=== PATIENT | female | born 1990 | race Caucasian/White ===

== ENCOUNTER → 2022-06-05 | Outpatient (CLI) | payer OTHER, SELFPAY ==
[2022-06-05 12:42] LABS: hCG Titer Quant., Serum 18632 mIU/mL (1-3)
[2022-06-07 15:07] LABS: Dilute Prothrombin Time (dPT) 35.8 sec (0.0-47.6); Dilute Russell Viper Venom 33.1 sec (0.0-47.0); Thrombin Time 15.2 sec (0.0-23.0); dPT Confirm Ratio 0.97 Ratio (0.00-1.34)
[2022-06-08 09:19] LABS: Anti-Cardiolipin Ab, IgG, Qn < 9 GPL U/mL (0-14); Anti-Cardiolipin Ab, IgM, Qn 18 MPL U/mL (0-12)
[2022-06-08 09:20] LABS: Anti-Cardiolipin Ab, IgA, Qn < 9 APL U/mL (0-11); Beta-2-Glycoprotein I IgA <9 (0-25); Beta-2-Glycoprotein I IgG <9 (0-20); Beta-2-Glycoprotein I IgM <9 (0-32); Interpretation Comment: (.); PTT-LA 29.6 sec (0.0-51.9)
[2022-06-09 06:06] LABS: Chlamydia By Nucleic Acid AMP Negative (Negative)
[2022-06-09 18:38] LABS: Gonococcus By Nucleic Acid AMP Negative (Negative)
== END | disposition home or self-care (01) ==
PROVIDERS: Referring Provider Obstetrics & Gynecology; Visit Provider Obstetrics & Gynecology
DX: Z34.90 Encounter for supervision of normal pregnancy, unspecified, unspecified trimester (principal)
CPT/HCPCS: 36415; 84702; 86146; 86147; 87086; 87491; 87591

== ENCOUNTER → 2022-06-07 | Outpatient (CLI) | payer OTHER, SELFPAY ==
[2022-06-07 09:33] LABS: hCG Titer Quant., Serum 15616 mIU/mL (1-3)
== END | disposition home or self-care (01) ==
PROVIDERS: Referring Provider Obstetrics & Gynecology; Visit Provider Obstetrics & Gynecology
DX: O20.0 Threatened abortion (principal); Z3A.00 Weeks of gestation of pregnancy not specified
CPT/HCPCS: 36415; 84702

== ENCOUNTER → 2022-08-23 | Outpatient (CLI) | payer OTHER, SELFPAY ==
[2022-08-25 15:08] LABS: Protein S, Free 110 % (61-136)
[2022-08-25 15:41] LABS: Activated Protein C Resistance 2.9 ratio (2.2-3.5); Anti-Cardiolipin Ab, IgG, Qn < 9 GPL U/mL (0-14); Anti-Cardiolipin Ab, IgM, Qn < 9 MPL U/mL (0-12); Anti-Thrombin 3 AG, Immunol 107 % (72-124); Antithrombin 3 Function 121 % (75-135); Protein C, Functional 109 % (73-180); Protein S, Total 104 % (60-150)
== END | disposition home or self-care (01) ==
PROVIDERS: Referring Provider Obstetrics & Gynecology; Visit Provider Obstetrics & Gynecology
DX: N96 Recurrent pregnancy loss (principal)
CPT/HCPCS: 36415; 85300; 85301; 85303; 85305; 85306; 85307; 86147

== ENCOUNTER → 2024-04-27 | Outpatient (CLI) | payer BC, SELFPAY | END | disposition home or self-care (01) | LOC: LABSPEC 11:58 | PROVIDERS: Referring Provider Nurse Practitioner Women's Health; Visit Provider Nurse Practitioner Women's Health | DX: R30.0 Dysuria (principal) | CPT/HCPCS: 87086 ==

== ENCOUNTER → 2024-05-12 | Outpatient (CLI) | payer BC, SELFPAY ==
[2024-05-12 10:41] LABS: hCG Titer Quant., Serum 3571 mIU/mL (1-3)
[2024-05-15 08:07] LABS: PROGESTERONE 24.2 ng/mL (.)
== END | disposition home or self-care (01) ==
PROVIDERS: Referring Provider Obstetrics & Gynecology; Visit Provider Obstetrics & Gynecology
DX: N96 Recurrent pregnancy loss (principal); N91.2 Amenorrhea, unspecified
CPT/HCPCS: 36415; 84144; 84702

== ENCOUNTER → 2024-05-14 | Outpatient (CLI) | payer BC, SELFPAY ==
[2024-05-14 11:04] LABS: hCG Titer Quant., Serum 6698 mIU/mL (1-3)
== END | disposition home or self-care (01) ==
LOC: LAB 09:54
PROVIDERS: Referring Provider Obstetrics & Gynecology; Visit Provider Obstetrics & Gynecology
DX: Z34.90 Encounter for supervision of normal pregnancy, unspecified, unspecified trimester (principal)
CPT/HCPCS: 36415; 84702

== ENCOUNTER → 2024-05-23 | Outpatient (CLI) | payer BC, SELFPAY ==
--- NOTE | 2024-05-23 09:40 | US_ITS ---
STUDY: FIRST TRIMESTER OBSTETRICAL ULTRASOUND REASON FOR EXAM: Female, 33 years old Hx of recurrent miscarriage LMP: 04/08/2024 TECHNIQUE: Transvaginal TECHNICAL QUALITY: Adequate. PRIOR ULTRASOUND: None. FINDINGS: There is visualization of a single gestational sac in a normal intrauterine position. The mean sac diameter (MSD) measures 2.3 cm, indicating an estimated gestational age (EGA) of 7 weeks, 2 days. The gestational sac shape is within normal limits. There is a visualized yolk sac. The yolk sac measures 0.3 cm. The placenta is non-visualized. There is visualization of a live embryo. The crown-rump length (CRL) measures 0.9 cm, indicating an estimated gestational age (EGA) of 7 weeks, 0 days. There is demonstrated cardiac activity with a heart rate of 123 bpm. The estimated gestation age (EGA) by LMP is 6 weeks, 3 days. The estimated date of delivery (TREVON) by LMP is 01/13/2025. The estimated gestation age (EGA) by US is 7 weeks, 1 days. The estimated date of delivery (TREVON) by US is 01/08/2025. The uterus measures 9.7 x 5.5 x 5.0 cm. There is no demonstrated uterine fibroid. The cervix is closed. The right ovary measures 2.1 x 1.2 x 1.3 cm. There is no right ovarian cyst. There is no visualized right adnexal mass or complex lesion. The left ovary measures 3.6 x 2.8 x 2.6 cm.. There is a solid paraovarian nodule measuring 2 x 2 by 1.6 cm and a likely corpus luteal cyst measuring 2 cm. There is no fluid in the cul de sac. US/Transvaginal w/Preg US IMPRESSION: Single live intrauterine at 7 weeks, 1 day by ultrasound with TREVON of 01/08/2025. Heart rate 123 bpm. No suspicious sonographic findings Electronically Signed: Mulugeta Currie MD at 13:25 EST ,
== END | disposition home or self-care (01) ==
PROVIDERS: Referring Provider Obstetrics & Gynecology; Visit Provider Obstetrics & Gynecology
DX: N96 Recurrent pregnancy loss (principal); N91.2 Amenorrhea, unspecified
CPT/HCPCS: 76817

== ENCOUNTER → 2024-06-10 | Outpatient (CLI) | payer BC, SELFPAY ==
[2024-06-10 12:17] LABS: Absolute Lymphocyte Count 1.89 X10^3/uL (0.83-4.51); Absolute Neutrophil Count 7.1 X10^3/uL (2.0-7.7); Basophil# 0.03 X10^3/uL; Basophil% 0.3 % (0-1); Eosinophil# 0.07 X10^3/uL; Eosinophils% 0.7 % (0-5); Hematocrit 38.8 % (37-47); Hemoglobin 13.2 g/dL (12.0-15.0); Lymphocyte # 1.89 X10^3/ul (0.83-4.51); Lymphocyte % 19.2 % (19-41); Mean Corpuscular Hgb 30.6 pg (27.0-32.0); Monocyte# 0.73 X10^3/uL; Monocyte% 7.4 % (0-10); NRBC Flagged by Analyzer 0 % (0-5); Platelet Count 324 K/mm3 (150-450); RBC Distribution Width CV 12.1 % (11.6-14.6); RBC Distribution Width SD 39.9 fl (35.1-43.9); Red Blood Count 4.31 M/mm3 (4.2-5.4); White Blood Count 9.9 K/mm3 (4.4-11.0)
[2024-06-10 13:57] LABS: HIV - WCH Non-Reactive (Nonreactive); Hepatitis B Surface Antigen Non-Reactive (Nonreactive); Hepatitis C Antibody Non-Reactive (Nonreactive); Rubella IgG Reactive (Nonreactive); Syphilis Antibodies Non-reactive
[2024-06-13 21:07] LABS: Chlamydia By Nucleic Acid AMP Negative (Negative); Gonococcus By Nucleic Acid AMP Negative (Negative)
[2024-06-16 11:08] LABS: HPV APTIMA, High Risk Negative (Negative)
== END | disposition home or self-care (01) ==
LOC: BWCLAB 11:56
PROVIDERS: Referring Provider Advanced Practice Midwife; Visit Provider Advanced Practice Midwife
DX: O09.90 Supervision of high risk pregnancy, unspecified, unspecified trimester (principal); Z3A.00 Weeks of gestation of pregnancy not specified
CPT/HCPCS: 36415; 84443; 85025; 86703; 86762; 86780; 86803; 86850; 86900; 86901; 87086; 87340; 87491; 87591; 87624; 88175; G0145

== ENCOUNTER → 2024-07-07 | Outpatient (CLI) | payer BC, SELFPAY | END | disposition home or self-care (01) | LOC: BWCLAB 08:39 | PROVIDERS: Visit Provider Advanced Practice Midwife | DX: Z34.81 Encounter for supervision of other normal pregnancy, first trimester (principal) | CPT/HCPCS: 36415 ==

== ENCOUNTER → 2024-10-12 | Outpatient (CLI) | payer BC, SELFPAY ==
[2024-10-12 08:24] LABS: Absolute Lymphocyte Count 1.54 X10^3/uL (0.83-4.51); Absolute Neutrophil Count 7.2 X10^3/uL (2.0-7.7); Basophil# 0.03 X10^3/uL; Basophil% 0.3 % (0-1); Eosinophil# 0.07 X10^3/uL; Eosinophils% 0.7 % (0-5); Hematocrit 33.9 % (37-47); Hemoglobin 11.5 g/dL (12.0-15.0); Lymphocyte # 1.54 X10^3/ul (0.83-4.51); Lymphocyte % 16.1 % (19-41); Mean Corp Hgb Conc 33.9 g/dL (32-36); Mean Corpuscular Hgb 32.2 pg (27.0-32.0); Mean Platelet Vol. 9.5 fl (6.2-12.0); Monocyte# 0.54 X10^3/uL; Monocyte% 5.7 % (0-10); NRBC Flagged by Analyzer 0 % (0-5); Neutrophil # 7.16 X10^3/uL (2.7-7.7); Neutrophil % 75.1 % (47-70); Platelet Count 257 K/mm3 (150-450); RBC Distribution Width CV 13.2 % (11.6-14.6); RBC Distribution Width SD 46.3 fl (35.1-43.9); Red Blood Count 3.57 M/mm3 (4.2-5.4); White Blood Count 9.5 K/mm3 (4.4-11.0)
[2024-10-12 09:31] LABS: Glucose Challenge Gest 1H 50g 190 mg/dL (70-140); HIV Nonreactive (Nonreactive); Syphilis Antibodies Nonreactive (Nonreactive)
== END | disposition home or self-care (01) ==
PROVIDERS: Obstetrics & Gynecology; Referring Provider Nurse Practitioner Women's Health; Visit Provider Nurse Practitioner Women's Health
DX: O09.92 Supervision of high risk pregnancy, unspecified, second trimester (principal); Z3A.00 Weeks of gestation of pregnancy not specified
CPT/HCPCS: 36415; 82950; 85025; 86703; 86780

== ENCOUNTER 2024-10-18 10:19 | Outpatient (RCR) | payer BC, SELFPAY | END 2024-11-14 23:59 | LOC: NS 10:19 | PROVIDERS: Referring Provider Nurse Practitioner Women's Health; Visit Provider Nurse Practitioner Women's Health | DX: Z71.3 Dietary counseling and surveillance (principal); O24.419 Gestational diabetes mellitus in pregnancy, unspecified control | CPT/HCPCS: 97802 ==

== ENCOUNTER → 2024-12-15 | Outpatient (CLI) | payer BC, SELFPAY ==
--- NOTE | 2024-12-15 13:21 | US_ITS ---
PROCEDURE: OB LIMITED WITH BIOMETRICS 12/15/2024 REASON FOR EXAM: GDM TECHNIQUE: OB LIMITED WITH BIOMETRICS COMPARISON: None FINDINGS LMP: April 08, 2025 Number: 1 Position: Vertex Placental Position: Anterior and not low-lying Placental Abnormalities: No evidence of previa. DIMENSIONS: Biparietal Diameter: 9 cm: 36 weeks and 2 days: 70 percentile/ Head Circumference: 32 cm: 36 weeks and 1 day: 24 percentile/ Abdominal Circumference: 33.9 cm: 37 weeks and 6 days: 96 percentile/ Femur Length: 6.9 cm: 35 weeks and 2 days: 30 percentile/ ESTIMATED WEIGHT: 3092 g plus/-464 g ESTIMATED WEIGHT PERCENTILE (24+ weeks): 80 ESTIMATED GESTATIONAL AGE: Baseline: 35 weeks and 6 days By Ultrasound: 36 weeks and 1 day ESTIMATED DATE OF DELIVERY: Baseline: January 13, 2025 By Ultrasound: January 11, 2025 BIOPHYSICAL ASSESSMENT: Amniotic Fluid Volume: 4.7 cm Amniotic Fluid Index: 12.9 cm (8-24 cm normal range) Cardiac Motion: 143 beats per minute (average) Trunk and Limb Motion: Present. MATERNAL ANATOMY: Adnexa: Neither maternal ovary is successfully identified. US/OB Limited With Biometrics IMPRESSION: Single live intrauterine gestation with a mean gestational age of 36 weeks and 1 day. Reading Location: [id number]
== END | disposition home or self-care (01) ==
LOC: OPUS 13:19 → US 13:20
PROVIDERS: Referring Provider Advanced Practice Midwife; Visit Provider Advanced Practice Midwife
DX: O24.410 Gestational diabetes mellitus in pregnancy, diet controlled (principal); O09.92 Supervision of high risk pregnancy, unspecified, second trimester; Z3A.00 Weeks of gestation of pregnancy not specified
CPT/HCPCS: 76816

== ENCOUNTER → 2024-12-23 | Outpatient (CLI) | payer BC, SELFPAY | END | disposition home or self-care (01) | LOC: LABSPEC 15:46 | PROVIDERS: Referring Provider Advanced Practice Midwife; Visit Provider Advanced Practice Midwife | DX: O09.93 Supervision of high risk pregnancy, unspecified, third trimester (principal); Z3A.37 37 weeks gestation of pregnancy | CPT/HCPCS: 87081 ==

== ENCOUNTER 2024-12-29 15:05 | Outpatient (CLI) | payer BC, SELFPAY ==
[2024-12-29] VITALS (14 sets, daily range): BP systolic 113–135; BP diastolic 62–74; PULSE 68–88; RESP 16; TEMP 36.8; BMI 25.7
[2024-12-29 16:12] LABS: Hematocrit 34.6 % (37-47); Hemoglobin 12.1 g/dL (12.0-15.0); Mean Corp Hgb Conc 35.0 g/dL (32-36); Mean Corpuscular Volume 93.0 fL (81-99); Mean Platelet Vol. 11.2 fl (6.2-12.0); Platelet Count 233 K/mm3 (150-450); RBC Distribution Width CV 13.1 % (11.6-14.6); RBC Distribution Width SD 44.6 fl (35.1-43.9); Red Blood Count 3.72 M/mm3 (4.2-5.4); White Blood Count 8.9 K/mm3 (4.4-11.0)
[2024-12-29 16:53] LABS: Creatinine, Urine (random) 82.30 mg/dL (28.00-217.00); Protein, Urine (Random) 9.7 mg/dL (0.0-12.0); Protein:Creat Ratio 118 mg/g CRE (0-200)
[2024-12-29 17:06] LABS: Uric Acid 4.5 mg/dL (2.6-6.0)
[2024-12-29 17:13] LABS: AST(SGOT) 30 U/L (<=31); Alanine Aminotransfer ALT/SGPT 15 U/L (<=34); Estimated Creatinine Clearance 99.41 ml/min (50-250)
--- NOTE | 2024-12-29 18:11 | OB.TRI.PN_ITS ---
Progress Notes Date of Service: 12/29/24 Progress Note: Patient presents for triage evaluation secondary to elevated bps FHT: 130 Moderate variability reactive no decelerations category I tracing [place]: no reuglar Contractions Assessment and plan: elevated blood pressures no gestational hypertension 37 weeks, labs WNL repeat bps WNL Reactive NST, reassuring maternal and status patient discharged to home to follow-up as paola. See problem list details for additional plan information. Laboratory Studies: Laboratory Tests 12/29/24 12/29/24 Range/Units 16:15 15:45 WBC 8.9 (4.4-11.0) K/mm3 RBC 3.72 L (4.2-5.4) M/mm3 Hgb 12.1 (12.0-15.0) g/dL Hct 34.6 L (37-47) % MCV 93.0 (81-99) fL MCH 32.5 H (27.0-32.0) pg MCHC 35.0 (32-36) g/dL RDW Std Deviation 44.6 H (35.1-43.9) fl RDW Coeff of Brit 13.1 (11.6-14.6) % Plt Count 233 (150-450) K/mm3 MPV 11.2 (6.2-12.0) fl Creatinine 0.77 (0.70-1.20) mg/dL Estim Creat Clear Calc 99.41 (50-250) ml/min Est GFR (MDRD) Non-Af 106 (>60) Uric Acid 4.5 (2.6-6.0) mg/dL AST 30 (<=31) U/L ALT 15 (<=34) U/L U Random Total Protein 9.7 (0.0-12.0) mg/dL Urine Creatinine 82.30 (28.00-217.00) mg/dL Protein/Creatinin Ratio 118 (0-200) mg/g CRE Charges/Coding Procedures Urinary/Genital [id number]: [id number] non-stress test Interp
== END 2024-12-29 18:00 | disposition home or self-care (01) ==
LOC: LAB 15:07 → WP 15:08
PROVIDERS: Referring Provider Obstetrics & Gynecology; Visit Provider Obstetrics & Gynecology
DX: O99.891 Other specified diseases and conditions complicating pregnancy (principal); R03.0 Elevated blood-pressure reading, without diagnosis of hypertension; Z3A.37 37 weeks gestation of pregnancy
CPT/HCPCS: 36415; 59025; 59050; 82565; 82570; 84156; 84450; 84460; 84550; 85027; 99221; G0378

== ENCOUNTER 2025-01-08 04:14 | Inpatient (IN) | payer BC, SELFPAY ==
[2025-01-08] VITALS (53 sets, daily range): BP systolic 107–143; BP diastolic 55–90; PULSE 74–126; RESP 15–18; TEMP 36.2–37.2; O2SAT 91–100; BMI 25.4
--- OUTSIDE RECORDS SUMMARY | 2025-01-08 03:39 | XMS RPT_ITS | CCD ---
Author Organization [facility] CliniSyfl Care Team Providers Care Sailboat Captain Name Role Phone Saji ESTEVEZ MD, Todd Vásquez Primary Care Provider Dr. Emerald Dunbar Attending Provider [phone] Dr. Todd Romero Primary Care Provider Dr. Todd Romero Referring Provider Dr. Emerald Dunbar Attending Provider [phone] Dr. Todd Romero Primary Care Provider Dr. Todd Romero Referring Provider Saji ESTEVEZ MD, Todd Vásquez Primary Care Provider MISC, PHYSICIAN Attending Unavailable Saji ESTEVEZ MD, Robert Earl Primary Care Provider TRISTIAN FENG Attending Unavailable TODD ROMERO II Primary Care UnavailTODD Weir II Attending UnavailTODD Weir II Primary Care Unavailmarily MATOS PRIMARY MD SEE Primary Care Unavailable AVEL SETHI Attending Unavailable VAIBHAV HALE Referring Unavailable Vaibhav Hale CNM Attending Provider Dr. Emerald Dunbar DO Attending Provider Erinn Porras Attending Provider [phone] Dr. Lindsay Song MD Attending Provider [phone] Erinn Porras Referring Provider [phone] Dr. Todd Romero MD Primary Care Provider [phone] Dr. Todd Romero MD Referring Provider Vaibhav Hale CNM Attending Provider [phone] Dr. Emerald Dunbar DO Attending Provider Vaibhav Hale CNM Referring Provider Julian STONE LAYOUT MARKER-C, Erinn Attending Provider Duncan FRAGOSO, Dr. Montoya Referring Provider Duncan FRAGOSO, Dr. Montoya Other Provider Romero, Todd E Primary Care Unavailable Romero, Todd E Referring Unavailable VandEmerald Haji Attending Unavailabl e Vaibhav Hale Attending Unavailable Romero, Todd E Primary Care Unavailable Vande Velde, Emerald Attending Unavailabl e Romero, Todd E Referring Unavailable Romero, Todd E Primary Care Unavailable Romero, Todd E Referring Unavailable Vande Velde, Emerald Attending Unavailabl e Romero, Todd E Referring Unavailable Romero, Todd E Primary Care Unavailable MarcanthonyLindsay Attending Unavailable Romero, Todd E Primary Care Unavailable Romero, Todd E Referring Unavailable Vaibhav Hale Attending Unavailable Romero, Todd E Primary Care Unavailable Vaibhav Hale Attending Unavailable Romero, Todd E Referring Unavailable Vande Velangélica, Emerald Attending Unavailabl e Julian STONE LAYOUT MARKER, Erinn Attending Unavailable Vaibhav Hale Attending Unavailable Romero, Tdod E Primary Care Unavailable MarcanthonyLindsay Referring Unavailable Marcanthony, Lindsay Attending Unavailable Romero, Todd E Primary Care Unavailable Marcanthony, Lindsay Attending Unavailable Marcanthony, Lindsay Referring Unavailable Romero, Todd E Primary Care Unavailable Marcanthony, Lindsay Attending Unavailable Marcanthony, Lindsay Referring Unavailable Romero, Todd E Primary Care Unavailable Julian STONE LAYOUT MARKER, Erinn Attending Unavailable Williams STONE LAYOUT MARKER, Erinn Referring Unavailable Romero, Todd E Primary Care Unavailable Marcanthony, Lindsay Referring Unavailable Marcanthony, Lindsay Attending Unavailable Romero, Todd E Primary Care Unavailable MarcanthonyLindsay Consulting Unavailable MarcanthonyLindsay Referring Unavailable MarcanthonyLindsay Attending Unavailable Vaibhav Hale Attending Unavailable MarcanthonyLindsay Admitting Unavailable Marcanthony, Lindsay Referring Unavailable Marcanthony, Lindsay Attending Unavailable Romero, Todd E Primary Care Unavailable Vaibhav Hale Referring Unavailable Vaibhav Hale Attending Unavailable Romero, Todd E Primary Care Unavailable Romero, Todd E Primary Care Unavailable Vaibhav Hale Referring Unavailable Vaibhav Hale Attending Unavailable Romero, Todd E Referring Unavailable Romero, Todd E Primary Care Unavailable Marcanthony, Lindsay Attending Unavailable Marcanthony, Lindsay Attending Unavailable Williams STONE LAYOUT MARKER, Erinn Attending Unavailable Romero, Todd E Primary Care Unavailable Romero, Todd E Referring Unavailable Julian STONE LAYOUT MARKER, Erinn Attending Unavailable Vaibhav Hale Attending Unavailable Julian STONE LAYOUT MARKER, Erinn Attending Unavailable Julian STONE LAYOUT MARKER, Erinn Referring Unavailable Vaibhav Hale Referring Unavailable Vaibhav Hale Attending Unavailable Todd Romero Primary Care Unavailable Julian STONE LAYOUT MARKER, Erinn Referring Unavailable Julian STONE LAYOUT MARKER, Erinn Attending Unavailable Todd Romero Primary Care Unavailable Julian STONE LAYOUT MARKER, Erinn Referring Unavailable Julian STONE LAYOUT MARKER, Erinn Attending Unavailable Todd Romero Referring Unavailable Lindsay Song Attending Unavailable Todd Romero Referring Unavailable Todd Romero Primary Care Unavailable Vaibhav Hale Attending Unavailable Medications Current Medications Medication Drug Class(es) Dates Sig (Normalized) Sig (Original) Blood-Glucose Meter misc (12 sources) Start: 10-12-2024 Blood-Glucose Meter misc Active 0 .MEDSUPPLY 1 0 October 12, 2024 12:00am As directed- Test fasting and 2 hours after meals Start: 10-12-2024 Blood-Glucose Meter misc Active 0 .MEDSUPPLY 1 October 12, 2024 12:00am As directed- Test fasting and 2 hours after meals cholecalciferol 0.375 mg/ml oral solution (13 sources) Vitamin D Start: 05-31-2024 take 25 ug by mouth once Cholecalciferol (Vitamin D3) 25 mcg/drop ( 1000 unit/drop) drops Active 25 ug PO ONCE May 31, 2024 1:00am Cod Liver Oil capsule (13 sources) Start: 04-27-2024 Cod Liver Oil capsule Active 1 NMA PO ONCE April 27, 2024 1:00am Multivit 96-Jjgl-Lngxyl 1-Dha (Pnv-Dha) 27 mg iron-1 mg -300 mg capsule (16 sources) Start: 05-23-2022 Multivit 47-Pwxo-Bbmzcg 1-Dha (Pnv-Dha) 27 mg iron-1 mg -300 mg capsule Active NMA PO May 23, 2022 1:00am Start: 05-23-2022 Multivit 47-Ir on-Folate 1-Dha (Pnv-Dha) 27 mg iron-1 mg -300 mg capsule Active CAP PO May 23, 2022 1:00am Start: 05-23-2022 Multivit 47-Ir on-Folate 1-Dha (Pnv-Dha) 27 mg iron-1 mg -300 mg capsule Active CAP PO May 23, 2022 12:00am PNV no.95/ferrous fum/folic ac ( ORAL) (3 sources) Start: 05-23-2022 PNV no.95/ferr ous fum/folic ac ( ORAL) Take by mouth. 05/23/2022 Active Start: 05-23-2022 PNV no.95/ferr ous fum/folic ac ( ORAL) Take by mouth. 0 05/23/2022 Active Comment on above: Take by mouth. thyroid support (13 sources) Start: 04-27-2024 thyroid suppor t Active PO April 27, 2024 1:00am Completed/Discontinued Medications Medication Drug Class(es) Dates Sig (Normalized) Sig (Original) acetaminophen 325 mg / oxyCODONE hydrochloride 5 mg oral tablet (16 sources) Opioid Agonist Start: 06-11-2022 End: 06-14-2022 Oxycodone-Acetamin ophen (Percocet) 5-325 mg tablet Discontinued 1 {tbl} PO Q4H as needed for pain 10 3 0 June 11, 2022 June 13, 2022 1:00am June 14, 2022 1:11am Incomplete Incomplete spontaneous without complication atropine sulfate 0.025 mg / diphenoxylate hydrochloride 2.5 mg oral tablet (11 sources) Anticholinergic, Cholinergic Muscarinic Antagonist, Antidiarrheal Start: 02-21-2021 End: 07-28-2023 take 1 tablet by mouth four times daily as needed diphenoxylate-atro pine (LOMOTIL) 2.5-0.025 mg per tablet Indications: Diarrhea, unspecified type TAKE 1 TABLET BY MOUTH FOUR TIMES DAILY NEEDED 10 tablet 0 03/18/2022 07/28/2023 Discontinued (Course of therapy completed) Comment on above: TAKE 1 TABLET BY RAFAEL TH FOUR TIMES DAILY NEEDED FOR DIARRHEA for up to TEN doses Take 1 tablet by rafael th four times daily as needed for up to 90 days. TAKE 1 TABLET BY RAFAEL TH FOUR TIMES DAILY NEEDED hydrOXYzine hydrochloride 25 mg oral tablet (11 sources) Antihistamine Start: 11-13-2020 End: 07-28-2023 take 0.5 tablet by mouth three times daily as needed for anxiety hydrOXYzine HCl (ATARAX) 25 mg tablet Indications: DARVIN (generalized anxiety disorder) Take 0.5 tablets by mouth three times daily as needed for anxiety (for itching). 10 tablet 0 09/05/2021 07/28/2023 Discontinued (Course of therapy completed) Comment on above: Take 0.5 tablets by mouth three times daily as needed for anxiety (for itching). miSOPROStol 0.2 mg oral tablet (16 sources) Prostaglandin E1 Analog Start: 06-11-2022 End: 06-18-2022 take 1 tablet by mouth once Misoprostol (Cytotec) 200 mcg tablet Discontinued 600 ug PO ONCE 3 0 June 11, 2022 1:00am June 18, 2022 10:37am progesterone 200 mg oral capsule (13 sources) Progesterone Start: 09-11-2022 End: 04-27-2024 Progesterone Micronized (Prometrium) 200 mg capsule Discontinued 200 mg VAGINAL AT BEDTIME 30 4 September 11, 2022 12:00am April 27, 2024 11:27am start taking on day 20 of cycle. stop if menses starts and repeat the next month vitamin e 400 unt/ml oral solution (13 sources) Start: 04-27-2024 End: 05-31-2024 Vitamin E 100 unit/0.25 mL drops Discontinued U PO April 27, 2024 1:00am May 31, 2024 10:43am Problems Active Problems Problem Classification Problem Date Documented Da te Episodic/Chronic Anxiety disorders (20 sources) Generalized anxiety disorder; Translations: [Generalized anxiety disorder] Onset: 12-29-2024 Chronic Comment on above: 5 yr ago, situationa l, hydroxyzine prn then. Stable now Diabetes or abnormal glucose tolerance complicating ; childbirth; or the puerperium (20 sources) Gestational diabetes mellitus; Translations: [Gestational diabetes mellitus in , unspecified control] Onset: 12-29-2024 10-12-2024 Episodic Comment on above: QID testing, nutriti onal referral. Growth US at 36w well controlled, dis cussed reduced testing unless uncontrolled. plan dleiveyr by 40, Growth US at 36w well controlled, dis cussed reduced testing unless uncontrolled. plan dleiveyr by 40, Growth US at 36w-80% Headache; including migraine (13 sources) Migraine; Translations: [Migraine, unspecified, not intractable, without status migrainosus] 12-31-2018 Chronic Other complications of (4 sources) H/O: miscarriage; Translations: [Supervision of with other poor reproductive or obstetric history, unspecified trimester] 05-23-2022 Episodic Other complications of (20 sources) High risk ; Translations: [Supervision of high risk , unspecified, unspecified trimester] 05-23-2022 Episodic Comment on above: PRR, , TREVON , Power PRR, , TREVON , boy (name secret) Power Other complications of (3 sources) Supervision of with other poor reproductive or obstetric history, unspecified trimester; Translations: [Supervision of high-risk with history of ] 06-05-2022 Episodic Other complications of (1 source) Supervision of high risk , unspecified, second trimester; Translations: [Supervision of high risk , unspecified, second trimester] Onset: 12-29-2024 Episodic Other complications of (1 source) Supervision of high risk , unspecified, third trimester; Translations: [Supervision of high risk , unspecified, third trimester] Onset: 12-29-2024 Episodic Other female genital disorders (16 sources) History of abnormal cervical Papanicolaou smear ; Translations: [Personal history of other diseases of the female genital tract] 05-23-2022 Episodic Comment on above: x 1, nl since Other female genital disorders (20 sources) Recurrent loss; Translations: [Recurrent loss without current ] Onset: 12-29-2024 06-18-2022 Episodic Comment on above: nl APL X 3 Other gastrointestinal disorders (1 source) Irritable bowel syndrome with diarrhea; Translations: [Irritable bowel syndrome with diarrhea] Chronic Other gastrointestinal disorders (6 sources) Diarrhea; Translations: [Diarrhea, unspecified] Episodic Other upper respiratory infections (14 sources) Sore throat symptom; Translations: [Acute pharyngitis, unspecified] Onset: 11-23-2018 11-23-2018 Episodic Residual codes; unclassified (16 sources) Past history of procedure; Translations: [Other specified postprocedural states] 05-23-2022 Episodic Comment on above: 2020 Residual codes; unclassified (20 sources) Infertile 04-27-2024 Episodic Residual codes; unclassified (1 source) 37 weeks gestation of ; Translations: [37 weeks gestation of ] Onset: 12-29-2024 Episodic Residual codes; unclassified (1 source) 35 weeks gestation of ; Translations: [35 weeks gestation of ] Onset: 12-15-2024 Episodic Residual codes; unclassified (1 source) 33 weeks gestation of ; Translations: [33 weeks gestation of ] Onset: 12-01-2024 Episodic Residual codes; unclassified (1 source) 31 weeks gestation of ; Translations: [31 weeks gestation of ] Onset: 11-17-2024 Episodic Residual codes; unclassified (1 source) 29 weeks gestation of ; Translations: [29 weeks gestation of ] Onset: 11-03-2024 Episodic Spontaneous (6 sources) with abortive outcome; Translations: [Incomplete spontaneous without complication] 06-11-2022 Episodic Unclassified (1 source) Yearly Exam Onset: 07-28-2023 Past or Other Problems Problem Classification Problem Date Documented Da te Episodic/Chronic Abdominal pain (12 sources) Abdominal pain; Translations: [Unspecified abdominal pain] Onset: 03-18-2018 11-24-2018 Episodic Genitourinary symptoms and ill-defined conditions (1 source) Dysuria; Translations: [Dysuria] Onset: 05-30-2024 Episodic Hemorrhage during ; abruptio placenta; placenta previa (20 sources) Threatened miscarriage; Translations: [Threatened ] Onset: 06-10-2024 10-12-2024 Episodic Comment on above: 3mm subchorionic hem atoma seen reviewed bleeding precautions recommend visits q 2-3 weeks through 14 weeks Other complications of (4 sources) Supervision of high risk , unspecified, unspecified trimester; Translations: [Supervision of unspecified high-risk ] Onset: 06-27-2024 06-05-2022 Episodic Other and delivery including normal (20 sources) ; Translations: [Encounter for supervision of normal , unspecified, unspecified trimester] Onset: 06-10-2024 05-23-2022 Episodic Comment on above: NIPT low risk, gende r male NIPT low risk, gende r male. nl anatomy GBS neg, NIPT low ri sk, gender male. 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 Is patient in pain?: No Allergies No Known Allergies Allergy (Verified 01/03/25 11:42) Medications ???Medication ???Instructions ???Recorded ???Confirmed ???Type multivitamin no.47-iron fum 27 cap PO 05/23/22 01/03/25 History mg-folate no.1 1 mg-dha 300 mg capsule (PNV-DHA) cod liver oil 1 cap PO ONCE 04/27/24 01/03/25 Hi story thyroid support PO 04/27/24 01/03/25 History cholecalciferol (vitamin D3) 25 25 mcg PO ONCE 05/31/24 01/03/25 H istory mcg/drop (1,000 unit/drop) oral drops blood sugar diagnostic (Blood #120 ea 10/12/24 01/03/25 Rx Glucose Test strips) blood-glucose meter #1 ea 10/12/24 01/03/25 Rx lancets #200 ea 10/12/24 01/03/25 Rx Last Menstrual Period: 04/08/24 Zika: Zika virus screening: Negative : No PFSH PFSH Medical History Hx of abnormal cervical Pap smear Surgical History Spearfish teeth extracted History of colposcopy Family History Grandmother Colon cancer, Onset Age: 92 Paternal Mother Myocardial infarction, Onset Age: 64 2022 Grandfather Myocardial infarction Maternal Social History adopted: No household members: spouse housing: house current occupational status: employed current occupation: [employer]- [employer] current occupational exposures/hazards: No pets and animals: No history of recent travel: No ([place], [place]) sexually active: Yes Smoking Status: Never smoker alcohol intake: former details: occasionally prior to substance use type: does not use well-balanced diet: daily or most days caffeine: No eating out: 1-3 times/week during the past year weight has: remained stable what type of physical activity do you participate in: walking and weight training frequency: 3-4 times per week duration: 30-45 minutes/day michael/gnosticism: Sabianist seatbelt use: always do you feel safe at home: Yes 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 Date Name GA/Weeks Outcome Route Bth Weight Gen Labor Lgth Anesthesia Del Locatn Provider FOB 02/26/21 miscarriage 5 1/2 weeks 07/06/21 miscarriage 8 1/2 weeks 06/05/22 miscarriage 9wks HPI 39wk ob Details: NORA CAMERON is a 34 year old who presents for routine OB visit. OB Visit TREVON Calculator Estimated Delivery Date Method Current WG Current Estimate 01/13/25 LMP (Certain) 38w 4d Other Estimates 01/10/25 Ultrasound #1 39w 0d Expected Delivery Route/Plan Labor Preferences- CB/BF classes: encouraged labor support person: Power labor intervention preferences: prefers pain management options preferred: limited but epidural if requested, okay with touch, guided breathing, tub, hydrotherapy cut cord/dad catch: yes : yes PP control planned: discussed discussed possible routes of delivery and associated risks: [] special requests: [] Specific Issue/Plans Covid status: [] Flu vaccine: [] Tdap vaccine: Rhogam: na LARC form signed: yes Problem list reviewed and updated with the most current plan of care details and appropriate orders placed. Relevant counseling for the gestational age provided. Continue routine care and follow up unless otherwise noted in visit notes/problem list details Initial Weight: 124 lb Date -???-???-???-???-???-???- ???-???-???-???-???-???- EGA Weight BP Urine Prot -???-???-???-???-???-???- ???-???-???-???-???-???- Glucose FHR FuHt Pres Dilation -???-???-???-???-???-???- ???-???-???-???-???-???- Effaced St Visit Note 06/10/24 -???-???-???-???-???-???- ???-???-???-???-???-???- 9w 0d 124 lb 4 oz (+4 oz) 122/80 -???-???-???-???-???-???- ???-???-???-???-???-???- 182 -???-???-???-???-???-???- ???-???-???-???-???-???- KW- CRL cons with dates. declines NIPT KW- C (more content not included)... Normal [facility] AST(SGOT)on 12-29-2024 AST [Catalytic activity/Vol] 30 U/L Normal <=31 [facility] Comment on above: Result Comment: Hemo lysis present, Results??could be affected. ?? Performed By: #### L 501.4405, L501.1105, L100.0500, L501.0900, L501.1400, L501.4100 ####[facility] [address] [place], [address] Alanine Aminotransferas (SGP T)on 12-29-2024 ALT [Catalytic activity/Vol] 15 U/L Normal <=34 [facility] Comment on above: Performed By: #### L 501.4405, L501.1105, L100.0500, L501.0900, L501.1400, L501.4100 ####[facility] [address] [place], [address] CBC-Complete Blood Cnt No Di ffon 12-29-2024 Erythrocyte distribution width (RBC) [Ratio] 13.1 % Normal 11.6-14.6 [facility] Comment on above: Performed By: #### L 501.4405, L501.1105, L100.0500, L501.0900, L501.1400, L501.4100 #### [facility] [address] [place], [address] Hematocrit (Bld) [Volume fraction] 34.6 % Low 37-47 [facility] Comment on above: Performed By: #### L 501.4405, L501.1105, L100.0500, L501.0900, L501.1400, L501.4100 #### [facility] [address] [place], [address] Hemoglobin (Bld) [Mass/Vol] 12.1 g/dL Normal 12.0-15.0 [facility] Comment on above: Performed By: #### L 501.4405, L501.1105, L100.0500, L501.0900, L501.1400, L501.4100 #### [facility] [address] [place], [address] MCH (RBC) [Entitic mass] 32.5 pg High 27.0-32.0 [facility] Comment on above: Performed By: #### L 501.4405, L501.1105, L100.0500, L501.0900, L501.1400, L501.4100 #### [facility] [address] [place], [address] MCHC (RBC) [Mass/Vol] 35.0 g/dL Normal 32-36 [facility] Comment on above: Performed By: #### L 501.4405, L501.1105, L100.0500, L501.0900, L501.1400, L501.4100 #### [facility] [address] [place], [address] MCV (RBC) [Entitic vol] 93.0 fL Normal 81-99 [facility] Comment on above: Performed By: #### L 501.4405, L501.1105, L100.0500, L501.0900, L501.1400, L501.4100 #### [facility] [address] [place], [address] Platelet mean volume (Bld) [Entitic vol] 11.2 fL Normal 6.2-12.0 [facility] Comment on above: Performed By: #### L 501.4405, L501.1105, L100.0500, L501.0900, L501.1400, L501.4100 #### [facility] [address] [place], [address] Platelets (Bld) [#/Vol] 233 10*3/uL Normal 150-450 [facility] Comment on above: Performed By: #### L 501.4405, L501.1105, L100.0500, L501.0900, L501.1400, L501.4100 #### [facility] [address] [place], [address] RBC (Bld) [#/Vol] 3.72 10*6/uL Low 4.2-5.4 [facility] Comment on above: Performed By: #### L 501.4405, L501.1105, L100.0500, L501.0900, L501.1400, L501.4100 #### [facility] [address] [place], [address] RDW SD 44.6 fl High 35.1-43.9 [facility] Comment on above: Performed By: #### L 501.4405, L501.1105, L100.0500, L501.0900, L501.1400, L501.4100 #### [facility] [address] [place], [address] WBC (Bld) [#/Vol] 8.9 10*3/uL Normal 4.4-11.0 [facility] Comment on above: Performed By: #### L 501.4405, L501.1105, L100.0500, L501.0900, L501.1400, L501.4100 #### [facility] [address] [facility] [place], [address] Erythrocyte distribution wid th ratioOrdered By: Lindsay Song on 12-29-2024 Erythrocyte distribution width (RBC) [Ratio] 13.1 % 11.6-14.6 [facility] Erythrocyte distribution wid th standard deviationOrdered By: Lindsay Song on 12-29-2024 Erythrocyte distribution width (RBC) [Ratio] 44.6 fl High 35.1-43.9 [facility] Glomerular filtration rate ( GFR) estimation/1.73 sq m using serum, plasma, or whole bOrdered By: Lindsay Song on 12-29-2024 GFR/1.73 sq M.predicted among non-blacks MDRD (S/P/Bld) [Vol rate/Area] 106 mL/min/{1.73_m2} >60 [facility] Comment on above: mL/min/1.73m2 CKD-EP I Creatinine Equation (2020) Hematocrit Auto (Bld) [Volum e fraction]Ordered By: Lindsay Song on 12-29-2024 Hematocrit (Bld) [Volume fraction] 34.6 % Low 37-47 [facility] Hemoglobin measurementOrdere d By: Lindsay Song on 12-29-2024 Hemoglobin (Bld) [Mass/Vol] 12.1 g/dL 12.0-15.0 [facility] - Chemistry and C hemistry - challengeOrdered By: Lindsay Song on 12-29-2024 AST [Catalytic activity/Vol] 30 U/L <32 [facility] Comment on above: Hemolysis present, R esults could be affected. Glucose Ql (U) Negative [facility] - UrinalysisOrder ed By: Lindsay Song on 12-29-2024 Protein Ql (U) Negative [facility] MCV (mean corpuscular volume ) determinationOrdered By: Lindsay Song on 12-29-2024 MCV (RBC) [Entitic vol] 93.0 fL 81-99 [facility] Mean corpuscular hemoglobin (MCH) determinationOrdered By: Lindsay Song on 12-29-2024 MCH (RBC) [Entitic mass] 32.5 pg High 27.0-32.0 [facility] Mean corpuscular hemoglobin concentration (MCHC) determinationOrdered By: Lindsay Song on 12-29-2024 MCHC (RBC) [Mass/Vol] 35.0 g/dL 32-36 [facility] Mean platelet volume determi nationOrdered By: Lindsay Song on 12-29-2024 Platelet mean volume (Bld) [Entitic vol] 11.2 fL 6.2-12.0 [facility] OB Triage Progress Noteon OB Triage Progress Note [facility] Medical Records Department [address] [place] [address] OB Triage Progress Note 12/29/24 1811 MR#: [id number] Acct: [id number] Name: NORA CAMERON Rep #: [id number] : 1990 34 From: Lindsay Song MD PCP: Dr. Todd Romero MD Status:REG CLI Y DOS: Location: [place] [address] Progress Notes Date of Service: 12/29/24 Progress Note: Patient presents for triage evaluation secondary to elevated bps FHT: 130 Moderate variability reactive no decelerations category I tracing [place]: no reuglar Contractions Assessment and plan: elevated blood pressures no gestational hypertension 37 weeks, labs WNL repeat bps WNL Reactive NST, reassuring maternal and status patient discharged to home to follow-up as scheudled. See problem list details for additional plan information. Laboratory Studies: Laboratory Tests 12/29/24 12/29/24 Range/Units 16:15 15:45 WBC 8.9 (4.4-11.0) K/mm3 RBC 3.72 L (4.2-5.4) M/mm3 Hgb 12.1 (12.0-15.0) g/dL Hct 34.6 L (37-47) % MCV 93.0 (81-99) fL MCH 32.5 H (27.0-32.0) pg MCHC 35.0 (32-36) g/dL RDW Std Deviation 44.6 H (35.1-43.9) fl RDW Coeff of Brit 13.1 (11.6-14.6) % Plt Count 233 (150-450) K/mm3 MPV 11.2 (6.2-12.0) fl Creatinine 0.77 (0.70-1.20) mg/dL Estim Creat Clear Calc 99.41 (50-250) ml/min Est GFR (MDRD) Non-Af 106 (>60) Uric Acid 4.5 (2.6-6.0) mg/dL AST 30 (<=31) U/L ALT 15 (<=34) U/L U Random Total Protein 9.7 (0.0-12.0) mg/dL Urine Creatinine 82.30 (28.00-217.00) mg/dL Protein/Creatinin Ratio 118 (0-200) mg/g CRE Charges/Coding Procedures Urinary/Genital 52xxx-59xxx: 91028-72 non-stress test Interp 12/29/24 1811 Date Lindsay Song MD Cosigner Signature (if applicable): Date CC: Dr. Todd Romero MD; Dr. Lindsay Song MD Signed Normal [facility] Spray Drier Operator Helper Office Visit Reporton 12-29-2024 Spray Drier Operator Helper Office Visit Report [facility]'s [address], [address] [place] [address] OFFICE VISIT Date of Service: 12/29/24 MR#: [id number] Acct: [id number] Name: NORA CAMERON Rep #: [id number] : 1990 Provider: Dr. Lindsay bui MD Age/Sex: 34/F Location: [facility] [place] Status: Signed Intake Vital Signs 11/17/24 11:38 12/23/24 14:06 12/29/24 14:03 12/29/24 14:07 Height 5 ft 3 in 5 ft 3 in 5 ft 3 in 5 ft 3 in Weight: 151 lb 2 oz BMI 26.7 BP 143/80 H Intake Visit Reasons: 38wk 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 Is patient in pain?: No Allergies No Known Allergies Allergy (Verified 12/29/24 14:02) Medications ???Medication ???Instructions ???Recorded ???Confirmed ???Type multivitamin no.47-iron fum 27 cap PO 05/23/22 12/29/24 History mg-folate no.1 1 mg-dha 300 mg capsule (PNV-DHA) cod liver oil 1 cap PO ONCE 04/27/24 12/29/24 Hi story thyroid support PO 04/27/24 12/29/24 History cholecalciferol (vitamin D3) 25 25 mcg PO ONCE 05/31/24 12/29/24 H istory mcg/drop (1,000 unit/drop) oral drops blood sugar diagnostic (Blood #120 10/12/24 12/29/24 Rx Glucose Test strips) blood-glucose meter #1 10/12/24 12/29/24 Rx lancets #200 10/12/24 12/29/24 Rx Last Menstrual Period: 04/08/24 Zika: Zika virus screening: Negative : No PFSH PFSH Medical History Hx of abnormal cervical Pap smear Surgical History Spearfish teeth extracted History of colposcopy Family History Grandmother Colon cancer, Onset Age: 92 Paternal Mother Myocardial infarction, Onset Age: 64 2022 Grandfather Myocardial infarction Maternal Social History adopted: No household members: spouse housing: house current occupational status: employed 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 current occupational exposures/hazards: No pets and animals: No history of recent travel: No ([place], [place]) sexually active: Yes Smoking Status: Never smoker alcohol intake: former details: occasionally prior to substance use type: does not use well-balanced diet: daily or most days caffeine: No eating out: 1-3 times/week during the past year weight has: remained stable what type of physical activity do you participate in: walking and weight training frequency: 3-4 times per week duration: 30-45 minutes/day michael/gnosticism: Sabianist seatbelt use: always do you feel safe at home: Yes 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 Date Name GA/Weeks Outcome Route Bth Weight Gen Labor Lgth Anesthesia Del Locatn Provider FOB 02/26/21 miscarriage 5 1/2 weeks 07/06/21 miscarriage 8 1/2 weeks 06/05/22 miscarriage 9wks HPI 38wk ob Details: NORA CAMERON is a 34 year old who presents for routine OB visit. OB Visit TREVON Calculator Estimated Delivery Date Method Current WG Current Estimate 01/13/25 LMP (Certain) 37w 6d Other Estimates 01/10/25 Ultrasound #1 38w 2d Expected Delivery Route/Plan Labor Preferences- CB/BF classes: encouraged labor support person: Power labor intervention preferences: prefers pain management options preferred: limited but epidural if requested, okay with touch, guided breathing, tub, hydrotherapy cut cord/dad catch: yes : yes PP control planned: discussed discussed possible routes of delivery and associated risks: [] special requests: [] Specific Issue/Plans Covid status: [] Flu vaccine: [] Tdap vaccine: Rhogam: na LARC form signed: yes Problem list reviewed and updated with the most current plan of care details and appropriate orders placed. Relevant counseling for the gestational age provided. Continue routine care and follow up unless otherwise noted in visit notes/problem list details Initial Weight: 124 lb Date -???-???-???-???-???-???- ???-???-???-???-???-???- EGA Weight BP Urine Prot -???-???-???-???-???-???- ???-???-???-???-???-???- Glucose FHR FuHt Pres Dilation -???-???-???-???-???-???- ???-???-???-???-???-???- Effaced St Visit Note 06/10/24 -???-???-???-???-???-???- ???-???-???-???-???-???- 9w 0d 124 lb 4 oz (+4 oz) 122/80 -???-???-???-???-???-???- ???-???-???-???-???-???- 182 -???-???-???-???-???-???- ???-???-???-???-???-???- KW- CRL cons with dates. decl (more content not included)... Normal [facility] Platelet countOrdered By: Charisse Song on 12-29-2024 Platelets (Bld) [#/Vol] 233 10*3/uL 150-450 [facility] Protein+Creatinine Ratio,Uri neon 12-29-2024 PROT:CRE RATIO 118 mg/g CRE Normal 0-200 [facility] Comment on above: Performed By: #### L 501.4405, L501.1105, L100.0500, L501.0900, L501.1400, L501.4100 #### [facility] [address] [place], [address] Protein (U) [Mass/Vol] 9.7 mg/dL Normal 0.0-12.0 [facility] Comment on above: Performed By: #### L 501.4405, L501.1105, L100.0500, L501.0900, L501.1400, L501.4100 #### [facility] [address] [place], [address] UR CREAT 82.30 mg/dL Normal 28.00-217.00 [facility] Comment on above: Performed By: #### L 501.4405, L501.1105, L100.0500, L501.0900, L501.1400, L501.4100 #### [facility] [address] [place], [address] RBC Auto (Bld) [#/Vol]Ordere d By: Lindsay Song on 12-29-2024 RBC (Bld) [#/Vol] 3.72 10*6/uL Low 4.2-5.4 [facility] Random urine creatinine alanis urement (mass/volume)Ordered By: Lindsay Song on 12-29-2024 Creatinine Unsp time (U) [Mass/Vol] 82.30 mg/dL 28.00-217.00 [facility] Serum Creatinine AND GFRon 0 12-29-2024 Creatinine [Mass/Vol] 0.77 mg/dL Normal 0.70-1.20 [facility] Comment on above: Performed By: #### L 501.4405, L501.1105, L100.0500, L501.0900, L501.1400, L501.4100 #### [facility] [address] [place], [address] ECRCL 99.41 ml/min Normal 50-250 [facility] Comment on above: Performed By: #### L 501.4405, L501.1105, L100.0500, L501.0900, L501.1400, L501.4100 #### [facility] [address] [place], [place], [id number] GFR/1.73 sq M.predicted among non-blacks MDRD (S/P/Bld) [Vol rate/Area] 106 mL/min/{1.73_m2} Normal >60 [facility] Comment on above: Result Comment: mL/m in/1.73m2 CKD-EPI Creatinine Equation (2020) Performed By: #### L 501.4405, L501.1105, L100.0500, L501.0900, L501.1400, L501.4100 #### [facility] [address] [place], [place], [id number] Serum creatinine measurement (mass/volume)Ordered By: Lindsay Song on 12-29-2024 Creatinine [Mass/Vol] 0.77 mg/dL 0.70-1.20 [facility] Serum or plasma alanine humphrey otransferase (ALT) measurementOrdered By: Lindsay oSng on 12-29-2024 ALT [Catalytic activity/Vol] 15 U/L <35 [facility] Serum or plasma uric acid me asurement (mass/volume)Ordered By: Lindsay Song on 12-29-2024 Urate [Mass/Vol] 4.5 mg/dL 2.6-6.0 [facility] Comment on above: The drugs N-Acetylcy steine and Metamizole may falsely depress this assay. Uric Acidon 12-29-2024 URIC 4.5 mg/dL Normal 2.6-6.0 [facility] Comment on above: Result Comment: The drugs N-Acetylcysteine and Metamizole may falsely depress this assay. Performed By: #### L 501.4405, L501.1105, L100.0500, L501.0900, L501.1400, L501.4100 #### [facility] [address] [place], [place], [id number] Urine protein measurement (m ass/volume)Ordered By: Lindsay Song on 12-29-2024 Protein (U) [Mass/Vol] 9.7 mg/dL 0.0-12.0 [facility] Urine protein/creatinine mas s ratioOrdered By: Lindsay Song on 12-29-2024 Protein/Creatinine (U) [Mass ratio] 118 mg/g CRE 0-200 [facility] White blood cell (WBC) count Ordered By: Lindsay Song on 12-29-2024 WBC (Bld) [#/Vol] 8.9 10*3/uL 4.4-11.0 [facility] Rule out Beta Strep (Grp. B) on 12-25-2024 DALILA Group B Beta Streptococcus is not isolated. Normal [facility] Comment on above: Performed By: #### M 100.3400 #### [facility] [address] [place], [place], [id number] Laboratory - Chemistry and C hemistry - challengeOrdered By: Vaibhav Hale on 12-23-2024 Glucose Ql (U) Negative [facility] Laboratory - UrinalysisOrder ed By: Vaibhav Hale on 12-23-2024 Protein Ql (U) Negative [facility] Spray Drier Operator Helper Office Visit Reporton 12-23-2024 Spray Drier Operator Helper Office Visit Report [address], [address] [place] [id number] OFFICE VISIT Date of Service: 12/23/24 MR#: [id number] Acct: [id number] Name: NORA CAMERON Rep #: [id number] : 1990 Provider: ANGELA Dawkins ams Age/Sex: 34/F Location: [facility] [place] Status: Signed Intake Vital Signs 11/17/24 11:38 12/15/24 15:37 12/23/24 14:06 Height 5 ft 3 in 5 ft 3 in 5 ft 3 in Weight: 149 lb 6 oz 150 lb 5 oz BMI 26.4 26.6 BP 126/71 H 135/74 H Intake Visit Reasons: 37wk ob Chief Complaint: 37wk 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 Is patient in pain?: No Allergies No Known Allergies Allergy (Verified 12/23/24 14:04) Medications ???Medication ???Instructions ???Recorded ???Confirmed ???Type multivitamin no.47-iron fum 27 cap PO 05/23/22 12/23/24 History mg-folate no.1 1 mg-dha 300 mg capsule (PNV-DHA) cod liver oil 1 cap PO ONCE 04/27/24 12/23/24 Hi story thyroid support PO 04/27/24 12/23/24 History cholecalciferol (vitamin D3) 25 25 mcg PO ONCE 05/31/24 12/23/24 H istory mcg/drop (1,000 unit/drop) oral drops blood sugar diagnostic (Blood #120 ea 10/12/24 12/23/24 Rx Glucose Test strips) blood-glucose meter #1 ea 10/12/24 12/23/24 Rx lancets #200 ea 10/12/24 12/23/24 Rx Last Menstrual Period: 04/08/24 : No PFSH PFSH Medical History Hx of abnormal cervical Pap smear Surgical History Spearfish teeth extracted History of colposcopy Family History Grandmother Colon cancer, Onset Age: 92 Paternal Mother Myocardial infarction, Onset Age: 64 2023 Grandfather Myocardial infarction Maternal Social History adopted: No household members: spouse housing: house current occupational status: employed current occupation: [employer]- [employer] current occupational exposures/hazards: No pets and animals: No history of recent travel: No ([place], [place]) sexually active: Yes Smoking Status: Never smoker alcohol intake: former details: occasionally prior to substance use type: does not use well-balanced diet: daily or most days caffeine: No eating out: 1-3 times/week during the past year weight has: remained stable what type of physical activity do you participate in: walking and weight training frequency: 3-4 times per week duration: 30-45 minutes/day michael/gnosticism: Sabianist seatbelt use: always do you feel safe at home: Yes 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 Date Name GA/Weeks Outcome Route Bth Weight Gen Labor Lgth Anesthesia Del Locatn Provider FOB 02/26/21 miscarriage 5 1/2 weeks 07/06/21 miscarriage 8 1/2 weeks 06/05/22 miscarriage 9wks HPI 37wk ob Details: NORA CAMERON is a 34 year old who presents for routine OB visit. OB Visit TREVON Calculator Estimated Delivery Date Method Current WG Current Estimate 01/13/25 LMP (Certain) 37w 0d Other Estimates 01/10/25 Ultrasound #1 37w 3d Expected Delivery Route/Plan Labor Preferences- CB/BF classes: encouraged labor support person: Power labor intervention preferences: prefers pain management options preferred: limited but epidural if requested, okay with touch, guided breathing, tub, hydrotherapy cut cord/dad catch: yes : yes PP control planned: discussed discussed possible routes of delivery and associated risks: [] special requests: [] Specific Issue/Plans Covid status: [] Flu vaccine: [] Tdap vaccine: Rhogam: na LARC form signed: yes Problem list reviewed and updated with the most current plan of care details and appropriate orders placed. Relevant counseling for the gestational age provided. Continue routine care and follow up unless otherwise noted in visit notes/problem list details Initial Weight: 124 lb Date -???-???-???-???-???-???- ???-???-???-???-???-???- EGA Weight BP Urine Prot -???-???-???-???-???-???- ???-???-???-???-???-???- Glucose FHR FuHt Pres Dilation -???-???-???-???-???-???- ???-???-???-???-???-???- Effaced St Visit Note 06/10/24 -???-???-???-???-???-???- ???-???-???-???-???-???- 9w 0d 124 lb 4 oz (+4 oz) 122/80 -???-???-???-???-???-???- ???-???-???-???-???-???- 182 -???-???-???-???-???-???- ???-???-???-???-???-???- KW- CRL cons with dates. declines NIPT KW- CRL cons with ceci (more content not included)... Normal [facility] Screening beta-hemolytic Str eptococcus cultureOrdered By: Vaibhav Hale on 12-23-2024 Beta-hemolytic Streptococcus culture Group B Beta Streptococcus is not isolated. [facility] Laboratory - Chemistry and C hemistry - challengeOrdered By: Lindsay Song on 12-15-2024 Glucose Ql (U) Negative [facility] Laboratory - UrinalysisOrder ed By: Lindsay Song on 12-15-2024 Protein Ql (U) Negative [facility] OB Limited With Biometricson 12-15-2024 OB Limited With Biometrics [facility] Imaging Services [address] [place], [place] [id number] OB Limited With Biometrics MR#: [id number] Acct: [id number] Name: NORA CAMERON Rep #: [id number] : 1990 F 34 From: Devante buenrostro MD PCP: Dr. Todd Romero MD Status: REG CLI Study: OB Limited With Biometrics Date of Exam: 12/15 Exam# [id number] Ordering Dr: Vaibhav Hale CNM PROCEDURE: OB LIMITED WITH BIOMETRICS 12/15/2024 REASON FOR EXAM: GDM TECHNIQUE: OB LIMITED WITH BIOMETRICS COMPARISON: None FINDINGS LMP: April 08, 2025 Number: 1 Position: Vertex Placental Position: Anterior and not low-lying Placental Abnormalities: No evidence of previa. DIMENSIONS: Biparietal Diameter: 9 cm: 36 weeks and 2 days: 70 percentile/ Head Circumference: 32 cm: 36 weeks and 1 day: 24 percentile/ Abdominal Circumference: 33.9 cm: 37 weeks and 6 days: 96 percentile/ Femur Length: 6.9 cm: 35 weeks and 2 days: 30 percentile/ ESTIMATED WEIGHT: 3092 g plus/-464 g ESTIMATED WEIGHT PERCENTILE (24+ weeks): 80 ESTIMATED GESTATIONAL AGE: Baseline: 35 weeks and 6 days By Ultrasound: 36 weeks and 1 day ESTIMATED DATE OF DELIVERY: Baseline: January 13, 2025 By Ultrasound: January 11, 2025 BIOPHYSICAL ASSESSMENT: Amniotic Fluid Volume: 4.7 cm Amniotic Fluid Index: 12.9 cm (8-24 cm normal range) Cardiac Motion: 143 beats per minute (average) Trunk and Limb Motion: Present. MATERNAL ANATOMY: Adnexa: Neither maternal ovary is successfully identified. US/OB Limited With Biometrics IMPRESSION: Single live intrauterine gestation with a mean gestational age of 36 weeks and 1 day. Reading Location: [id number] CC: ANGELA Hale; Dr. Todd Romero MD Machine Feeder: Signed Normal [facility] Spray Drier Operator Helper Office Visit Reporton 12-15-2024 Spray Drier Operator Helper Office Visit Report [facility]'s [address], [address] [place] [address] OFFICE VISIT Date of Service: 12/15/24 MR#: [id number] Acct: [id number] Name: NORA CAMERON Rep #: [id number] : 1990 Provider: Dr. Lindsay bui MD Age/Sex: 34/F Location: [facility] [place] Status: Signed Intake Vital Signs 11/03/24 11:04 12/01/24 14:33 12/15/24 15:37 Height 5 ft 3 in 5 ft 3 in 5 ft 3 in Weight: 146 lb 4 oz 149 lb 6 oz BMI 25.9 26.4 BP 113/74 126/71 H Intake Visit Reasons: 36 wk 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 Is patient in pain?: No Allergies No Known Allergies Allergy (Verified 12/15/24 15:41) Medications ???Medication ???Instructions ???Recorded ???Confirmed ???Type multivitamin no.47-iron fum 27 cap PO 05/23/22 12/15/24 History mg-folate no.1 1 mg-dha 300 mg capsule (PNV-DHA) cod liver oil 1 cap PO ONCE 04/27/24 12/15/24 Hi story thyroid support PO 04/27/24 12/15/24 History cholecalciferol (vitamin D3) 25 25 mcg PO ONCE 05/31/24 12/15/24 H istory mcg/drop (1,000 unit/drop) oral drops blood sugar diagnostic (Blood #120 10/12/24 12/15/24 Rx Glucose Test strips) blood-glucose meter #1 10/12/24 12/15/24 Rx lancets #200 10/12/24 12/15/24 Rx Last Menstrual Period: 04/08/24 Zika: Zika virus screening: Negative : No PFSH PFSH Medical History Hx of abnormal cervical Pap smear Surgical History Spearfish teeth extracted History of colposcopy Family History Grandmother Colon cancer, Onset Age: 92 Paternal Mother Myocardial infarction, Onset Age: 64 2022 Grandfather Myocardial infarction Maternal Social History adopted: No household members: spouse housing: house current occupational status: employed current occupation: [employer] current occupational exposures/hazards: No pets and animals: No history of recent travel: No ([place], [place]) sexually active: Yes Smoking Status: Never smoker alcohol intake: former details: occasionally prior to substance use type: does not use well-balanced diet: daily or most days caffeine: No eating out: 1-3 times/week during the past year weight has: remained stable what type of physical activity do you participate in: walking and weight training frequency: 3-4 times per week duration: 30-45 minutes/day michael/gnosticism: Sabianist seatbelt use: always do you feel safe at home: Yes 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 Date Name GA/Weeks Outcome Route Bth Weight Infant Gen Labor Lgth Anesthesia Del Locatn Provider FOB 02/26/21 miscarriage 5 1/2 weeks 07/06/21 miscarriage 8 1/2 weeks 06/05/22 miscarriage 9wks HPI 36 wk ob Details: NORA CAMERON is a 34 year old who presents for routine OB visit. OB Visit TREVON Calculator Estimated Delivery Date Method Current WG Current Estimate 01/13/25 LMP (Certain) 35w 6d Other Estimates 01/10/25 Ultrasound #1 36w 2d Expected Delivery Route/Plan Labor Preferences- CB/BF classes: encouraged labor support person: Power labor intervention preferences: prefers pain management options preferred: limited but epidural if requested, okay with touch, guided breathing, tub, hydrotherapy cut cord/dad catch: yes : yes PP control planned: discussed discussed possible routes of delivery and associated risks: [] special requests: [] Specific Issue/Plans Covid status: [] Flu vaccine: [] Tdap vaccine: Rhogam: na LARC form signed: yes Problem list reviewed and updated with the most current plan of care details and appropriate orders placed. Relevant counseling for the gestational age provided. Continue routine care and follow up unless otherwise noted in visit notes/problem list details Initial Weight: 124 lb Date -???-???-???-???-???-???- ???-???-???-???-???-???- EGA Weight BP Urine Prot -???-???-???-???-???-???- ???-???-???-???-???-???- Glucose FHR FuHt Pres Dilation -???-???-???-???-???-???- ???-???-???-???-???-???- Effaced St Visit Note 06/10/24 -???-???-???-???-???-???- ???-???-???-???-???-???- 9w 0d 124 lb 4 oz (+4 oz) 122/80 -???-???-???-???-???-???- ???-???-???-???-???-???- 182 -???-???-???-???-???-???- ???-???-???-???-???-???- KW- CRL cons with dates. ibarra (more content not included)... Normal [facility] Laboratory - Chemistry and C hemistry - challengeOrdered By: Emerald Dodd on 12-01-2024 Glucose Ql (U) Negative [facility] Laboratory - UrinalysisOrder ed By: Emerald Dodd on 12-01-2024 Protein Ql (U) Negative [facility] Spray Drier Operator Helper Office Visit Reporton 12-01-2024 Spray Drier Operator Helper Office Visit Report [facility] [address], [address] [place] [address] OFFICE VISIT Date of Service: 12/01/24 MR#: [id number] Acct: [id number] Name: NORA CAMERON Rep #: [id number] : 1990 Provider: Dr. Emerald Couch DO Age/Sex: 34/F Location: [facility] [place] Status: Signed Intake Vital Signs 11/03/24 11:04 11/17/24 11:38 12/01/24 14:33 Height 5 ft 3 in 5 ft 3 in 5 ft 3 in Weight: 146 lb 4 oz BMI 25.9 BP 113/74 Intake Visit Reasons: 34 wk ob Chief Complaint: 34wk 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 Is patient in pain?: No Allergies No Known Allergies Allergy (Verified 12/01/24 14:34) Medications ???Medication ???Instructions ???Recorded ???Confirmed ???Type multivitamin no.47-iron fum 27 cap PO 05/23/22 12/01/24 History mg-folate no.1 1 mg-dha 300 mg capsule (PNV-DHA) cod liver oil 1 cap PO ONCE 04/27/24 12/01/24 Hi story thyroid support PO 04/27/24 12/01/24 History cholecalciferol (vitamin D3) 25 25 mcg PO ONCE 05/31/24 12/01/24 H istory mcg/drop (1,000 unit/drop) oral drops blood sugar diagnostic (Blood #120 ea 10/12/24 12/01/24 Rx Glucose Test strips) blood-glucose meter #1 ea 10/12/24 12/01/24 Rx lancets #200 10/12/24 12/01/24 Rx Last Menstrual Period: 04/08/24 : No PFSH PFSH Medical History Hx of abnormal cervical Pap smear Surgical History Spearfish teeth extracted History of colposcopy Family History Grandmother Colon cancer, Onset Age: 92 Paternal Mother Myocardial infarction, Onset Age: 64 2023 Grandfather Myocardial infarction Maternal Social History adopted: No household members: spouse housing: house current occupational status: employed current occupation: [employer] current occupational exposures/hazards: No pets and animals: No history of recent travel: No ([place], [place]) sexually active: Yes Smoking Status: Never smoker alcohol intake: former details: occasionally prior to substance use type: does not use well-balanced diet: daily or most days caffeine: No eating out: 1-3 times/week during the past year weight has: remained stable what type of physical activity do you participate in: walking and weight training frequency: 3-4 times per week duration: 30-45 minutes/day michael/gnosticism: Sabianist seatbelt use: always do you feel safe at home: Yes 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 Date Name GA/Weeks Outcome Route Bth Weight Gen Labor Lgth Anesthesia Del Locatn Provider FOB 02/26/21 miscarriage 5 1/2 weeks 07/06/21 miscarriage 8 1/2 weeks 06/05/22 miscarriage 9wks HPI 34 wk ob Details: NORA CAMERON is a 34 year old who presents for routine OB visit. OB Visit TREVON Calculator Estimated Delivery Date Method Current WG Current Estimate 01/13/25 LMP (Certain) 33w 6d Other Estimates 01/10/25 Ultrasound #1 34w 2d Expected Delivery Route/Plan Labor Preferences- CB/BF classes: encouraged labor support person: Power labor intervention preferences: [] pain management options preferred: limited but epidural if requested cut cord/dad catch: yes : yes PP control planned: discussed discussed possible routes of delivery and associated risks: [] special requests: [] Specific Issue/Plans Covid status: [] Flu vaccine: [] Tdap vaccine: Rhogam: na LARC form signed: yes Problem list reviewed and updated with the most current plan of care details and appropriate orders placed. Relevant counseling for the gestational age provided. Continue routine care and follow up unless otherwise noted in visit notes/problem list details Initial Weight: 124 lb Date -???-???-???-???-???-???- ???-???-???-???-???-???- EGA Weight BP Urine Prot -???-???-???-???-???-???- ???-???-???-???-???-???- Glucose FHR FuHt Pres Dilation -???-???-???-???-???-???- ???-???-???-???-???-???- Effaced St Visit Note 06/10/24 -???-???-???-???-???-???- ???-???-???-???-???-???- 9w 0d 124 lb 4 oz (+4 oz) 122/80 -???-???-???-???-???-???- ???-???-???-???-???-???- 182 -???-???-???-???-???-???- ???-???-???-???-???-???- KW- CRL cons with dates. declines NIPT KW- CRL cons with dates. declines NIPT. would like some appts in [facility]. doing well today (more content not included)... Normal [facility] - Chemistry and C hemistry - challengeOrdered By: Vaibhav Hale on 11-17-2024 Glucose Ql (U) Negative [facility] - UrinalysisOrder ed By: Vaibhav Hale on 11-17-2024 Protein Ql (U) Negative [facility] Spray Drier Operator Helper Office Visit Reporton 11-17-2024 Spray Drier Operator Helper Office Visit Report [facility]'s [address], [address] [place] [address] OFFICE VISIT Date of Service: 11/17/24 MR#: [id number] Acct: [id number] Name: NORA CAMERON Rep #: [id number] : 1990 Provider: ANGELA Dawkins ams Age/Sex: 34/F Location: [facility] [place] Status: Signed Intake Vital Signs 08/22/24 08:29 11/03/24 11:04 11/17/24 11:36 11/17/24 11:38 Height 5 ft 3 in 5 ft 3 in 5 ft 3 in 5 ft 3 in Weight: 142 lb 6 oz BMI 25.2 BP 112/74 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 Is patient in pain?: No Allergies No Known Allergies Allergy (Verified 11/17/24 11:36) Medications ???Medication ???Instructions ???Recorded ???Confirmed ???Type multivitamin no.47-iron fum 27 cap PO 05/23/22 11/17/24 History mg-folate no.1 1 mg-dha 300 mg capsule (PNV-DHA) cod liver oil 1 cap PO ONCE 04/27/24 11/17/24 Hi story thyroid support PO 04/27/24 11/17/24 History cholecalciferol (vitamin D3) 25 25 mcg PO ONCE 05/31/24 11/17/24 H istory mcg/drop (1,000 unit/drop) oral drops blood sugar diagnostic (Blood #120 ea 10/12/24 11/17/24 Rx Glucose Test strips) blood-glucose meter #1 10/12/24 11/17/24 Rx lancets #200 10/12/24 11/17/24 Rx Last Menstrual Period: 04/08/24 Zika: Zika virus screening: Negative : No PFSH PFSH Medical History Hx of abnormal cervical Pap smear Surgical History Spearfish teeth extracted History of colposcopy Family History Grandmother Colon cancer, Onset Age: 92 Paternal Mother Myocardial infarction, Onset Age: 64 2022 Grandfather Myocardial infarction Maternal Social History adopted: No household members: spouse housing: house current occupational status: employed current occupation: [employer] current occupational exposures/hazards: No pets and animals: No history of recent travel: No ([place], [place]) sexually active: Yes Smoking Status: Never smoker alcohol intake: former details: occasionally prior to substance use type: does not use well-balanced diet: daily or most days caffeine: No eating out: 1-3 times/week during the past year weight has: remained stable what type of physical activity do you participate in: walking and weight training frequency: 3-4 times per week duration: 30-45 minutes/day michael/gnosticism: Sabianist seatbelt use: always do you feel safe at home: Yes 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 Date Name GA/Weeks Outcome Route Bth Weight Infant Gen Labor Lgth Anesthesia Del Locatn Provider FOB 02/26/21 miscarriage 5 1/2 weeks 07/06/21 miscarriage 8 1/2 weeks 06/05/22 miscarriage 9wks HPI 32wk ob Details: NORA CAMERON is a 34 year old who presents for routine OB visit. OB Visit TREVON Calculator Estimated Delivery Date Method Current WG Current Estimate 01/13/25 LMP (Certain) 31w 6d Other Estimates 01/10/25 Ultrasound #1 32w 2d Expected Delivery Route/Plan Labor Preferences- CB/BF classes: encouraged labor support person: Power labor intervention preferences: [] pain management options preferred: limited but epidural if requested cut cord/dad catch: yes : yes PP control planned: discussed discussed possible routes of delivery and associated risks: [] special requests: [] Specific Issue/Plans Covid status: [] Flu vaccine: [] Tdap vaccine: Rhogam: na LARC form signed: yes Problem list reviewed and updated with the most current plan of care details and appropriate orders placed. Relevant counseling for the gestational age provided. Continue routine care and follow up unless otherwise noted in visit notes/problem list details Initial Weight: 124 lb Date -???-???-???-???-???-???- ???-???-???-???-???-???- EGA Weight BP Urine Prot -???-???-???-???-???-???- ???-???-???-???-???-???- Glucose FHR FuHt Pres Dilation -???-???-???-???-???-???- ???-???-???-???-???-???- Effaced St Visit Note 06/10/24 -???-???-???-???-???-???- ???-???-???-???-???-???- 9w 0d 124 lb 4 oz (+4 oz) 122/80 -???-???-???-???-???-???- ???-???-???-???-???-???- 182 -???-???-???-???-???-???- ???-???-???-???-???-???- KW- CRL cons with dates. declines NIPT KW- CRL cons with dates. declines NIPT. would like some (more content not included)... Normal [facility] - Chemistry and C hemistry - challengeOrdered By: Emerald Dodd on 11-03-2024 Glucose Ql (U) Negative [facility] - UrinalysisOrder ed By: Emerald Dodd on 11-03-2024 Protein Ql (U) Negative [facility] Spray Drier Operator Helper Office Visit Reporton 11-03-2024 Spray Drier Operator Helper Office Visit Report [facility] [address], [address] [place] [address] OFFICE VISIT Date of Service: 11/03/24 MR#: [id number] Acct: [id number] Name: NORA CAMERON Rep #: [id number] : 1990 Provider: ANGELA Dawkins ams Age/Sex: 34/F Location: [facility] [place] Status: Signed Intake Vital Signs 08/22/24 08:29 10/18/24 11:09 11/03/24 11:04 11/03/24 11:04 Height 5 ft 3 in 5 ft 3 in 5 ft 3 in 5 ft 3 in Weight: 141 lb 6 oz BMI 25.0 BP 111/70 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 Is patient in pain?: No Allergies No Known Allergies Allergy (Verified 11/03/24 11:03) Medications ???Medication ???Instructions ???Recorded ???Confirmed ???Type multivitamin no.47-iron fum 27 cap PO 05/23/22 11/03/24 History mg-folate no.1 1 mg-dha 300 mg capsule (PNV-DHA) cod liver oil 1 cap PO ONCE 04/27/24 11/03/24 Hi story thyroid support PO 04/27/24 11/03/24 History cholecalciferol (vitamin D3) 25 25 mcg PO ONCE 05/31/24 11/03/24 H istory mcg/drop (1,000 unit/drop) oral drops blood sugar diagnostic (Blood #120 10/12/24 11/03/24 Rx Glucose Test strips) blood-glucose meter #1 10/12/24 11/03/24 Rx lancets #200 10/12/24 11/03/24 Rx Last Menstrual Period: 04/08/24 Zika: Zika virus screening: Negative : No PFSH PFSH Medical History Hx of abnormal cervical Pap smear Surgical History Spearfish teeth extracted History of colposcopy Family History Grandmother Colon cancer, Onset Age: 92 Paternal Mother Myocardial infarction, Onset Age: 64 2022 Grandfather Myocardial infarction Maternal Social History adopted: No household members: spouse housing: house current occupational status: employed current occupation: [employer] current occupational exposures/hazards: No pets and animals: No history of recent travel: No ([place], [place]) sexually active: Yes Smoking Status: Never smoker alcohol intake: former details: occasionally prior to substance use type: does not use well-balanced diet: daily or most days caffeine: No eating out: 1-3 times/week during the past year weight has: remained stable what type of physical activity do you participate in: walking and weight training frequency: 3-4 times per week duration: 30-45 minutes/day michael/gnosticism: Sabianist seatbelt use: always do you feel safe at home: Yes 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 Date Name GA/Weeks Outcome Route Bth Weight Infant Gen Labor Lgth Anesthesia Del Locatn Provider FOB 02/26/21 miscarriage 5 1/2 weeks 07/06/21 miscarriage 8 1/2 weeks 06/05/22 miscarriage 9wks HPI 30wk ob Details: NORA CAMERON is a 34 year old who presents for routine OB visit. OB Visit TREVON Calculator Estimated Delivery Date Method Current WG Current Estimate 01/13/25 LMP (Certain) 29w 6d Other Estimates 01/10/25 Ultrasound #1 30w 2d Expected Delivery Route/Plan Labor Preferences- CB/BF classes: encouraged labor support person: Power labor intervention preferences: [] pain management options preferred: limited but epidural if requested cut cord/dad catch: yes : yes PP control planned: discussed discussed possible routes of delivery and associated risks: [] special requests: [] Specific Issue/Plans Covid status: [] Flu vaccine: [] Tdap vaccine: Rhogam: na LARC form signed: yes Problem list reviewed and updated with the most current plan of care details and appropriate orders placed. Relevant counseling for the gestational age provided. Continue routine care and follow up unless otherwise noted in visit notes/problem list details Initial Weight: 124 lb Date -???-???-???-???-???-???- ???-???-???-???-???-???- EGA Weight BP Urine Prot -???-???-???-???-???-???- ???-???-???-???-???-???- Glucose FHR FuHt Pres Dilation -???-???-???-???-???-???- ???-???-???-???-???-???- Effaced St Visit Note 06/10/24 -???-???-???-???-???-???- ???-???-???-???-???-???- 9w 0d 124 lb 4 oz (+4 oz) 122/80 -???-???-???-???-???-???- ???-???-???-???-???-???- 182 -???-???-???-???-???-???- ???-???-???-???-???-???- KW- CRL cons with dates. declines NIPT KW- CRL cons with dates. declines NIPT. would like some (more content not included)... Normal [facility] Absolute lymphocyte countOrd ered By: Lindsay Greenealyssa on 10-12-2024 Lymphocytes Auto (Unsp spec) [#/Vol] 1.54 10*3/uL 0.83-4.51 [facility] Absolute neutrophil countOrd ered By: Lindsay Greenealyssa on 10-12-2024 Neutrophils (Bld) [#/Vol] 7.2 10*3/uL 2.0-7.7 [facility] Automated lymphocyte count a s percentage of total leukocytesOrdered By: Lindsay Greenealyssa on 10-12-2024 Lymphocytes/100 WBC Auto (Unsp spec) 16.1 % Low 19-41 [facility] Basophil percentageOrdered B y: Lindsay Greenealyssa on 10-12-2024 Basophils/100 WBC (Bld) 0.3 % 0-1 [facility] CBC W/Diff, Automatedon 09-16 Absolute Lymph 1.54 X10 3/uL Normal 0.83-4.51 [facility] Comment on above: Performed By: #### M 100.3400 #### [facility] [address] [place], [address] Absolute Neut 7.2 X10 3/uL Normal 2.0-7.7 [facility] Comment on above: Performed By: #### M 100.3400 #### [facility] [address] [place], [address] Basophils/100 WBC (Bld) 0.3 % Normal 0-1 [facility] Comment on above: Performed By: #### M 100.3400 #### [facility] [address] [place], [address] Eosinophils/100 WBC (Bld) 0.7 % Normal 0-5 [facility] Comment on above: Performed By: #### M 100.3400 #### [facility] [address] [place], [address] Erythrocyte distribution width (RBC) [Ratio] 13.2 % Normal 11.6-14.6 [facility] Comment on above: Performed By: #### M 100.3400 #### [facility] [address] [place], [address] Hematocrit (Bld) [Volume fraction] 33.9 % Low 37-47 [facility] Comment on above: Performed By: #### M 100.3400 #### [facility] [address] [place], [address] Hemoglobin (Bld) [Mass/Vol] 11.5 g/dL Low 12.0-15.0 [facility] Comment on above: Performed By: #### M 100.3400 #### [facility] [address] [place], [address] IG% 2.100 High 0.0-0.9 [facility] Comment on above: Result Comment: IG% - Immature Granulocytes (promyelocytes, myelocytes and metamyelocytes) > 1% indicates that a LEFT SHIFT is Present. Performed By: #### M 100.3400 #### [facility] [address] [place], [address] Lymphocytes/100 WBC (Bld) 16.1 % Low 19-41 [facility] Comment on above: Performed By: #### M 100.3400 #### [facility] [address] [place], [address] MCH (RBC) [Entitic mass] 32.2 pg High 27.0-32.0 [facility] Comment on above: Performed By: #### M 100.3400 #### [facility] [address] [place], [address] MCHC (RBC) [Mass/Vol] 33.9 g/dL Normal 32-36 [facility] Comment on above: Performed By: #### M 100.3400 #### [facility] [address] [place], [address] MCV (RBC) [Entitic vol] 95.0 fL Normal 81-99 [facility] Comment on above: Performed By: #### M 100.3400 #### [facility] [address] [place], [address] Monocytes/100 WBC (Bld) 5.7 % Normal 0-10 [facility] Comment on above: Performed By: #### M 100.3400 #### [facility] [address] [place], [address] Neutrophils/100 WBC (Bld) 75.1 % High 47-70 [facility] Comment on above: Performed By: #### M 100.3400 #### [facility] [address] [place], [address] Nucleated RBC (Bld) [#/Vol] 0 10*3/uL Normal 0-5 [facility] Comment on above: Performed By: #### M 100.3400 #### [facility] [address] [place], [address] Platelet mean volume (Bld) [Entitic vol] 9.5 fL Normal 6.2-12.0 [facility] Comment on above: Performed By: #### M 100.3400 #### [facility] [address] [place], [address] Platelets (Bld) [#/Vol] 257 10*3/uL Normal 150-450 [facility] Comment on above: Performed By: #### M 100.3400 #### [facility] [address] [place], [address] RBC (Bld) [#/Vol] 3.57 10*6/uL Low 4.2-5.4 [facility] Comment on above: Performed By: #### M 100.3400 #### [facility] [address] [place], [address] RDW SD 46.3 fl High 35.1-43.9 [facility] Comment on above: Performed By: #### M 100.3400 #### [facility] [address] [place], [address] WBC (Bld) [#/Vol] 9.5 10*3/uL Normal 4.4-11.0 [facility] Comment on above: Performed By: #### M 100.3400 #### [facility] [address] [place], [address] Eosinophil percentageOrdered By: Lindsay Song on 10-12-2024 Eosinophils/100 WBC (Bld) 0.7 % 0-5 [facility] Erythrocyte distribution wid th ratioOrdered By: Lindsay Song on 10-12-2024 Erythrocyte distribution width (RBC) [Ratio] 13.2 % 11.6-14.6 [facility] Erythrocyte distribution wid th standard deviationOrdered By: Lindsay Song on 10-12-2024 Erythrocyte distribution width (RBC) [Ratio] 46.3 fl High 35.1-43.9 [facility] Glucose Challenge Gest 1H 50 cosme 10-12-2024 GLU GEST 50g 1H 190 mg/dL High 70-140 [facility] Comment on above: Performed By: #### M 100.3400 #### [facility] [address] [place], [address] Glucose measurement at 2 lian rs post-dose gestational glucose tolerance testOrdered By: Lindsay Song on 10-12-2024 Glucose [Mass/Vol] 190 mg/dL High 70-140 [facility] HIVon 10-12-2024 HIV Non-Reactive Normal Nonreactive [facility] Comment on above: Result Comment: Non- Reactive Reactive Repeatedly reactive samples must be confirmed according to CDC recommended confirmatory algorithms. The subresults for either HIVAG or AHIV can be used as an aid in the selection of the confirmation algorithm for reactive samples. Send out specimens with Reactive results to [facility] for confirmation. Order the HIV antibody detection and differentiation: lc#[id number] Performed By: #### M 100.3400 #### [facility] [address] [place], [address] Hematocrit Auto (Bld) [Volum e fraction]Ordered By: Lindsay Song on 10-12-2024 Hematocrit (Bld) [Volume fraction] 33.9 % Low 37-47 [facility] Hemoglobin measurementOrdere d By: Lindsay Song on 10-12-2024 Hemoglobin (Bld) [Mass/Vol] 11.5 g/dL Low 12.0-15.0 [facility] Immature granulocytes/100 WB C Auto (Bld)Ordered By: Lindsay Song on 10-12-2024 Immature granulocytes/100 WBC (Bld) 2.100 % High 0.0-0.9 [facility] Comment on above: IG% - Immature Granu locytes (promyelocytes, myelocytes and metamyelocytes) > 1% indicates that a LEFT SHIFT is Present. Laboratory - Chemistry and C hemistry - challengeOrdered By: Erinn Jordan on 10-12-2024 Glucose Ql (U) Negative [facility] - UrinalysisOrder ed By: Erinn Jordan on 10-12-2024 Protein Ql (U) Negative [facility] MCV (mean corpuscular volume ) determinationOrdered By: Lindsay Song on 10-12-2024 MCV (RBC) [Entitic vol] 95.0 fL 81-99 [facility] Mean corpuscular hemoglobin (MCH) determinationOrdered By: Lindsay Song on 10-12-2024 MCH (RBC) [Entitic mass] 32.2 pg High 27.0-32.0 [facility] Mean corpuscular hemoglobin concentration (MCHC) determinationOrdered By: Lindsay Song on 10-12-2024 MCHC (RBC) [Mass/Vol] 33.9 g/dL 32-36 [facility] Mean platelet volume determi nationOrdered By: Lindsay Song on 10-12-2024 Platelet mean volume (Bld) [Entitic vol] 9.5 fL 6.2-12.0 [facility] Monocyte percentageOrdered B y: Lindsay Song on 10-12-2024 Monocytes/100 WBC (Bld) 5.7 % 0-10 [facility] Neutrophil percentageOrdered By: Lindsay Song on 10-12-2024 Neutrophils/100 WBC (Bld) 75.1 % High 47-70 [facility] No Panel InformationOrdered By: Lindsay Song on 10-12-2024 HIV (1&2) Antibody Non-Reactive Nonreactive [facility] Comment on above: Non-ReactiveReactive Repeatedly reactive samples must be confirmed according to CDC recommended confirmatory algorithms. The subresults for either HIVAG or AHIV can be used as an aid in the selection of the confirmation algorithm for reactive samples.Send out specimens with Reactive results to [facility] for confirmation.Order the HIV antibody detection and differentiation: lc#[id number] Nucleated red blood cell per centageOrdered By: Lindsay Song on 10-12-2024 Nucleated RBC/100 WBC (Bld) [Ratio] 0 % 0-5 [facility] Spray Drier Operator Helper Office Visit Reporton 10-12-2024 Spray Drier Operator Helper Office Visit Report [facility] [place] [address] OFFICE VISIT Date of Service: 10/12/24 MR#: [id number] Acct: [id number] Name: NORA CAMERON Rep #: [id number] : 1990 Provider: MILTON babcock Age/Sex: 34/F Location: [facility] [place] Status: Signed Intake Vital Signs 08/22/24 08:29 09/16/24 14:59 10/12/24 10:16 Height 5 ft 3 in 5 ft 3 in 5 ft 3 in Weight: 139 lb 8 oz BMI 24.7 BP 112/68 Intake Visit Reasons: 27wk ob/glucose Chief Complaint: 27 Week OB/Glucose 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 Is patient in pain?: No Allergies No Known Allergies Allergy (Verified 10/12/24 10:17) Medications ???Medication ???Instructions ???Recorded ???Confirmed ???Type multivitamin no.47-iron fum 27 cap PO 05/23/22 10/12/24 History mg-folate no.1 1 mg-dha 300 mg capsule (PNV-DHA) cod liver oil 1 cap PO ONCE 04/27/24 10/12/24 Hi story thyroid support PO 04/27/24 10/12/24 History cholecalciferol (vitamin D3) 25 25 mcg PO ONCE 05/31/24 10/12/24 H istory mcg/drop (1,000 unit/drop) oral drops blood sugar diagnostic (Blood #120 ea 10/12/24 Rx Glucose Test strips) blood-glucose meter #1 ea 10/12/24 Rx lancets #200 ea 10/12/24 Rx Last Menstrual Period: 04/08/24 Zika: Zika virus screening: Negative : Yes PFSH PFSH Medical History Hx of abnormal cervical Pap smear Surgical History Spearfish teeth extracted History of colposcopy Family History Grandmother Colon cancer, Onset Age: 92 Paternal Mother Myocardial infarction, Onset Age: 64 2022 Grandfather Myocardial infarction Maternal Social History adopted: No household members: spouse housing: house current occupational status: employed current occupation: [employer] current occupational exposures/hazards: No pets and animals: No history of recent travel: No ([place], [place]) sexually active: Yes Smoking Status: Never smoker alcohol intake: former details: occasionally prior to substance use type: does not use well-balanced diet: daily or most days caffeine: No eating out: 1-3 times/week during the past year weight has: remained stable what type of physical activity do you participate in: walking and weight training frequency: 3-4 times per week duration: 30-45 minutes/day michael/gnosticism: Sabianist seatbelt use: always do you feel safe at home: Yes 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 Date Name GA/Weeks Outcome Route Bth Weight Gen Labor Lgth Anesthesia Del Locatn Provider FOB 02/26/21 miscarriage 5 1/2 weeks 07/06/21 miscarriage 8 1/2 weeks 06/05/22 miscarriage 9wks HPI 27wk ob/glucose Details: NORA CAMERON is a 34 year old who presents for routine OB visit. OB Visit TREVON Calculator Estimated Delivery Date Method Current WG Current Estimate 01/13/25 LMP (Certain) 26w 5d Other Estimates 01/10/25 Ultrasound #1 27w 1d Expected Delivery Route/Plan Labor Preferences- CB/BF classes: encouraged labor support person: Power labor intervention preferences: [] pain management options preferred: limited but epidural if requested cut cord/dad catch: yes : yes PP control planned: discussed discussed possible routes of delivery and associated risks: [] special requests: [] Specific Issue/Plans Covid status: [] Flu vaccine: [] Tdap vaccine: Rhogam: na LARC form signed: yes Problem list reviewed and updated with the most current plan of care details and appropriate orders placed. Relevant counseling for the gestational age provided. Continue routine care and follow up unless otherwise noted in visit notes/problem list details Initial Weight: 124 lb Date -???-???-???-???-???-???- ???-???-???-???-???-???- EGA Weight BP Urine Prot -???-???-???-???-???-???- ???-???-???-???-???-???- Glucose FHR FuHt Pres Dilation -???-???-???-???-???-???- ???-???-???-???-???-???- Effaced St Visit Note 06/10/24 -???-???-???-???-???-???- ???-???-???-???-???-???- 9w 0d 124 lb 4 oz (+4 oz) 122/80 -???-???-???-???-???-???- ???-???-???-???-???-???- 182 -???-???-???-???-???-???- ???-???-???-???-???-???- KW- CRL cons with dates. declines NIPT KW- CRL cons with dates. declines NIPT. would lik (more content not included)... Normal [facility] Platelet countOrdered By: Charisse Song on 10-12-2024 Platelets (Bld) [#/Vol] 257 10*3/uL 150-450 [facility] RBC Auto (Bld) [#/Vol]Ordere d By: Lindsay Song on 10-12-2024 RBC (Bld) [#/Vol] 3.57 10*6/uL Low 4.2-5.4 [facility] Syphilis Antibodieson 2024 Syphilis Abs Non-Reactive Normal Nonreactive [facility] Comment on above: Performed By: #### M 100.3400 #### [facility] [address] [place], [address] White blood cell (WBC) count Ordered By: Lindsay Song on 10-12-2024 WBC (Bld) [#/Vol] 9.5 10*3/uL 4.4-11.0 [facility] - Chemistry and C hemistry - challengeOrdered By: Lindsay Song on 09-16-2024 Glucose Ql (U) Negative [facility] - UrinalysisOrder ed By: Lindsay Song on 09-16-2024 Protein Ql (U) Negative [facility] Spray Drier Operator Helper Office Visit Reporton 09-16-2024 Spray Drier Operator Helper Office Visit Report [facility]'s [address], [address] [place] [address] OFFICE VISIT Date of Service: 09/16/24 MR#: [id number] Acct: [id number] Name: NORA CAMERON Rep #: [id number] : 1990 Provider: Dr. Lindsay bui MD Age/Sex: 34/F Location: [facility] [place] Status: Signed Intake Vital Signs 07/07/24 08:48 08/22/24 08:29 09/16/24 14:53 09/16/24 14:59 Height 5 ft 3 in 5 ft 3 in 5 ft 3 in 5 ft 3 in Weight: 134 lb BMI 23.7 BP 108/71 Intake Visit Reasons: 23wk 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 Is patient in pain?: No Allergies No Known Allergies Allergy (Verified 09/16/24 14:54) Medications ???Medication ???Instructions ???Recorded ???Confirmed ???Type multivitamin no.47-iron fum 27 cap PO 05/23/22 09/16/24 History mg-folate no.1 1 mg-dha 300 mg capsule (PNV-DHA) cod liver oil 1 cap PO ONCE 04/27/24 09/16/24 Hi story thyroid support PO 04/27/24 09/16/24 History cholecalciferol (vitamin D3) 25 25 mcg PO ONCE 05/31/24 09/16/24 H istory mcg/drop (1,000 unit/drop) oral drops Last Menstrual Period: 04/08/24 Zika: Zika virus screening: Negative : No PFSH PFSH Medical History Hx of abnormal cervical Pap smear Surgical History Spearfish teeth extracted History of colposcopy Family History Grandmother Colon cancer, Onset Age: 92 Paternal Mother Myocardial infarction, Onset Age: 64 2022 Grandfather Myocardial infarction Maternal Social History adopted: No household members: spouse housing: house current occupational status: employed current occupation: [employer]- [employer] current occupational exposures/hazards: No pets and animals: No history of recent travel: No ([place], [place]) sexually active: Yes Smoking Status: Never smoker alcohol intake: former details: occasionally prior to substance use type: does not use well-balanced diet: daily or most days caffeine: No eating out: 1-3 times/week during the past year weight has: remained stable what type of physical activity do you participate in: walking and weight training frequency: 3-4 times per week duration: 30-45 minutes/day michael/gnosticism: Sabianist seatbelt use: always do you feel safe at home: Yes 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 Date Name GA/Weeks Outcome Route Bth Weight Infant Gen Labor Lgth Anesthesia Del Locatn Provider FOB 02/26/21 miscarriage 5 1/2 weeks 07/06/21 miscarriage 8 1/2 weeks 06/05/22 miscarriage 9wks HPI 23wk ob Details: NORA CAMERON is a 34 year old who presents for routine OB visit. OB Visit TREVON Calculator Estimated Delivery Date Method Current WG Current Estimate 01/13/25 LMP (Certain) 23w 0d Other Estimates 01/10/25 Ultrasound #1 23w 3d Expected Delivery Route/Plan Labor Preferences- CB/BF classes: [] labor support person: [] labor intervention preferences: [] pain management options preferred: [] cut cord/dad catch: [] : [] PP control planned: [] discussed possible routes of delivery and associated risks: [] special requests: [] Specific Issue/Plans Covid status: [] Flu vaccine: [] Tdap vaccine: [] Rhogam: na LARC form signed: [] Problem list reviewed and updated with the most current plan of care details and appropriate orders placed. Relevant counseling for the gestational age provided. Continue routine care and follow up unless otherwise noted in visit notes/problem list details Initial Weight: 124 lb Date -???-???-???-???-???-???- ???-???-???-???-???-???- EGA Weight BP Urine Prot -???-???-???-???-???-???- ???-???-???-???-???-???- Glucose FHR FuHt Pres Dilation -???-???-???-???-???-???- ???-???-???-???-???-???- Effaced St Visit Note 06/10/24 -???-???-???-???-???-???- ???-???-???-???-???-???- 9w 0d 124 lb 4 oz (+4 oz) 122/80 -???-???-???-???-???-???- ???-???-???-???-???-???- 182 -???-???-???-???-???-???- ???-???-???-???-???-???- KW- CRL cons with dates. declines NIPT KW- CRL cons with dates. declines NIPT. would like some appts in [facility]. doing well today 07/07/24 -???-???-???-???-???-???- ???-???-???-???-???-???- 12w 6d 124 lb 6 oz (+6 oz) 112/78 Negative -???-???-???-???-???-???- ???-???-???-???-???-???- Negative 160 -???-???-???-???- (more content not included)... Normal [facility] - Chemistry and C hemistry - challengeOrdered By: Erinn Jordan on 08-22-2024 Glucose Ql (U) Negative [facility] - UrinalysisOrder ed By: Erinn Jordan on 08-22-2024 Protein Ql (U) Negative [facility] Spray Drier Operator Helper Office Visit Reporton 08-22-2024 Spray Drier Operator Helper Office Visit Report [facility]'s [address], [address] [place] [address] OFFICE VISIT Date of Service: 08/22/24 MR#: [id number] Acct: [id number] Name: NORA CAMERON Rep #: [id number] : 1990 Provider: MILTON babcock Age/Sex: 34/F Location: [facility] [place] Status: Signed Intake Vital Signs 07/07/24 08:48 07/28/24 16:02 08/22/24 08:29 Height 5 ft 3 in 5 ft 3 in 5 ft 3 in Weight: 129 lb 6 oz BMI 22.8 BP 100/64 Intake Visit Reasons: 20WK OB Chief Complaint: 20 Week OB 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 Is patient in pain?: No Allergies No Known Allergies Allergy (Verified 08/22/24 08:29) Medications ???Medication ???Instructions ???Recorded ???Confirmed ???Type multivitamin no.47-iron fum 27 cap PO 05/23/22 08/22/24 History mg-folate no.1 1 mg-dha 300 mg capsule (PNV-DHA) cod liver oil 1 cap PO ONCE 04/27/24 08/22/24 Hi story thyroid support PO 04/27/24 08/22/24 History cholecalciferol (vitamin D3) 25 25 mcg PO ONCE 05/31/24 08/22/24 H istory mcg/drop (1,000 unit/drop) oral drops Last Menstrual Period: 04/08/24 Zika: Zika virus screening: Negative : No PFSH PFSH Medical History Hx of abnormal cervical Pap smear Surgical History Spearfish teeth extracted History of colposcopy Family History Grandmother Colon cancer, Onset Age: 92 Paternal Mother Myocardial infarction, Onset Age: 64 2022 Grandfather Myocardial infarction Maternal Social History adopted: No household members: spouse housing: house current occupational status: employed 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 current occupational exposures/hazards: No pets and animals: No history of recent travel: No ([place], [place]) sexually active: Yes Smoking Status: Never smoker alcohol intake: former details: occasionally prior to substance use type: does not use well-balanced diet: daily or most days caffeine: No eating out: 1-3 times/week during the past year weight has: remained stable what type of physical activity do you participate in: walking and weight training frequency: 3-4 times per week duration: 30-45 minutes/day michael/gnosticism: Sabianist seatbelt use: always do you feel safe at home: Yes 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 Date Name GA/Weeks Outcome Route Bth Weight Infant Gen Labor Lgth Anesthesia Del Locatn Provider FOB 02/26/21 miscarriage 5 1/2 weeks 07/06/21 miscarriage 8 1/2 weeks 06/05/22 miscarriage 9wks HPI 20WK OB Details: NORA CAMERON is a 34 year old who presents for routine OB visit. OB Visit TREVON Calculator Estimated Delivery Date Method Current WG Current Estimate 08/29/25 LMP (Certain) 19w 3d Other Estimates 01/10/25 Ultrasound #1 19w 6d Expected Delivery Route/Plan Labor Preferences- CB/BF classes: [] labor support person: [] labor intervention preferences: [] pain management options preferred: [] cut cord/dad catch: [] : [] PP control planned: [] discussed possible routes of delivery and associated risks: [] special requests: [] Specific Issue/Plans Covid status: [] Flu vaccine: [] Tdap vaccine: [] Rhogam: na LARC form signed: [] Problem list reviewed and updated with the most current plan of care details and appropriate orders placed. Relevant counseling for the gestational age provided. Continue routine care and follow up unless otherwise noted in visit notes/problem list details Initial Weight: 124 lb Date -???-???-???-???-???-???- ???-???-???-???-???-???- EGA Weight BP Urine Prot -???-???-???-???-???-???- ???-???-???-???-???-???- Glucose FHR FuHt Pres Dilation -???-???-???-???-???-???- ???-???-???-???-???-???- Effaced St Visit Note 06/10/24 -???-???-???-???-???-???- ???-???-???-???-???-???- 9w 0d 124 lb 4 oz (+4 oz) 122/80 -???-???-???-???-???-???- ???-???-???-???-???-???- 182 -???-???-???-???-???-???- ???-???-???-???-???-???- KW- CRL cons with dates. declines NIPT KW- CRL cons with dates. declines NIPT. would like some appts in [place] [facility]. doing well today 07/07/24 -???-???-???-???-???-???- ???-???-???-???-???-???- 12w 6d 124 lb 6 oz (+6 oz) 112/78 Negative -???-???-???-???-???-???- ???-???-???-???-???-???- Negative 160 -??? (more content not included)... Normal [facility] - Chemistry and C hemistry - challengeOrdered By: Emerald Dodd on 07-28-2024 Glucose Ql (U) Negative [facility] - UrinalysisOrder ed By: Emerald Dodd on 07-28-2024 Protein Ql (U) Negative [facility] Spray Drier Operator Helper Office Visit Reporton 07-28-2024 Spray Drier Operator Helper Office Visit Report [facility]'s [address], [address] [place] [address] OFFICE VISIT Date of Service: 07/28/24 MR#: [id number] Acct: [id number] Name: NORA CAMERON Rep #: [id number] : 1990 Provider: Dr. Emerald Couch, Age/Sex: 34/F Location: [facility] [place] Status: Signed Intake Vital Signs 07/07/24 07:43 07/07/24 08:48 07/28/24 16:01 07/28/24 16:02 Height 5 ft 3 in 5 ft 3 in 5 ft 3 in 5 ft 3 in Weight: 126 lb BMI 22.3 BP 122/73 H Intake Visit Reasons: 16 wk 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 Is patient in pain?: No Allergies No Known Allergies Allergy (Verified 07/28/24 16:01) Medications ???Medication ???Instructions ???Recorded ???Confirmed ???Type multivitamin no.47-iron fum 27 cap PO 05/23/22 07/28/24 History mg-folate no.1 1 mg-dha 300 mg capsule (PNV-DHA) cod liver oil 1 cap PO ONCE 04/27/24 07/28/24 Hi story thyroid support PO 04/27/24 07/28/24 History cholecalciferol (vitamin D3) 25 25 mcg PO ONCE 05/31/24 07/28/24 H istory mcg/drop (1,000 unit/drop) oral drops Last Menstrual Period: 04/08/24 Zika: Zika virus screening: Negative : No PFSH PFSH Medical History Hx of abnormal cervical Pap smear Surgical History Spearfish teeth extracted History of colposcopy Family History Grandmother Colon cancer, Onset Age: 92 Paternal Mother Myocardial infarction, Onset Age: 64 2022 Grandfather Myocardial infarction Maternal Social History adopted: No household members: spouse housing: house current occupational status: employed current occupation: [employer]- [employer] current occupational exposures/hazards: No pets and animals: No history of recent travel: No ([place], [place]) sexually active: Yes Smoking Status: Never smoker alcohol intake: former details: occasionally prior to substance use type: does not use well-balanced diet: daily or most days caffeine: No eating out: 1-3 times/week during the past year weight has: remained stable what type of physical activity do you participate in: walking and weight training frequency: 3-4 times per week duration: 30-45 minutes/day michael/gnosticism: Sabianist seatbelt use: always do you feel safe at home: Yes 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 Date Name GA/Weeks Outcome Route Bth Weight Infant Gen Labor Lgth Anesthesia Del Locatn Provider FOB 02/26/21 miscarriage 5 1/2 weeks 07/06/21 miscarriage 8 1/2 weeks 06/05/22 miscarriage 9wks HPI 16 wk ob Details: NORA CAMERON is a 34 year old who presents for routine OB visit. OB Visit TREVON Calculator Estimated Delivery Date Method Current WG Current Estimate 01/13/25 LMP (Certain) 15w 6d Other Estimates 01/10/25 Ultrasound #1 16w 2d Expected Delivery Route/Plan Labor Preferences- CB/BF classes: [] labor support person: [] labor intervention preferences: [] pain management options preferred: [] cut cord/dad catch: [] : [] PP control planned: [] discussed possible routes of delivery and associated risks: [] special requests: [] Specific Issue/Plans Covid status: [] Flu vaccine: [] Tdap vaccine: [] Rhogam: [] LARC form signed: [] Problem list reviewed and updated with the most current plan of care details and appropriate orders placed. Relevant counseling for the gestational age provided. Continue routine care and follow up unless otherwise noted in visit notes/problem list details Initial Weight: 124 lb Date -???-???-???-???-???-???- ???-???-???-???-???-???- EGA Weight BP Urine Prot -???-???-???-???-???-???- ???-???-???-???-???-???- Glucose FHR FuHt Pres Dilation -???-???-???-???-???-???- ???-???-???-???-???-???- Effaced St Visit Note 06/10/24 -???-???-???-???-???-???- ???-???-???-???-???-???- 9w 0d 124 lb 4 oz (+4 oz) 122/80 -???-???-???-???-???-???- ???-???-???-???-???-???- 182 -???-???-???-???-???-???- ???-???-???-???-???-???- KW- CRL cons with dates. declines NIPT KW- CRL cons with dates. declines NIPT. would like some appts in [facility]. doing well today 07/07/24 -???-???-???-???-???-???- ???-???-???-???-???-???- 12w 6d 124 lb 6 oz (+6 oz) 112/78 Negative -???-???-???-???-???-???- ???-???-???-???-???-???- Negative 160 -?? (more content not included)... Normal [facility] - Chemistry and C hemistry - challengeOrdered By: Vaibhav Hale on 07-07-2024 Glucose Ql (U) Negative [facility] - UrinalysisOrder ed By: Vaibhav Hale on 07-07-2024 Protein Ql (U) Negative [facility] NATERAon 07-07-2024 NATURA SEE SCANNED REPORT Normal [facility] Comment on above: Performed By: #### L 900.0098 ####[facility] [id number] [place], [place], [address] Spray Drier Operator Helper Office Visit Reporton 07-07-2024 Spray Drier Operator Helper Office Visit Report [facility]'s [address], [address] [place] [address] OFFICE VISIT Date of Service: 07/07/24 MR#: [id number] Acct: [id number] Name: NORA CAMERON Rep #: [id number] : 1990 Provider: ANGELA Dawkins ams Age/Sex: 33/F Location: [facility] [place] Status: Signed Intake Vital Signs 05/27/24 13:52 07/07/24 07:43 Height 5 ft 3 in 5 ft 3 in Weight: 126 lb 124 lb 6 oz BMI 22.3 22.0 BP 126/80 H 112/78 Intake Visit Reasons: 13 wk ob Chief Complaint: 13wk OB Is patient in pain?: No Allergies No Known Allergies Allergy (Verified 07/07/24 07:44) Medications ???Medication ???Instructions ???Recorded ???Confirmed ???Type multivitamin no.47-iron fum 27 cap PO 05/23/22 07/07/24 History mg-folate no.1 1 mg-dha 300 mg capsule (PNV-DHA) cod liver oil 1 cap PO ONCE 04/27/24 07/07/24 Hi story thyroid support PO 04/27/24 07/07/24 History cholecalciferol (vitamin D3) 25 25 mcg PO ONCE 05/31/24 07/07/24 H istory mcg/drop (1,000 unit/drop) oral drops Last Menstrual Period: 04/08/24 PFSH PFSH Medical History Hx of abnormal cervical Pap smear Surgical History Spearfish teeth extracted History of colposcopy Family History Grandmother Colon cancer, Onset Age: 92 Paternal Mother Myocardial infarction, Onset Age: 64 2023 Grandfather Myocardial infarction Maternal Social History adopted: No household members: spouse housing: house service: No current occupational status: employed current occupation: [employer]- [employer] current occupational exposures/hazards: No pets and animals: No history of recent travel: No ([place], [place]) sexually active: Yes Smoking Status: Never smoker alcohol intake: former details: occasionally prior to substance use type: does not use well-balanced diet: daily or most days caffeine: No eating out: 1-3 times/week during the past year weight has: remained stable what type of physical activity do you participate in: walking and weight training frequency: 3-4 times per week duration: 30-45 minutes/day michael/gnosticism: Sabianist seatbelt use: always do you feel safe at home: Yes 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 Date Name GA/Weeks Outcome Route Bth Weight Gen Labor Lgth Anesthesia Del Locatn Provider FOB 02/26/21 miscarriage 5 1/2 weeks 07/06/21 miscarriage 8 1/2 weeks 06/05/22 miscarriage 9wks HPI 13 wk ob Details: NORA CAMERON is a 33 year old who presents for routine OB visit. OB Visit TREVON Calculator Estimated Delivery Date Method Current WG Current Estimate 01/13/25 LMP (Certain) 12w 6d Other Estimates 01/10/25 Ultrasound #1 13w 2d Expected Delivery Route/Plan Labor Preferences- CB/BF classes: [] labor support person: [] labor intervention preferences: [] pain management options preferred: [] cut cord/dad catch: [] : [] PP control planned: [] discussed possible routes of delivery and associated risks: [] special requests: [] Specific Issue/Plans Covid status: [] Flu vaccine: [] Tdap vaccine: [] Rhogam: [] LARC form signed: [] Problem list reviewed and updated with the most current plan of care details and appropriate orders placed. Relevant counseling for the gestational age provided. Continue routine care and follow up unless otherwise noted in visit notes/problem list details Initial Weight: 124 lb Date -???-???-???-???-???-???- ???-???-???-???-???-???- EGA Weight BP Urine Prot -???-???-???-???-???-???- ???-???-???-???-???-???- Glucose FHR FuHt Pres Dilation -???-???-???-???-???-???- ???-???-???-???-???-???- Effaced St Visit Note 06/10/24 -???-???-???-???-???-???- ???-???-???-???-???-???- 9w 0d 124 lb 4 oz (+4 oz) 122/80 -???-???-???-???-???-???- ???-???-???-???-???-???- 182 -???-???-???-???-???-???- ???-???-???-???-???-???- KW- CRL cons with dates. declines NIPT KW- CRL cons with dates. declines NIPT. would like some appts in [facility]. doing well today 07/07/24 -???-???-???-???-???-???- ???-???-???-???-???-???- 12w 6d 124 lb 6 oz (+6 oz) 112/78 Negative -???-???-???-???-???-???- ???-???-???-???-???-???- Negative 160 -???-???-???-???-???-???- ???-???-???-???-???-???- KW- no vb/cr (more content not included)... Normal [facility] PAP IG HPV APTIMA 16/18,45on 06-16-2024 ADEQ Comment Normal . [facility] Comment on above: Order Comment: Speci men Comment: [id number] Specimen Comment: No. of containers..01 ThinPrep Vial Result Comment: Sati sfactory for evaluation. No endocervical component is identified. Performed By: #### L 7400.0280, L7000.1800, M100.2200 #### [facility] [address] [place], [address] COMM . Normal . [facility] Comment on above: Order Comment: Speci men Comment: [id number] Specimen Comment: No. of containers..01 ThinPrep Vial Performed By: #### L 7400.0280, L7000.1800, M100.2200 #### [facility] [address] [place], [address] COMMENT Comment Normal . [facility] Comment on above: Order Comment: Speci men Comment: [id number] Specimen Comment: No. of containers..01 ThinPrep Vial Result Comment: This liquid based ThinPrep(R) pap test was screened with the use of an image guided system. Performed By: #### L 7400.0280, L7000.1800, M100.2200 #### [facility] [address] [place], [address] DIAG Comment Normal . [facility] Comment on above: Order Comment: Speci men Comment: [id number] Specimen Comment: No. of containers..01 ThinPrep Vial Result Comment: NEGA TIVE FOR INTRAEPITHELIAL LESION OR MALIGNANCY. Performed By: #### L 7400.0280, L7000.1800, M100.2200 #### [facility] [address] [place], [address] HPV APTIMA, HR Negative Normal Negative [facility] Comment on above: Order Comment: Speci men Comment: [id number] Specimen Comment: No. of containers..01 ThinPrep Vial Result Comment: This nucleic acid amplification test detects fourteen high- risk HPV types (16,18,31,33,35,39,45,51,52,56,58,59,66,68) without differentiation. Performed By: #### L 7400.0280, L7000.1800, M100.2200 #### [facility] [address] [place], [address] HPV Felicita Rfx Comment Normal . [facility] Comment on above: Order Comment: Speci men Comment: [id number] Specimen Comment: No. of containers..01 ThinPrep Vial Result Comment: Violetat rubén not met, HPV Genotype not performed. Performed at: - [facility] [id number] Horse Racing Manager: Maki Cespedes MD, Phone: [phone] Performed at: = - [facility] [address] [id number] Horse Racing Manager: Maki Cespedes MD, Phone: [phone] Performed By: #### L 7400.0280, L7000.1800, M100.2200 #### [facility] [address] [place], [place], [id number] PAPSMR Comment Normal . [facility] Comment on above: Order Comment: Speci men Comment: [id number] Specimen Comment: No. of containers..01 ThinPrep Vial Result Comment: The Pap smear is a screening test designed to aid in the detection of premalignant and malignant conditions of the uterine cervix. It is not a diagnostic procedure and should not be used as the sole means of detecting cervical cancer. Both false-positive and false-negative reports do occur. Performed By: #### L 7400.0280, L7000.1800, M100.2200 #### [facility] [address] [place], [place], [id number] PERFORM Comment Normal . [facility] Comment on above: Order Comment: Speci men Comment: [id number] Specimen Comment: No. of containers..01 ThinPrep Vial Result Comment: Zee Estrada, Bench Precision Assembler (ASCP) Performed By: #### L 7400.0280, L7000.1800, M100.2200 #### [facility] [address] [place], [place], [id number] Chlamydia/GC JESÚS aptimaon CHLAMY,NUC ACID Negative Normal Negative [facility] Comment on above: Performed By: #### L 7400.0280, L7000.1800, M100.2200 #### [facility] [address] [place], [address] GC BY NUC ACID Negative Normal Negative [facility] Comment on above: Result Comment: Perf ormed at: =G - [facility] [address] [id number] Horse Racing Manager: Maki Cespedes MD, Phone: [phone] Performed By: #### L 7400.0280, L7000.1800, M100.2200 #### [facility] [address] [place], [address] Urine Cultureon 06-11-2024 URC Culture exhibits no growth. Normal [facility] Comment on above: Performed By: #### L 7400.0280, L7000.1800, M100.2200 #### [facility] [address] [place], [address] CBC W/Diff, Automatedon 05-19 Absolute Lymph 1.89 X10 3/uL Normal 0.83-4.51 [facility] Comment on above: Performed By: #### L 3890.6100, L509.4005, L501.9520, L100.0100, L509.8000, L3890.6005, L3890.6300, BTS ####[facility] [address] [place], [address] Absolute Neut 7.1 X10 3/uL Normal 2.0-7.7 [facility] Comment on above: Performed By: #### L 3890.6100, L509.4005, L501.9520, L100.0100, L509.8000, L3890.6005, L3890.6300, BTS ####[facility] [address] [place], [address] Basophils/100 WBC (Bld) 0.3 % Normal 0-1 [facility] Comment on above: Performed By: #### L 3890.6100, L509.4005, L501.9520, L100.0100, L509.8000, L3890.6005, L3890.6300, BTS ####[facility] [address] [place], [address] Eosinophils/100 WBC (Bld) 0.7 % Normal 0-5 [facility] Comment on above: Performed By: #### L 3890.6100, L509.4005, L501.9520, L100.0100, L509.8000, L3890.6005, L3890.6300, BTS ####[facility] [address] [place], [address] Erythrocyte distribution width (RBC) [Ratio] 12.1 % Normal 11.6-14.6 [facility] Comment on above: Performed By: #### L 3890.6100, L509.4005, L501.9520, L100.0100, L509.8000, L3890.6005, L3890.6300, BTS ####[facility] [address] [place], [address] Hematocrit (Bld) [Volume fraction] 38.8 % Normal 37-47 [facility] Comment on above: Performed By: #### L 3890.6100, L509.4005, L501.9520, L100.0100, L509.8000, L3890.6005, L3890.6300, BTS ####[facility] [address] [place], [address] Hemoglobin (Bld) [Mass/Vol] 13.2 g/dL Normal 12.0-15.0 [facility] Comment on above: Performed By: #### L 3890.6100, L509.4005, L501.9520, L100.0100, L509.8000, L3890.6005, L3890.6300, BTS ####[facility] [address] [place], [address] IG% 0.400 Normal 0.0-0.9 [facility] Comment on above: Result Comment: IG% - Immature Granulocytes (promyelocytes, myelocytes and metamyelocytes) > 1% indicates that a LEFT SHIFT is Present. Performed By: #### L 3890.6100, L509.4005, L501.9520, L100.0100, L509.8000, L3890.6005, L3890.6300, BTS ####[facility] [address] [place], [address] Lymphocytes/100 WBC (Bld) 19.2 % Normal 19-41 [facility] Comment on above: Performed By: #### L 3890.6100, L509.4005, L501.9520, L100.0100, L509.8000, L3890.6005, L3890.6300, BTS ####[facility] [address] [place], [address] MCH (RBC) [Entitic mass] 30.6 pg Normal 27.0-32.0 [facility] Comment on above: Performed By: #### L 3890.6100, L509.4005, L501.9520, L100.0100, L509.8000, L3890.6005, L3890.6300, BTS ####[facility] [address] [place], [address] MCHC (RBC) [Mass/Vol] 34.0 g/dL Normal 32-36 [facility] Comment on above: Performed By: #### L 3890.6100, L509.4005, L501.9520, L100.0100, L509.8000, L3890.6005, L3890.6300, BTS ####[facility] [address] [place], [address] MCV (RBC) [Entitic vol] 90.0 fL Normal 81-99 [facility] Comment on above: Performed By: #### L 3890.6100, L509.4005, L501.9520, L100.0100, L509.8000, L3890.6005, L3890.6300, BTS ####[facility] [address] [place], [address] Monocytes/100 WBC (Bld) 7.4 % Normal 0-10 [facility] Comment on above: Performed By: #### L 3890.6100, L509.4005, L501.9520, L100.0100, L509.8000, L3890.6005, L3890.6300, BTS ####[facility] [address] [place], [address] Neutrophils/100 WBC (Bld) 72.0 % High 47-70 [facility] Comment on above: Performed By: #### L 3890.6100, L509.4005, L501.9520, L100.0100, L509.8000, L3890.6005, L3890.6300, BTS ####[facility] [address] [place], [address] Nucleated RBC (Bld) [#/Vol] 0 10*3/uL Normal 0-5 [facility] Comment on above: Performed By: #### L 3890.6100, L509.4005, L501.9520, L100.0100, L509.8000, L3890.6005, L3890.6300, BTS ####[facility] [address] [place], [address] Platelet mean volume (Bld) [Entitic vol] 10.0 fL Normal 6.2-12.0 [facility] Comment on above: Performed By: #### L 3890.6100, L509.4005, L501.9520, L100.0100, L509.8000, L3890.6005, L3890.6300, BTS ####[facility] [address] [place], [address] Platelets (Bld) [#/Vol] 324 10*3/uL Normal 150-450 [facility] Comment on above: Performed By: #### L 3890.6100, L509.4005, L501.9520, L100.0100, L509.8000, L3890.6005, L3890.6300, BTS ####[facility] [address] [place], [address] RBC (Bld) [#/Vol] 4.31 10*6/uL Normal 4.2-5.4 [facility] Comment on above: Performed By: #### L 3890.6100, L509.4005, L501.9520, L100.0100, L509.8000, L3890.6005, L3890.6300, BTS ####[facility] [address] [place], [address] RDW SD 39.9 fl Normal 35.1-43.9 [facility] Comment on above: Performed By: #### L 3890.6100, L509.4005, L501.9520, L100.0100, L509.8000, L3890.6005, L3890.6300, BTS ####[facility] [address] [place], [address] WBC (Bld) [#/Vol] 9.9 10*3/uL Normal 4.4-11.0 [facility] Comment on above: Performed By: #### L 3890.6100, L509.4005, L501.9520, L100.0100, L509.8000, L3890.6005, L3890.6300, BTS ####[facility] [address] [facility], [address] HIV - WCHon 06-10-2024 HIV Non-Reactive Normal Nonreactive [facility] Comment on above: Order Comment: Reaso n for Exam: Performed By: #### L 3890.6100, L509.4005, L501.9520, L100.0100, L509.8000, L3890.6005, L3890.6300, BTS ####[facility] [address] [facility], [address] Hepatitis B Surface Antigeno n 06-10-2024 HEP B Surf Ag Non-Reactive Normal Nonreactive [facility] Comment on above: Order Comment: Reaso n for Exam: Performed By: #### L 3890.6100, L509.4005, L501.9520, L100.0100, L509.8000, L3890.6005, L3890.6300, BTS ####[facility] [address] [facility] [place], [place], [address] Hepatitis C Antibodyon 06-10 Hepatitis C AB Non-Reactive Normal Nonreactive [facility] Comment on above: Order Comment: Reaso n for Exam: Result Comment: Non Reactive: < 0.8 Equivocal: >/= 0.8 to < 1.0 Reactive: >/= 1.0 The CDC requires that a reactive/equivocal HCV antibody result be sent out for confirmation. HCV Quant by PCR testing. Performed By: #### M 100.3400 #### [facility] [address] [place], [address] L509.8000on 06-10-2024 Syphilis Abs Non-Reactive Normal [facility] Comment on above: Order Comment: Reaso n for Exam: Performed By: #### L 3890.6100, L509.4005, L501.9520, L100.0100, L509.8000, L3890.6005, L3890.6300, BTS ####[facility] [address] [place], [address] Spray Drier Operator Helper Office Visit Reporton 06-10-2024 Spray Drier Operator Helper Office Visit Report [facility]'s [address], [address] [place] [address] OFFICE VISIT Date of Service: 06/10/24 MR#: [id number] Acct: [id number] Name: NORA CAMERON Rep #: [id number] : 1990 Provider: ANGELA Dawkins ams Age/Sex: 33/F Location: [facility] [place] Status: Signed Intake Vital Signs 04/27/24 10:29 05/27/24 13:52 06/10/24 11:15 06/10/24 11:19 Height 5 ft 3 in 5 ft 3 in 5 ft 3 in Weight: 124 lb 4 oz BMI 22.0 BP 122/80 H Intake Visit Reasons: NOB, LMP 04/08, TREVON 01/13/25 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 Is patient in pain?: No Allergies No Known Allergies Allergy (Verified 06/10/24 11:14) Medications ???Medication ???Instructions ???Recorded ???Confirmed ???Type multivitamin no.47-iron fum 27 cap PO 05/23/22 05/31/24 History mg-folate no.1 1 mg-dha 300 mg capsule (PNV-DHA) cod liver oil 1 cap PO ONCE 04/27/24 05/31/24 History thyroid support PO 04/27/24 05/31/24 History cholecalciferol (vitamin D3) 25 25 mcg PO ONCE 05/31/24 05/31/24 History mcg/drop (1,000 unit/drop) oral drops Last Menstrual Period: 04/08/24 : Yes Have you fallen in the past year?: No PFSH PFSH Medical History Hx of abnormal cervical Pap smear Surgical History [place] teeth extracted History of colposcopy Family History Grandmother Colon cancer, Onset Age: 92 Paternal Mother Myocardial infarction, Onset Age: 64 3 Grandfather Myocardial infarction Maternal Social History adopted: No household members: spouse housing: house current occupational status: employed current occupation: [employer] current occupational exposures/hazards: No pets and animals: No history of recent travel: No ([place], [place]) sexually active: Yes Smoking Status: Never smoker alcohol intake: former details: occasionally prior to substance use type: does not use well-balanced diet: daily or most days caffeine: No eating out: 1-3 times/week during the past year weight has: remained stable what type of physical activity do you participate in: walking and weight training frequency: 3-4 times per week duration: 30-45 minutes/day michael/gnosticism: Sabianist seatbelt use: always do you feel safe at home: Yes 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 Date Name GA/Weeks Outcome Route Bth Weight Infant Gen Labor Lgth Anesthesia Del Locatn Provider FOB 02/26/21 miscarriage 5 1/2 weeks 07/06/21 miscarriage 8 1/2 weeks 06/05/22 miscarriage 9wks HPI NOB, LMP 04/08, TREVON 01/13/25 Details: NORA CAMERON is a 33 year old who presents for New OB visit. OB Visit TREVON Calculator Estimated Delivery Date Method Current WG Current Estimate 01/13/25 LMP (Certain) 9w 0d Other Estimates 01/10/25 Ultrasound #1 9w 3d Comments: HIV: Urine Culture: Sequential Screen: NIPT Screen: Estimated Due Date: 01/13/25 Expected Delivery Route/Plan Labor Preferences- CB/BF classes: [] labor support person: [] labor intervention preferences: [] pain management options preferred: [] cut cord/dad catch: [] : [] PP control planned: [] discussed possible routes of delivery and associated risks: [] special requests: [] Specific Issue/Plans Covid status: [] Flu vaccine: [] Tdap vaccine: [] Rhogam: [] LARC form signed: [] Problem list reviewed and updated with the most current plan of care details and appropriate orders placed. Relevant counseling for the gestational age provided. Continue routine care and follow up unless otherwise noted in visit notes/problem list details Initial Weight: 124 lb Date -???-???-???-???-???-???- ???-???-???-???-???-???- EGA Weight BP Urine Prot -???-???-???-???-???-???- ???-???-???-???-???-???- Glucose FHR FuHt Pres Dilation -???-???-???-???-???-???- ???-???-???-???-???-???- Effaced St Visit Note 06/10/24 -???-???-???-???-???-???- ???-???-???-???-???-???- 9w 0d 124 lb 4 oz (+4 oz) 122/80 -???-???-???-???-???-???- ???-???-???-???-???-???- 182 -???-???-???-???-???-???- ???-???-???-???-???-???- KW- CRL cons with dates. declines NIPT KW- CRL cons with dates. declines NIPT. would like some appts in [facility]. doing well today Menstrual History Last Menstrual Period: (more content not included)... Normal [facility] Rubella IgGon 06-10-2024 Rubella IgG Reactive Normal Nonreactive [facility] Comment on above: Order Comment: Reaso n for Exam: Result Comment: Anti body Results Interpretation of Immune Status Non Reactive Presumed Non-Immune Equivocal Equivocal Reactive Presumed Immune Performed By: #### L 3890.6100, L509.4005, L501.9520, L100.0100, L509.8000, L3890.6005, L3890.6300, BTS ####[facility] [address] [place], [address] Thyroid Stim Hormone (TSH)on 06-10-2024 TSH 1.240 uIU/mL Normal 0.358-3.740 [facility] Comment on above: Performed By: #### L 3890.6100, L509.4005, L501.9520, L100.0100, L509.8000, L3890.6005, L3890.6300, BTS ####[facility] [address] [facility], [address] Type AND Screenon 06-10-2024 ABO and Rh group Nom (Bld) Blood group AB Rh(D) positive Normal [facility] Comment on above: Order Comment: PN Performed By: #### L 3890.6100, L509.4005, L501.9520, L100.0100, L509.8000, L3890.6005, L3890.6300, BTS ####[facility] [address] [facility], [address] Spray Drier Operator Helper Office Visit Reporton 05-27-2024 Spray Drier Operator Helper Office Visit Report [facility]'s [address], [address] [place] [address] OFFICE VISIT Date of Service: 05/27/24 MR#: [id number] Acct: [id number] Name: NORA CAMERON Rep #: [id number] : 1990 Provider: Dr. Lindsay bui MD Age/Sex: 33/F Location: [facility] [place] Status: Signed Intake Vital Signs 04/27/24 10:29 05/27/24 09:58 05/27/24 13:52 Height 5 ft 3 in 5 ft 3 in 5 ft 3 in Weight: 126 lb BMI 22.3 BP 126/80 H Intake Visit Reasons: 7w5d, brown spotting 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 Is patient in pain?: No Allergies No Known Allergies Allergy (Verified 05/27/24 13:59) Medications ???Medication ???Instructions ???Recorded ???Confirmed ???Type multivitamin no.47-iron fum 27 cap PO 05/23/22 05/27/24 History mg-folate no.1 1 mg-dha 300 mg capsule (PNV-DHA) cod liver oil 1 cap PO ONCE 04/27/24 05/27/24 History thyroid support PO 04/27/24 05/27/24 History vitamin E 100 unit/0.25 mL oral unit PO 04/27/24 05/27/24 History drops Is last menstrual period known: Yes Last Menstrual Period: 04/08/24 Post menopausal: No Patient : Yes : No [facility] Medical History Hx of abnormal cervical Pap smear Surgical History History of colposcopy Family History Grandmother Colon cancer, Onset Age: 92 Paternal Social History adopted: No household members: spouse housing: house current occupational status: employed 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[employer] current occupational exposures/hazards: No pets and animals: No history of recent travel: Yes ([place], [place]) out of state: Yes out of country: No sexually active: Yes Smoking Status: Never smoker alcohol intake: former details: occasionally prior to substance use type: does not use well-balanced diet: daily or most days caffeine: Yes Type: carbonated beverages Number of servings: 1 eating out: 1-3 times/week during the past year weight has: remained stable what type of physical activity do you participate in: weight training frequency: 3-4 times per week duration: 30-45 minutes/day michael/gnosticism: Sabianist seatbelt use: always do you feel safe at home: Yes 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 3 mm subchorionic hematoma seen. Female Reproductive History Last Menstrual Period: 04/08/24 History 4 Elective abortions Hx Para 0 Spontaneous abortions 3 Hx # Term Pregnancies Ectopic pregnancies Hx # Pregnancies Multiple births # of living children 0 Past Pregnancies Del. Date Name GA/Weeks Outcome Route Bth Weight [facility] 02/26/21 miscarriage 5 1/2 weeks 07/06/21 miscarriage 8 1/2 weeks ROS Const Constitutional: Reports as per HPI; Denies fever(s) ENT ENT: Reports system reviewed and no additional complaints, except as documented Cardio Card: Reports system reviewed and no additional complaints, except as documented Resp Resp: Reports system reviewed and no additional complaints, except as documented GI GI: Reports as per HPI : Reports as per HPI Musc Musc: Reports system reviewed and no additional complaints, except as documented Skin Skin/Breast: Reports system reviewed and no additional complaints, except as documented Neuro Neuro: Reports system reviewed and no additional complaints, except as documented Endo Endo: Reports system reviewed and no additional complaints, except as documented Exam Const General: healthy appearing, comfortable and no acute distress HENMT Head: normal to inspection and normocephalic Neck Neck: no lymphadenopathy noted Thyroid: thyroid normal Chest Chest palpation inspection: normal inspection of the chest Resp Effort Inspection: normal respiratory effort Cardio Rate: regular rate Rhythm: regular rhythm GI Inspection: normal to inspection Palpation: soft and nontender External Female Exam: normal external appearance Speculum Exam - Vagina: normal appearance of the vagina and vaginal bleeding Bimanual Exam- Vagina Uterus: uterine shape normal and non-tender OB/External Speculum: vaginal bleeding Speculum Exam: vaginal bleeding Skin General: no rashes or lesions noted Neuro General: no focal motor deficits Extrem General: normal to inspection and no pedal edema Psych Appearance: grossly normal (more content not included)... Normal [facility] Transvaginal w/Preg USon Transvaginal w/Preg [facility] [place] [id number] Transvaginal w/Preg MR#: [id number] Acct: [id number] Name: NORA CAMERON Rep #: [id number] : 1990 F 33 From: Len Currie MD PCP: Dr. Todd Romero MD Status: REG CLI Study: Transvaginal w/Preg US Date of Exam: 05/23/24 Exam# [id number] Ordering Dr: Lindsay Song [id number] STUDY: FIRST TRIMESTER OBSTETRICAL ULTRASOUND REASON FOR EXAM: Female, 33 years old Hx of recurrent miscarriage LMP: 04/08/2024 TECHNIQUE: Transvaginal TECHNICAL QUALITY: Adequate. PRIOR ULTRASOUND: None. FINDINGS: There is visualization of a single gestational sac in a normal intrauterine position. The mean sac diameter (MSD) measures 2.3 cm, indicating an estimated gestational age (EGA) of 7 weeks, 2 days. The gestational sac shape is within normal limits. There is a visualized yolk sac. The yolk sac measures 0.3 cm. The placenta is non-visualized. There is visualization of a live embryo. The crown-rump length (CRL) measures 0.9 cm, indicating an estimated gestational age (EGA) of 7 weeks, 0 days. There is demonstrated cardiac activity with a heart rate of 123 bpm. The estimated gestation age (EGA) by LMP is 6 weeks, 3 days. The estimated date of delivery (TREVON) by LMP is 01/13/2025. The estimated gestation age (EGA) by US is 7 weeks, 1 days. The estimated date of delivery (TREVON) by US is 01/08/2025. The uterus measures 9.7 x 5.5 x 5.0 cm. There is no demonstrated uterine fibroid. The cervix is closed. The right ovary measures 2.1 x 1.2 x 1.3 cm. There is no right ovarian cyst. There is no visualized right adnexal mass or complex lesion. The left ovary measures 3.6 x 2.8 x 2.6 cm.. There is a solid paraovarian nodule measuring 2 x 2 by 1.6 cm and a likely corpus luteal cyst measuring 2 cm. There is no fluid in the cul de sac. US/Transvaginal w/Preg US IMPRESSION: Single live intrauterine at 7 weeks, 1 day by ultrasound with TREVON of 01/08/2025. Heart rate 123 bpm. No suspicious sonographic findings Electronically Signed: Mulugeta Currie MD at 13:25 EST , CC: Dr. Todd Romero MD; Dr. Lindsay Song MD Machine Feeder: Signed Normal [facility] PROGESTERONE 4317on 05-15-20 24 PROGESTERONE 24.2 ng/mL Normal . [facility] Comment on above: Order Comment: N Result Comment: Foll icular phase 0.1 - 0.9 Luteal phase 1.8 - 23.9 Ovulation phase 0.1 - 12.0 First trimester 11.0 - 44.3 Second trimester 25.4 - 83.3 Third trimester 58.7 - 214.0 Postmenopausal 0.0 - 0.1 Performed at: [facility] [address] [id number] Horse Racing Manager: Jose Recinos PhD, Phone: [phone] Performed By: #### M 688.1918 #### [facility] [address] [place] [address], [address] hCG Titer Quant., Serumon HCG QUANT. 6698 mIU/mL High 1-3 [facility] Comment on above: Result Comment: hCG levels with Gestational Age Gestational Age hCG mIU/mL (IU/L) 0.2 - 1 week 5 - 50 1-2 weeks 50 - 500 2-3 weeks 100 - 5000 3-4 weeks 500 - 82378 4-5 weeks 1000 - 88465 5-6 weeks 55900 - 100,000 6-8 weeks 27143 - 200,000 2-3 months 03592 - 100,000 Performed By: #### L 7400.0280, L7000.1800, M100.2200 #### [facility] [address] [place], [place], [address] hCG Titer Quant., Serumon HCG QUANT. 3571 mIU/mL High 1-3 [facility] Comment on above: Result Comment: hCG levels with Gestational Age Gestational Age hCG mIU/mL (IU/L) 0.2 - 1 week 5 - 50 1-2 weeks 50 - 500 2-3 weeks 100 - 5000 3-4 weeks 500 - 86427 4-5 weeks 1000 - 97168 5-6 weeks 12749 - 100,000 6-8 weeks 55914 - 200,000 2-3 months 39683 - 100,000 Performed By: #### M 100.3400 #### [facility] [address] [place], [place], [address] Urine Cultureon 04-28-2024 URC Culture exhibits no growth. Normal [facility] Comment on above: Performed By: #### M 100.3400 #### [facility] [address] [place], [place], [address] Spray Drier Operator Helper Office Visit Reporton 04-27-2024 Spray Drier Operator Helper Office Visit Report [facility] [address], [address] [place] [address] OFFICE VISIT Date of Service: 04/27/24 MR#: [id number] Acct: [id number] Name: NORA CAMERON Rep #: [id number] : 1990 Provider: MILTON babcock Age/Sex: 33/F Location: [facility] [place] Status: Signed Intake Vital Signs 09/11/22 09:37 04/27/24 10:27 04/27/24 10:29 Height 5 ft 3 in 5 ft 3 in 5 ft 3 in Weight: 126 lb BMI 22.3 BP 112/72 Intake Visit Reasons: FERTILITY CONSULT Chief Complaint: Fertility consult 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 Is patient in pain?: No Allergies No Known Allergies Allergy (Verified 04/27/24 10:20) Medications ???Medication ???Instructions ???Recorded ???Confirmed ???Type multivitamin no.47-iron fum 27 cap PO 05/23/22 04/27/24 History mg-folate no.1 1 mg-dha 300 mg capsule (PNV-DHA) cod liver oil 1 cap PO ONCE 04/27/24 04/27/24 History thyroid support PO 04/27/24 History vitamin E 100 unit/0.25 mL oral unit PO 04/27/24 04/27/24 History drops Is last menstrual period known: Yes Last Menstrual Period: 04/08/24 Post menopausal: No Patient : No : No PFSH Medical History Hx of abnormal cervical Pap smear Surgical History History of colposcopy Family History Grandmother Colon cancer, Onset Age: 92 Paternal Social History adopted: No household members: spouse housing: house current occupational status: employed 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[employer] current occupational exposures/hazards: No pets and animals: No history of recent travel: Yes ([place], [place]) out of state: Yes out of country: No sexually active: Yes Smoking Status: Never smoker alcohol intake: former details: occasionally prior to substance use type: does not use well-balanced diet: daily or most days caffeine: Yes Type: carbonated beverages Number of servings: 1 eating out: 1-3 times/week during the past year weight has: remained stable what type of physical activity do you participate in: weight training frequency: 3-4 times per week duration: 30-45 minutes/day michael/gnosticism: Sabianist seatbelt use: always do you feel safe at home: Yes 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 She has been evaluated by OBGYN in [place], saw a chiropractor in [place] and most recently saw Dr Dunbar in August 2022. She had had 2 miscarriages just prior to visit with Dr Vande Velde. She has had normal saline ultrasound, normal 28 day cycles. Positive ovulation testing, normal labs for APL, thyroid. She did have urea bacterium in urine at chiropractor and wants retested. She has not had HSG since she has had 2 confirmed early losts. Her has had normal semen analysis. She wants to consider silent endometriosis and wanted to defer letrozole or clomid until she had a reason for her infertility. She and spouse have had negative karotyping. She states my and I are healthy, eat right, exercise and have had normal testing for everything. I just want answers for infertility. Female Reproductive History Last Menstrual Period: 04/08/24 History 3 Elective abortions Hx Para 0 Spontaneous abortions 3 Hx # Term Pregnancies Ectopic pregnancies Hx # Pregnancies Multiple births # of living children 0 Past Pregnancies Del. Date Name GA/Weeks Outcome Route Bth Weight [facility] 02/26/21 miscarriage 5 1/2 weeks 07/06/21 miscarriage 8 1/2 weeks ROS Const Constitutional: Reports system reviewed and no additional complaints, except as documented Eyes Eyes: Reports system reviewed and no additional complaints, except as documented GI GI: Denies abdominal pain or change in bowel habits : Reports as per HPI Exam Const General: cooperative and no acute distress Orientation: oriented x3 HENMT Head: normal to inspection and normocephalic Eyes General: appearance normal, both eyes and all related structures Neck Neck: normal visual inspection Resp Effort Inspection: normal respiratory effort Neuro Cognition: normal cognition Speech: speech normal Psych Appearance: grossly normal Mood: congruent mood Affect: normal affect Speech and Movement: speech and movement normal Attitude: cooperative Judgment: judgment good Coding Level of Care Code Off vis,est,level 3 Diagnose (more content not included)... Normal [facility] CNOVon 04-11-2024 CNOV Office Visit (FMUPCN ) ----- NORA CAMERON ([id number]) 1990 F Date Time Provider Department 04/11/24 12:00 PM TRISTIAN FENG UPCN During your visit today, we recorded the following information about you: Temperature Pulse Respiration Blood pressure 98.3 degrees 88/minute 16/minute 118/75 Weight Height 57.4 kg 1.6 m Tristian Feng, SATELLITE TECHNICIAN.[facility] 04/11/2024 12:31 PM Signed Nora Cameron is a 33 year old female here today acutely because of having: Ear Pain and Fatigue Patient has symptoms of ear pain and fatigue. Symptoms on going for 5 days. Patient has tried OTC ear drops. Exposed to anyone with similar illness, no. Patient is not a smoker. Denies fever, SOB, chest pain, dizziness, nausea, vomiting, diarrhea. Ear Pain Associated symptoms include fatigue. Pertinent negatives include no abdominal pain, chest pain, chills, congestion, coughing, fever, headaches, nausea, rash, sore throat or vomiting. Fatigue Associated symptoms include fatigue. Pertinent negatives include no abdominal pain, chest pain, chills, congestion, coughing, fever, headaches, nausea, rash, sore throat or vomiting. Review of Systems Constitutional: Positive for fatigue and malaise/fatigue. Negative for chills and fever. HENT: Positive for ear pain. Negative for congestion, postnasal drip, rhinorrhea, sinus pain and sore throat. Respiratory: Negative for cough, chest tightness, shortness of breath and wheezing. Cardiovascular: Negative for chest pain, palpitations and leg swelling. Gastrointestinal: Negative for abdominal pain, diarrhea, nausea and vomiting. Skin: Negative for color change and rash. Neurological: Negative for dizziness and headaches. BP 118/75 (BP Site: Right Arm, BP Position: Sitting, BP Cuff Size: Regular Adult) Pulse 88 Temp 36.8 ?C (98.3 ?F) (Oral) Resp 16 Ht 160 cm (5' 2.99) Wt 57.4 kg (126 lb 9.6 oz) LMP 02/23/2020 SpO2 97% BMI 22.43 kg/m? BMI 22.43 kg/(m2) ALLERGIES No Known Allergies Physical Exam Vitals reviewed. Constitutional: Appearance: Normal appearance. HENT: Right Ear: Ear canal and external ear normal. Tympanic membrane is bulging. Left Ear: Ear canal and external ear normal. Tympanic membrane is bulging. Nose: Congestion and rhinorrhea present. Right Sinus: No maxillary sinus tenderness or frontal sinus tenderness. Left Sinus: No maxillary sinus tenderness or frontal sinus tenderness. Mouth/Throat: Mouth: Mucous membranes are moist. Pharynx: Oropharynx is clear. No posterior oropharyngeal erythema. Cardiovascular: Rate and Rhythm: Normal rate and regular rhythm. Heart sounds: Normal heart sounds. No murmur heard. Pulmonary: Effort: Pulmonary effort is normal. No respiratory distress. Breath sounds: Normal breath sounds. No wheezing. Musculoskeletal: Cervical back: No tenderness. Lymphadenopathy: Cervical: No cervical adenopathy. Skin: General: Skin is warm and dry. Neurological: Mental Status: She is alert and oriented to person, place, and time. ASSESSMENT/PLAN: 1. Viral URI - ICD9: 465.9, ICD10: J06.9 - Discussed viral etiology and rationale for treatment. - Symptomatic treatment with prn analgesia - Supportive care with fluids and rest - Start using Sudafed for ear congestion Tristian Feng CNP Follow Up: Return if symptoms worsen or fail to improve. Prescription instructions reviewed with patient as applicable. Patient advised if symptoms do not improve or if symptoms worsen sooner, to contact their primary care physician. Potential red flag symptoms discussed with the patient. Reviewed appropriate action plan to take if red flag symptoms occur. Patient agreeable to treatment plan. Voice recognition software utilized. Minor grammatical and/or spelling errors may exist. Portions of this note have been entered by ancillary staff. I have reviewed and when necessary edited, so that they are an adequate record of my encounter with this patient. Tristian Feng, RICK.BRIANNA 04/11/2024 12:31 PM Signed - Start using Sudafed for ear congestion Allergies As of Date: 04/11/2024 (No Known Allergies) Date Reviewed: 04/11/2024 Reviewed by: Nora Conrad - Fully Assessed Reason for Visit: Ear Pain [817] Cmt: Left ear pain on and off. Has been using OTC drops. Symptoms started around 5 days ago. Fatigue [46] Primary Visit Diagnosis:Viral URI [J06.9] Prescriptions as of 04/11/2024 - PNV no.95/ferrous fum/folic ac ( ORAL) Take by mouth. Problem List As Of Date 04/11/2024 Noted Resolved Sore throat [J02.9] 11/23/2018 Abdominal pain [R10.9] 03/18/2018 Migraine [G43.909] Other instructions from your clinician: - Start using Sudafed for ear congestion Disposition: Return if symptoms worsen or fail to improve. Follow-up and Disposition History for Encounter Date Provider Department Center (more content not included)... [facility] CNPNon 04-11-2024 CNPN Telephone (FPUPDV) ----- NORA CAMERON ([id number]) 1990 F Date Time Provider Department 04/11/24 TODD ROMERO II During your visit today, we recorded the following information about you: Anabelle Grey 04/11/2024 11:36 AM Signed Patient calls today. Reason for Call: patient having ear pain and will go to walk in clinic to be evaluated today [phone] (home) [phone] (cell) Patient last appointment: Visit date not found Anabelle Grey Allergies As of Date: 04/11/2024 (No Known Allergies) Date Reviewed: 07/28/2023 Reviewed by: Todd Romero II, MD - Fully Assessed Reason for Visit: walk in clinic [Other] Prescriptions as of 04/11/2024 - PNV no.95/ferrous fum/folic ac ( ORAL) Take by mouth. Problem List As Of Date 04/11/2024 Noted Resolved Sore throat [J02.9] 11/23/2018 Abdominal pain [R10.9] 03/18/2018 Migraine [G43.909] Encounter Status:Closed by ANABELLE GREY on 04/11/24 [facility] CNOVon 07-28-2023 CNOV Office Visit (FPUPDV ) ----- NORA CAMERON ([id number]) 1990 F Date Time Provider Department 07/28/23 2:00 PM TODD ROMERO II FPUPDV During your visit today, we recorded the following information about you: Temperature Pulse Respiration Blood pressure 97.7 degrees 88/minute 12/minute 90/60 Weight Height 58.5 kg 1.6 m Todd Romero II, MD 07/28/2023 9:34 PM Signed Todd Romero II, MD [address], [place] [address] SUBJECTIVE Nora Cameron is a 33 year old female who presents with Yearly Exam. HPI Patient is in today for routine physical. She states she is doing well and she is not taking any medication now but she is taking several herbal supplements to help her with conceiving. She has had laboratory workup done several times in the last year and things according to the patient were within acceptable ranges. Review of Systems Constitutional: Negative for activity change, appetite change, chills, diaphoresis, fatigue, fever and unexpected weight change. HENT: Negative for congestion, dental problem, ear pain, hearing loss, nosebleeds, postnasal drip, rhinorrhea, sinus pressure, sinus pain, sore throat, trouble swallowing and voice change. Eyes: Negative for discharge, redness and visual disturbance. Respiratory: Negative for apnea, cough, choking, chest tightness, shortness of breath, wheezing and stridor. Cardiovascular: Negative for chest pain, palpitations and leg swelling. Gastrointestinal: Negative for abdominal distention, abdominal pain, blood in stool, constipation, diarrhea, nausea and vomiting. Endocrine: Negative for cold intolerance, heat intolerance, polydipsia, polyphagia and polyuria. Genitourinary: Negative for decreased urine volume, difficulty urinating, dysuria, enuresis, frequency, hematuria and urgency. Musculoskeletal: Negative for arthralgias, gait problem and myalgias. Skin: Negative for color change, pallor, rash and wound. Allergic/Immunologic: Negative for environmental allergies. Neurological: Negative for dizziness, tremors, syncope, facial asymmetry, speech difficulty, weakness, light-headedness, numbness and headaches. Hematological: Negative for adenopathy. Does not bruise/bleed easily. Psychiatric/Behavioral: Negative for agitation, behavioral problems, confusion, decreased concentration, dysphoric mood, hallucinations, self-injury, sleep disturbance and suicidal ideas. The patient is not nervous/anxious and is not hyperactive. PAST MEDICAL HISTORY Diagnosis Date Abdominal pain Abnormal Pap smear of cervix 09/2017 Epigastric pain IBS (irritable bowel syndrome) Migraine Strep pharyngitis PAST SURGICAL HISTORY Procedure Laterality Date EXTRACTION ERUPTED TOOTH/EXR Social History Tobacco Use Smoking status: Never Smokeless tobacco: Never Vaping Use Vaping Use: Never used Substance Use Topics Alcohol use: Never FAMILY HISTORY Problem Relation Age of Onset Heart disease Mother Hypertension Mother Diabetes Mother other (lymphoma) Mother Hypertension Maternal Grandmother Diabetes Maternal Grandmother other (lymphoma) Maternal Grandmother The ROS, medical, surgical, family, and social history were reviewed by Todd Romero II, MD ALLERGIES No Known Allergies Current Outpatient Medications Medication Sig PNV no.95/ferrous fum/folic ac ( ORAL) Take by mouth. No current facility-administered medications for this visit. OBJECTIVE BP 90/60 (BP Site: Left Arm, BP Position: Sitting) Pulse 88 Temp 36.5 ?C (97.7 ?F) Resp 12 Ht 160 cm (5' 3) Wt 58.5 kg (129 lb) LMP 02/23/2020 SpO2 98% BMI 22.85 kg/m? BMI 22.85 kg/(m2) Physical Exam Vitals and nursing note reviewed. Constitutional: General: She is not in acute distress. Appearance: Normal appearance. She is not ill-appearing, toxic-appearing or diaphoretic. HENT: Head: Normocephalic and atraumatic. Right Ear: Tympanic membrane, ear canal and external ear normal. There is no impacted cerumen. Left Ear: Tympanic membrane, ear canal and external ear normal. There is no impacted cerumen. Nose: Nose normal. No congestion or rhinorrhea. Mouth/Throat: Mouth: Mucous membranes are moist. Pharynx: Oropharynx is clear. No oropharyngeal exudate or posterior oropharyngeal erythema. Eyes: General: No scleral icterus. Right eye: No discharge. Left eye: No discharge. Extraocular Movements: Extraocular movements intact. Conjunctiva/sclera: Conjunctivae normal. Pupils: Pupils are equal, round, and reactive to light. Neck: Vascular: No carotid bruit. Cardiovascular: Rate and Rhythm: Normal rate and regular rhythm. Pulses: Normal pulses. Heart sounds: Normal heart sounds. No murmur heard. No friction rub. No gallop. Pulmonary: Effort: Pulmonary effort is normal. No (more content not included)... Normal [facility] PROGESTon 09-17-2022 PROGEST 19.45 ng/mL Normal [facility] Comment on above: Result Comment: Non- Female Ref Ranges Follicular Phase: 0.06-0.893 ng/mL Ovulation Phase: 0.12-12.0 ng/mL Luteal Phase : 1.8-23.9 ng/mL Post-Menopausal : <0.05-0.13 ng/mL Female Ref Ranges 1st Trimester: 11.0-44.3 ng/mL 2nd Trimester: 25.4-83.3 ng/mL 3rd Trimester: 58.7-214 ng/mL Performed By: #### L 304.0195, L304.0140 #### [facility] [address] [place] [id number] Progesterone [Mass/Vol]on Progesterone 19.45 ng/mL [facility] TSHon 09-17-2022 TSH 1.74 uIU/mL Normal 0.270-4.200 [facility] Comment on above: Performed By: #### L 304.0195, L304.0140 #### [facility] [address] [place] [address] TSH BLDon 09-17-2022 TSH Qn 1.74 uIU/mL 0.270 - 4.200 uIU/mL [facility] Functional protein C measure mentOrdered By: Dr. Dodd on 08-23-2022 Protein C actual/normal Chromogenic method (PPP) [Rel catalytic activity/Vol] 109 % 73-180 [facility] Comment on above: Performed at: - Edd[facility] [address] [id number] Director: Gualberto Mata MD, Phone: [phone] at: [facility] [id number] Director: Jose Recinos PhD, Phone: [phone] No Panel InformationOrdered By: Dr. Dodd on 08-23-2022 Activated Protein C Resistance 2.9 ratio 2.2-3.5 [facility] Comment on above: The APCR result may be falsely increased (masking anabnormal, low APCR result) in patients on direct Xainhibitor (e.g., rivaroxaban, apixaban, edoxaban) or adirect thrombin inhibitor (e.g., dabigatran) anticoagulanttherapy due to assay interference by these drugs. Anti-Cardiolipin IgM Antibody < 9 MPL U/mL 0-12 [facility] Comment on above: Negative: <13 Indete rminate: 13 - 20 Low-Med Positive: >20 - 80 High Positive: >80 Platelet poor plasma antithr ombin actual/normal ratio by chromogenic method (relativeOrdered By: Dr. Dodd on 08-23-2022 Antithrombin actual/normal Chromogenic method (PPP) [Rel catalytic activity/Vol] 121 % 75-135 [facility] Comment on above: Direct Xa inhibitor anticoagulants such as rivaroxaban,apixaban and edoxaban will lead to spuriously elevatedantithrombin activity levels possibly masking a deficiency. Platelet poor plasma antithr ombin antigen detection by immunoassayOrdered By: Dr. Dodd on 08-23-2022 Antithrombin Ag IA Ql (PPP) 107 % 72-124 [facility] Comment on above: This test was develo ped and its performance characteristicsdetermined by [employer]. It has not been cleared orapproved by the Food and Drug Administration. Protein S measurement in casa telet poor plasma by coagulation assay (units/volume)Ordered By: Dr. Dodd on 08-23-2022 Protein S Coag Qn (PPP) 104 % 60-150 [facility] Comment on above: This test was develo ped and its performance characteristicsdetermined by [employer]. It has not been cleared orapproved by the Food and Drug Administration. Protein S, freeOrdered By: Angeles Dodd on 08-23-2022 Protein S Free Ag IA Qn (PPP) 110 % 61-136 [facility] Serum cardiolipin IgG antibo dy assay by immunoassay (units/volume)Ordered By: Dr. Dodd on 08-23-2022 Cardiolipin IgG IA Qn (S) < 9 GPL U/mL 0-14 [facility] Comment on above: Negative: <15 Indete rminate: 15 - 20 Low-Med Positive: >20 - 80 High Positive: >80 Culture, urineOrdered By: Dr Derrick Dodd on 06-07-2022 Bacteria identified Cx Nom (U) Culture exhibits no growth. [facility] Serum or plasma choriogonado tropin detectionOrdered By: Dr. Dodd on 06-07-2022 HCG ( test) [place]l [address] mIU/mL <4 [facility] Comment on above: hCG levels with Gest ational AgeGestational Age hCG mIU/mL (IU/L)0.2 - 1 week 5 - 501-2 weeks 50 - 5002-3 weeks 100 - 96624-3 weeks 500 - 365838-0 weeks 1000 - 980568-3 weeks 53036 - 100,0006-8 weeks 13565 - 200,0002-3 months 09499 - 100,000 Chlamydia trachomatis rRNA d etection by probe and target amplification methodOrdered By: Dr. Dodd on 06-05-2022 C. trachomatis rRNA JESÚS+probe Ql (Unsp spec) Negative Negative [facility] Dilute Tc's viper venom timeOrdered By: Dr. Dodd on 06-05-2022 dRVVT Coag (PPP) [Time] 33.1 s 0.0-47.0 [facility] Laboratory - Microbiology an d Antimicrobial susceptibilityOrdered By: Dr. Dodd on 06-05-2022 N. gonorrhoeae DNA JESÚS+probe Ql (Unsp spec) Negative Negative [facility] Comment on above: Performed at: =[address] [id number] Director: Maki Cespedes MD, Phone: [phone] No Panel InformationOrdered By: Dr. Dodd on 06-05-2022 Anti-Cardiolipin IgM Antibody 18 MPL U/mL 0-12 [facility] Comment on above: Negative: <13 Indete rminate: 13 - 20 Low-Med Positive: >20 - 80 High Positive: >80 Serum beta 2 glycoprotein 1 IgA antibody detectionOrdered By: Dr. Dodd on 06-05-2022 Beta 2 glycoprotein 1 IgA Ql (S) <9 0-25 [facility] Comment on above: Result Units: GPI Ig A unitsThe reference interval reflects a 3SD or 99th percentileinterval, which is thought to represent a potentiallyclinically significant result in accordance with theInternational Consensus Statement on the classificationcriteria for definitive antiphospholipid syndrome (APS). JThromb Haem 2006;4:295-306. Serum beta 2 glycoprotein 1 IgG antibody detectionOrdered By: Dr. Dodd on 06-05-2022 Beta 2 glycoprotein 1 IgG Ql (S) <9 0-20 [facility] Comment on above: Result Units: GPI Ig G unitsThe reference interval reflects a 3SD or 99th percentileinterval, which is thought to represent a potentiallyclinically significant result in accordance with theInternational Consensus Statement on the classificationcriteria for definitive antiphospholipid syndrome (APS). JThromb Haem 2006;4:295-306. Serum beta 2 glycoprotein 1 IgM antibody detectionOrdered By: Dr. Dodd on 06-05-2022 Beta 2 glycoprotein 1 IgM Ql (S) <9 0-32 [facility] Comment on above: Result Units: GPI Ig M unitsThe reference interval reflects a 3SD or 99th percentileinterval, which is thought to represent a potentiallyclinically significant result in accordance with theInternational Consensus Statement on the classificationcriteria for definitive antiphospholipid syndrome (APS). JThromb Haem 2006;4:295-306.Performed at: [facility] [id number] Director: Gualberto Mata MD, Phone: [phone] at: [facility] [employer] [id number] Director: Jose Recinos PhD, Phone: [phone] Serum cardiolipin IgG antibo dy assay by immunoassay (units/volume)Ordered By: Dr. Dodd on 06-05-2022 Cardiolipin IgG IA Qn (S) < 9 GPL U/mL 0-14 [facility] Comment on above: Negative: <15 Indete rminate: 15 - 20 Low-Med Positive: >20 - 80 High Positive: >80 Serum or plasma cardiolipin IgA antibody assay (units/volume)Ordered By: Dr. Dodd on 06-05-2022 Cardiolipin IgA Qn < 9 APL U/mL 0-11 [facility] Comment on above: Negative: <12 Indete rminate: 12 - 20 Low-Med Positive: >20 - 80 High Positive: >80 Serum or plasma choriogonado tropin detectionOrdered By: Dr. Dodd on 06-05-2022 HCG ( test) Ql [address]882 mIU/mL <4 [facility] Comment on above: hCG levels with Gest ational AgeGestational Age hCG mIU/mL (IU/L)0.2 - 1 week 5 - 501-2 weeks 50 - 5002-3 weeks 100 - 77571-7 weeks 500 - 907720-0 weeks 1000 - 519942-9 weeks 05645 - 100,0006-8 weeks 24594 - 200,0002-3 months 21586 - 100,000 Thin prep Papanicolaou smear with manual screeningOrdered By: Dr. Dodd on 06-05-2022 Thin prep Papanicolaou smear with manual screening 35.8 sec 0.0-47.6 [facility] Thin prep Papanicolaou smear with manual screening 0.97 Ratio 0.00-1.34 [facility] Thin prep Papanicolaou smear with manual screening 29.6 sec 0.0-51.9 [facility] Comment on above: Effective June 23, 2022 PTT-LA reference interval will be changing to: 0.0 - 43.5 sec Thin prep Papanicolaou smear with manual screening Comment: . [facility] Comment on above: No lupus anticoagula nt was detected. Thrombin time in platelet po or plasmaOrdered By: Dr. Dodd on 06-05-2022 Thrombin time Coag (PPP) [Time] 15.2 sec 0.0-23.0 [facility] HPV,CtNg Age Gdon 12-02-2021 . . [facility] Comment on above: Order Comment: Speci men Comment: [id number] Specimen Comment: No. of containers..01 ThinPrep Vial Performed By: #### L 801.8800 #### [place] [address] . [facility] Comment on above: Order Comment: Speci men Comment: [id number] Specimen Comment: No. of containers..01 ThinPrep Vial Result Comment: The HPV DNA reflex criteria were not met with this specimen result therefore, no HPV testing was performed. Performed at: = - [facility] [id number] Horse Racing Manager: Maki Cespedes MD, Phone: [phone] Performed at: - [facility] [id number] Horse Racing Manager: Maki Cespedes MD, Phone: [phone] Performed By: #### L 801.8800 #### [place] [address] Age Gdln ACOG 25-29 Normal . [facility] Comment on above: Order Comment: Speci men Comment: [id number] Specimen Comment: No. of containers..01 ThinPrep Vial Performed By: #### L 801.8800 #### [place] [address] Diagnosis: [facility] Comment on above: Order Comment: Speci men Comment: [id number] Specimen Comment: No. of containers..01 ThinPrep Vial Result Comment: NEGA TIVE FOR INTRAEPITHELIAL LESION OR MALIGNANCY. Performed By: #### L 801.8800 #### [place] [address] Note: [facility] Comment on above: Order Comment: Speci men Comment: [id number] Specimen Comment: No. of containers..01 ThinPrep Vial Result Comment: The Pap smear is a screening test designed to aid in the detection of premalignant and malignant conditions of the uterine cervix. It is not a diagnostic procedure and should not be used as the sole means of detecting cervical cancer. Both false-positive and false-negative reports do occur. Performed By: #### L 801.8800 #### [place] [address] Performed by: [facility] Comment on above: Order Comment: Speci men Comment: [id number] Specimen Comment: No. of containers..01 ThinPrep Vial Result Comment: Lei Bojorquez, Bench Precision Assembler (ASCP) Performed By: #### L 801.8800 #### [place] [address] Spec adequacy: [facility] Comment on above: Order Comment: Speci men Comment: [id number] Specimen Comment: No. of containers..01 ThinPrep Vial Result Comment: Sati sfactory for evaluation. No endocervical component is identified. Performed By: #### L 801.8800 #### [place] [address] Test Methodlogy [facility] Comment on above: Order Comment: Speci men Comment: [id number] Specimen Comment: No. of containers..01 ThinPrep Vial Result Comment: This liquid based ThinPrep(R) pap test was screened with the use of an image guided system. Performed By: #### L 801.8800 #### [place] [address] CNOVon 09-05-2021 CNOV Office Visit (MACKENZIE R) ----- NORA CAMERON ([id number]) 1990 F Date Time Provider Department 09/05/21 10:40 AM TODD ROMERO II During your visit today, we recorded the following information about you: Temperature Pulse Respiration Blood pressure 99.3 degrees 80/minute 16/minute 98/64 Weight Height 53.5 kg 1.6 m Todd Romero II, MD 09/05/2021 10:49 AM Signed Please consider having the following Health Maintenance testing completed: DTAP,TDAP,TD(4 - Tdap) If your testing is not done at a [facility] please provide this office with the results of your testing. Todd Romero II, MD 09/15/2021 8:23 PM Signed Todd Romero II, MD [address], [place] [address] SUBJECTIVE Nora Cameron is a 31 year old female who presents with Rx Refills. HPI Patient is in today to follow-up migraine headache and gastrointestinal issues. She states she is actually feeling fairly well and she feels a lot of the issues she had before was stress related. She would like to have as needed medications to use if symptoms occur intermittently but she does not feel like she needs to take anything every day Review of Systems Constitutional: Negative for activity change, appetite change, chills, diaphoresis, fatigue, fever and unexpected weight change. HENT: Negative for congestion, dental problem, ear pain, hearing loss, nosebleeds, postnasal drip, rhinorrhea, sinus pressure, sinus pain, sore throat, trouble swallowing and voice change. Eyes: Negative for discharge, redness and visual disturbance. Respiratory: Negative for apnea, cough, choking, chest tightness, shortness of breath, wheezing and stridor. Cardiovascular: Negative for chest pain, palpitations and leg swelling. Gastrointestinal: Negative for abdominal distention, abdominal pain, blood in stool, constipation, diarrhea, nausea and vomiting. Endocrine: Negative for cold intolerance, heat intolerance, polydipsia, polyphagia and polyuria. Genitourinary: Negative for decreased urine volume, difficulty urinating, dysuria, enuresis, frequency, hematuria and urgency. Musculoskeletal: Negative for arthralgias, gait problem and myalgias. Skin: Negative for color change, pallor, rash and wound. Allergic/Immunologic: Negative for environmental allergies. Neurological: Negative for dizziness, tremors, syncope, facial asymmetry, speech difficulty, weakness, light-headedness, numbness and headaches. Hematological: Negative for adenopathy. Does not bruise/bleed easily. Psychiatric/Behavioral: Negative for agitation, behavioral problems, confusion, decreased concentration, dysphoric mood, hallucinations, self-injury, sleep disturbance and suicidal ideas. The patient is not nervous/anxious and is not hyperactive. PAST MEDICAL HISTORY Diagnosis Date - Abdominal pain - Abnormal Pap smear of cervix 09/2017 - Epigastric pain - IBS (irritable bowel syndrome) - Migraine - Strep pharyngitis PAST SURGICAL HISTORY Procedure Laterality Date - EXTRACTION ERUPTED TOOTH/EXR Social History Tobacco Use - Smoking status: Never Smoker - Smokeless tobacco: Never Used Vaping Use - Vaping Use: Never used Substance Use Topics - Alcohol use: Never - Drug use: Not on file FAMILY HISTORY Problem Relation Age of Onset - Hypertension Mother - Diabetes Mother - other (lymphoma) Mother - Hypertension Maternal Grandmother - Diabetes Maternal Grandmother - other (lymphoma) Maternal Grandmother The ROS, medical, surgical, family, and social history were reviewed by Todd Romero II, MD ALLERGIES No Known Allergies Current Outpatient Medications Medication Sig - diphenoxylate-atropine (LOMOTIL) 2.5-0.025 mg per tablet Take 1 tablet by mouth four times daily as needed for up to 90 days. - hydrOXYzine HCl (ATARAX) 25 mg tablet Take 0.5 tablets by mouth three times daily as needed for anxiety (for itching). No current facility-administered medications for this visit. OBJECTIVE BP 98/64 (BP Site: Left Arm, BP Position: Sitting) Pulse 80 Temp 37.4 ?C (99.3 ?F) Resp 16 Ht 5' 3 (1.6 m) Wt 118 lb (53.5 kg) LMP 02/23/2020 SpO2 99% BMI 20.90 kg/m? BMI 20.90 kg/(m2) Physical Exam Vitals and nursing note reviewed. Constitutional: General: She is not in acute distress. Appearance: Normal appearance. She is not ill-appearing, toxic-appearing or diaphoretic. HENT: Head: Normocephalic and atraumatic. Right Ear: Tympanic membrane, ear canal and external ear normal. There is no impacted cerumen. Left Ear: Tympanic membrane, ear canal and external ear normal. There is no impacted cerumen. Nose: Nose normal. No congestion or rhinorrhea. Mouth/Throat: Mouth: Mucous membranes are moist. Pharynx: Oropharynx is clear. No oropharyngeal exudate or posterio (more content not included)... Normal [facility] US HYSTEROSONOGRAMon 022 US HYSTEROSONOGRAM ORIGINAL EXAMINATION: PROC HYSTEROSALPINGOGRAPH TECHNIQUE: Ultrasound-guided hysterosonogram was performed by the physician's materials assistant, Jacqueline Drake. COMPARISON: None similar. HISTORY: ORDERING SYSTEM PROVIDED HISTORY: Reason for Exam: LOWER UTERINE LESION, RECURRENT LOSS FINDINGS: The uterus measures 6.7 x 2.6 x 4.2 cm. The uterine myometrial echotexture appears unremarkable. The endometrium has a normal trilaminar echotexture and appears 5 mm in thickness. The right ovary measures 2.3 x 1.6 x 1.6 cm. The left ovary measures 3.6 x 2.4 x 2.8 cm. There is normal arterial and venous Doppler flow and waveforms to both ovaries. Normal follicular changes are noted. Following the injection of saline there is adequate distension of the cavity. There is demonstration of a 3 x 2 x 3 mm hyperechoic polyp seen of the endometrium of the posterior body of the uterus. This polyp does not demonstrate increased vascularity. A small amount of fluid is seen within the cul-de-sac. IMPRESSION: Small 3 mm polyp seen of the endometrium without increased vascularity. Consider direct visualization given reported history. Small amount of fluid within the cul-de-sac likely physiologic in nature with no other abnormalities identified. Interpreted by: Deepak Pelayo MD Preliminary Report By: Deepak Pealyo MD Electronically signed By Deepak Pelayo MD Dictated Date: 08/19/2021 9:41:27 AM Prelim Date: 08/19/2021 10:08:08 AM Sign Date: 08/19/2021 10:08:08 AM Ordering Provider: CESAR [facility] ([place]) ED PROV NOTEon 07-01-2021 ED PROV NOTE HNO ID: [id number] Author: Benita Childs APRN.SHROUDMAN Service: ? Author Type: Nurse Practitioner Type: ED Provider Notes Filed: 07/17/2021 2:42 PM Note Text: [place] [address] HEALTH INFORMATION MANAGEMENT EMERGENCY DEPARTMENT REPORT Patient: NORA CAMERON BENITA CHILDS as dictated by MILTON SIMPSON [id number] [age] F Status: [facility] ER ED Date of Service: 07/01/21 CHIEF COMPLAINT: 8 weeks 4 days with a brown vaginal discharge. HISTORY OF PRESENT ILLNESS: The patient is accompanied by her . She states that she is here due to having some brown to pinkish discharge and that she is 8 weeks 4 days . She has had a miscarriage 4 months ago[address] She sees Dr. Botello for her obstetrics. She states 2 days ago, she started with a light brown discharge when she would go to the bathroom. Denies any abdominal pain. She states that she felt like her stomach was a little achy in general, but that was it. Then last night she went to the bathroom and she noticed that the discharge was a little pink and this morning, it was slightly red. She said that it is not a lot of vaginal bleeding, but there is just a little bit whenever she wipes and then on her alton-pad , sometimes it will be a little brown, sometimes it will be pinkish red. She denies any fever, injury. No urinary symptoms of urgency, frequency, dysuria. The patient states that she did have an ultrasound last month and it did show that she had a lower uterine lesion and states she is not sure if that is why this is happening. REVIEW OF SYSTEMS: Completed and negative other than as stated in the HPI. SOCIAL HISTORY: She is . Denies alcohol or tobacco. Last menstrual period was April 26. ALLERGIES: She has no known drug allergies. PAST SURGICAL HISTORY: None. PAST MEDICAL HISTORY: None. PHYSICAL EXAMINATION: VITAL SIGNS: Blood pressure is 123/70, temperature 97.7, pulse 83, respirations 18, oxygen saturations 99, pain 0/10. GENERAL: The patient is alert and oriented. She is in no distress, nontoxic, non ill- appearing. HEENT: Head is atraumatic, normocephalic. Sclerae are white. Trachea midline. No rhinorrhea. SKIN: Warm. Supple. Normal color for ethnicity. No rashes, lesions. LUNGS: Respirations are even and nonlabored. No dyspnea or cough. HEART: Regular rate. ABDOMEN: Soft, nontender, nondistended. MUSCULOSKELETAL: She has good overall strength that is symmetrical. She ambulates with a steady gait. NEUROLOGICAL: No focal deficits. PSYCHIATRIC: She is calm and cooperative. EMERGENCY DEPARTMENT COURSE: As the patient is here for her concern of her , ultrasound and CBC and quantitative lab work was ordered by Dr. Pastor as the patient was seen in triage as there were no available beds when the patient did sign in. After discussion with the patient, she is aware that these results are pending, we will go ahead and see if we can get the patient to a room in the ER and she states that she is fine if she has to wait in the lobby. An addendum to follow for test results. Report#: Dict ID [id number] / Int ID [id number] 07/17/21 1437 BENITA CHILDS STONE LAYOUT MARKER-C cc: BENITA CHILDSC; CESAR BOTELLO M.D. << Signature on File>> Reported By: BENITA CHILDS Signed By: BENITA CHILDS Tests performed at: [address] [address] [facility] ED PROV NOTE HNO ID: [id number] Author: Eric Pastor Service: ? Author Type: Physician Type: ED Provider Notes Filed: 07/01/2021 1:12 PM Note Text: [place] [address] HEALTH INFORMATION MANAGEMENT EMERGENCY DEPARTMENT REPORT Patient: NORA CAMERON ERIC PASTOR M.D. [id number] [age] F Status: [facility] ER ED Date of Service: 07/01/21 PHYSICIAN: Cesar Botello MD. HISTORY OF PRESENT ILLNESS: A 30-year-old female, 2, para 0, AB1, last menstrual period 04/26/2021. She presents stating that she has had a little bit of a brownish discharge for a couple days and today it was pink and then a little bit red. She has very minimal cramping. She did have a miscarriage in February 2021 at approximately 5 weeks. She states that bleeding was heavier and she had cramping, which she is not having now. She had an ultrasound done 2 weeks ago. Blood type is AB-positive. The patient has had no fever, chills, urinary symptoms, or abdominal trauma. PAST MEDICAL HISTORY: Normal. SOCIAL HISTORY: . No alcohol or tobacco use. PHYSICAL EXAMINATION: GENERAL: Finds a 30-year-old female who has had normal vital signs here. HEENT: Mucous membranes are moist. Good skin turgor. LUNGS: David are clear. CARDIAC: Sounds are regular. ABDOMEN: Soft. Very, very minimal low abdominal pain to palpation. No guarding or peritoneal irritation findings. No rebound. EMERGENCY DEPARTMENT COURSE: The patient had a quantitative HCG which was good at 8410. Urinalysis normal. Hemoglobin normal. Unfortunately, her ultrasound shows no cardiac activity consistent with intrauterine demise. She was 8 weeks 4 days based on ultrasound measurements. Dr. Botello is made aware of this. She would like to see the patient in the office this week. The patient is made aware of this as well. IMPRESSION: Inevitable . Report#: Dict ID [id number] / Int ID [id number] cc: Cesar Botello MD 07/01/21 1310 ERIC PASTOR M.D. cc: ERIC PASTOR M.D.; CESAR BOTELLO M.D. << Signature on File>> Reported By: ERIC PASTOR M.D. Signed By: ERIC PASTOR M.D. Tests performed at: [address] [address] [facility] ED PROV NOTEon 02-28-2021 ED PROV NOTE HNO ID: [id number] Author: Gonzalo Gupta Service: ? Author Type: Physician Type: ED Provider Notes Filed: 03/13/2021 4:44 PM Note Text: [place] [address] HEALTH INFORMATION MANAGEMENT EMERGENCY DEPARTMENT REPORT Patient: NORA CAMERON GONZALO GUPTA M.D. [id number] [age] F Status: DEP ER ED Date of Service: 02/27/21 This is an addendum to a note by Gayle Ace. HISTORY OF PRESENT ILLNESS: The patient is a 30-year-old female whom I saw with Gayle Ace today. She is approximately five weeks by ultrasound done today. 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 She thought she was more like six weeks long. In any case, she had some bleeding here for the last day or so. Bleeding has slowed down. She has had a little bit of cramping. No other complaints right now. PHYSICAL EXAMINATION: GENERAL: A well-nourished, well-developed female, who is awake, alert, currently not in acute distress. VITAL SIGNS: As charted. HEENT: Atraumatic and normocephalic. Oropharynx is moist. NECK: Supple. LUNGS: Clear. ABDOMEN: Soft and nontender. Exam is otherwise unremarkable. EMERGENCY DEPARTMENT COURSE: We got some labs on her. She has a positive Rh. She had an ultrasound done that shows a five week IUP, no cardiac activity at this point, but it is early on. No other evidence of bleeding. DISPOSITION AND PLAN: She is going to be discharged home with reassurance. She is to contact Dr. Botello as needed. She has not yet seen her and can return here if worse or problems of any kind CLINICAL DIAGNOSIS: First trimester bleeding. Report#: Dict ID [id number] / Int ID [id number] 03/13/21 1637 GONZALO GUPTA M.D. cc: TODD ROMERO JR, M.D.; GONZALO GUPTA M.D. << Signature on File>> Reported By: GONZALO GUPTA M.D. Signed By: OGNZALO GUPTA M.D. Tests performed at: [address] [address] [facility] ED PROV NOTEon 02-27-2021 ED PROV NOTE HNO ID: [id number] Author: Provider [facility] Service: ? Author Type: Physician Type: ED Provider Notes Filed: 03/06/2021 10:29 AM Note Text: [place] [address] HEALTH INFORMATION MANAGEMENT EMERGENCY DEPARTMENT REPORT Patient: RAKESHNORA GAYLE DOTSON as dictated by MILTON PERRY [id number] [age] F Status: DEP ER ED Date of Service: 02/27/21 CHIEF COMPLAINT: , cramping. HISTORY OF PRESENT ILLNESS: The patient states she is about 6-1/2 weeks by her last menstrual period. Said she has not seen Dr. Botello yet. She is scheduled on Thursday, started with cramping yesterday, and then had some bleeding this morning. Said that she did have blood in the toilet when she went to the bathroom. She really has not had much bleeding since then, maybe a little bit spotting. She had some spotting initially when she found out she was , but said that now she is having the cramping with it. She denies any urinary symptoms. Denies any back pain. No fever, chills, nausea, or vomiting. Unsure of her blood type. REVIEW OF SYSTEMS: A 10-point review of systems is negative except for listed in HPI. PAST MEDICAL HISTORY: None. SURGICAL HISTORY: None. SOCIAL HISTORY: . Denies drug, alcohol, or tobacco use. ALLERGIES: No known drug allergies. MEDICATIONS: Daily medicines reviewed and on the patient's record. PHYSICAL EXAMINATION: VITAL SIGNS: The patient's blood pressure 116/76, temperature 98.2, pulse 78, respirations 20, SpO2 is 100% on room air. GENERAL: She is a well-nourished, well-hydrated, well-developed 30-year-old female, in no acute distress, nontoxic appearing. HEENT: Head is atraumatic, normocephalic. Mucous membranes are moist. Sclerae are normal. NECK: Supple. Nontender. SKIN: Color is pink. She is warm and dry. Cap refill less than 2 seconds. NEUROLOGIC: She is alert and oriented x3. LUNGS: Breath sounds are clear. Respirations easy. CARDIAC: Regular rate and rhythm. Good warmth and perfusion to her extremities. ABDOMEN: Soft, positive bowel sounds, nontender. EMERGENCY DEPARTMENT COURSE: We did do a CBC which is unremarkable. Her urinalysis is negative. Her chemistry is unremarkable. Her type and Rh which we did not have one on file for her was AB+. Her beta quant is 1560. She did have an ultrasound which did show an intrauterine , measuring 5 weeks and 2 days. No identified yolk sac or pole. Findings could reflect early intrauterine gestation, but correlate with serial beta HCG and a repeat ultrasound in 1 to 2 weeks. She is going to give Dr. Botello's office a call, let them know that she did come over, and have an ultrasound and some lab work which is what they instructed her to do. See if they want to see her sooner than her appointment which is scheduled less than a week away. During her emergency department stay, she really did not have any bleeding, so I did defer the pelvic exam. She is not having any other symptoms. The patient will follow up with Dr. Botello and will return here for any worsening condition and follow pelvic rest instructions. Report#: Dict ID [id number] / Int ID [id number] 03/06/21 1026 GAYLE ACE cc: GAYLE ACE; TODD ROMERO JR, M.D. << Signature on File>> Reported By: GAYLE ACE Signed By: GAYLE ACE Tests performed at: [place] [address] [facility] OBSOLETEon 02-21-2021 OBSOLETE Refill ([place]) ----- NORA CAMERON ([id number]) 1990 F Date Time Provider Department 02/21/21 TODD ROMERO II During your visit today, we recorded the following information about you: Karey Atkins MA 02/21/2021 11:18 AM Signed Pharmacy faxed requesting the following refill Refill(s) Requested: Pending Prescriptions Disp Refills DIPHENOXYLATE-ATROPINE 2.5 MG-0.025 MG TABLET 10 tablet 0 Sig: TAKE 1 TABLET BY MOUTH FOUR TIMES DAILY NEEDED FOR DIARRHEA for up to TEN doses CHARIS Class: C-V ARPIT: Yes ALLERGIES No Known Allergies (home) [phone] (cell) Last Office Visit Date: 11/13/2020 Last [facility] Health Visit: Visit date not found Future Appointment: Visit date not found The patients preferred pharmacy has been captured for this encounter? yes Request is for script(s) to be escript to pharmacy. Karey Atkins ABDIEL Allergies As of Date: 02/21/2021 (No Known Allergies) Date Reviewed: 11/13/2020 Reviewed by: Todd Romero II, MD - Fully Assessed Reason for Visit: Refill Request [94] Visit Diagnosis:Diarrhea, unspecified type [R19.7] Order(s):diphenoxylate-at ropine (LOMOTIL) 2.5-0.025 mg per tabletTAKE 1 TABLET BY MOUTH FOUR TIMES DAILY NEEDED FOR DIARRHEA for up to TEN dosesDisp: 10 tabletRfl: 0 Prescriptions as of 02/21/2021 - diphenoxylate-atropine (LOMOTIL) 2.5-0.025 mg per tablet TAKE 1 TABLET BY MOUTH FOUR TIMES DAILY NEEDED FOR DIARRHEA for up to TEN doses - hydrOXYzine HCl (ATARAX) 25 mg tablet Take 0.5 tablets by mouth three times daily as needed for anxiety (for itching). Problem List As Of Date 02/21/2021 Noted Resolved Sore throat [J02.9] 11/23/2018 Abdominal pain [R10.9] 03/18/2018 Migraine [G43.909] Prescriptions ordered this encounter Disp Refills Start End DIPHENOXYLATE-ATROPINE 2.5 MG-0.025 * 10 t* 0 02/21/2021 03/03/2021 Sig: TAKE 1 TABLET BY MOUTH FOUR TIMES DAILY NEEDED FOR DIARRHEA for up to TEN doses Medications Discontinued During This Encounter Prescriptions - diphenoxylate-atropine (LOMOTIL) 2.5-0.025 mg per tablet (Discontinued) Take 1 tablet by mouth four times daily as needed for diarrhea for up to 10 doses. Encounter Status:Closed by TODD ROMERO II on 02/21/21 [facility] CNOVon 11-13-2020 CNOV Office Visit (MACKENZIE R) ----- NORA CAMERON ([id number]) 1990 F Date Time Provider Department 11/13/20 9:40 AM TODD ROMERO II During your visit today, we recorded the following information about you: Pulse Respiration Blood pressure Weight 90/minute 16/minute 100/62 50.8 kg Height 1.6 m Todd Romero II, MD 11/19/2020 8:14 PM Signed Todd Romero II, MD [address], [place] [address] SUBJECTIVE Nora Cameron is a 30 year old female who presents with [facility] Care. HPI Patient is in today to get reestablished and to discuss anxiety. 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 She states that occasionally she has episodes where she will have anxiety, nausea and diarrhea. She states it is not all the time and is usually not more than a couple of times a week. She would like to try something as needed however to prevent her from having to miss out of work. Review of Systems Constitutional: Negative for chills, diaphoresis, fever, malaise/fatigue and weight loss. HENT: Negative for congestion, ear discharge, ear pain, nosebleeds, sinus pain and sore throat. Eyes: Negative for blurred vision. Respiratory: Negative for cough, hemoptysis, sputum production, shortness of breath, wheezing and stridor. Cardiovascular: Negative for chest pain, palpitations, orthopnea, claudication, leg swelling and PND. Gastrointestinal: Positive for diarrhea and nausea. Negative for abdominal pain, blood in stool, constipation, heartburn, melena and vomiting. Genitourinary: Negative for dysuria, flank pain, frequency, hematuria and urgency. Musculoskeletal: Negative for falls, joint pain and myalgias. Skin: Negative for itching and rash. Neurological: Negative for dizziness and headaches. Endo/Heme/Allergies: Negative for polydipsia. Does not bruise/bleed easily. Psychiatric/Behavioral: Negative for depression, hallucinations, memory loss, substance abuse and suicidal ideas. The patient is nervous/anxious. The patient does not have insomnia. PAST MEDICAL HISTORY Diagnosis Date - Abdominal pain - Abnormal Pap smear of cervix 09/2017 - Epigastric pain - IBS (irritable bowel syndrome) - Migraine - Strep pharyngitis PAST SURGICAL HISTORY Procedure Laterality Date - EXTRACTION ERUPTED TOOTH/EXR Social History Tobacco Use - Smoking status: Never Smoker - Smokeless tobacco: Never Used Vaping Use - Vaping Use: Never used Substance Use Topics - Alcohol use: Never - Drug use: Not on file FAMILY HISTORY Problem Relation Age of Onset - Hypertension Mother - Diabetes Mother - other (lymphoma) Mother - Hypertension Maternal Grandmother - Diabetes Maternal Grandmother - other (lymphoma) Maternal Grandmother The ROS, medical, surgical, family, and social history were reviewed by Todd Romero II, MD ALLERGIES No Known Allergies Current Outpatient Medications Medication Sig - hydrOXYzine HCl (ATARAX) 25 mg tablet Take 0.5 tablets by mouth three times daily as needed for anxiety (for itching). - diphenoxylate-atropine (LOMOTIL) 2.5-0.025 mg per tablet Take 1 tablet by mouth four times daily as needed for diarrhea for up to 10 doses. No current facility-administered medications for this visit. OBJECTIVE BP 100/62 (BP Site: Left Arm, BP Position: Sitting) Pulse 90 Resp 16 Ht 5' 3 (1.6 m) Wt 112 lb (50.8 kg) LMP 02/23/2020 SpO2 98% BMI 19.84 kg/m? BMI 19.84 kg/(m2) Physical Exam Vitals and nursing note reviewed. Constitutional: General: She is not in acute distress. Appearance: Normal appearance. She is normal weight. She is not ill-appearing, toxic-appearing or diaphoretic. HENT: Head: Normocephalic and atraumatic. Right Ear: Tympanic membrane, ear canal and external ear normal. Left Ear: Tympanic membrane, ear canal and external ear normal. Nose: Nose normal. Mouth/Throat: Mouth: Mucous membranes are moist. Pharynx: Oropharynx is clear. No oropharyngeal exudate or posterior oropharyngeal erythema. Eyes: General: Lids are normal. Vision grossly intact. No scleral icterus. Right eye: No discharge. Left eye: No discharge. Conjunctiva/sclera: Conjunctivae normal. Pupils: Pupils are equal, round, and reactive to light. Neck: Thyroid: No thyroid mass, thyromegaly or thyroid tenderness. Vascular: No carotid bruit or JVD. Trachea: No tracheal deviation. Cardiovascular: Rate and Rhythm: Normal rate and regular rhythm. Pulses: Normal pulses. Heart sounds: Normal heart sounds. No murmur heard. No friction rub. No gallop. Pulmonary: Effort: Pulmonary effort is normal. No tachypnea, accessory muscle usage, respiratory distress or retractions. Breath sounds: Eli (more content not included)... Normal [facility] Vital Signs Date Time Vital Sign Value Performing Clinician Facility 01-03-2025 11:39-0400 Body height 162.56 cm Erinn Smiths [employer] LAYOUT MARKER-C Work Phone: [facility] 01-03-2025 11:39-0400 Body mass index (BMI) [Ratio] 25.8 kg/m2 Erinn Smiths [employer] LAYOUT MARKER-C Work Phone: [facility] 01-03-2025 11:39-0400 Body weight 68.26 kg Erinn Smiths [employer]ONE LAYOUT MARKER-C Work Phone: [facility] 01-03-2025 11:39-0400 Diastolic blood pressure 86 mm[Hg] Erinn Gilberttings [employer]ONE LAYOUT MARKER-C Work Phone: [facility] 01-03-2025 11:39-0400 Systolic blood pressure 129 mm[Hg] Erinn Smiths [employer]ONE LAYOUT MARKER-C Work Phone: [facility] 12-29-2024 17:38-0400 Diastolic blood pressure 65 mm[Hg] Erinn Williams [employer] LAYOUT MARKER-C Work Phone: [facility] 12-29-2024 17:38-0400 Heart rate 75 /min Erinn Smiths [employer]ONE LAYOUT MARKER-C Work Phone: [facility] 12-29-2024 17:38-0400 Systolic blood pressure 124 mm[Hg] Erinn Smiths [employer]ONE LAYOUT MARKER-C Work Phone: [facility] 12-29-2024 15:45-0400 Body height 162.56 cm Erinn Williams [employer]ONE LAYOUT MARKER-C Work Phone: [facility] 12-29-2024 15:45-0400 Body mass index (BMI) [Ratio] 25.7 kg/m2 Erinn Williams [employer] LAYOUT MARKER-C Work Phone: [facility] 12-29-2024 15:45-0400 Body weight 68.03 kg Erinn Julian [employer]ONE LAYOUT MARKER-C Work Phone: [facility] 12-29-2024 15:25-0400 Body temperature 98.3 [degF] Erinn Julian [employer] LAYOUT MARKER-C Work Phone: [facility] 12-29-2024 15:25-0400 Respiratory rate 16 /min Erinn Williams [employer]ONE LAYOUT MARKER-C Work Phone: [facility] 12-29-2024 14:07-0400 Body height 160.02 cm Erinn Julian [employer]ONE LAYOUT MARKER-C Work Phone: [facility] 12-29-2024 14:03-0400 Body mass index (BMI) [Ratio] 26.7 kg/m2 Erinn Julian [employer]ONE LAYOUT MARKER-C Work Phone: [facility] 12-29-2024 14:03-0400 Body weight 68.54 kg Erinn Julian [employer]ONE LAYOUT MARKER-C Work Phone: [facility] 12-29-2024 14:03-0400 Diastolic blood pressure 80 mm[Hg] Erinn Julian [employer] LAYOUT MARKER-C Work Phone: [facility] 12-29-2024 14:03-0400 Systolic blood pressure 143 mm[Hg] Erinn Julian [employer]ONE LAYOUT MARKER-C Work Phone: [facility] 12-23-2024 14:06-0400 Body height 160.02 cm Erinn Williams [employer]ONE LAYOUT MARKER-C Work Phone: [facility] 12-23-2024 14:06-0400 Body mass index (BMI) [Ratio] 26.6 kg/m2 Erinn Williams [employer] LAYOUT MARKER-C Work Phone: [facility] 12-23-2024 14:06-0400 Body weight 68.18 kg Erinn Williams [employer]ONE LAYOUT MARKER-C Work Phone: [facility] 12-23-2024 14:06-0400 Diastolic blood pressure 74 mm[Hg] Erinn Williams [employer] LAYOUT MARKER-C Work Phone: [facility] 12-23-2024 14:06-0400 Systolic blood pressure 135 mm[Hg] Erinn Williams [employer]ONE LAYOUT MARKER-C Work Phone: [facility] 12-15-2024 15:37-0400 Body height 160.02 cm Erinn Julian [employer]ONE LAYOUT MARKER-C Work Phone: [facility] 12-15-2024 15:37-0400 Body mass index (BMI) [Ratio] 26.4 kg/m2 Erinn Williams [employer]ONE LAYOUT MARKER-C Work Phone: [facility] 12-15-2024 15:37-0400 Body weight 67.75 kg Erinn Julian [employer]ONE LAYOUT MARKER-C Work Phone: [facility] 12-15-2024 15:37-0400 Diastolic blood pressure 71 mm[Hg] Erinn Julian [employer]ONE LAYOUT MARKER-C Work Phone: [facility] 12-15-2024 15:37-0400 Systolic blood pressure 126 mm[Hg] Erinn Julian [employer]ONE LAYOUT MARKER-C Work Phone: [facility] 12-01-2024 14:33-0400 Body height 160.02 cm Erinn Julian [employer]ONE LAYOUT MARKER-C Work Phone: [facility] 12-01-2024 14:33-0400 Body mass index (BMI) [Ratio] 25.9 kg/m2 Erinn Williams [employer] LAYOUT MARKER-C Work Phone: [facility] 12-01-2024 14:33-0400 Body weight 66.33 kg Erinn Williams [employer]ONE LAYOUT MARKER-C Work Phone: [facility] 12-01-2024 14:33-0400 Diastolic blood pressure 74 mm[Hg] Erinn Williams [employer]ONE LAYOUT MARKER-C Work Phone: [facility] 12-01-2024 14:33-0400 Systolic blood pressure 113 mm[Hg] Erinn Williams [employer]ONE LAYOUT MARKER-C Work Phone: [facility] 11-17-2024 11:38-0400 Body height 160.02 cm Erinn Williams [employer]ONE LAYOUT MARKER-C Work Phone: [facility] 11-17-2024 11:36-0400 Body mass index (BMI) [Ratio] 25.2 kg/m2 Erinn Williams [employer]ONE LAYOUT MARKER-C Work Phone: [facility] 11-17-2024 11:36-0400 Body weight 64.58 kg Erinn Williams [employer]ONE LAYOUT MARKER-C Work Phone: [facility] 11-17-2024 11:36-0400 Diastolic blood pressure 74 mm[Hg] Erinn Julian [employer]ONE LAYOUT MARKER-C Work Phone: [facility] 11-17-2024 11:36-0400 Systolic blood pressure 112 mm[Hg] Erinn Julian [employer]ONE LAYOUT MARKER-C Work Phone: [facility] 11-03-2024 11:04-0400 Body height 160.02 cm Erinn Julian [employer]ONE LAYOUT MARKER-C Work Phone: [facility] 11-03-2024 11:04-0400 Body mass index (BMI) [Ratio] 25 kg/m2 Erinn Williams [employer]ONE LAYOUT MARKER-C Work Phone: [facility] 11-03-2024 11:04-0400 Body weight 64.12 kg Erinn Williams [employer]ONE LAYOUT MARKER-C Work Phone: [facility] 11-03-2024 11:04-0400 Diastolic blood pressure 70 mm[Hg] Erinn Julian [employer] LAYOUT MARKER-C Work Phone: [facility] 11-03-2024 11:04-0400 Systolic blood pressure 111 mm[Hg] Erinn Julian [employer]ONE LAYOUT MARKER-C Work Phone: [facility] 10-18-2024 11:09-0400 Body weight 63.32 kg Erinn Williams [employer]ONE LAYOUT MARKER-C Work Phone: [facility] 10-12-2024 10:16-0400 Body height 160.02 cm Erinn Julian [employer]ONE LAYOUT MARKER-C Work Phone: [facility] 10-12-2024 10:16-0400 Body mass index (BMI) [Ratio] 24.7 kg/m2 Erinn Julian [employer] LAYOUT MARKER-C Work Phone: [facility] 10-12-2024 10:16-0400 Body weight 63.27 kg Erinn Williams [employer]ONE LAYOUT MARKER-C Work Phone: [facility] 10-12-2024 10:16-0400 Diastolic blood pressure 68 mm[Hg] Erinn Julian [employer]ONE LAYOUT MARKER-C Work Phone: [facility] 10-12-2024 10:16-0400 Systolic blood pressure 112 mm[Hg] Erinn Williams [employer]ONE LAYOUT MARKER-C Work Phone: [facility] 09-16-2024 14:53-0400 Body mass index (BMI) [Ratio] 23.7 kg/m2 Erinn Julian [employer]ONE LAYOUT MARKER-C Work Phone: [facility] 09-16-2024 14:53-0400 Body weight 60.78 kg Erinn Williams [employer]ONE LAYOUT MARKER-C Work Phone: [facility] 09-16-2024 14:53-0400 Diastolic blood pressure 71 mm[Hg] Erinn Williams [employer]ONE LAYOUT MARKER-C Work Phone: [facility] 09-16-2024 14:53-0400 Systolic blood pressure 108 mm[Hg] Erinn Williams [employer]ONE LAYOUT MARKER-C Work Phone: [facility] 08-22-2024 08:29-0400 Body mass index (BMI) [Ratio] 22.8 kg/m2 Erinn Julian [employer]ONE LAYOUT MARKER-C Work Phone: [facility] 08-22-2024 08:29-0400 Body weight 58.68 kg Erinn Williams [employer]ONE LAYOUT MARKER-C Work Phone: [facility] 08-22-2024 08:29-0400 Diastolic blood pressure 64 mm[Hg] Erinn Williams [employer]ONE LAYOUT MARKER-C Work Phone: [facility] 08-22-2024 08:29-0400 Systolic blood pressure 100 mm[Hg] Erinn Julian STONE LAYOUT MARKER-C Work Phone: [facility] 07-28-2024 16:01-0400 Body mass index (BMI) [Ratio] 22.3 kg/m2 Erinn Julian [employer]ONE LAYOUT MARKER-C Work Phone: [facility] 07-28-2024 16:01-0400 Body weight 57.15 kg Erinn Williams [employer]ONE LAYOUT MARKER-C Work Phone: [facility] 07-28-2024 16:01-0400 Diastolic blood pressure 73 mm[Hg] Erinn Julian [employer]ONE LAYOUT MARKER-C Work Phone: [facility] 07-28-2024 16:01-0400 Systolic blood pressure 122 mm[Hg] Erinn Julian [employer]ONE LAYOUT MARKER-C Work Phone: [facility] 07-07-2024 07:43-0500 Body mass index (BMI) [Ratio] 22 kg/m2 Erinn Williams [employer]ONE LAYOUT MARKER-C Work Phone: [facility] 07-07-2024 07:43-0500 Body weight 56.41 kg Erinn Julian [employer]ONE LAYOUT MARKER-C Work Phone: [facility] 07-07-2024 07:43-0500 Diastolic blood pressure 78 mm[Hg] Erinn Williams [employer]ONE LAYOUT MARKER-C Work Phone: [facility] 07-07-2024 07:43-0500 Systolic blood pressure 112 mm[Hg] Erinn Julian [employer]ONE LAYOUT MARKER-C Work Phone: [facility] 04-11-2024 12:12-0500 Body height 160 cm Tristian Feng APRN.CNP Work Phone: [facility] 04-11-2024 12:12-0500 Body mass index (BMI) [Ratio] 22.43 kg/m2 Tristian Feng APRN.SHROUDMAN Work Phone: [facility] 04-11-2024 12:12-0500 Body temperature 98.29 [degF] Tristian Feng APRN.SHROUDMAN Work Phone: [facility] 04-11-2024 12:12-0500 Body weight 57.42 kg Tristian Feng APRN.SHROUDMAN Work Phone: [facility] 04-11-2024 12:12-0500 Diastolic blood pressure 75 mm[Hg] Tristian Feng APRN.SHROUDMAN Work Phone: [facility] 04-11-2024 12:12-0500 Heart rate 88 /min Tristian Feng APRN.SHROUDMAN Work Phone: [facility] 04-11-2024 12:12-0500 Respiratory rate 16 /min Tristian Feng APRN.SHROUDMAN Work Phone: [facility] 04-11-2024 12:12-0500 SaO2% (BldA) [Mass fraction] 97 % Tristian Feng APRN.SHROUDMAN Work Phone: [facility] 04-11-2024 12:12-0500 Systolic blood pressure 118 mm[Hg] Tristian Feng APRN.SHROUDMAN Work Phone: [facility] 07-28-2023 14:08-0400 Body height 160 cm Todd Romero II, MD Work Phone: [facility] 07-28-2023 14:08-0400 Body temperature 97.7 [degF] Todd Romero II, MD Work Phone: [facility] 07-28-2023 14:08-0400 Body weight 58.51 kg Todd Romero II, MD Work Phone: [facility] 07-28-2023 14:08-0400 Diastolic blood pressure 60 mm[Hg] Todd Romero II, MD Work Phone: [facility] 07-28-2023 14:08-0400 Heart rate 88 /min Todd Romero II, MD Work Phone: [facility] 07-28-2023 14:08-0400 Respiratory rate 12 /min oTdd Romero II, MD Work Phone: [facility] 07-28-2023 14:08-0400 SaO2% (BldA) [Mass fraction] 98 % Todd Romero II, MD Work Phone: [facility] 07-28-2023 14:08-0400 Systolic blood pressure 90 mm[Hg] Todd Romero II, MD Work Phone: [facility] 06-18-2022 09:38-0500 Body height 160.[address] Todd Romero Work Phone: [facility] 06-18-2022 09:38-0500 Body mass index (BMI) [Ratio] 20.9 kg/m2 Dr. Todd Romero Work Phone: [facility] 06-18-2022 09:38-0500 Body weight 53.[address] Todd Romero Work Phone: [facility] 06-18-2022 09:38-0500 Diastolic blood pressure 69 mm[Hg] Dr. Todd Romero Work Phone: [facility] 06-18-2022 09:38-0500 Systolic blood pressure 108 mm[Hg] Dr. Todd Romero Work Phone: [facility] 06-11-2022 10:59-0500 Body height 160.[address] Todd Romero Work Phone: [facility] 06-11-2022 10:58-0500 Body mass index (BMI) [Ratio] 20.9 kg/m2 Dr. Todd Romero Work Phone: [facility] 06-11-2022 10:58-0500 Body weight 53.[address] Todd Romero Work Phone: [facility] 06-11-2022 10:58-0500 Diastolic blood pressure 79 mm[Hg] Dr. Todd Romero Work Phone: [facility] 06-11-2022 10:58-0500 Systolic blood pressure 138 mm[Hg] Dr. Todd Romero Work Phone: [facility] 06-05-2022 10:22-0500 Body mass index (BMI) [Ratio] 21.2 kg/m2 Dr. Todd Romero Work Phone: [facility] 06-05-2022 10:22-0500 Body weight 54.[address] Todd Romero Work Phone: [facility] 06-05-2022 10:22-0500 Diastolic blood pressure 62 mm[Hg] Dr. Todd Romero Work Phone: [facility] 06-05-2022 10:22-0500 Systolic blood pressure 114 mm[Hg] Dr. Todd Romero Work Phone: [facility] 09-05-2021 10:42-0400 Body height 160 cm Todd Romero II, MD Work Phone: [facility] 09-05-2021 10:42-0400 Body temperature 99.3 [degF] Todd Romero II, MD Work Phone: [facility] 09-05-2021 10:42-0400 Body weight 53.52 kg Todd Romero II, MD Work Phone: [facility] 09-05-2021 10:42-0400 Diastolic blood pressure 64 mm[Hg] Todd Romero II, MD Work Phone: [facility] 09-05-2021 10:42-0400 Heart rate 80 /min Todd Romero II, MD Work Phone: [facility] 09-05-2021 10:42-0400 Respiratory rate 16 /min Todd Romero II, MD Work Phone: [facility] 09-05-2021 10:42-0400 SaO2% (BldA) [Mass fraction] 99 % Todd Romero II, MD Work Phone: [facility] 09-05-2021 10:42-0400 Systolic blood pressure 98 mm[Hg] Todd Romero II, MD Work Phone: [facility] Encounters Encounter Date Encounter Type Care Provider Facility Start: 01-13-2025 ambulatory Todd Romero Facility :[facility] Start: 01-10-2025 [facility] Start: 01-03-2025 End: 01-03-[address] Emerald Dunbar DO -[facility] Work Phone: Start: 01-03-2025 End: 01-03-2025 ambulatory Erinn Julian [employer] LAYOUT MARKER-C Work Phone: -[facility] Start: 12-29-2024 ambulatory Todd Romero Facility :[facility] Start: 12-29-2024 Non-patient / Non-visit Dr. Charisse Song MD -[facility] Start: 12-29-2024 End: 12-29-2024 ambulatory Erinn Williams [employer] LAYOUT MARKER-C Work Phone: -Laboratory Start: 12-29-2024 End: 12-29-[address] Lindsay Song MD -Laboratory Work Phone: Start: 12-29-2024 End: 12-29-[address] Lindsay Song MD -[facility] Work Phone: Start: 12-29-2024 End: 12-29-2024 ambulatory Erinn Williams [employer] LAYOUT MARKER-C Work Phone: -[facility] Start: 12-23-2024 End: 12-23-2024 ambulatory Erinn Julian [employer] LAYOUT MARKER-C Work Phone: -Laboratory Specimen Start: 12-23-2024 End: 12-23-2024 Patient encounter procedure Vaibhav Hale CNM -Laboratory Specimen Work Phone: Start: 12-23-2024 End: 12-23-2024 Patient encounter procedure Vaibhav Hale CNM -[facility] Work Phone: Start: 12-23-2024 End: 12-23-2024 ambulatory Erinn Williams [employer] LAYOUT MARKER-C Work Phone: -[facility] Start: 12-23-2024 End: 12-23-2024 ambulatory Vaibhav Hale Facility:[facility] Start: 12-15-2024 End: 12-15-[address] Lindsay Song MD -[facility] Work Phone: Start: 12-15-2024 End: 12-15-2024 ambulatory Erinn Williams [employer] LAYOUT MARKER-C Work Phone: -[facility] Start: 12-15-2024 End: 12-15-2024 ambulatory Erinn Williams [employer] LAYOUT MARKER-C Work Phone: -[facility]trasound [facility] Start: 12-15-2024 End: 12-15-2024 Patient encounter procedure Vaibhav Hale CN -Ultrasound [facility] Work Phone: Start: 12-15-2024 End: 12-15-2024 ambulatory Todd Romero Facility:[facility] Start: 12-01-2024 End: 12-01-[address] Emerald Dunbar DO -[facility] Work Phone: Start: 12-01-2024 End: 12-01-2024 ambulatory Erinn Williams [employer] LAYOUT MARKER-C Work Phone: [facility] Start: 11-25-2024 ambulatory Todd Romero Facility :[facility] Start: 11-17-2024 End: 11-17-2024 Patient encounter procedure Vaibhav Hale CNM -[facility] Work Phone: Start: 11-17-2024 End: 11-17-2024 ambulatory Erinn Williams [employer] LAYOUT MARKER-C Work Phone: -[facility] Start: 11-03-2024 End: 11-03-2024 Patient encounter procedure Vaibhav Hale CNM -[facility] Work Phone: Start: 11-03-2024 End: 11-03-2024 ambulatory Erinn Julian [employer] LAYOUT MARKER-C Work Phone: [facility] Work Phone: Start: 10-18-2024 End: 11-14-2024 Discharged Recurring Erinn Jordan [employer] LAYOUT MARKER-C -Nutritional Servic es Work Phone: Start: 10-18-2024 Registered Recurring Erinn Jordan [employer] LAYOUT MARKER-C -Nutritional Services Work Phone: Start: 10-18-2024 End: 11-14-2024 ambulatory Erinn Jordan [employer] LAYOUT MARKER-C Work Phone: -Nutritional Services Start: 10-12-2024 End: 10-12-2024 Patient encounter procedure Erinn Jordan [employer]ONE LAYOUT MARKER-C -[facility] Work Phone: Start: 10-12-2024 End: 10-12-2024 ambulatory Erinn Jordan [employer]ONE LAYOUT MARKER-C Work Phone: [facility] Work Phone: Start: 10-12-2024 End: 10-12-2024 ambulatory Erinn Jordan [employer] LAYOUT MARKER-C Work Phone: [facility] Work Phone: Start: 10-12-2024 End: 10-12-2024 Patient encounter procedure Erinn Jordan [employer]ONE LAYOUT MARKER-C -Lab [facility] Start: 10-12-2024 End: 10-12-2024 ambulatory Erinn Jordan STONE LAYOUT MARKER Facility:[facility] Start: 09-16-2024 End: 09-16-[address] Lindsay Song MD -[facility] Work Phone: Start: 09-16-2024 End: 09-16-2024 ambulatory Lindsay Song Facility:[facility] Start: 08-22-2024 End: 08-22-2024 Patient encounter procedure Erinn Jordan [employer] LAYOUT MARKER-C -[facility] Work Phone: Start: 08-22-2024 End: 08-22-2024 ambulatory [facility] Start: 07-28-2024 End: 07-28-[address] Emerald Dunbar DO -[facility] Work Phone: Start: 07-28-2024 End: 07-28-2024 ambulatory Emerald Dunbar Facility:[facility] Start: 07-07-2024 End: 07-07-2024 Patient encounter procedure Vaibhav Hale CNM -Lab [facility] Start: 07-07-2024 End: 07-07-2024 Patient encounter procedure Vaibhav Paul CN -[facility] Start: 07-07-2024 End: 07-07-2024 ambulatory Vaibhav Hale Facility:[facility] Start: 07-07-2024 End: 07-07-2024 ambulatory Vaibhav Hale Facility:[facility] Start: 06-24-2024 ambulatory Vaibhav Hale Facility :[facility] Start: 06-10-2024 End: 06-10-2024 ambulatory Vaibhav Paul Facility:[facility] Start: 06-10-2024 End: 06-10-2024 ambulatory Vaibhav Hale Facility:[facility] Start: 05-27-2024 End: 05-27-2024 ambulatory Todd Romero Facility:[facility] Start: 05-23-2024 End: 05-23-2024 ambulatory Todd Romero Facility:[facility] Start: 05-14-2024 End: 05-14-2024 ambulatory Todd Romero Facility:[facility] Start: 05-12-2024 End: 05-12-2024 ambulatory Todd Romero Facility:[facility] Start: 04-27-2024 End: 04-27-2024 ambulatory Todd Romero Facility:[facility] Start: 04-27-2024 End: 04-27-2024 ambulatory Todd Romero Facility:[facility] Start: 04-11-2024 End: 04-11-2024 Telephone encounter Todd Romero MD Work Phone: [facility] Comment on above: walk in clinic Start: 04-11-2024 End: 04-11-2024 ambulatory TRISTIAN FENG Facility:[id number] Start: 04-11-2024 End: 04-11-2024 Patient encounter procedure Tristian Feng SATELLITE TECHNICIAN.SHROUDMAN Work Phone: [facility] Comment on above: Viral URI (Primary D x) Start: 07-28-2023 End: 07-28-2023 Patient encounter procedure Todd Romero MD Work Phone: [facility] Comment on above: Routine physical exa mination (Primary Dx) Start: 07-28-2023 End: 07-28-2023 Physical examination Todd Romero MD Work Phone: [facility] Work Phone: Start: 07-28-2023 End: 07-28-2023 ambulatory TODD ROMERO II Facility:[id number] Start: 03-20-2023 End: 03-20-2023 Subsequent hospital visit by physician Xr [address] Comment on above: Cervicalgia [M54.2] Start: 09-17-2022 ambulatory PHYSICIAN MISC Facility :[facility] Start: 09-17-2022 End: 09-17-2022 Subsequent hospital visit by physician Provider [facility] [place] Comment on above: N96 Start: 08-28-2022 Refill Todd hayes MD Work Phone: [facility] Comment on above: Refill Request Start: 08-23-2022 End: 08-23-[address] Todd Romero Work Phone: [facility] Work Phone: Start: 08-23-2022 End: 08-23-[address] Todd Romero Work Phone: [facility] Start: 06-18-2022 End: 06-18-[address] Todd Romero Work Phone: [facility] Start: 06-11-2022 End: 06-11-[address] Todd Romero Work Phone: [facility] Start: 06-07-2022 End: 06-07-[address] Todd Romero Work Phone: [facility] Work Phone: Start: 06-07-2022 End: 06-07-[address] Todd Romero Work Phone: [facility] Start: 06-05-2022 End: 06-05-[address] Todd Romero Work Phone: [facility] Work Phone: Start: 06-05-2022 End: 06-05-[address] Todd Romero Work Phone: [facility] Start: 03-17-2022 Refill Todd hayes MD Work Phone: [facility] Comment on above: Refill Request Start: 11-29-2021 Refill Todd hayes MD Work Phone: [facility] Comment on above: Refill Request Start: 11-26-2021 End: 11-26-2021 Subsequent hospital visit by physician Provider [facility] Start: 09-05-2021 End: 09-05-2021 Patient encounter procedure [facility] Romero MD Work [facility]: [facility] [facility] Comment on above: Migraine without aur a and without status migrainosus, not intractable (Primary Dx); DARVIN (generalized anxiety disorder); Irritable bowel syndrome with diarrhea; Diarrhea, unspecified type Start: 08-29-2021 Refill Todd hayes MD Work Phone: [facility] Comment on above: Refill Request Start: 08-28-2021 Refill Todd hayes MD Work Phone: [facility] Comment on above: Refill Request Start: 08-16-2021 End: 08-16-2021 Patient encounter procedure CESAR BOTELLO MD [facility] Procedures Date Procedure Procedure Detail Performing Clinician Start: 12-29-2024 Estimated creatinine clearance Erinn ROSE Work Phone: Start: 12-23-2024 Beta-hemolytic Streptococcus culture Erinn Jordan [employer] Work Phone: Start: 12-15-2024 Ultrasound scan for growth Erinn Jordan [employer] Work Phone: Start: 10-12-2024 Serologic test for syphilis Erinn Jordan [employer] Work Phone: Start: 07-07-2024 Procedure Erinn Tan ingzachary [employer] Work Phone: Start: 09-17-2022 PROGESTERONE BLD Provid er Cchs Start: 09-17-2022 TSH BLD Provider C [facility] Start: 11-13-2020 Adult depression scr eening assessment Todd Romero II, MD Work Phone: Urine culture Dr. Todd pardo Work Phone: Plan of Treatment Date Care Activity Detail Author Start: 11-26-2026 PAP TESTING PAP TESTING [facility] Start: 11-26-2026 Screening for malign ant neoplasm of cervix [facility] Start: 12-29-2024 Nonstress test [facility] Start: 12-29-2024 Obstetric monitoring [facility] Start: 12-29-2024 Vital signs measurements [facility] Start: 12-29-2024 [facility] Start: 12-29-2024 [facility] Start: 11-26-2024 PAP TESTING PAP TESTING [facility] Start: 10-18-2024 HPV TESTING HPV TESTING [facility] Start: 10-18-2024 Screening for malign ant neoplasm of cervix HPV Testing [facility] Start: 01-17-2024 Covid-19 Vaccine () Covid-19 Vaccine () [facility] Start: 01-17-2024 Influenza vaccination Influenza Vacc ine (#1) [facility] Start: 12-04-2023 PAP TESTING PAP TESTING [facility] Start: 05-18-2023 Depression Assessment Depression Ass essment [facility] Start: 01-16-2023 Covid-19 Vaccine () Covid-19 Vaccine () [facility] Start: 01-16-2023 Influenza vaccination [facility] Start: 05-18-2022 DEPRESSION ASSESSMENT [facility] Start: 01-16-2022 Influenza vaccination [facility] Start: 11-13-2021 Adult depression screening assessment DEPRESSION SCREENING [facility] Start: 05-18-2021 DEPRESSION ASSESSMENT DEPRESSION ASS [facility] Start: 2011 Urine microalbumin profile [facility] Start: 2010 Anxiety Screening Anxiety Screening [facility] Start: 2010 Depression Screening Depression Scre ening [facility] Start: 2010 HEPATITIS C SCREENING HEPATITIS C [facility] Start: 2010 Hepatitis C screening Hepatitis C [facility] Start: 2010 HIV SCREENING HIV SCREENING [facility] Start: 2010 HIV screening HIV Screening [facility] Start: 1997 COVID-19 VACCINE (1) COVID-19 VACCIN E (1) [facility] Start: 01-10-1993 COVID-19 VACCINE (#1) COVID-19 VACCI NE (#1) [facility] Patient Education Kick Counts ED False Labor OB Triage: Return to Hospital or Notify Physician if you Experience: [facility] Work Phone: Streptococcus agalac tiae [Presence] in Unspecified specimen by Organism specific culture [facility] Ultrasound scan for growth [facility] Immunizations Immunization Date Immunization Notes Care Provider Fa [facility] 03-11-1993 hepatitis B vaccine, pediatric or pediatric/adolescent dosage Todd Romero II, MD Work Phone: [facility] 02-13-1993 diphtheria, tetanus toxoids and acellular pertussis vaccine Todd Romero II, MD Work Phone: [facility] 02-13-1993 haemophilus influenz ae type b vaccine, HbOC conjugate Todd Romero II, MD Work Phone: [facility] 1992 diphtheria, tetanus toxoids and acellular pertussis vaccine Todd Romero II, MD Work Phone: [facility] 1992 haemophilus influenz ae type b vaccine, HbOC conjugate Todd Romero II, MD Work Phone: [facility] 1992 trivalent poliovirus vaccine, live, oral Todd Romero II, MD Work Phone: [facility] 1992 hepatitis B vaccine, pediatric or pediatric/adolescent dosage Todd Romero II, MD Work Phone: [facility] 1992 diphtheria, tetanus toxoids and acellular pertussis vaccine Todd Romero II, MD Work Phone: [facility] 1992 haemophilus influenz ae type b vaccine, HbOC conjugate Todd Romero II, MD Work Phone: [facility] 1992 trivalent poliovirus vaccine, live, oral Todd Romero II, MD Work Phone: [facility] 1992 hepatitis B vaccine, pediatric or pediatric/adolescent dosage Todd Romero II, MD Work Phone: [facility] Payers Date Payer Category Payer Self-pay 2022 Unknown [id number] 2022 Unknown [id number] 2017 Unknown [employer] PPO [id number] 2017-Present [phone] [address] [place] [address] PPO [id number] 2017 Unknown [id number]. 1.13.159.2.7.3. [id number] 1992 Unknown [id number] 2.16.840.1.859657.3.579.2.479 Unknown [id number] 2..840.1.467252.3.579.2.283 Unknown [id number] 2.16.840.1.708778.3.579.2.462 Unknown [id number] 2.16.840.1.058101.3.579.2.462 Unknown [id number] 2.840.1.923203.3.579.2.462 Unknown [id number] 2.840.1.742968.3.579.2.462 Unknown [id number] 2.840.1.827879.3.579.2.462 Unknown [id number] 2.840.1.405608.3.579.2.462 Unknown [id number] 2.840.1.675392.3.579.2.462 Unknown [id number] 2.840.1.437546.3.579.2.462 Unknown [id number] 2.840.1.694144.3.579.2.462 Unknown [id number] 2.840.1.889813.3.579.2.462 Unknown [id number] 2.840.1.991537.3.579.2.462 Unknown [id number] 2.840.1.026793.3.579.2.462 Unknown [id number] 2.840.1.147651.3.579.2.462 Unknown [id number] 2.840.1.826418.3.579.2.462 Unknown [id number] 2.840.1.044163.3.579.2.462 Unknown [id number] 2.840.1.942752.3.579.2.462 Unknown [id number] 2.840.1.440150.3.579.2.462 Unknown [id number] 2.840.1.653013.3.579.2.462 Unknown [id number] 2.840.1.993769.3.579.2.462 Unknown [id number] 2.840.1.951912.3.579.2.462 Unknown [id number] 2.16.840.1.457310.3.579.2.462 Unknown [id number] 2.16.840.1.375332.3.579.2.462 Unknown [id number] 2.16.840.1.570174.3.579.2.462 Unknown [id number] 2.16.840.1.492824.3.579.2.462 Unknown [id number] 2.16.840.1.807765.3.579.2.462 Unknown [id number] 2.16.840.1.600230.3.579.2.462 Unknown [id number] 2.16.840.1.433966.3.579.2.462 Unknown [id number] 2.16.840.1.936583.3.579.2.462 Unknown [id number] 2.16.840.1.300227.3.579.2.462 Unknown [id number] 2.16.840.1.855320.3.579.2.462 Unknown [id number] 2.16.840.1.396596.3.579.2.462 Social History Date Type Detail Facility Start: 11-24-2018 End: 07-07-2024 Tobacco smoking status NHIS Never smoked tobacco [facility] Start: 11-24-2018 Tobacco use and exposure Smoke less tobacco non-user [facility] Start: 11-13-2020 End: 07-28-2023 Alcohol intake Lifetime non-drinker (finding) [facility] Start: 03-26-2020 History SDOH Alcohol Frequency [address] [facility] Start: 1990 Sex Assigned At Not on file [facility] Start: 08-26-2021 End: 09-05-2021 Exposure to SARS-CoV-2 (event) Not sure [facility] Start: 06-11-2022 End: 06-18-2022 Tobacco smoking status AKIS Unknown if ever smoked [facility] Start: 1990 Sex Assigned At Female W [facility] Start: 03-26-2020 End: 06-04-2023 History of Social function [facility] hilary Start: 03-26-2020 End: 06-04-2023 Alcohol Use Disorder Identification Test - Consumption [AUDIT-C] [facility] How often to you hav e a drink containing alcohol? Never [facility] Average Number of Drinks Not on file [facility] Medical Equipment Procedure Code Equipment Code Equipment Origin al Text Equipment Identifier Dates Blood Sugar Diagnostic (Blood Glucose Test) strip Start: 10-12-2024 Lancets misc Start: 10-12-2024 Blood Sugar Diagnostic (Blood Glucose Test) strip Start: 10-12-2024 Lancets misc Start: 10-12-2024 Blood Sugar Diagnostic (Blood Glucose Test) strip Start: 10-12-2024 Lancets misc Start: 10-12-2024 Blood Sugar Diagnostic (Blood Glucose Test) strip Start: 10-12-2024 Lancets misc Start: 10-12-2024 Blood Sugar Diagnostic (Blood Glucose Test) strip Start: 10-12-2024 Lancets misc Start: 10-12-2024 Blood Sugar Diagnostic (Blood Glucose Test) strip Start: 10-12-2024 Lancets misc Start: 10-12-2024 Blood Sugar Diagnostic (Blood Glucose Test) strip Start: 10-12-2024 Lancets misc Start: 10-12-2024 Blood Sugar Diagnostic (Blood Glucose Test) strip Start: 10-12-2024 Lancets misc Start: 10-12-2024 Blood Sugar Diagnostic (Blood Glucose Test) strip Start: 10-12-2024 Lancets misc Start: 10-12-2024 Blood Sugar Diagnostic (Blood Glucose Test) strip Start: 10-12-2024 Lancets misc Start: 10-12-2024 Blood Sugar Diagnostic (Blood Glucose Test) strip Start: 10-12-2024 Lancets misc Start: 10-12-2024 Blood Sugar Diagnostic (Blood Glucose Test) strip Start: 10-12-2024 Lancets misc Start: 10-12-2024 Clinical Notes 11-19-2020 to 12-29-2024 Note Date & Type Note Facility 12-29-2024 Progress note [facility] 12-29-2024 Progress note [facility] 12-29-2024 Progress note Note Date/Time December 29, 2024 2:56pm [facility] [address] [place] [address], [address] [place] [address] OFFICE VISIT Date of Service: 12/29/24 MR#: [id number] Acct: [id number] Name: NORA CAMERON Rep #: [id number] : 1990 Provider: Dr. 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 Is patient in pain?: No Allergies No Known Allergies Allergy (Verified 12/29/24 14:02) Medications ?Medication ?Instructions ?Recorded ?Confirmed ?Type multivitamin no.47-iron fum 27 cap PO 05/23/22 5 History mg-folate no.1 1 mg-dha 300 mg capsule (PNV-DHA) cod liver oil 1 cap PO ONCE 04/27/2412/29 History thyroid support PO 04/27/24 12/29/24 History cholecalciferol (vitamin D3) 25 25 mcg PO ONCE 5 12/29/24 History mcg/drop (1,000 unit/drop) oral drops blood sugar diagnostic (Blood #120 10/12/24 5 Rx Glucose Test strips) blood-glucose meter #1 10/12/24 12/29/24 Rx lancets #200 10/12/24 12/29/24 Rx Last Menstrual Period: 04/08/24 Zika: Zika virus screening: Negative : No PFSH PFSH Medical History Hx of abnormal cervical Pap smear Surgical History Spearfish teeth extracted History of colposcopy Family History Grandmother Colon cancer, Onset Age: 92 Paternal Mother Myocardial infarction, Onset Age: 64 2022 Grandfather Myocardial infarction Maternal Social History adopted: No household members: spouse housing: house current occupational status: employed current occupation: [employer] current occupational exposures/hazards: No pets and animals: No history of recent travel: No ([place], [place]) sexually active: Yes Smoking Status: Never smoker alcohol intake: former details: occasionally prior to substance use type: does not use well-balanced diet: daily or most days caffeine: No eating out: 1-3 times/week during the past year weight has: remained stable what type of physical activity do you participate in: walking and weight training frequency: 3-4 times per week duration: 30-45 minutes/day michael/gnosticism: Sabianist seatbelt use: always do you feel safe at home: Yes additional social history: -[employer]- Vice [employer] History 4 Elective abortions Hx Para 0 Spontaneous abortions 3 Hx # Term Pregnancies Ectopic pregnancies Hx # Pregnancies Multiple births # of living children 0 Past Pregnancies Del. Date Name GA/Weeks Outcome Route Bth Weight Gen Labor Lgth Anesthesia Del Locatn Provider FOB 02/26/21 miscarriage 5 1/2 weeks 07/06/21 miscarriage 8 1/2 weeks 06/05/22 miscarriage 9wks HPI 38wk ob Details: NORA CAMERON is a 34 year old who presents for routine OB visit. OB Visit TREVON Calculator Estimated Delivery Date Method Current WG Current Estimate 01/13/25 LMP (Certain) 37w 6d Other Estimates 01/10/25 Ultrasound #1 38w 2d Expected Delivery Route/Plan Labor Preferences- CB/BF classes: encouraged labor support person: Power labor intervention preferences: prefers pain management options preferred: limited but epidural if requested, okay with touch, guided breathing, tub, hydrotherapy cut cord/dad catch: yes : yes PP control planned: discussed discussed possible routes of delivery and associated risks: [] special requests: [] Specific Issue/Plans Covid status: [] Flu vaccine: [] Tdap vaccine: Rhogam: na LARC form signed: yes Problem list reviewed and updated with the most current plan of care details and appropriate orders placed. Relevant counseling for the gestational age provided. Continue routine care and follow up unless otherwise noted in visit notes/problem list details Initial Weight: 124 lb Date -?-?-?-?-?-?-?-?-?-?-?-?- EGA Weight BP Urine Prot -?-?-?-?-?-?-?-?-?-?-?-?- Glucose FHR FuHt Pres Dilation -?-?-?-?-?-?-?-?-?-?-?-?- Effaced St Visit Note 06/10/24 -?-?-?-?-?-?-?-?-?-?-?-?- 9w 0d 124 lb 4 oz (+4 oz) 122/80 -?-?-?-?-?-?-?-?-?-?-?-?- 182 -?-?-?-?-?-?-?-?-?-?-?-?- KW- CRL cons wit h dates. declines NIPT KW- CRL cons with dates. dec lines NIPT. would like some appts in [facility]. doing well today 07/07/24 -?-?-?-?-?-?-?-?-?-?-?-?- 12w 6d 124 lb 6 oz (+6 oz) 112/78 Negative -?-?-?-?-?-?-?-?-?-?-?-?- Negative 160 -?-?-?-?-?-?-?-?-?-?-?-?- KW- no vb/crampi ng. anatomy US ordered. NIPT requested. FHT and movement noted on handheld US 07/28/24 -?-?-?-?-?-?-?-?-?-?-?-?- 15w 6d 126 lb (+2 lb) 122/73 Negative -?-?-?-?-?-?-?-?-?-?-?-?- Negative 146 -?-?-?-?-?-?-?-?-?-?-?-?- JV- lots of ques tions answered today. no complaints. NIPT reviewed. low risk boy 08/22/24 -?-?-?-?-?-?-?-?-?-?-?-?- 19w 3d 129 lb 6 oz (+5 lb 6 oz) 100/64 Negative -?-?-?-?-?-?-?-?-?-?-?-?- Negative 156 -?-?-?-?-?-?-?-?-?-?-?-?- MH-No VB, LOF. G ood Fm. MFM US today 09/16/24 -?-?-?-?-?-?-?-?-?-?-?-?- 23w 0d 134 lb (+10 lb) 108/71 Negative -?-?-?-?-?-?-?-?-?-?-?-?- Negative 150 -?-?-?-?-?-?-?-?-?-?-?-?- SM- no vb lof go od fm no regular ctx 10/12/24 -?-?-?-?-?-?-?-?-?--?-?-?- 26w 5d 139 lb 8 oz (+15 lb 8 oz) 112/68 Negative -?-?-?-?-?-?-?-?-?-?-?-?- Negative 145 -?-?-?-?-?-?-?-?-?-?-?-?- -No Vb, LOF. G ood FM. 1 hr GCT today and is 190: GDM. Reviewed QID testing, supplies ordered, dietitian referral. Keep diet and glucose journal and bring each visit. 11/03/24 -?-?-?-?-?-?-?-?-?-?-?-?- 29w 6d 141 lb 6 oz (+17 lb 6 oz) 111/70 Negative -?-?-?-?-?-?-?-?-?-?-?-?- Negative 145 30 -?-?-?-?-?-?-?-?-?-?-?-?- KW- work in for JV. blood sugars reviewed and normal. will start doing fasting and one PP daily. class next weekend. 11/17/24 -?-?-?-?-?-?-?-?-?-?-?-?- 31w 6d 142 lb 6 oz (+18 lb 6 oz) 112/74 Negative -?-?-?-?-?-?-?-?-?-?-?-?- Negative 135 32 -?-?-?-?-?-?-?-?-?-?-?-?- KW- no vb/lof/ct x. good fm. fasting numbers well limits. growth US ordered. 12/01/24 -?-?-?-?-?-?-?-?-?-?-?-?- 33w 6d 146 lb 4 oz (+22 lb 4 oz) 113/74 Negative -?-?-?-?-?-?-?-?-?-?-?-?- Negative 143 33 -?-?-?-?-?-?-?-?-?-?-?-?- JV- fasting leve ls 80's, 2 hr pp are also normal. 12/15/24 -?-?-?-?-?-?-?-?-?-?-?-?- 35w 6d 149 lb 6 oz (+25 lb 6 oz) 126/71 Negative -?-?-?-?-?-?-?-?-?-?-?-?- Negative 140 35 -?-?-?-?-?-?-?-?-?-?-?-?- SM- BS controlle d discussed reduced testing schedule unless becomes abnormal no vb lof good fm no regular ctx 12/23/24 -?-?-?-?-?-?-?-?-?-?-?-?- 37w 0d 150 lb 5 oz (+26 lb 5 oz) 135/74 Negative -?-?-?-?-?-?-?-?-?-?-?-?- Negative 140 37 -?-?-?-?-?-?-?-?-?-?-?-?- KW- no vb/lof/ r eg ctx. good fm. GBS today and declines SVE 12/29/24 -?-?-?-?-?-?-?-?-?-?-?-?- 37w 6d 151 lb 2 oz (+27 lb 2 oz) 143/80 Negative -?-?-?-?-?-?-?-?-?-?-?-?- Negative 140 38 Cephalic 1 -?-?-?-?-?-?-?-?-?-?-?-?- SM- n ovb lof go od fm well controlled diabetes discussed IOL by due date or a little after ACOG First Trimester First Trimester: Discussed Second Trimester Second Trimester: Signs and Symptoms of Labor, Selecting a care provider, Reproductive Life Planning & Contreception, Care Planning and Depression/Anxiety; Discussed Tobacco Cessation and Discussed Intimate Partner Violence Third Trimester Third Trimester: Pain Management Plans, Labor support person(s), Immediate Larc, Circumcision preference, Signs and Symptoms of Preeclampsia, Feeding No , [place] Education and Family Medical Leave or Disability Forms Results POC Urinalysis 2 Dip (Clinic) Office Urine Glucose Negative Last Edit by Erinn Gonzalez on 12/29/24 14:08 Office Urine Protein Negative Last Edit by Erinn Gonzalez on 12/29/24 14:08 Coding Level of Care Code OB Routine Diagnoses Diet controlled gestational diabetes mellitus (GDM) in second trimester O24.410 Gestational diabetes mellitus control: diet-controlled Trimester: second trimester Anxiety F41.9 Supervision of high risk in second trimester O09. Trimester: second trimester 37 weeks gestation of Z3A.37 Weeks of gestation: 37 weeks History of recurrent miscarriages N96 Assessment and Plan Assessment and Plan (1) Gestational diabetes mellitus (GDM): Status: Acute Qualifiers: Gestational diabetes mellitus control: diet-controlled Trimester: second trimester Qualified Code(s): O24.410 - Gestational diabetes mellitus in , diet controlled Comment: well controlled, discussed reduced testing unless uncontrolled. plan dleiveyr by 40, Growth US at 36w-80% (2) Anxiety: Status: Acute Comment: 5 yr ago, situational, hydroxyzine prn then. Stable now (3) Supervision of high-risk : Status: Acute Qualifiers: Trimester: second trimester Qualified Code(s): O09.92 - Supervision of high risk , unspecified, second trimester Comment: PRR, , TREVON 01/13/25, boy (name secret) Power (4) : Status: Acute Qualifiers: Weeks of gestation: 37 weeks Qualified Code(s): Z3A.37 - 37 weeks gestation of Comment: GBS neg, NIPT low risk, gender male. nl anatomy (5) History of recurrent miscarriages: Status: Acute Comment: nl APL X 3 Orders: Orders POC Urinalysis 2 Dip (Clinic) Today 12/29/24 1456 <Electronically signed by Lindsay gill MD> Date _ [facility] Signature: Date (if applicable) CC: ~ [employer] Work Phone: [phone]) [phone] [facility] [address] [place] [address], [address] [place] [address] OFFICE VISIT Date of Service: 12/15/24 MR#: [id number] Acct: [id number] Name: NORA CAMERON Rep #: [id number] : 1990 Provider: Dr. 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 Is patient in pain?: No Allergies No Known Allergies Allergy (Verified 12/15/24 15:41) Medications ?Medication ?Instructions ?Recorded ?Confirmed ?Type multivitamin no.47-iron fum 27 cap PO 05/23/22 5 History mg-folate no.1 1 mg-dha 300 mg capsule (PNV-DHA) cod liver oil 1 cap PO ONCE 04/27/2412/15 History thyroid support PO 04/27/24 12/15/24 History cholecalciferol (vitamin D3) 25 25 mcg PO ONCE 5 12/15/24 History mcg/drop (1,000 unit/drop) oral drops blood sugar diagnostic (Blood #120 ea 10/12/24 5 Rx Glucose Test strips) blood-glucose meter #1 ea 10/12/24 12/15/24 Rx lancets #200 ea 10/12/24 12/15/24 Rx Last Menstrual Period: 04/08/24 Zika: Zika virus screening: Negative : No PFSH PFSH Medical History Hx of abnormal cervical Pap smear Surgical History Spearfish teeth extracted History of colposcopy Family History Grandmother Colon cancer, Onset Age: 92 Paternal Mother Myocardial infarction, Onset Age: 64 2022 Grandfather Myocardial infarction Maternal Social History adopted: No household members: spouse housing: house current occupational status: employed current occupation: [employer]- [employer] current occupational exposures/hazards: No pets and animals: No history of recent travel: No ([place], [place]) sexually active: Yes Smoking Status: Never smoker alcohol intake: former details: occasionally prior to substance use type: does not use well-balanced diet: daily or most days caffeine: No eating out: 1-3 times/week during the past year weight has: remained stable what type of physical activity do you participate in: walking and weight training frequency: 3-4 times per week duration: 30-45 minutes/day michael/gnosticism: Sabianist seatbelt use: always do you feel safe at home: Yes 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 Date Name GA/Weeks Outcome Route Bth Weight Gen Labor Lgth Anesthesia Del Locatn Provider FOB 02/26/21 miscarriage 5 1/2 weeks 07/06/21 miscarriage 8 1/2 weeks 06/05/22 miscarriage 9wks HPI 36 wk ob Details: NORA CAMERON is a 34 year old who presents for routine OB visit. OB Visit TREVON Calculator Estimated Delivery Date Method Current WG Current Estimate 01/13/25 LMP (Certain) 35w 6d Other Estimates 01/10/25 Ultrasound #1 36w 2d Expected Delivery Route/Plan Labor Preferences- CB/BF classes: encouraged labor support person: Power labor intervention preferences: prefers pain management options preferred: limited but epidural if requested, okay with touch, guided breathing, tub, hydrotherapy cut cord/dad catch: yes : yes PP control planned: discussed discussed possible routes of delivery and associated risks: [] special requests: [] Specific Issue/Plans Covid status: [] Flu vaccine: [] Tdap vaccine: Rhogam: na LARC form signed: yes Problem list reviewed and updated with the most current plan of care details and appropriate ordersplaced. Relevant counseling for the gestational age provided. Continue routine care and follow up unless otherwise noted in visit notes/problem list details Initial Weight: 124 lb Date -?-?-?-?-?-?-?-?-?-?-?-?- EGA Weight BP Urine Prot -?-?-?-?-?-?-?-?-?-?-?-?- Glucose FHR FuHt Pres Dilation -?-?-?-?-?-?-?-?-?-?-?-?- Effaced St Visit Note 06/10/24 -?-?-?-?-?-?-?-?-?-?-?-?- 9w 0d 124 lb 4 oz (+4 oz) 122/80 -?-?-?-?-?-?-?-?-?-?-?-?- 182 -?-?-?-?-?-?-?-?-?-?-?-?- KW- CRL cons wit h dates. declines NIPT KW- CRL cons with dates. dec lines NIPT. would like some appts in [facility]. doing well today 07/07/24 -?-?-?-?-?-?-?-?-?-?-?-?- 12w 6d 124 lb 6 oz (+6 oz) 112/78 Negative -?-?-?-?-?-?-?-?-?-?-?-?- Negative 160 -?-?-?-?-?-?-?-?-?-?-?-?- KW- no vb/crampi ng. anatomy US ordered. NIPT requested. FHT and movement noted on handheld US 07/28/24 -?-?-?-?-?-?-?-?-?-?-?-?- 15w 6d 126 lb (+2 lb) 122/73 Negative -?-?-?-?-?-?-?-?-?-?-?-?- Negative 146 -?-?-?-?-?-?-?-?-?-?-?-?- JV- lots of ques tions answered today. no complaints. NIPT reviewed. low risk boy 08/22/24 -?-?-?-?-?-?-?-?-?-?-?-?- 19w 3d 129 lb 6 oz (+5 lb 6 oz) 100/64 Negative -?-?-?-?-?-?-?-?-?-?-?-?- Negative 156 -?--?-?-?-?-?-?-?-?-?-?-?- MH-No VB, LOF. G ood Fm. MFM US today 09/16/24 -?-?-?-?-?-?-?-?-?-?-?-?- 23w 0d 134 lb (+10 lb) 108/71 Negative -?-?-?-?-?-?-?-?-?-?-?-?- Negative 150 -?-?-?-?-?-?-?-?-?-?-?-?- SM- no vb lof go od fm no regular ctx 10/12/24 -?-?-?-?-?-?-?-?-?-?-?-?- 26w 5d 139 lb 8 oz (+15 lb 8 oz) 112/68 Negative -?-?-?-?-?-?-?-?-?-?-?-?- Negative 145 -?-?-?-?-?-?-?-?-?-?-?-?- MH-No Vb, LOF. G ood FM. 1 hr GCT today and is 190: GDM. Reviewed QID testing, supplies ordered, dietitian referral. Keep diet and glucose journal and bring each visit. 11/03/24 -?-?-?-?-?-?-?-?-?--?-?-?- 29w 6d 141 lb 6 oz (+17 lb 6 oz) 111/70 Negative -?-?-?-?-?-?-?-?-?-?-?-?- Negative 145 30 -?-?-?-?-?-?-?-?-?-?-?-?- KW- work in for JV. blood sugars reviewed and normal. will start doing fasting and one PP daily. class next weekend. 11/17/24 -?-?-?-?-?-?-?-?-?-?-?-?- 31w 6d 142 lb 6 oz (+18 lb 6 oz) 112/74 Negative -?-?-?-?-?-?-?-?-?-?-?-?- Negative 135 32 -?-?-?-?-?-?-?-?-?-?-?-?- KW- no vb/lof/ct x. good fm. fasting numbers well limits. growth US ordered. 12/01/24 -?-?-?-?-?-?-?-?-?-?-?-?- 33w 6d 146 lb 4 oz (+22 lb 4 oz) 113/74 Negative -?-?-?-?-?-?-?-?-?-?-?-?- Negative 143 33 -?-?-?-?-?-?-?-?-?-?-?-?- JV- fasting leve ls 80's, 2 hr pp are also normal. 12/15/24 -?--?-?-?-?-?-?-?-?-?-?-?- 35w 6d 149 lb 6 oz (+25 lb 6 oz) 126/71 Negative -?-?-?-?-?-?-?-?-?-?-?-?- Negative 140 35 -?-?-?-?-?-?-?-?-?-?--?-?- SM- BS controlle d discussed reduced testing schedule unless becomes abnormal no vb lof good fm no regular ctx ACOG First Trimester First Trimester: Discussed Second Trimester Second Trimester: Signs and Symptoms of Labor, Selecting a care provider, Reproductive Life Planning & Contreception, Care Planning and Depression/Anxiety; Discussed Tobacco Cessation and Discussed Intimate Partner Violence Third Trimester Third Trimester: Pain Management Plans, Labor support person(s), Immediate Larc, Circumcision preference, Signs and Symptoms of Preeclampsia, Feeding No , Education and Family Medical Leave or Disability Forms Results POC Urinalysis 2 Dip (Clinic) Office Urine Glucose Negative Last Edit by Erinn Gonzalez on 12/15/24 15:45 Office Urine Protein Negative Last Edit by Erinn Gonzalez on 12/15/24 15:45 Coding Level of Care Code OB Routine Diagnoses Diet controlled gestational diabetes mellitus (GDM) in second trimester O24.410 Gestational diabetes mellitus control: diet-controlled Trimester: second trimester Anxiety F41.9 Supervision of high risk in second trimester O Trimester: second trimester 35 weeks gestation of Z3A.35 Weeks of gestation: 35 weeks History of recurrent miscarriages N96 Assessment and Plan Assessment and Plan (1) Gestational diabetes mellitus (GDM): Status: Acute Qualifiers: Gestational diabetes mellitus control: diet-controlled Trimester: second trimester Qualified Code(s): O24.410 - Gestational diabetes mellitus in , diet controlled Comment: well controlled, discussed reduced testing unless uncontrolled. plan dleiveyr by 40, Growth US at 36w (2) Anxiety: Status: Acute Comment: 5 yr ago, situational, hydroxyzine prn then. Stable now (3) Supervision of high-risk : Status: Acute Qualifiers: Trimester: second trimester Qualified Code(s): O09.92 - Supervision of high risk , unspecified, second trimester Comment: PRR, , TREVON 01/13/25, boy (name secret) Power (4) : Status: Acute Qualifiers: Weeks of gestation: 35 weeks Qualified Code(s): Z3A.35 - 35 weeks gestation of Comment: NIPT low risk, gender male. nl anatomy (5) History of recurrent miscarriages: Status: Acute Comment: nl APL X 3 Orders: Orders POC Urinalysis 2 Dip (Clinic) Today 12/15/24 1610 jairo FRAGOSO> Date _ Lindsay Song MD Cosigner Signature: Date (if applicable) CC: ~ [facility]07-31-2025 Progress note Author Lindsay Song [facility] Note Date/Time December 15, 2024 4:10 pm [facility] [address], [address] [place] [address] OFFICE VISIT Date of Service: 12/15/24 MR#: [id number] Acct: [id number] Name: NORA CAMERON Rep #: [id number] : 1990 Provider: Dr. 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 Is patient in pain?: No Allergies No Known Allergies Allergy (Verified 12/15/24 15:41) Medications ?Medication ?Instructions ?Recorded ?Confirmed ?Type multivitamin no.47-iron fum 27 cap PO 05/23/22 5 History mg-folate no.1 1 mg-dha 300 mg capsule (PNV-DHA) cod liver oil 1 cap PO ONCE 04/27/2412/15 History thyroid support PO 04/27/24 12/15/24 History cholecalciferol (vitamin D3) 25 25 mcg PO ONCE 5 12/15/24 History mcg/drop (1,000 unit/drop) oral drops blood sugar diagnostic (Blood #120 ea 10/12/24 5 Rx Glucose Test strips) blood-glucose meter #1 ea 10/12/24 12/15/24 Rx lancets #200 ea 10/12/24 12/15/24 Rx Last Menstrual Period: 04/08/24 Zika: Zika virus screening: Negative : No PFSH PFSH Medical History Hx of abnormal cervical Pap smear Surgical History Spearfish teeth extracted History of colposcopy Family History Grandmother Colon cancer, Onset Age: 92 Paternal Mother Myocardial infarction, Onset Age: 64 2022 Grandfather Myocardial infarction Maternal Social History adopted: No household members: spouse housing: house current occupational status: employed current occupation: [employer]- [employer] current occupational exposures/hazards: No pets and animals: No history of recent travel: No ([place], [place]) sexually active: Yes Smoking Status: Never smoker alcohol intake: former details: occasionally prior to substance use type: does not use well-balanced diet: daily or most days caffeine: No eating out: 1-3 times/week during the past year weight has: remained stable what type of physical activity do you participate in: walking and weight training frequency: 3-4 times per week duration: 30-45 minutes/day michael/gnosticism: Sabianist seatbelt use: always do you feel safe at home: Yes 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 Date Name GA/Weeks Outcome Route Bth Weight Gen Labor Lgth Anesthesia Del Locatn Provider FOB 02/26/21 miscarriage 5 1/2 weeks 07/06/21 miscarriage 8 1/2 weeks 06/05/22 miscarriage 9wks HPI 36 wk ob Details: NORA CAMERON is a 34 year old who presents for routine OB visit. OB Visit TREVON Calculator Estimated Delivery Date Method Current WG Current Estimate 01/13/25 LMP (Certain) 35w 6d Other Estimates 01/10/25 Ultrasound #1 36w 2d Expected Delivery Route/Plan Labor Preferences- CB/BF classes: encouraged labor support person: Power labor intervention preferences: prefers pain management options preferred: limited but epidural if requested, okay with touch, guided breathing, tub, hydrotherapy cut cord/dad catch: yes : yes PP control planned: discussed discussed possible routes of delivery and associated risks: [] special requests: [] Specific Issue/Plans Covid status: [] Flu vaccine: [] Tdap vaccine: Rhogam: na LARC form signed: yes Problem list reviewed and updated with the most current plan of care details and appropriate orders placed. Relevant counseling for the gestational age provided. Continue routine care and follow up unless otherwise noted in visit notes/problem list details Initial Weight: 124 lb Date -?-?-?-?-?-?-?-?-?-?-?-?- EGA Weight BP Urine Prot -?-?-?-?-?-?-?-?-?-?-?-?- Glucose FHR FuHt Pres Dilation -?-?-?-?-?-?-?-?-?-?-?-?- Effaced St Visit Note 06/10/24 -?-?-?-?-?-?-?-?-?-?-?-?- 9w 0d 124 lb 4 oz (+4 oz) 122/80 -?-?-?-?-?-?-?-?-?-?-?-?- 182 -?-?-?-?-?-?-?-?-?-?-?-?- KW- CRL cons wit h dates. declines NIPT KW- CRL cons with dates. dec lines NIPT. would like some appts in [facility]. doing well today 07/07/24 -?-?-?-?-?-?-?-?-?-?-?-?- 12w 6d 124 lb 6 oz (+6 oz) 112/78 Negative -?-?-?-?-?-?-?-?-?-?-?-?- Negative 160 -?-?-?-?-?-?-?-?-?-?-?-?- KW- no vb/crampi ng. anatomy US ordered. NIPT requested. FHT and movement noted on handheld US 07/28/24 -?-?-?-?-?-?-?-?-?-?-?-?- 15w 6d 126 lb (+2 lb) 122/73 Negative -?-?-?-?-?-?-?-?-?-?-?-?- Negative 146 -?-?-?-?-?-?-?-?-?-?-?-?- JV- lots of ques tions answered today. no complaints. NIPT reviewed. low risk boy 08/22/24 -?-?-?-?-?-?-?-?-?-?-?-?- 19w 3d 129 lb 6 oz (+5 lb 6 oz) 100/64 Negative -?-?-?-?-?-?-?-?-?-?-?-?- Negative 156 -?--?-?-?-?-?-?-?-?-?-?-?- MH-No VB, LOF. G ood Fm. MFM US today 09/16/24 -?-?-?-?-?-?-?-?-?-?-?-?- 23w 0d 134 lb (+10 lb) 108/71 Negative -?-?-?-?-?-?-?-?-?-?-?-?- Negative 150 -?-?-?-?-?-?-?-?-?-?-?-?- SM- no vb lof go od fm no regular ctx 10/12/24 -?-?-?-?-?-?-?-?-?-?-?-?- 26w 5d 139 lb 8 oz (+15 lb 8 oz) 112/68 Negative -?-?-?-?-?-?-?-?-?-?-?-?- Negative 145 -?-?-?-?-?-?-?-?-?-?-?-?- MH-No Vb, LOF. G ood FM. 1 hr GCT today and is 190: GDM. Reviewed QID testing, supplies ordered, dietitian referral. Keep diet and glucose journal and bring each visit. 11/03/24 -?-?-?-?-?-?-?-?-?--?-?-?- 29w 6d 141 lb 6 oz (+17 lb 6 oz) 111/70 Negative -?-?-?-?-?-?-?-?-?-?-?-?- Negative 145 30 -?-?-?-?-?-?-?-?-?-?-?-?- KW- work in for JV. blood sugars reviewed and normal. will start doing fasting and one PP daily. class next weekend. 11/17/24 -?-?-?-?-?-?-?-?-?-?-?-?- 31w 6d 142 lb 6 oz (+18 lb 6 oz) 112/74 Negative -?-?-?-?-?-?-?-?-?-?-?-?- Negative 135 32 -?-?-?-?-?-?-?-?-?-?-?-?- KW- no vb/lof/ct x. good fm. fasting numbers well limits. growth US ordered. 12/01/24 -?-?-?-?-?-?-?-?-?-?-?-?- 33w 6d 146 lb 4 oz (+22 lb 4 oz) 113/74 Negative -?-?-?-?-?-?-?-?-?-?-?-?- Negative 143 33 -?-?-?-?-?-?-?-?-?-?-?-?- JV- fasting leve ls 80's, 2 hr pp are also normal. 12/15/24 -?--?-?-?-?-?-?-?-?-?-?-?- 35w 6d 149 lb 6 oz (+25 lb 6 oz) 126/71 Negative -?-?-?-?-?-?-?-?-?-?-?-?- Negative 140 35 -?-?-?-?-?-?-?-?-?-?--?-?- SM- BS controlle d discussed reduced testing schedule unless becomes abnormal no vb lof good fm no regular ctx ACOG First Trimester First Trimester: Discussed Second Trimester Second Trimester: Signs and Symptoms of Labor, Selecting a care provider, Reproductive Life Planning & Contreception, Care Planning and Depression/Anxiety; Discussed Tobacco Cessation and Discussed Intimate Partner Violence Third Trimester Third Trimester: Pain Management Plans, Labor support person(s), Immediate Larc, Circumcision preference, Signs and Symptoms of Preeclampsia, Feeding No , Education and Family Medical Leave or Disability Forms Results POC Urinalysis 2 Dip (Clinic) Office Urine Glucose Negative Last Edit by Erinn Gonzalez on 12/15/24 15:45 Office Urine Protein Negative Last Edit by Erinn Gonzalez on 12/15/24 15:45 Coding Level of Care Code OB Routine Diagnoses Diet controlled gestational diabetes mellitus (GDM) in second trimester O24.410 Gestational diabetes mellitus control: diet-controlled Trimester: second trimester Anxiety F41.9 Supervision of high risk in second trimester O09.92 Trimester: second trimester 35 weeks gestation of Z3A.35 Weeks of gestation: 35 weeks History of recurrent miscarriages N96 Assessment and Plan Assessment and Plan (1) Gestational diabetes mellitus (GDM): Status: Acute Qualifiers: Gestational diabetes mellitus control: diet-controlled Trimester: second trimester Qualified Code(s): O24.410 - Gestational diabetes mellitus in , diet controlled Comment: well controlled, discussed reduced testing unless uncontrolled. plan dleiveyr by 40, Growth US at 36w (2) Anxiety: Status: Acute Comment: 5 yr ago, situational, hydroxyzine prn then. Stable now (3) Supervision of high-risk : Status: Acute Qualifiers: Trimester: second trimester Qualified Code(s): O09.92 - Supervision of high risk , unspecified, second trimester Comment: PRR, , TREVON 01/13/25, boy (name secret) Power (4) : Status: Acute Qualifiers: Weeks of gestation: 35 weeks Qualified Code(s): Z3A.35 - 35 weeks gestation of Comment: NIPT low risk, gender male. nl anatomy (5) History of recurrent miscarriages: Status: Acute Comment: nl APL X 3 Orders: Orders POC Urinalysis 2 Dip (Clinic) Today 12/15/24 1610 <Electronically signed by Lindsay gill MD> Date _ Lindsay Song MD Cosigner Signature: Date (if applicable) CC: ~ [facility] Work Phone: [phone] Radiology Diagnostic study note [facility] Imaging Services [address] [place] [address] [id number] OB Limited With Biometrics MR#: [id number] Acct: [id number] Name: NORA CAMERON Rep #: [id number] : 1990 F 34 From: Osmel Fulton MD PCP: Dr. Todd Romero MD Status: REG CLI Study:OB Limited With Biometrics Date of Exam : 12/15/24 Exam# [id number] Ordering Dr: Vaibhav Hale CNM PROCEDURE: OB LIMITED WITH BIOMETRICS 12/15/2024 REASON FOR EXAM: GDM TECHNIQUE: OB LIMITED WITH BIOMETRICS COMPARISON: None FINDINGS LMP: April 08, 2025 Number: 1 Position: Vertex Placental Position: Anterior and not low-lying Placental Abnormalities: No evidence of previa. DIMENSIONS: Biparietal Diameter: 9 cm: 36 weeks and 2 days: 70 percentile/ Head Circumference: 32 cm: 36 weeks and 1 day: 24 percentile/ Abdominal Circumference: 33.9 cm: 37 weeks and 6 days: 96 percentile/ Femur Length: 6.9 cm: 35 weeks and 2 days: 30 percentile/ ESTIMATED WEIGHT: 3092 g plus/-464 g ESTIMATED WEIGHT PERCENTILE (24+ weeks): 80 ESTIMATED GESTATIONAL AGE: Baseline: 35 weeks and 6 days By Ultrasound: 36 weeks and 1 day ESTIMATED DATE OF DELIVERY: Baseline: January 13, 2025 By Ultrasound: January 11, 2025 BIOPHYSICAL ASSESSMENT: Amniotic Fluid Volume: 4.7 cm Amniotic Fluid Index: 12.9 cm (8-24 cm normal range) Cardiac Motion: 143 beats per minute (average) Trunk and Limb Motion: Present. MATERNAL ANATOMY: Adnexa: Neither maternal ovary is successfully identified. US/OB Limited With Biometrics IMPRESSION: Single live intrauterine gestation with a mean gestational age of 36 weeks and 1day. Reading Location: [id number] CC: ANGELA Hale; Dr. Todd Romero MD ~ Machine Feeder: Signed [facility]07-17-2025 Progress [facility] [address] [place] [address], [address] [place] [address] OFFICE VISIT Date of Service: 12/01/24 MR#: [id number] Acct: [id number] Name: NORA CAMERON Rep #: [id number] : 1990 Provider: Dr. 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 Is patient in pain?: No Allergies No Known Allergies Allergy (Verified 12/01/24 14:34) Medications ?Medication ?Instructions ?Recorded ?Confirmed ?Type multivitamin no.47-iron fum 27 cap PO 05/23/22 5 History mg-folate no.1 1 mg-dha 300 mg capsule (PNV-DHA) cod liver oil 1 cap PO ONCE 04/27/2412/01 History thyroid support PO 04/27/24 12/01/24 History cholecalciferol (vitamin D3) 25 25 mcg PO ONCE 5 12/01/24 History mcg/drop (1,000 unit/drop) oral drops blood sugar diagnostic (Blood #120 ea 10/12/24 5 Rx Glucose Test strips) blood-glucose meter #1 ea 10/12/24 12/01/24 Rx lancets #200 ea 10/12/24 12/01/24 Rx Last Menstrual Period: 04/08/24 : No PFSH PFSH Medical History Hx of abnormal cervical Pap smear Surgical History Spearfish teeth extracted History of colposcopy Family History Grandmother Colon cancer, Onset Age: 92 Paternal Mother Myocardial infarction, Onset Age: 64 2022 Grandfather Myocardial infarction Maternal Social History adopted: No household members: spouse housing: house current occupational status: employed current occupation: [employer]- [employer] current occupational exposures/hazards: No pets and animals: No history of recent travel: No ([place], [place]) sexually active: Yes Smoking Status: Never smoker alcohol intake: former details: occasionally prior to substance use type: does not use well-balanced diet: daily or most days caffeine: No eating out: 1-3 times/week during the past year weight has: remained stable what type of physical activity do you participate in: walking and weight training frequency: 3-4 times per week duration: 30-45 minutes/day michael/gnosticism: Sabianist seatbelt use: always do you feel safe at home: Yes 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 Date Name GA/Weeks Outcome Route Bth Weight Infant Gen Labor Lgth Anesthesia Del Locatn Provider FOB 02/26/21 miscarriage 5 1/2 weeks 07/06/21 miscarriage 8 1/2 weeks 06/05/22 miscarriage 9wks HPI 34 wk ob Details: NORA CAMERON is a 34 year old who presents for routine OB visit. OB Visit TREVON Calculator Estimated Delivery Date Method Current WG Current Estimate 01/13/25 LMP (Certain) 33w 6d Other Estimates 01/10/25 Ultrasound #1 34w 2d Expected Delivery Route/Plan Labor Preferences- CB/BF classes: encouraged labor support person: Power labor intervention preferences: [] pain management options preferred: limited but epidural if requested cut cord/dad catch: yes : yes PP control planned: discussed discussed possible routes of delivery and associated risks: [] special requests: [] Specific Issue/Plans Covid status: [] Flu vaccine: [] Tdap vaccine: Rhogam: na LARC form signed: yes Problem list reviewed and updated with the most current plan of care details and appropriate ordersplaced. Relevant counseling for the gestational age provided. Continue routine care and follow up unless otherwise noted in visit notes/problem list details Initial Weight: 124 lb Date -?-?-?-?-?-?-?-?-?-?-?-?- EGA Weight BP Urine Prot -?-?-?-?-?-?-?-?-?-?-?-?- Glucose FHR FuHt Pres Dilation -?-?-?-?-?-?-?-?-?-?-?-?- Effaced St Visit Note 06/10/24 -?-?-?-?-?-?-?-?-?-?-?-?- 9w 0d 124 lb 4 oz (+4 oz) 122/80 -?-?-?-?-?-?-?--?-?-?-?-?- 182 -?-?-?-?-?-?-?-?-?-?-?-?- KW- CRL cons wit h dates. declines NIPT KW- CRL cons with dates. dec lines NIPT. would like some appts in [facility]. doing well today 07/07/24 -?-?-?-?-?-?-?-?-?-?-?-?- 12w 6d 124 lb 6 oz (+6 oz) 112/78 Negative -?-?-?-?-?-?-?-?-?-?-?-?- Negative 160 -?-?-?-?-?-?-?-?-?-?-?-?- KW- no vb/crampi ng. anatomy US ordered. NIPT requested. FHT and movement noted on handheld US 07/28/24 -?-?-?-?-?-?-?-?-?-?-?-?- 15w 6d 126 lb (+2 lb) 122/73 Negative -?-?-?-?-?-?-?-?-?-?-?-?- Negative 146 -?-?-?-?-?-?-?-?-?-?-?-?- JV- lots of ques tions answered today. no complaints. NIPT reviewed. low risk boy 08/22/24 -?-?-?-?-?-?-?-?-?-?-?-?- 19w 3d 129 lb 6 oz (+5 lb 6 oz) 100/64 Negative -?-?-?-?-?-?-?-?-?-?-?-?- Negative 156 -?-?-?-?-?-?-?-?-?-?-?-?- -No VB, LOF. G ood Fm. MFM US today 09/16/24 -?-?-?-?-?-?-?-?-?-?-?-?- 23w 0d 134 lb (+10 lb) 108/71 Negative -?-?-?-?-?-?-?-?-?-?-?-?- Negative 150 -?-?-?-?-?-?-?-?-?-?-?-?- SM- no vb lof go od fm no regular ctx 10/12/24 -?-?-?-?-?-?-?-?-?-?-?-?- 26w 5d 139 lb 8 oz (+15 lb 8 oz) 112/68 Negative -?-?-?-?-?-?-?-?-?-?-?-?- Negative 145 -?-?-?-?-?-?-?-?-?-?-?-?- MH-No Vb, LOF. G ood FM. 1 hr GCT today and is 190: GDM. Reviewed QID testing, supplies ordered, dietitian referral. Keep diet and glucose journal and bring each visit. 11/03/24 -?-?-?-?-?-?-?-?-?-?-?-?- 29w 6d 141 lb 6 oz (+17 lb 6 oz) 111/70 Negative -?-?-?-?-?-?-?-?-?-?-?-?- Negative 145 30 -?-?-?-?-?-?-?-?-?-?-?-?- KW- work in for JV. blood sugars reviewed and normal. will start doing fasting and one PP daily. class next weekend. 11/17/24 -?-?-?-?-?-?-?-?-?-?-?-?- 31w 6d 142 lb 6 oz (+18 lb 6 oz) 112/74 Negative -?-?-?-?-?-?-?-?-?-?-?-?- Negative 135 32 -?-?-?-?-?-?-?-?-?-?-?-?- KW- no vb/lof/ct x. good fm. fasting numbers well limits. growth US ordered. 12/01/24 -?-?-?-?-?-?-?-?-?-?-?-?- 33w 6d 146 lb 4 oz (+22 lb 4 oz) 113/74 Negative -?-?-?-?-?-?-?-?-?-?-?-?- Negative 143 33 -?-?-?-?-?-?-?-?-?-?-?-?- JV- fasting leve ls 80's, 2 hr pp are also normal. ACOG First Trimester First Trimester: Discussed Second Trimester Second Trimester: Signs and Symptoms of Labor, Selecting a care provider, Reproductive Life Planning & Contreception, Care Planning and Depression/Anxiety; Discussed Tobacco Cessation and Discussed Intimate Partner Violence Third Trimester Third Trimester: Pain Management Plans, Labor support person(s), Immediate Larc, Circumcision preference, Signs and Symptoms of Preeclampsia, Infant Feeding No , [place] Education and Family Medical Leave or Disability Forms Results POC Urinalysis 2 Dip (Clinic) Office Urine Glucose Negative Last Edit by Nini Rahman on 12/01/24 14:40 Office Urine Protein Negative Last Edit by Nini Rahman on 12/01/24 14:40 Coding Level of Care Code OB Routine Diagnoses Diet controlled gestational diabetes mellitus (GDM) in second trimester O24.410 Gestational diabetes mellitus control: diet-controlled Trimester: second trimester Anxiety F41.9 Supervision of high risk in second trimester O09.92 Trimester: second trimester 33 weeks gestation of Z3A.33 Weeks of gestation: 33 weeks Infertility History of recurrent miscarriages N96 Assessment and Plan Assessment and Plan (1) Gestational diabetes mellitus (GDM): Status: Acute Qualifiers: Gestational diabetes mellitus control: diet-controlled Trimester: second trimester Qualified Code(s): O24.410 - Gestational diabetes mellitus in , diet controlled Comment: QID testing, nutritional referral. Growth US at 36w (2) Anxiety: Status: Acute Comment: 5 yr ago, situational, hydroxyzine prn then. Stable now (3) Supervision of high-risk : Status: Acute Qualifiers: Trimester: second trimester Qualified Code(s): O09.92 - Supervision of high risk , unspecified, second trimester Comment: PRR, , TREVON 01/13/25, Power (4) : Status: Acute Qualifiers: Weeks of gestation: 33 weeks Qualified Code(s): Z3A.33 - 33 weeks gestation of Comment: NIPT low risk, gender male (5) Infertility: Status: Acute (6) History of recurrent miscarriages: Status: Acute Comment: nl APL X 3 12/01/24 1444 e Ju DO> Date _ Emerald Tucker Signature: Date (if applicable) CC: ~ [facility]07-17-2025 Progress note Author Emerald Dodd [facility] Note Date/Time December 01, 2024 2:44 pm [facility] [address] [place] [address], [address] [place] [address] OFFICE VISIT Date of Service: 12/01/24 MR#: [id number] Acct: [id number] Name: NORA CAMERON Rep #: [id number] : 1990 Provider: Dr. 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 Is patient in pain?: No Allergies No Known Allergies Allergy (Verified 12/01/24 14:34) Medications ?Medication ?Instructions ?Recorded ?Confirmed ?Type multivitamin no.47-iron fum 27 cap PO 05/23/22 5 History mg-folate no.1 1 mg-dha 300 mg capsule (PNV-DHA) cod liver oil 1 cap PO ONCE 04/27/2412/01 History thyroid support PO 04/27/24 12/01/24 History cholecalciferol (vitamin D3) 25 25 mcg PO ONCE 5 12/01/24 History mcg/drop (1,000 unit/drop) oral drops blood sugar diagnostic (Blood #120 ea 10/12/24 5 Rx Glucose Test strips) blood-glucose meter #1 ea 10/12/24 12/01/24 Rx lancets #200 10/12/24 12/01/24 Rx Last Menstrual Period: 04/08/24 : No PFSH PFSH Medical History Hx of abnormal cervical Pap smear Surgical History Spearfish teeth extracted History of colposcopy Family History Grandmother Colon cancer, Onset Age: 92 Paternal Mother Myocardial infarction, Onset Age: 64 3 Grandfather Myocardial infarction Maternal Social History adopted: No household members: spouse housing: house current occupational status: employed current occupation: [employer]- [employer] current occupational exposures/hazards: No pets and animals: No history of recent travel: No ([place], [place]) sexually active: Yes Smoking Status: Never smoker alcohol intake: former details: occasionally prior to substance use type: does not use well-balanced diet: daily or most days caffeine: No eating out: 1-3 times/week during the past year weight has: remained stable what type of physical activity do you participate in: walking and weight training frequency: 3-4 times per week duration: 30-45 minutes/day michael/gnosticism: Sabianist seatbelt use: always do you feel safe at home: Yes 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 Date Name GA/Weeks Outcome Route Bth Weight Infant Gen Labor Lgth Anesthesia Del Locatn Provider FOB 02/26/21 miscarriage 5 1/2 weeks 07/06/21 miscarriage 8 1/2 weeks 06/05/22 miscarriage 9wks HPI 34 wk ob Details: NORA CAMERON is a 34 year old who presents for routine OB visit. OB Visit TREVON Calculator Estimated Delivery Date Method Current Current Estimate 01/13/25 LMP (Certain) 33w 6d Other Estimates 01/10/25 Ultrasound #1 34w 2d Expected Delivery Route/Plan Labor Preferences- CB/BF classes: encouraged labor support person: Power labor intervention preferences: [] pain management options preferred: limited but epidural if requested cut cord/dad catch: yes : yes PP control planned: discussed discussed possible routes of delivery and associated risks: [] special requests: [] Specific Issue/Plans Covid status: [] Flu vaccine: [] Tdap vaccine: Rhogam: na LARC form signed: yes Problem list reviewed and updated with the most current plan of care details and appropriate orders placed. Relevant counseling for the gestational age provided. Continue routine care and follow up unless otherwise noted in visit notes/problem list details Initial Weight: 124 lb Date -?-?-?-?-?-?-?-?-?-?-?-?- EGA Weight BP Urine Prot -?-?-?-?-?-?-?-?-?-?-?-?- Glucose FHR FuHt Pres Dilation -?-?-?-?-?-?-?-?-?-?-?-?- Effaced St Visit Note 06/10/24 -?-?-?-?-?-?-?-?-?-?-?-?- 9w 0d 124 lb 4 oz (+4 oz) 122/80 -?-?-?-?-?-?-?--?-?-?-?-?- 182 -?-?-?-?-?-?-?-?-?-?-?-?- KW- CRL cons wit h dates. declines NIPT KW- CRL cons with dates. dec lines NIPT. would like some appts in [facility]. doing well today 07/07/24 -?-?-?-?-?-?-?-?-?-?-?-?- 12w 6d 124 lb 6 oz (+6 oz) 112/78 Negative -?-?-?-?-?-?-?-?-?-?-?-?- Negative 160 -?-?-?-?-?-?-?-?-?-?-?-?- KW- no vb/crampi ng. anatomy US ordered. NIPT requested. FHT and movement noted on handheld US 07/28/24 -?-?-?-?-?-?-?-?-?-?-?-?- 15w 6d 126 lb (+2 lb) 122/73 Negative -?-?-?-?-?-?-?-?-?-?-?-?- Negative 146 -?-?-?-?-?-?-?-?-?-?-?-?- JV- lots of ques tions answered today. no complaints. NIPT reviewed. low risk boy 08/22/24 -?-?-?-?-?-?-?-?-?-?-?-?- 19w 3d 129 lb 6 oz (+5 lb 6 oz) 100/64 Negative -?-?-?-?-?-?-?-?-?-?-?-?- Negative 156 -?-?-?-?-?-?-?-?-?-?-?-?- MH-No VB, LOF. G ood Fm. MFM US today 09/16/24 -?-?-?-?-?-?-?-?-?-?-?-?- 23w 0d 134 lb (+10 lb) 108/71 Negative -?-?-?-?-?-?-?-?-?-?-?-?- Negative 150 -?-?-?-?-?-?-?-?-?-?-?-?- SM- no vb lof go od fm no regular ctx 10/12/24 -?-?-?-?-?-?-?-?-?-?-?-?- 26w 5d 139 lb 8 oz (+15 lb 8 oz) 112/68 Negative -?-?-?-?-?-?-?-?-?-?-?-?- Negative 145 -?-?-?-?-?-?-?-?-?-?-?-?- MH-No Vb, LOF. G ood FM. 1 hr GCT today and is 190: GDM. Reviewed QID testing, supplies ordered, dietitian referral. Keep diet and glucose journal and bring each visit. 11/03/24 -?-?-?-?-?-?-?-?-?-?-?-?- 29w 6d 141 lb 6 oz (+17 lb 6 oz) 111/70 Negative -?-?-?-?-?-?-?-?-?-?-?-?- Negative 145 30 -?-?-?-?-?-?-?-?-?-?-?-?- KW- work in for JV. blood sugars reviewed and normal. will start doing fasting and one PP daily. class next weekend. 11/17/24 -?-?-?-?-?-?-?-?-?-?-?-?- 31w 6d 142 lb 6 oz (+18 lb 6 oz) 112/74 Negative -?-?-?-?-?-?-?-?-?-?-?-?- Negative 135 32 -?-?-?-?-?-?-?-?-?-?-?-?- KW- no vb/lof/ct x. good fm. fasting numbers well limits. growth US ordered. 12/01/24 -?-?-?-?-?-?-?-?-?-?-?-?- 33w 6d 146 lb 4 oz (+22 lb 4 oz) 113/74 Negative -?-?-?-?-?-?-?-?-?-?-?-?- Negative 143 33 -?-?-?-?-?-?-?-?-?-?-?-?- JV- fasting leve ls 80's, 2 hr pp are also normal. ACOG First Trimester First Trimester: Discussed Second Trimester Second Trimester: Signs and Symptoms of Labor, Selecting a care provider, Reproductive Life Planning & Contreception, Care Planning and Depression/Anxiety; Discussed Tobacco Cessation and Discussed Intimate Partner Violence Third Trimester Third Trimester: Pain Management Plans, Labor support person(s), Immediate Larc, Circumcision preference, Signs and Symptoms of Preeclampsia, Infant Feeding No , [place] Education and Family Medical Leave or Disability Forms Results POC Urinalysis 2 Dip (Clinic) Office Urine Glucose Negative Last Edit by Nini Rahman on 12/01/24 14:40 Office Urine Protein Negative Last Edit by Nini Rahman on 12/01/24 14:40 Coding Level of Care Code OB Routine Diagnoses Diet controlled gestational diabetes mellitus (GDM) in second trimester O24.410 Gestational diabetes mellitus control: diet-controlled Trimester: second trimester Anxiety F41.9 Supervision of high risk in second trimester O09.92 Trimester: second trimester 33 weeks gestation of Z3A.33 Weeks of gestation: 33 weeks Infertility History of recurrent miscarriages N96 Assessment and Plan Assessment and Plan (1) Gestational diabetes mellitus (GDM): Status: Acute Qualifiers: Gestational diabetes mellitus control: diet-controlled Trimester: second trimester Qualified Code(s): O24.410 - Gestational diabetes mellitus in , diet controlled Comment: QID testing, nutritional referral. Growth US at 36w (2) Anxiety: Status: Acute Comment: 5 yr ago, situational, hydroxyzine prn then. Stable now (3) Supervision of high-risk : Status: Acute Qualifiers: Trimester: second trimester Qualified Code(s): O09.92 - Supervision of high risk , unspecified, second trimester Comment: PRR, , TREVON 01/13/25, Power (4) : Status: Acute Qualifiers: Weeks of gestation: 33 weeks Qualified Code(s): Z3A.33 - 33 weeks gestation of Comment: NIPT low risk, gender male (5) Infertility: Status: Acute (6) History of recurrent miscarriages: Status: Acute Comment: nl APL X 3 12/01/24 1444 <Electronically signed by Emerald Juárez DO> Date _ [facility]bar [facility] Signature: Date (if applicable) CC: ~ [facility] Work Phone: [phone] [facility] [address], [address] [place] [id number] OFFICE VISIT Date of Service: 11/17/24 MR#: [id number] Acct: [id number] Name: NORA CAMERON Rep #: [id number] : 1990 Provider: ANGELA Hale Age/Sex: 34/F Location: [facility] [place] Status: Signed Intake Vital Signs 08/22/24 08:29 11/03/24 11:04 11/17/24 11:36 11/17/24 11:38 Height 5 ft 3 in 5 ft 3 in 5 ft 3 in 5 ft 3 in Weight: 142 lb 6 oz BMI 25.2 BP 112/74 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 Is patient in pain?: No Allergies No Known Allergies Allergy (Verified 11/17/24 11:36) Medications ?Medication ?Instructions ?Recorded ?Confirmed ?Type multivitamin no.47-iron fum 27 cap PO 05/23/22 5 History mg-folate no.1 1 mg-dha 300 mg capsule (PNV-DHA) cod liver oil 1 cap PO ONCE 04/27/2411/17 History thyroid support PO 04/27/24 11/17/24 History cholecalciferol (vitamin D3) 25 25 mcg PO ONCE 5 11/17/24 History mcg/drop (1,000 unit/drop) oral drops blood sugar diagnostic (Blood #120 ea 10/12/24 5 Rx Glucose Test strips) blood-glucose meter #1 ea 10/12/24 11/17/24 Rx lancets #200 ea 10/12/24 11/17/24 Rx Last Menstrual Period: 04/08/24 Zika: Zika virus screening: Negative : No PFSH PFSH Medical History Hx of abnormal cervical Pap smear Surgical History Spearfish teeth extracted History of colposcopy Family History Grandmother Colon cancer, Onset Age: 92 Paternal Mother Myocardial infarction, Onset Age: 64 3 Grandfather Myocardial infarction Maternal Social History adopted: No household members: spouse housing: house current occupational status: employed 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 current occupational exposures/hazards: No pets and animals: No history of recent travel: No ([place], [place]) sexually active: Yes Smoking Status: Never smoker alcohol intake: former details: occasionally prior to substance use type: does not use well-balanced diet: daily or most days caffeine: No eating out: 1-3 times/week during the past year weight has: remained stable what type of physical activity do you participate in: walking and weight training frequency: 3-4 times per week duration: 30-45 minutes/day michael/gnosticism: Sabianist seatbelt use: always do you feel safe at home: Yes 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 Date Name GA/Weeks Outcome Route Bth Weight Infant Gen Labor Lgth Anesthesia Del Locatn Provider FOB 02/26/21 miscarriage 5 1/2 weeks 07/06/21 miscarriage 8 1/2 weeks 06/05/22 miscarriage 9wks HPI 32wk ob Details: NROA CAMERON is a 34 year old who presents for routine OB visit. OB Visit TREVON Calculator Estimated Delivery Date Method Current WG Current Estimate 01/13/25 LMP (Certain) 31w 6d Other Estimates 01/10/25 Ultrasound #1 32w 2d Expected Delivery Route/Plan Labor Preferences- CB/BF classes: encouraged labor support person: Power labor intervention preferences: [] pain management options preferred: limited but epidural if requested cut cord/dad catch: yes : yes PP control planned: discussed discussed possible routes of delivery and associated risks: [] special requests: [] Specific Issue/Plans Covid status: [] Flu vaccine: [] Tdap vaccine: Rhogam: na LARC form signed: yes Problem list reviewed and updated with the most current plan of care details and appropriate ordersplaced. Relevant counseling for the gestational age provided. Continue routine care and follow up unless otherwise noted in visit notes/problem list details Initial Weight: 124 lb Date -?-?-?-?-?-?-?-?-?-?-?-?- EGA Weight BP Urine Prot -?-?-?-?-?-?-?-?-?-?-?-?- Glucose FHR FuHt Pres Dilation -?-?--?-?-?-?-?-?-?-?-?-?- Effaced St Visit Note 06/10/24 -?-?-?-?-?-?-?-?-?-?-?-?- 9w 0d 124 lb 4 oz (+4 oz) 122/80 -?-?-?-?-?-?-?-?-?-?-?-?- 182 -?-?-?-?-?-?-?-?-?-?-?-?- KW- CRL cons wit h dates. declines NIPT KW- CRL cons with dates. dec lines NIPT. would like some appts in [facility]. doing well today 07/07/24 -?-?-?-?-?-?-?-?-?-?-?-?- 12w 6d 124 lb 6 oz (+6 oz) 112/78 Negative -?-?-?-?-?-?-?-?-?-?-?-?- Negative 160 -?-?-?-?-?-?-?-?-?-?-?-?- KW- no vb/crampi ng. anatomy US ordered. NIPT requested. FHT and movement noted on handheld US 07/28/24 -?-?-?-?-?-?-?-?-?-?-?-?- 15w 6d 126 lb (+2 lb) 122/73 Negative -?-?-?-?-?-?-?-?-?-?-?-?- Negative 146 -?-?-?-?-?-?-?-?-?-?-?-?- JV- lots of ques tions answered today. no complaints. NIPT reviewed. low risk boy 08/22/24 -?-?-?-?-?-?-?-?-?-?-?-?- 19w 3d 129 lb 6 oz (+5 lb 6 oz) 100/64 Negative -?-?-?-?-?-?-?-?-?-?-?-?- Negative 156 -?-?-?-?-?-?-?-?-?-?-?-?- -No VB, LOF. G ood Fm. MFM US today 09/16/24 -?-?-?-?-?-?-?-?-?-?-?-?- 23w 0d 134 lb (+10 lb) 108/71 Negative -?-?-?-?-?-?-?-?-?-?-?-?- Negative 150 -?-?-?-?-?-?-?-?-?-?-?-?- SM- no vb lof go od fm no regular ctx 10/12/24 -?-?-?-?-?-?-?-?-?-?-?-?- 26w 5d 139 lb 8 oz (+15 lb 8 oz) 112/68 Negative -?-?-?-?-?-?-?-?-?-?-?-?- Negative 145 -?-?-?-?-?-?-?-?-?-?-?-?- MH-No Vb, LOF. G ood FM. 1 hr GCT today and is 190: GDM. Reviewed QID testing, supplies ordered, dietitian referral. Keep diet and glucose journal and bring each visit. 11/03/24 -?-?-?-?-?-?-?-?-?-?-?-?- 29w 6d 141 lb 6 oz (+17 lb 6 oz) 111/70 Negative -?-?-?-?-?-?-?-?-?-?-?-?- Negative 145 30 -?-?-?-?-?-?-?-?-?-?-?-?- KW- work in for JV. blood sugars reviewed and normal. will start doing fasting and one PP daily. class next weekend. 11/17/24 -?-?-?-?-?-?-?-?-?-?-?-?- 31w 6d 142 lb 6 oz (+18 lb 6 oz) 112/74 Negative -?-?-?-?-?-?-?-?-?-?-?-?- Negative 135 32 -?-?-?-?-?-?-?-?-?-?-?-?- KW- no vb/lof/ct x. good fm. fasting numbers well limits. growth US ordered. ACOG First Trimester First Trimester: Discussed Second Trimester Second Trimester: Signs and Symptoms of Labor, Selecting a care provider, Reproductive Life Planning & Contreception, Care Planning and Depression/Anxiety; Discussed Tobacco Cessation and Discussed Intimate Partner Violence Third Trimester Third Trimester: Pain Management Plans, Labor support person(s), Immediate Larc, Circumcision preference, Signs and Symptoms of Preeclampsia, Infant Feeding No , [place] Education and Family Medical Leave or Disability Forms ROS Const Reports system reviewed and no additional complaints, except as documented Eyes Reports system reviewed and no additional complaints, except as documented ENT Reports system reviewed and no additional complaints, except as documented Card Reports system reviewed and no additional complaints, except as documented Resp Reports system reviewed and no additional complaints, except as documented GI Reports system reviewed and no additional complaints, except as documented, Denies nausea and Denies vomiting Reports system reviewed and no additional complaints, except as documented Musc Reports system reviewed and no additional complaints, except as documented Skin/Breast Reports system reviewed and no additional complaints, except as documented Neuro Yes system reviewed and no additional complaints, except as documented Psych Reports system reviewed and no additional complaints, except as documented Endo Reports system reviewed and no additional complaints, except as documented Waqas/Lymph Reports system reviewed and no additional complaints, except as documented Aller/Immun Reports system reviewed and no additional complaints, except as documented Exam Const General: cooperative, healthy appearing and no acute distress Orientation: alert, awake and oriented x3 Neck Neck: normal visual inspection and full ROM Resp Effort & Inspection: normal respiratory effort, able to speak in complete sentences and symmetric chest movement GI Inspection: normal to inspection Palpation: soft and other Other: gravid Skin General: no rashes or lesions noted Neuro General: patient alert, patient awake and patient oriented x3 Cognition: normal cognition Speech: speech normal Gait: normal gait Motor: muscle tone normal throughout Extrem General: normal to inspection and full ROM Psych Appearance: grossly normal Mental Status: mental status grossly normal Mood: congruent mood Affect: normal affect Speech and Movement: speech and movement normal Attitude: cooperative Thought Process: normal Thought Content: normal Judgment: judgment good Results POC Urinalysis 2 Dip (Clinic) Office Urine Glucose Negative Last Edit by Francia Wang on 11/17/24 11: 43 Office Urine Protein Negative Last Edit by Francia Wang on 11/17/24 11: 43 Coding Level of Care Code OB Routine Diagnoses Diet controlled gestational diabetes mellitus (GDM) in second trimester O24.410 Gestational diabetes mellitus control: diet-controlled Trimester: second trimester Anxiety F41.9 Supervision of high risk in second trimester O09.92 Trimester: second trimester 31 weeks gestation of Z3A.31 Weeks of gestation: 31 weeks Infertility History of recurrent miscarriages N96 Assessment and Plan Assessment and Plan (1) Gestational diabetes mellitus (GDM): Status: Acute Qualifiers: Gestational diabetes mellitus control: diet-controlled Trimester: second trimester Qualified Code(s): O24.410 - Gestational diabetes mellitus in , diet controlled Comment: QID testing, nutritional referral. Growth US at 36w (2) Anxiety: Status: Acute Comment: 5 yr ago, situational, hydroxyzine prn then. Stable now (3) Supervision of high-risk : Status: Acute Qualifiers: Trimester: second trimester Qualified Code(s): O09.92 - Supervision of high risk , unspecified, second trimester Comment: PRR, , TREVON 01/13/25, Power (4) : Status: Acute Qualifiers: Weeks of gestation: 31 weeks Qualified Code(s): Z3A.31 - 31 weeks gestation of Comment: NIPT low risk, gender male (5) Infertility: Status: Acute (6) History of recurrent miscarriages: Status: Acute Comment: nl APL X 3 Orders: Orders POC Urinalysis 2 Dip (Clinic) Today OB Limited With Biometrics 4 Weeks O09.92 - Supervision of high risk , unspecified, secondtrimester, O24.410 - Gestational diabetes mellitus in , diet controlled Plan Details Additional Comments: ACOG trimester education reviewed and updated. see problem list details for updated plan management information and see below for orders placed atthis visit. GA appropriate handout given. 11/17/24 1200 s ODETTE Date _ Vaibhav Noriega Signature: Date (if applicable) CC: ~ [facility]06-19-2025 [facility] [address] [place] [address], [address] [place] [address] OFFICE VISIT Date of Service: 11/03/24 MR#: [id number] Acct: [id number] Name: NORA CAMERON Rep #: [id number] : 1990 Provider: ANGELA Hale Age/Sex: 34/F Location: [facility] [place] Status: Signed Intake Vital Signs 08/22/24 08:29 10/18/24 11:09 11/03/24 11:04 11/03/24 11:04 Height 5 ft 3 in 5 ft 3 in 5 ft 3 in 5 ft 3 in Weight: 141 lb 6 oz BMI 25.0 BP 111/70 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 Is patient in pain?: No Allergies No Known Allergies Allergy (Verified 11/03/24 11:03) Medications ?Medication ?Instructions ?Recorded ?Confirmed ?Type multivitamin no.47-iron fum 27 cap PO 05/23/22 5 History mg-folate no.1 1 mg-dha 300 mg capsule (PNV-DHA) cod liver oil 1 cap PO ONCE 04/27/2411/03 History thyroid support PO 04/27/24 11/03/24 History cholecalciferol (vitamin D3) 25 25 mcg PO ONCE 5 11/03/24 History mcg/drop (1,000 unit/drop) oral drops blood sugar diagnostic (Blood #120 10/12/24 5 Rx Glucose Test strips) blood-glucose meter #1 ea 10/12/24 11/03/24 Rx lancets #200 10/12/24 11/03/24 Rx Last Menstrual Period: 04/08/24 Zika: Zika virus screening: Negative : No PFSH PFSH Medical History Hx of abnormal cervical Pap smear Surgical History Spearfish teeth extracted History of colposcopy Family History Grandmother Colon cancer, Onset Age: 92 Paternal Mother Myocardial infarction, Onset Age: 64 3 Grandfather Myocardial infarction Maternal Social History adopted: No household members: spouse housing: house current occupational status: employed current occupation: [employer]- [employer] current occupational exposures/hazards: No pets and animals: No history of recent travel: No ([place], [place]) sexually active: Yes Smoking Status: Never smoker alcohol intake: former details: occasionally prior to substance use type: does not use well-balanced diet: daily or most days caffeine: No eating out: 1-3 times/week during the past year weight has: remained stable what type of physical activity do you participate in: walking and weight training frequency: 3-4 times per week duration: 30-45 minutes/day michael/gnosticism: Sabianist seatbelt use: always do you feel safe at home: Yes 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 Date Name GA/Weeks Outcome Route Bth Weight Gen Labor Lgth Anesthesia Del Locatn Provider FOB 02/26/21 miscarriage 5 1/2 weeks 07/06/21 miscarriage 8 1/2 weeks 06/05/22 miscarriage 9wks HPI 30wk ob Details: NORA CAMERON is a 34 year old who presents for routine OB visit. OB Visit TREVON Calculator Estimated Delivery Date Method Current WG Current Estimate 01/13/25 LMP (Certain) 29w 6d Other Estimates 01/10/25 Ultrasound #1 30w 2d Expected Delivery Route/Plan Labor Preferences- CB/BF classes: encouraged labor support person: Power labor intervention preferences: [] pain management options preferred: limited but epidural if requested cut cord/dad catch: yes : yes PP control planned: discussed discussed possible routes of delivery and associated risks: [] special requests: [] Specific Issue/Plans Covid status: [] Flu vaccine: [] Tdap vaccine: Rhogam: na LARC form signed: yes Problem list reviewed and updated with the most current plan of care details and appropriate ordersplaced. Relevant counseling for the gestational age provided. Continue routine care and follow up unless otherwise noted in visit notes/problem list details Initial Weight: 124 lb Date -?-?-?-?-?-?-?-?-?-?-?-?- EGA Weight BP Urine Prot -?-?-?-?-?-?-?-?-?-?-?-?- Glucose FHR FuHt Pres Dilation -?-?--?-?-?-?-?-?-?-?-?-?- Effaced St Visit Note 06/10/24 -?-?-?-?-?-?-?-?-?-?-?-?- 9w 0d 124 lb 4 oz (+4 oz) 122/80 -?-?-?-?-?-?-?-?-?-?-?-?- 182 -?-?-?-?-?-?-?-?-?-?-?-?- KW- CRL cons wit h dates. declines NIPT KW- CRL cons with dates. dec lines NIPT. would like some appts in [facility]. doing well today 07/07/24 -?-?-?-?-?-?-?-?-?-?-?-?- 12w 6d 124 lb 6 oz (+6 oz) 112/78 Negative -?-?-?-?-?-?-?-?-?-?-?-?- Negative 160 -?-?-?-?-?-?-?-?-?-?-?-?- KW- no vb/nilson hannah. anatomy US ordered. NIPT requested. FHT and movement noted on handheld US 07/28/24 -?-?-?-?-?-?-?-?-?-?-?-?- 15w 6d 126 lb (+2 lb) 122/73 Negative -?-?-?-?-?-?-?-?-?-?-?-?- Negative 146 -?-?-?-?-?-?-?-?-?-?-?-?- JV- lots of ques tions answered today. no complaints. NIPT reviewed. low risk boy 08/22/24 -?-?-?-?-?-?-?-?-?-?-?-?- 19w 3d 129 lb 6 oz (+5 lb 6 oz) 100/64 Negative -?-?-?-?-?-?-?-?-?-?-?-?- Negative 156 -?-?-?-?-?-?-?-?-?-?-?-?- MH-No VB, LOF. G ood Fm. MFM US today 09/16/24 -?-?-?-?-?-?-?-?-?-?-?-?- 23w 0d 134 lb (+10 lb) 108/71 Negative -?-?-?-?-?-?-?-?-?-?-?-?- Negative 150 -?-?-?-?-?-?-?-?-?-?-?-?- SM- no vb lof go od fm no regular ctx 10/12/24 -?-?-?-?-?-?-?-?-?-?-?-?- 26w 5d 139 lb 8 oz (+15 lb 8 oz) 112/68 Negative -?-?-?-?-?-?-?-?-?-?-?-?- Negative 145 -?-?-?-?-?-?-?-?-?-?-?-?- MH-No Vb, LOF. G ood FM. 1 hr GCT today and is 190: GDM. Reviewed QID testing, supplies ordered, dietitian referral. Keep diet and glucose journal and bring each visit. 11/03/24 -?-?-?-?-?-?-?-?-?-?-?-?- 29w 6d 141 lb 6 oz (+17 lb 6 oz) 111/70 Negative -?-?-?-?-?-?-?-?-?-?-?-?- Negative 145 30 -?-?-?-?-?-?-?-?-?-?-?-?- KW- work in for [employer] blood sugars reviewed and normal. will start doing fasting and one PP daily. class next weekend. ACOG First Trimester First Trimester: Discussed Second Trimester Second Trimester: Signs and Symptoms of Labor, Selecting a care provider, Reproductive Life Planning & Contreception, Care Planning and Depression/Anxiety; Discussed Tobacco Cessation and Discussed Intimate Partner Violence Third Trimester Third Trimester: Pain Management Plans, Labor support person(s), Immediate Larc, Circumcision preference, Signs and Symptoms of Preeclampsia, Feeding No , Education and Family Medical Leave or Disability Forms ROS Const Reports system reviewed and no additional complaints, except as documented Eyes Reports system reviewed and no additional complaints, except as documented ENT Reports system reviewed and no additional complaints, except as documented Card Reports system reviewed and no additional complaints, except as documented Resp Reports system reviewed and no additional complaints, except as documented GI Reports system reviewed and no additional complaints, except as documented, Denies nausea and Denies vomiting Reports system reviewed and no additional complaints, except as documented Musc Reports system reviewed and no additional complaints, except as documented Skin/Breast Reports system reviewed and no additional complaints, except as documented Neuro Yes system reviewed and no additional complaints, except as documented Psych Reports system reviewed and no additional complaints, except as documented Endo Reports system reviewed and no additional complaints, except as documented Waqas/Lymph Reports system reviewed and no additional complaints, except as documented Aller/Immun Reports system reviewed and no additional complaints, except as documented Exam Const General: cooperative, healthy appearing and no acute distress Orientation: alert, awake and oriented x3 Neck Neck: normal visual inspection and full ROM Resp Effort & Inspection: normal respiratory effort, able to speak in complete sentences and symmetric chest movement GI Inspection: normal to inspection Palpation: soft and other Other: gravid Skin General: no rashes or lesions noted Neuro General: patient alert, patient awake and patient oriented x3 Cognition: normal cognition Speech: speech normal Gait: normal gait Motor: muscle tone normal throughout Extrem General: normal to inspection and full ROM Psych Appearance: grossly normal Mental Status: mental status grossly normal Mood: congruent mood Affect: normal affect Speech and Movement: speech and movement normal Attitude: cooperative Thought Process: normal Thought Content: normal Judgment: judgment good Results POC Urinalysis 2 Dip (Clinic) Office Urine Glucose Negative Last Edit by Francia Wang on 11/03/24 11: 20 Office Urine Protein Negative Last Edit by Francia Wang on 11/03/24 11: 20 Coding Level of Care Code OB Routine Diagnoses Diet controlled gestational diabetes mellitus (GDM) in second trimester O24.410 Gestational diabetes mellitus control: diet-controlled Trimester: second trimester Anxiety F41.9 Supervision of high risk in second trimester O09.92 Trimester: second trimester 29 weeks gestation of Z3A.29 Weeks of gestation: 29 weeks Infertility History of recurrent miscarriages N96 Assessment and Plan Assessment and Plan (1) Gestational diabetes mellitus (GDM): Status: Acute Qualifiers: Gestational diabetes mellitus control: diet-controlled Trimester: second trimester Qualified Code(s): O24.410 - Gestational diabetes mellitus in , diet controlled Comment: QID testing, nutritional referral. Growth US at 36w (2) Anxiety: Status: Acute Comment: 5 yr ago, situational, hydroxyzine prn then. Stable now (3) Supervision of high-risk : Status: Acute Qualifiers: Trimester: second trimester Qualified Code(s): O09.92 - Supervision of high risk , unspecified, second trimester Comment: PRR, , TREVON 01/13/25, Power (4) : Status: Acute Qualifiers: Weeks of gestation: 29 weeks Qualified Code(s): Z3A.29 - 29 weeks gestation of Comment: NIPT low risk, gender male (5) Infertility: Status: Acute (6) History of recurrent miscarriages: Status: Acute Comment: nl APL X 3 Orders: Orders POC Urinalysis 2 Dip (Clinic) Today Plan Details Additional Comments: ACOG trimester education reviewed and updated. see problem list details for updated plan management information and see below for orders placed atthis visit. GA appropriate handout given. 11/03/24 1145 s JESUSM> Date _ Vaibhav Noriega Signature: Date (if applicable) CC: ~ [facility]05-02-2025 Evaluation note* Diagnosis Onset Date Resolution Status Admit Date History of recurrent miscarriages acute September 16, 2024 2: 49pm acute September 16, 2024 2:49pm Supervision of high-risk acute September 16, 2024 2: 49pm Infertility resolved September 16, 2024 2:49pm Threatened resolved September 162024 2:49pm Anxiety acute October 12, 2024 10:13am Gestational diabetes mellitu s (GDM) acute October 12, 2024 1 0:13am History of recurrent miscarriages acute October 12, 2024 1 0:13am acute October 12, 2024 10:13am Supervision of high-risk acute October 12, 2024 1 0:13am Infertility resolved October 12 10:13am Anxiety acute November 03 11:19am Gestational diabetes mellitu s (GDM) acute November 03, 2024 11:19am History of recurrent miscarriages acute November 03, 2024 11:19am acute November 03 11:19am Supervision of high-risk acute November 03, 2024 11:19am Infertility resolved November 03 11:19am Anxiety acute November 17, 2024 11:30am Gestational diabetes mellitu s (GDM) acute November 17, 2024 1 1:30am History of recurrent miscarriages acute November 17, 2024 1 1:30am acute November 17, 2024 11:30am Supervision of high-risk acute November 17, 2024 1 1:30am Infertility resolved November 17 11:30am Anxiety acute December 01 2:27pm Gestational diabetes mellitu s (GDM) acute December 01, 2024 2:27pm History of recurrent miscarriages acute December 01, 2024 2:27pm acute December 01 2:27pm Supervision of high-risk acute December 01, 2024 2:27pm Infertility resolved December 01 2:27pm Anxiety acute December 15 3:34pm Gestational diabetes mellitu s (GDM) acute December 15, 2024 3:34pm History of recurrent miscarriages acute December 15, 2024 3:34pm acute December 15 3:34pm Supervision of high-risk acute December 15, 2024 3:34pm [facility] Work Phone: 1(985) 877-718105-02-2025 Evaluation note* Diagnosis Onset Date Resolution Status Admit Date History of recurrent miscarriages acute September 16, 2024 2: 49pm acute September 16, 2024 2:49pm Supervision of high-risk acute September 16, 2024 2: 49pm Infertility resolved September 16, 2024 2:49pm Threatened resolved September 162024 2:49pm Anxiety acute October 12, 2024 10:13am Gestational diabetes mellitu s (GDM) acute October 12, 2024 1 0:13am History of recurrent miscarriages acute October 12, 2024 1 0:13am acute October 12, 2024 10:13am Supervision of high-risk acute October 12, 2024 1 0:13am Infertility resolved October 12 10:13am Anxiety acute November 03 11:19am Gestational diabetes mellitu s (GDM) acute November 03, 2024 11:19am History of recurrent miscarriages acute November 03, 2024 11:19am acute November 03 11:19am Supervision of high-risk acute November 03, 2024 11:19am Infertility resolved November 03 11:19am Anxiety acute November 17, 2024 11:30am Gestational diabetes mellitu s (GDM) acute November 17, 2024 1 1:30am History of recurrent miscarriages acute November 17, 2024 1 1:30am acute November 17, 2024 11:30am Supervision of high-risk acute November 17, 2024 1 1:30am Infertility resolved November 17 11:30am Anxiety acute December 01 2:27pm Gestational diabetes mellitu s (GDM) acute December 01, 2024 2:27pm History of recurrent miscarriages acute December 01, 2024 2:27pm acute December 01 2:27pm Supervision of high-risk acute December 01, 2024 2:27pm Infertility resolved December 01 2:27pm Anxiety acute December 15 3:34pm Gestational diabetes mellitu s (GDM) acute December 15, 2024 3:34pm History of recurrent miscarriages acute December 15, 2024 3:34pm acute December 15 3:34pm Supervision of high-risk acute December 15, 2024 3:34pm Anxiety acute December 23 2:03pm Gestational diabetes mellitu s (GDM) acute December 23, 2024 2:03pm History of recurrent miscarriages acute December 23, 2024 2:03pm acute December 23 2:03pm Supervision of high-risk acute December 23, 2024 2:03pm [facility] Work Phone: 1([phone]) 940-524505-02-2025 Evaluation note* Diagnosis Onset Date Resolution Status Admit Date History of recurrent miscarriages acute September 16, 2024 2: 49pm acute September 16, 2024 2:49pm Supervision of high-risk acute September 16, 2024 2: 49pm Infertility resolved September 16, 2024 2:49pm Threatened resolved September 162024 2:49pm Anxiety acute October 12, 2024 10:13am Gestational diabetes mellitu s (GDM) acute October 12, 2024 1 0:13am History of recurrent miscarriages acute October 12, 2024 1 0:13am acute October 12, 2024 10:13am Supervision of high-risk acute October 12, 2024 1 0:13am Infertility resolved October 12 10:13am Anxiety acute November 03 11:19am Gestational diabetes mellitu s (GDM) acute November 03, 2024 11:19am History of recurrent miscarriages acute November 03, 2024 11:19am acute November 03 11:19am Supervision of high-risk acute November 03, 2024 11:19am Infertility resolved November 03 11:19am Anxiety acute November 17, 2024 11:30am Gestational diabetes mellitu s (GDM) acute November 17, 2024 1 1:30am History of recurrent miscarriages acute November 17, 2024 1 1:30am acute November 17, 2024 11:30am Supervision of high-risk acute November 17, 2024 1 1:30am Infertility resolved November 17 11:30am Anxiety acute December 01 2:27pm Gestational diabetes mellitu s (GDM) acute December 01, 2024 2:27pm History of recurrent miscarriages acute December 01, 2024 2:27pm acute December 01 2:27pm Supervision of high-risk acute December 01, 2024 2:27pm Infertility resolved December 01 2:27pm Anxiety acute December 15 3:34pm Gestational diabetes mellitu s (GDM) acute December 15, 2024 3:34pm History of recurrent miscarriages acute December 15, 2024 3:34pm acute December 15 3:34pm Supervision of high-risk acute December 15, 2024 3:34pm Anxiety acute December 23 2:03pm Gestational diabetes mellitu s (GDM) acute December 23, 2024 2:03pm History of recurrent miscarriages acute December 23, 2024 2:03pm acute December 23 2:03pm Supervision of high-risk acute December 23, 2024 2:03pm Anxiety acute December 29, 2 025 1:50pm Gestational diabetes mellitu s (GDM) acute December 29 1:50pm History of recurrent miscarriages acute December 29 1:50pm acute December 29, 2 025 1:50pm Supervision of high-risk acute December 29 1:50pm [facility] Work Phone: 1([phone]) 131-897205-02-2025 Evaluation note* Diagnosis Onset Date Resolution Status Admit Date History of recurrent miscarriages acute September 16, 2024 2: 49pm acute September 16, 2024 2:49pm Supervision of high-risk acute September 16, 2024 2: 49pm Infertility resolved September 16, 2024 2:49pm Threatened resolved September 162024 2:49pm Anxiety acute October 12, 2024 10:13am Gestational diabetes mellitu s (GDM) acute October 12, 2024 1 0:13am History of recurrent miscarriages acute October 12, 2024 1 0:13am acute October 12, 2024 10:13am Supervision of high-risk acute October 12, 2024 1 0:13am Infertility resolved October 12 10:13am Anxiety acute November 03 11:19am Gestational diabetes mellitu s (GDM) acute November 03, 2024 11:19am History of recurrent miscarriages acute November 03, 2024 11:19am acute November 03 11:19am Supervision of high-risk acute November 03, 2024 11:19am Infertility resolved November 03 11:19am Anxiety acute November 17, 2024 11:30am Gestational diabetes mellitu s (GDM) acute November 17, 2024 1 1:30am History of recurrent miscarriages acute November 17, 2024 1 1:30am acute November 17, 2024 11:30am Supervision of high-risk acute November 17, 2024 1 1:30am Infertility resolved November 17 11:30am Anxiety acute December 01 2:27pm Gestational diabetes mellitu s (GDM) acute December 01, 2024 2:27pm History of recurrent miscarriages acute December 01, 2024 2:27pm acute December 01 2:27pm Supervision of high-risk acute December 01, 2024 2:27pm Infertility resolved December 01 2:27pm Anxiety acute December 15 3:34pm Gestational diabetes mellitu s (GDM) acute December 15, 2024 3:34pm History of recurrent miscarriages acute December 15, 2024 3:34pm acute December 15 3:34pm Supervision of high-risk acute December 15, 2024 3:34pm Anxiety acute December 23 2:03pm Gestational diabetes mellitu s (GDM) acute December 23, 2024 2:03pm History of recurrent miscarriages acute December 23, 2024 2:03pm acute December 23 2:03pm Supervision of high-risk acute December 23, 2024 2:03pm Anxiety acute December 29, 2 025 1:50pm Gestational diabetes mellitu s (GDM) acute December 29 1:50pm History of recurrent miscarriages acute December 29 1:50pm acute December 29, 2 025 1:50pm Supervision of high-risk acute December 29 1:50pm Anxiety acute January 03, 2 025 11:31am Gestational diabetes mellitu s (GDM) acute January 03 11:31am History of recurrent miscarriages acute January 03 11:31am acute January 03, 2 025 11:31am Supervision of high-risk acute January 03 11:31am [facility] Work Phone: 1([phone]) 102-541904-07-2025 Evaluation note* Diagnosis Onset Date Resolution Status Admit Date History of recurrent miscarriages acute August 22, 2024 8:27am Infertility acute August 22 8:27am acute August 22 8:27am Supervision of high-risk acute August 22, 2024 8:27am Threatened resolved August 22, 2024 8:27am History of recurrent miscarriages acute September 16, 2024 2: 49pm Infertility acute September 16, 2024 2:49pm acute September 16, 2024 2:49pm Supervision of high-risk acute September 16, 2024 2: 49pm Threatened resolved September 162024 2:49pm Anxiety acute October 12, 2024 10:13am Gestational diabetes mellitu s (GDM) acute October 12, 2024 1 0:13am History of recurrent miscarriages acute October 12, 2024 1 0:13am Infertility acute October 12 10:13am acute October 12, 2024 10:13am Supervision of high-risk acute October 12, 2024 1 0:13am Anxiety acute November 03 11:19am Gestational diabetes mellitu s (GDM) acute November 03, 2024 11:19am History of recurrent miscarriages acute November 03, 2024 11:19am Infertility acute November 03 11:19am acute November 03 11:19am Supervision of high-risk acute November 03, 2024 11:19am Anxiety acute November 17, 2024 11:30am Gestational diabetes mellitu s (GDM) acute November 17, 2024 1 1:30am History of recurrent miscarriages acute November 17, 2024 1 1:30am Infertility acute November 17 11:30am acute November 17, 2024 11:30am Supervision of high-risk acute November 17, 2024 1 1:30am Anxiety acute December 01 2:27pm Gestational diabetes mellitu s (GDM) acute December 01, 2024 2:27pm History of recurrent miscarriages acute December 01, 2024 2:27pm Infertility acute December 01 2:27pm acute December 01 2:27pm Supervision of high-risk acute December 01, 2024 2:27pm [facility] Work Phone: 1([phone]) 385-171704-07-2025 Evaluation note* Diagnosis Onset Date Resolution Status Admit Date History of recurrent miscarriages acute August 22, 2024 8:27am acute August 22 8:27am Supervision of high-risk acute August 22, 2024 8:27am Infertility resolved August 22 8:27am Threatened resolved August 22, 2024 8:27am History of recurrent miscarriages acute September 16, 2024 2: 49pm acute September 16, 2024 2:49pm Supervision of high-risk acute September 16, 2024 2: 49pm Infertility resolved September 16, 2024 2:49pm Threatened resolved September 162024 2:49pm Anxiety acute October 12, 2024 10:13am Gestational diabetes mellitu s (GDM) acute October 12, 2024 1 0:13am History of recurrent miscarriages acute October 12, 2024 1 0:13am acute October 12, 2024 10:13am Supervision of high-risk acute October 12, 2024 1 0:13am Infertility resolved October 12 10:13am Anxiety acute November 03 11:19am Gestational diabetes mellitu s (GDM) acute November 03, 2024 11:19am History of recurrent miscarriages acute November 03, 2024 11:19am acute November 03 11:19am Supervision of high-risk acute November 03, 2024 11:19am Infertility resolved November 03 11:19am Anxiety acute November 17, 2024 11:30am Gestational diabetes mellitu s (GDM) acute November 17, 2024 1 1:30am History of recurrent miscarriages acute November 17, 2024 1 1:30am acute November 17, 2024 11:30am Supervision of high-risk acute November 17, 2024 1 1:30am Infertility resolved November 17 11:30am Anxiety acute December 01 2:27pm Gestational diabetes mellitu s (GDM) acute December 01, 2024 2:27pm History of recurrent miscarriages acute December 01, 2024 2:27pm acute December 01 2:27pm Supervision of high-risk acute December 01, 2024 2:27pm Infertility resolved December 01 2:27pm Anxiety acute December 15 3:34pm Gestational diabetes mellitu s (GDM) acute December 15, 2024 3:34pm History of recurrent miscarriages acute December 15, 2024 3:34pm acute December 15 3:34pm Supervision of high-risk acute December 15, 2024 3:34pm [facility] Work Phone: [phone]) 322-304203-13-2025 Evaluation note* Diagnosis Onset Date Resolution Status Admit Date History of recurrent miscarriages acute July 28, 2024 3:46pm Infertility acute July 28, 2 025 3:46pm acute July 28 3:46pm Supervision of high-risk acute July 28, 2024 3:46pm Threatened resolved July 28, 2024 3:46pm Early stage of deleted July 28, 2024 3:46pm History of recurrent miscarriages acute August 22, 2024 8:27am Infertility acute August 22 8:27am acute August 22 8:27am Supervision of high-risk acute August 22, 2024 8:27am Threatened resolved August 22, 2024 8:27am History of recurrent miscarriages acute September 16, 2024 2: 49pm Infertility acute September 16, 2024 2:49pm acute September 16, 2024 2:49pm Supervision of high-risk acute September 16, 2024 2: 49pm Threatened resolved September 162024 2:49pm Anxiety acute October 12, 2024 10:13am Gestational diabetes mellitu s (GDM) acute October 12, 2024 1 0:13am History of recurrent miscarriages acute October 12, 2024 1 0:13am Infertility acute October 12 10:13am acute October 12, 2024 10:13am Supervision of high-risk acute October 12, 2024 1 0:13am Anxiety acute November 03 11:19am Gestational diabetes mellitu s (GDM) acute November 03, 2024 11:19am History of recurrent miscarriages acute November 03, 2024 11:19am Infertility acute November 03 11:19am acute November 03 11:19am Supervision of high-risk acute November 03, 2024 11:19am [facility] Work Phone: [phone] 183-450203-13-2025 Evaluation note* Diagnosis Onset Date Resolution Status Admit Date History of recurrent miscarriages acute July 28, 2024 3:46pm Infertility acute July 28, 2 025 3:46pm acute July 28 3:46pm Supervision of high-risk acute July 28, 2024 3:46pm Threatened resolved July 28, 2024 3:46pm Early stage of deleted July 28, 2024 3:46pm History of recurrent miscarriages acute August 22, 2024 8:27am Infertility acute August 22 8:27am acute August 22 8:27am Supervision of high-risk acute August 22, 2024 8:27am Threatened resolved August 22, 2024 8:27am History of recurrent miscarriages acute September 16, 2024 2: 49pm Infertility acute September 16, 2024 2:49pm acute September 16, 2024 2:49pm Supervision of high-risk acute September 16, 2024 2: 49pm Threatened resolved September 162024 2:49pm Anxiety acute October 12, 2024 10:13am Gestational diabetes mellitu s (GDM) acute October 12, 2024 1 0:13am History of recurrent miscarriages acute October 12, 2024 1 0:13am Infertility acute October 12 10:13am acute October 12, 2024 10:13am Supervision of high-risk acute October 12, 2024 1 0:13am Anxiety acute November 03 11:19am Gestational diabetes mellitu s (GDM) acute November 03, 2024 11:19am History of recurrent miscarriages acute November 03, 2024 11:19am Infertility acute November 03 11:19am acute November 03 11:19am Supervision of high-risk acute November 03, 2024 11:19am Anxiety acute November 17, 2024 11:30am Gestational diabetes mellitu s (GDM) acute November 17, 2024 1 1:30am History of recurrent miscarriages acute November 17, 2024 1 1:30am Infertility acute November 17 11:30am acute November 17, 2024 11:30am Supervision of high-risk acute November 17, 2024 1 1:30am [facility] Work Phone: [phone]) 286-477802-20-2025 Evaluation note* Diagnosis Onset Date Resolution Status Admit Date History of recurrent miscarriages acute July 07, 2 025 7:27am Infertility acute June 7:27am acute July 07, 2024 7:27am Supervision of high-risk acute February 20th, 2 025 7:27am Threatened resolved 2024 7:27am Early stage of deleted July 07, 2024 7:27am Screening for thyroid disorder deleted July 07 025 7:27am History of recurrent miscarriages acute July 28, 2024 3:46pm Infertility acute July 28, 2 025 3:46pm acute July 28 3:46pm Supervision of high-risk acute July 28, 2024 3:46pm Threatened resolved July 28, 2024 3:46pm Early stage of deleted July 28, 2024 3:46pm History of recurrent miscarriages acute August 22, 2024 8:27am Infertility acute August 22 8:27am acute August 22 8:27am Supervision of high-risk acute August 22, 2024 8:27am Threatened resolved August 22, 2024 8:27am History of recurrent miscarriages acute September 16, 2024 2: 49pm Infertility acute September 16, 2024 2:49pm acute September 16, 2024 2:49pm Supervision of high-risk acute September 16, 2024 2: 49pm Threatened resolved September 162024 2:49pm History of recurrent miscarriages acute October 12, 2024 1 0:13am Infertility acute October 12 10:13am acute October 12, 2024 10:13am Supervision of high-risk acute October 12, 2024 1 0:13am [facility] Work Phone: [phone] 678-746202-20-2025 Evaluation note* Diagnosis Onset Date Resolution Status Admit Date History of recurrent miscarriages acute July 07, 2 025 7:27am Infertility acute June 7:27am acute July 07, 2024 7:27am Supervision of high-risk acute July 07 025 7:27am Threatened resolved 2024 7:27am Early stage of deleted July 07, 2024 7:27am Screening for thyroid disorder deleted July 07, 025 7:27am History of recurrent miscarriages acute July 28, 2024 3:46pm Infertility acute July 28, 2 025 3:46pm acute July 28 3:46pm Supervision of high-risk acute July 28, 2024 3:46pm Threatened resolved July 28, 2024 3:46pm Early stage of deleted July 28, 2024 3:46pm History of recurrent miscarriages acute August 22, 2024 8:27am Infertility acute August 22 8:27am acute August 22 8:27am Supervision of high-risk acute August 22, 2024 8:27am Threatened resolved August 22, 2024 8:27am History of recurrent miscarriages acute September 16, 2024 2: 49pm Infertility acute September 16, 2024 2:49pm acute September 16, 2024 2:49pm Supervision of high-risk acute September 16, 2024 2: 49pm Threatened resolved September 162024 2:49pm Anxiety acute October 12, 2024 10:13am Gestational diabetes mellitu s (GDM) acute October 12, 2024 1 0:13am History of recurrent miscarriages acute October 12, 2024 1 0:13am Infertility acute October 12 10:13am acute October 12, 2024 10:13am Supervision of high-risk acute October 12, 2024 1 0:13am [facility] Work Phone: [phone] Evaluation note* Diagnosis Onset Date Resolution Status Admit Date History of recurrent miscarriages acute July 07, 2 025 7:27am Infertility acute June 7:27am acute July 07, 2024 7:27am Supervision of high-risk acute July 07, 025 7:27am Threatened resolved Febru 2024 7:27am Early stage of deleted July 07, 2024 7:27am Screening for thyroid disorder deleted July 07, 2 025 7:27am History of recurrent miscarriages acute July 28, 2024 3:46pm Infertility acute July 28, 025 3:46pm acute July 28 3:46pm Supervision of high-risk acute July 28, 2024 3:46pm Threatened resolved July 28, 2024 3:46pm Early stage of deleted July 28, 2024 3:46pm History of recurrent miscarriages acute August 22, 2024 8:27am Infertility acute August 22 8:27am acute August 22 8:27am Supervision of high-risk acute August 22, 2024 8:27am Threatened resolved August 22, 2024 8:27am History of recurrent miscarriages acute September 16, 2024 2: 49pm Infertility acute September 16, 2024 2:49pm acute September 16, 2024 2:49pm Supervision of high-risk acute September 16, 2024 2: 49pm Threatened resolved September 162024 2:49pm Anxiety acute October 12, 2024 10:13am Gestational diabetes mellitu s (GDM) acute October 12, 2024 1 0:13am History of recurrent miscarriages acute October 12, 2024 1 0:13am Infertility acute October 12 10:13am acute October 12, 2024 10:13am Supervision of high-risk acute October 12, 2024 1 0:13am Anxiety acute November 03 11:19am Gestational diabetes mellitu s (GDM) acute November 03, 2024 11:19am History of recurrent miscarriages acute November 03, 2024 11:19am Infertility acute November 03 11:19am acute November 03 11:19am Supervision of high-risk acute November 03, 2024 11:19am [facility] Work Phone: [phone] Instructions* Patient Instructions* Tristian Feng APRN.CNP - 04/11/2024 12:31 PM EST - Start using Sudafed for ear congestion documented in this [facility]24 NoteHNO ID: [id number] Author: TRISTIAN FENG APRN.CNP Service: ? Author Type: Nurse Practitioner Type: Progress Notes Filed: 04/11/2024 12:31 Note Text: Nora Cameron is a 33 year old female here today acutely because of having: Ear Pain and Fatigue Patient has symptoms of ear pain and fatigue. Symptoms on going for 5 days. Patient has tried OTC ear drops. Exposed to anyone with similar illness, no. Patient is not a smoker. Denies fever, SOB, chest pain, dizziness, nausea, vomiting, diarrhea. Ear Pain Associated symptoms include fatigue. Pertinent negatives include no abdominal pain, chest pain, chills, congestion, coughing, fever, headaches, nausea, rash, sore throat or vomiting. Fatigue Associated symptoms include fatigue. Pertinent negatives include no abdominal pain, chest pain, chills, congestion, coughing, fever, headaches, nausea, rash, sore throat or vomiting. Review of Systems Constitutional: Positive for fatigue and malaise/fatigue. Negative for chills and fever. HENT: Positive for ear pain. Negative for congestion, postnasal drip, rhinorrhea, sinus pain and sore throat. Respiratory: Negative for cough, chest tightness, shortness of breath and wheezing. Cardiovascular: Negative for chest pain, palpitations and leg swelling. Gastrointestinal: Negative for abdominal pain, diarrhea, nausea and vomiting. Skin: Negative for color change and rash. Neurological: Negative for dizziness and headaches. BP 118/75 (BP Site: Right Arm, BP Position: Sitting, BP Cuff Size: Regular Adult) Pulse 88 Temp 36.8 ?C (98.3 ?F) (Oral) Resp 16 Ht 160 cm (5' 2.99) Wt 57.4 kg (126 lb 9.6 oz) LMP 02/23/2020 SpO2 97% BMI 22.43 kg/m? BMI 22.43 kg/(m2) ALLERGIES No Known Allergies Physical Exam Vitals reviewed. Constitutional: Appearance: Normal appearance. HENT: Right Ear: Ear canal and external ear normal. Tympanic membrane is bulging. Left Ear: Ear canal and external ear normal. Tympanic membrane is bulging. Nose: Congestion and rhinorrhea present. Right Sinus: No maxillary sinus tenderness or frontal sinus tenderness. Left Sinus: No maxillary sinus tenderness or frontal sinus tenderness. Mouth/Throat: Mouth: Mucous membranes are moist. Pharynx: Oropharynx is clear. No posterior oropharyngeal erythema. Cardiovascular: Rate and Rhythm: Normal rate and regular rhythm. Heart sounds: Normal heart sounds. No murmur heard. Pulmonary: Effort: Pulmonary effort is normal. No respiratory distress. Breath sounds: Normal breath sounds. No wheezing. Musculoskeletal: Cervical back: No tenderness. Lymphadenopathy: Cervical: No cervical adenopathy. Skin: General: Skin is warm and dry. Neurological: Mental Status: She is alert and oriented to person, place, and time. ASSESSMENT/PLAN: 1. Viral URI - ICD9: 465.9, ICD10: J06.9 - Discussed viral etiology and rationale for treatment. - Symptomatic treatment with prn analgesia - Supportive care with fluids and rest - Start using Sudafed for ear congestion Tristian Feng CNP Follow Up: Return if symptoms worsen or fail to improve. Prescription instructions reviewed with patient as applicable. Patient advised if symptoms do not improve or if symptoms worsen sooner, to contact their primary care physician. Potential red flag symptoms discussed with the patient. Reviewed appropriate action plan to take if red flag symptoms occur. Patient agreeable to treatment plan. Voice recognition software utilized. Minor grammatical and/or spelling errors may exist. Portions of this note have been entered by ancillary staff. I have reviewed and when necessary edited, so that they are an adequate record of my encounter with this patient.[facility] [id number] History of Present illness Narrative* Tristian Feng APRN.BRIANNA - 04/11/2024 12:22 PM EST Nora Cameron is a 33 year old female here today acutely because of having: Ear Pain and Fatigue Patient has symptoms of ear pain and fatigue. Symptoms on going for 5 days. Patient has tried OTC ear drops. Exposed to anyone with similar illness, no. Patient is not a smoker. Denies fever, SOB, chest pain, dizziness, nausea, vomiting, diarrhea. Ear Pain Associated symptoms include fatigue. Pertinent negatives include no abdominal pain, chest pain, chills, congestion, coughing, fever, headaches, nausea, rash, sore throat or vomiting. Fatigue Associated symptoms include fatigue. Pertinent negatives include no abdominal pain, chest pain, chills, congestion, coughing, fever, headaches, nausea, rash, sore throat or vomiting. Review of Systems Constitutional: Positive for fatigue and malaise/fatigue. Negative for chills and fever. HENT: Positive for ear pain. Negative for congestion, postnasal drip, rhinorrhea, sinus pain and sore throat. Respiratory: Negative for cough, chest tightness, shortness of breath and wheezing. Cardiovascular: Negative for chest pain, palpitations and leg swelling. Gastrointestinal: Negative for abdominal pain, diarrhea, nausea and vomiting. Skin: Negative for color change and rash. Neurological: Negative for dizziness and headaches. BP 118/75 (BP Site: Right Arm, BP Position: Sitting, BP Cuff Size: Regular Adult) Pulse 88 Temp36.8 C (98.3 F) (Oral) Resp 16 Ht 160 cm (5' 2.99) Wt 57.4 kg (126 lb 9.6 oz) LMP 02/23/2020 SpO2 97% BMI 22.43 kg/m BMI 22.43 kg/(m^2) ALLERGIES No Known Allergies Physical Exam Vitals reviewed. Constitutional: Appearance: Normal appearance. HENT: Right Ear: Ear canal and external ear normal. Tympanic membrane is bulging. Left Ear: Ear canal and external ear normal. Tympanic membrane is bulging. Nose: Congestion and rhinorrhea present. Right Sinus: No maxillary sinus tenderness or frontal sinus tenderness. Left Sinus: No maxillary sinus tenderness or frontal sinus tenderness. Mouth/Throat: Mouth: Mucous membranes are moist. Pharynx: Oropharynx is clear. No posterior oropharyngeal erythema. Cardiovascular: Rate and Rhythm: Normal rate and regular rhythm. Heart sounds: Normal heart sounds. No murmur heard. Pulmonary: Effort: Pulmonary effort is normal. No respiratory distress. Breath sounds: Normal breath sounds. No wheezing. Musculoskeletal: Cervical back: No tenderness. Lymphadenopathy: Cervical: No cervical adenopathy. Skin: General: Skin is warm and dry. Neurological: Mental Status: She is alert and oriented to person, place, and time. ASSESSMENT/PLAN: 1. Viral URI - ICD9: 465.9, ICD10: J06.9 - Discussed viral etiology and rationale for treatment. - Symptomatic treatment with prn analgesia - Supportive care with fluids and rest - Start using Sudafed for ear congestion Tristian Feng CNP Follow Up: Return if symptoms worsen or fail to improve. Prescription instructions reviewed with patient as applicable. Patient advised if symptoms do not improve or if symptoms worsen sooner, to contact their primary care physician. Potential red flag symptoms discussed with the patient. Reviewed appropriate action plan to take if red flag symptoms occur. Patient agreeable to treatment plan. Voice recognition software utilized. Minor grammatical and/or spelling errors may exist. Portions of this note have been entered by ancillary staff. I have reviewed and when necessary edited, so that they are an adequate record of my encounter with this patient. documented in this encounterMer[facility]11-25-[facility]24 Telephone encounter Note * Telephone Encounter - Anabelle Grey - 04/11/2024 11:35 AM EST Patient calls today. Reason for Call: patient having ear pain and will go to walk in clinic to be evaluated today [phone] (home) [phone] (cell) Patient last appointment: Visit date not found Anabelle Grey [facility]11-25-2024 Miscellaneous Notes* Telephone Encounter - Anabelle Grey - 04/11/2024 11:35 AM EST Patient calls today. Reason for Call: patient having ear pain and will go to walk in clinic to be evaluated today [phone] (home) [phone] (cell) Patient last appointment: Visit date not found Anabelle Grey documented in this encounterMer[facility]03-12-2024 NoteHNO ID: [id number] Author: TODD ROMERO II, MD Service: ? Author Type: Physician Type: Progress Notes Filed: 07/28/2023 21:34 Note Text: Todd Romero II, MD [address], [place] [address] SUBJECTIVE Nora Cameron is a 33 year old female who presents with Yearly Exam. HPI Patient is in today for routine physical. She states she is doing well and she is not taking any medication now but she is taking several herbal supplements to help her with conceiving. She has had laboratory workup done several times in the last year and things according to the patient were within acceptable ranges. Review of Systems Constitutional: Negative for activity change, appetite change, chills, diaphoresis, fatigue, fever and unexpected weight change. HENT: Negative for congestion, dental problem, ear pain, hearing loss, nosebleeds, postnasal drip, rhinorrhea, sinus pressure, sinus pain, sore throat, trouble swallowing and voice change. Eyes: Negative for discharge, redness and visual disturbance. Respiratory: Negative for apnea, cough, choking, chest tightness, shortness of breath, wheezing and stridor. Cardiovascular: Negative for chest pain, palpitations and leg swelling. Gastrointestinal: Negative for abdominal distention, abdominal pain, blood in stool, constipation, diarrhea, nausea and vomiting. Endocrine: Negative for cold intolerance, heat intolerance, polydipsia, polyphagia and polyuria. Genitourinary: Negative for decreased urine volume, difficulty urinating, dysuria, enuresis, frequency, hematuria and urgency. Musculoskeletal: Negative for arthralgias, gait problem and myalgias. Skin: Negative for color change, pallor, rash and wound. Allergic/Immunologic: Negative for environmental allergies. Neurological: Negative for dizziness, tremors, syncope, facial asymmetry, speech difficulty, weakness, light-headedness, numbness and headaches. Hematological: Negative for adenopathy. Does not bruise/bleed easily. Psychiatric/Behavioral: Negative for agitation, behavioral problems, confusion, decreased concentration, dysphoric mood, hallucinations, self-injury, sleep disturbance and suicidal ideas. The patient is not nervous/anxious and is not hyperactive. PAST MEDICAL HISTORY Diagnosis Date Abdominal pain Abnormal Pap smear of cervix 09/2017 Epigastric pain IBS (irritable bowel syndrome) Migraine Strep pharyngitis PAST SURGICAL HISTORY Procedure Laterality Date EXTRACTION ERUPTED TOOTH/EXR Social History Tobacco Use Smoking status: Never Smokeless tobacco: Never Vaping Use Vaping Use: Never used Substance Use Topics Alcohol use: Never FAMILY HISTORY Problem Relation Age of Onset Heart disease Mother Hypertension Mother Diabetes Mother other (lymphoma) Mother Hypertension Maternal Grandmother Diabetes Maternal Grandmother other (lymphoma) Maternal Grandmother The ROS, medical, surgical, family, and social history were reviewed by Todd Romero II, MD ALLERGIES No Known Allergies Current Outpatient Medications Medication Sig PNV no.95/ferrous fum/folic ac ( ORAL) Take by mouth. No current facility-administered medications for this visit. OBJECTIVE BP 90/60 (BP Site: Left Arm, BP Position: Sitting) Pulse 88 Temp 36.5 ?C (97.7 ?F) Resp 12 Ht 160 cm (5' 3) Wt 58.5 kg (129 lb) LMP 02/23/2020 SpO2 98% BMI 22.85 kg/m? BMI 22.85 kg/(m2) Physical Exam Vitals and nursing note reviewed. Constitutional: General: She is not in acute distress. Appearance: Normal appearance. She is not ill-appearing, toxic-appearing or diaphoretic. HENT: Head: Normocephalic and atraumatic. Right Ear: Tympanic membrane, ear canal and external ear normal. There is no impacted cerumen. Left Ear: Tympanic membrane, ear canal and external ear normal. There is no impacted cerumen. Nose: Nose normal. No congestion or rhinorrhea. Mouth/Throat: Mouth: Mucous membranes are moist. Pharynx: Oropharynx is clear. No oropharyngeal exudate or posterior oropharyngeal erythema. Eyes: General: No scleral icterus. Right eye: No discharge. Left eye: No discharge. Extraocular Movements: Extraocular movements intact. Conjunctiva/sclera: Conjunctivae normal. Pupils: Pupils are equal, round, and reactive to light. Neck: Vascular: No carotid bruit. Cardiovascular: Rate and Rhythm: Normal rate and regular rhythm. Pulses: Normal pulses. Heart sounds: Normal heart sounds. No murmur heard. No friction rub. No gallop. Pulmonary: Effort: Pulmonary effort is normal. No respiratory distress. Breath sounds: Normal breath sounds. No stridor. No wheezing, rhonchi or rales. Chest: Chest wall: No tenderness. Abdominal: General: Abdomen is flat. Bowel sounds are normal. There is no distension. Palpations: Abdomen is soft. There is no mass. Tenderness: There is no abdominal ten (more content not included)...[facility] [id number] History of Present illness Narrative* Todd Romero II, MD - 07/28/2023 2:19 PM EDT Images from the original note were not included. Todd Romero II, MD [address], [place] [address] SUBJECTIVE Nora Cameron is a 33 year old female who presents with Yearly Exam. HPI Patient is in today for routine physical. She states she is doing well and she is not taking any medication now but she is taking several herbal supplements to help her with conceiving. She has had laboratory workup done several times in the last year and things according to the patient were withinacceptable ranges. Review of Systems Constitutional: Negative for activity change, appetite change, chills, diaphoresis, fatigue, fever and unexpected weight change. HENT: Negative for congestion, dental problem, ear pain, hearing loss, nosebleeds, postnasal drip, rhinorrhea, sinus pressure, sinus pain, sore throat, trouble swallowing and voice change. Eyes: Negative for discharge, redness and visual disturbance. Respiratory: Negative for apnea, cough, choking, chest tightness, shortness of breath, wheezing andstridor. Cardiovascular: Negative for chest pain, palpitations and leg swelling. Gastrointestinal: Negative for abdominal distention, abdominal pain, blood in stool, constipation, diarrhea, nausea and vomiting. Endocrine: Negative for cold intolerance, heat intolerance, polydipsia, polyphagia and polyuria. Genitourinary: Negative for decreased urine volume, difficulty urinating, dysuria, enuresis, frequency, hematuria and urgency. Musculoskeletal: Negative for arthralgias, gait problem and myalgias. Skin: Negative for color change, pallor, rash and wound. Allergic/Immunologic: Negative for environmental allergies. Neurological: Negative for dizziness, tremors, syncope, facial asymmetry, speech difficulty, weakness, light-headedness, numbness and headaches. Hematological: Negative for adenopathy. Does not bruise/bleed easily. Psychiatric/Behavioral: Negative for agitation, behavioral problems, confusion, decreased concentration, dysphoric mood, hallucinations, self-injury, sleep disturbance and suicidal ideas. The patientis not nervous/anxious and is not hyperactive. PAST MEDICAL HISTORY Diagnosis Date Abdominal pain Abnormal Pap smear of cervix 09/2017 Epigastric pain IBS (irritable bowel syndrome) Migraine Strep pharyngitis PAST SURGICAL HISTORY Procedure Laterality Date EXTRACTION ERUPTED TOOTH/EXR Social History Tobacco Use Smoking status: Never Smokeless tobacco: Never Vaping Use Vaping Use: Never used Substance Use Topics Alcohol use: Never FAMILY HISTORY Problem Relation Age of Onset Heart disease Mother Hypertension Mother Diabetes Mother other (lymphoma) Mother Hypertension Maternal Grandmother Diabetes Maternal Grandmother other (lymphoma) Maternal Grandmother The ROS, medical, surgical, family, and social history were reviewed by Todd Romero II, MD ALLERGIES No Known Allergies Current Outpatient Medications Medication Sig PNV no.95/ferrous fum/folic ac ( ORAL) Take by mouth. No current facility-administered medications for this visit. OBJECTIVE BP 90/60 (BP Site: Left Arm, BP Position: Sitting) Pulse 88 Temp 36.5 C (97.7 F) Resp 12 Ht160 cm (5' 3) Wt 58.5 kg (129 lb) LMP 02/23/2020 SpO2 98% BMI 22.85 kg/m BMI 22.85 kg/(m^2) Physical Exam Vitals and nursing note reviewed. Constitutional: General: She is not in acute distress. Appearance: Normal appearance. She is not ill-appearing, toxic-appearing or diaphoretic. HENT: Head: Normocephalic and atraumatic. Right Ear: Tympanic membrane, ear canal and external ear normal. There is no impacted cerumen. Left Ear: Tympanic membrane, ear canal and external ear normal. There is no impacted cerumen. Nose: Nose normal. No congestion or rhinorrhea. Mouth/Throat: Mouth: Mucous membranes are moist. Pharynx: Oropharynx is clear. No oropharyngeal exudate or posterior oropharyngeal erythema. Eyes: General: No scleral icterus. Right eye: No discharge. Left eye: No discharge. Extraocular Movements: Extraocular movements intact. Conjunctiva/sclera: Conjunctivae normal. Pupils: Pupils are equal, round, and reactive to light. Neck: Vascular: No carotid bruit. Cardiovascular: Rate and Rhythm: Normal rate and regular rhythm. Pulses: Normal pulses. Heart sounds: Normal heart sounds. No murmur heard. No friction rub. No gallop. Pulmonary: Effort: Pulmonary effort is normal. No respiratory distress. Breath sounds: Normal breath sounds. No stridor. No wheezing, rhonchi or rales. Chest: Chest wall: No tenderness. Abdominal: General: Abdomen is flat. Bowel sounds are normal. There is no distension. Palpations: Abdomen is soft. There is no mass. Tenderness: There is no abdominal tenderness. There is no right CVA tenderness, left CVA tenderness, guarding or rebound. Hernia: No hernia is present. Musculoskeletal: General: No signs of injury. Cervical back: Normal range of motion and neck supple. No rigidity or tenderness. Comments: ROM and strength without significant changes from previous examinations and consistent with patient history Lymphadenopathy: Cervical: No cervical adenopathy. Skin: General: Skin is warm and dry. Capillary Refill: Capillary refill takes less than 2 seconds. Coloration: Skin is not jaundiced or pale. Findings: No erythema, lesion or rash. Neurological: General: No focal deficit present. Mental Status: She is alert and oriented to person, place, and time. Mental status is at baseline. Cranial Nerves: No cranial nerve deficit. Sensory: No sensory deficit. Motor: No weakness. Coordination: Coordination normal. Gait: Gait normal. Deep Tendon Reflexes: Reflexes normal. Psychiatric: Mood and Affect: Mood normal. Behavior: Behavior normal. Thought Content: Thought content normal. Judgment: Judgment normal. Labs: Hemoglobin (g/dL) Date Value 07/01/2021 12.8 Hematocrit (%) Date Value 07/01/2021 39.3 WBC (x10(3)) Date Value 07/01/2021 5.7 Platelet Count (X10(3)) Date Value 07/01/2021 268 Creatinine Date Value Ref Range Status 02/27/2021 0.76 0.50 - 0.90 mg/dL Final AST Date Value Ref Range Status 03/18/2018 17 5 - 32 U/L Final ALT Date Value Ref Range Status 03/18/2018 9 5 - 33 U/L Final Bilirubin, Total (mg/dL) Date Value 03/18/2018 0.2 WBC (x10(3)) Date Value 07/01/2021 5.7 RBC (x10(6)) Date Value 07/01/2021 4.27 %DIG,%DBS Plan ASSESSMENT/PLAN: 1. Routine physical examination - ICD9: V70.0, ICD10: Z00.00 - Counseled on healthy diet and regular exercise - Recommend vitamin containing 0.4 mg of folic acid - Calcium intake with supplements or by diet of 1000 mg/day for under 50, 1200- 1500 mg/day for 50+ - I attached health maintenance recommendations to the patient's discharge instructions. She can get her immunizations at the local pharmacy with a prescription if needed, and can call us, if it is decided to do the testing, for appropriate orders. Todd Romero II, MD Follow up: No follow-ups on file. Todd Romero II, M.D. documented in this encounterMer[facility]11[facility]23 History of Present illness Narrative* Rica Portillo RT(R) - 03/20/2023 8:15 AM EDT Radiology Service Progress Note PATIENT NAME: Nora Cameron DATE OF SERVICE: March 20, 2023 TIME: 8:55 AM PATIENT IDENTITY VERIFICATION COMPLETED USING TWO (2) IDENTIFIERS: Name and Date of confirmedby patient verbally. FALL SCREENING: Has the patient had 2 falls in the last year or 1 fall with injury or currently using an Ambulatory Assistive Device (Walker, Cane, Wheelchair, Crutches, etc.)? No PATIENT GENDER DATA: Female. status: : No status: NO. PATIENT RELEVANT IMPLANT DATA REVIEWED: Not Applicable RADIOLOGY DEPARTMENT: General X-ray: Exam(s) Completed: Spine X-Ray(s): Cervical AP / LAT , Thoracic ap/lat, lumbar ap/lateral PERIPHERAL IV DATA: Not applicable SIGNED BY: RT Nay(R) March 20, 2023 8:55 AM documented in this encounterMercy [facility]10-31-2022 Miscellaneous Notes* Telephone Encounter - Kathi Diaz MA - 03/17/2022 10:16 AM EDT Pharmacy faxed requesting the following refill Refill(s) Requested: Requested Prescriptions Pending Prescriptions Disp Refills diphenoxylate-atropine (LOMOTIL) 2.5-0.025 mg per tablet [Pharmacy Med Name: diphenoxylate-atropine2.5 mg-0.025 mg tablet] 10 tablet 0 Sig: TAKE 1 TABLET BY MOUTH FOUR TIMES DAILY NEEDED ALLERGIES No Known Allergies (home) [phone] (cell) Last Office Visit Date: 09/05/2021 Last [facility] Visit: Visit date not found Future Appointment: Visit date not found The patients preferred pharmacy has been captured for this encounter? yes Request is for script(s) to be escript to pharmacy. Kathi Diaz MA documented in this encounterMer[facility]07-15-2022 Miscellaneous Notes* Telephone Encounter - Casie Lubin MA - 11/29/2021 9:25 AM EDT Pharmacy faxed requesting the following refill Refill(s) Requested: Pending Prescriptions Disp Refills DIPHENOXYLATE-ATROPINE 2.5 MG-0.025 MG TABLET 10 tablet 0 Sig: TAKE 1 TABLET BY MOUTH FOUR TIMES DAILY NEEDED CHARIS Class: C-V ARPIT: Yes ALLERGIES No Known Allergies (home) [phone] (cell) Last Office Visit Date: 09/05/2021 Last [facility] Visit: Visit date not found Future Appointment: Visit date not found The patients preferred pharmacy has been captured for this encounter? yes Request is for script(s) to be escript to pharmacy. Casie Lubin MA refill documented in this encounterMer[facility]05-01-2022 NoteHNO ID: [id number] Author: Todd Romero II, MD Service: ? Author Type: Physician Type: Progress Notes Filed: 09/15/2021 8:23 PM Note Text: Todd Romero II, MD [address], [place] [address] SUBJECTIVE Nora Cameron is a 31 year old female who presents with Rx Refills. HPI Patient is in today to follow-up migraine headache and gastrointestinal issues. She states she is actually feeling fairly well and she feels a lot of the issues she had before was stress related. She would like to have as needed medications to use if symptoms occur intermittently but she does not feel like she needs to take anything every day Review of Systems Constitutional: Negative for activity change, appetite change, chills, diaphoresis, fatigue, fever and unexpected weight change. HENT: Negative for congestion, dental problem, ear pain, hearing loss, nosebleeds, postnasal drip, rhinorrhea, sinus pressure, sinus pain, sore throat, trouble swallowing and voice change. Eyes: Negative for discharge, redness and visual disturbance. Respiratory: Negative for apnea, cough, choking, chest tightness, shortness of breath, wheezing and stridor. Cardiovascular: Negative for chest pain, palpitations and leg swelling. Gastrointestinal: Negative for abdominal distention, abdominal pain, blood in stool, constipation, diarrhea, nausea and vomiting. Endocrine: Negative for cold intolerance, heat intolerance, polydipsia, polyphagia and polyuria. Genitourinary: Negative for decreased urine volume, difficulty urinating, dysuria, enuresis, frequency, hematuria and urgency. Musculoskeletal: Negative for arthralgias, gait problem and myalgias. Skin: Negative for color change, pallor, rash and wound. Allergic/Immunologic: Negative for environmental allergies. Neurological: Negative for dizziness, tremors, syncope, facial asymmetry, speech difficulty, weakness, light-headedness, numbness and headaches. Hematological: Negative for adenopathy. Does not bruise/bleed easily. Psychiatric/Behavioral: Negative for agitation, behavioral problems, confusion, decreased concentration, dysphoric mood, hallucinations, self-injury, sleep disturbance and suicidal ideas. The patient is not nervous/anxious and is not hyperactive. PAST MEDICAL HISTORY Diagnosis Date - Abdominal pain - Abnormal Pap smear of cervix 09/2017 - Epigastric pain - IBS (irritable bowel syndrome) - Migraine - Strep pharyngitis PAST SURGICAL HISTORY Procedure Laterality Date - EXTRACTION ERUPTED TOOTH/EXR Social History Tobacco Use - Smoking status: Never Smoker - Smokeless tobacco: Never Used Vaping Use - Vaping Use: Never used Substance Use Topics - Alcohol use: Never - Drug use: Not on file FAMILY HISTORY Problem Relation Age of Onset - Hypertension Mother - Diabetes Mother - other (lymphoma) Mother - Hypertension Maternal Grandmother - Diabetes Maternal Grandmother - other (lymphoma) Maternal Grandmother The ROS, medical, surgical, family, and social history were reviewed by Todd Romero II, MD ALLERGIES No Known Allergies Current Outpatient Medications Medication Sig - diphenoxylate-atropine (LOMOTIL) 2.5-0.025 mg per tablet Take 1 tablet by mouth four times daily as needed for up to 90 days. - hydrOXYzine HCl (ATARAX) 25 mg tablet Take 0.5 tablets by mouth three times daily as needed for anxiety (for itching). No current facility-administered medications for this visit. OBJECTIVE BP 98/64 (BP Site: Left Arm, BP Position: Sitting) Pulse 80 Temp 37.4 ?C (99.3 ?F) Resp 16 Ht 5' 3 (1.6 m) Wt 118 lb (53.5 kg) LMP 02/23/2020 SpO2 99% BMI 20.90 kg/m? BMI 20.90 kg/(m2) Physical Exam Vitals and nursing note reviewed. Constitutional: General: She is not in acute distress. Appearance: Normal appearance. She is not ill-appearing, toxic-appearing or diaphoretic. HENT: Head: Normocephalic and atraumatic. Right Ear: Tympanic membrane, ear canal and external ear normal. There is no impacted cerumen. Left Ear: Tympanic membrane, ear canal and external ear normal. There is no impacted cerumen. Nose: Nose normal. No congestion or rhinorrhea. Mouth/Throat: Mouth: Mucous membranes are moist. Pharynx: Oropharynx is clear. No oropharyngeal exudate or posterior oropharyngeal erythema. Eyes: General: No scleral icterus. Right eye: No discharge. Left eye: No discharge. Extraocular Movements: Extraocular movements intact. Conjunctiva/sclera: Conjunctivae normal. Pupils: Pupils are equal, round, and reactive to light. Neck: Vascular: No carotid bruit. Cardiovascular: Rate and Rhythm: Normal rate and regular rhythm. Pulses: Normal pulses. Heart sounds: Normal heart sounds. No murmur heard. No friction rub. No gallop. Pulmonary: Effort: Pulmonary effort is normal. No respiratory distress. Breath sounds: Normal breat (more content not included)...[facility]05-01-2022 History of Present illness Narrative* Todd Romero II, MD - 09/15/2021 8:21 PM EDT Images from the original note were not included. Todd Romero II, MD [address], [address] [place] [id number] SUBJECTIVE Nora Cameron is a 31 year old female who presents with Rx Refills. HPI Patient is in today to follow-up migraine headache and gastrointestinal issues. She states she is actually feeling fairly well and she feels a lot of the issues she had before was stress related. Shewould like to have as needed medications to use if symptoms occur intermittently but she does not feel like she needs to take anything every day Review of Systems Constitutional: Negative for activity change, appetite change, chills, diaphoresis, fatigue, fever and unexpected weight change. HENT: Negative for congestion, dental problem, ear pain, hearing loss, nosebleeds, postnasal drip, rhinorrhea, sinus pressure, sinus pain, sore throat, trouble swallowing and voice change. Eyes: Negative for discharge, redness and visual disturbance. Respiratory: Negative for apnea, cough, choking, chest tightness, shortness of breath, wheezing andstridor. Cardiovascular: Negative for chest pain, palpitations and leg swelling. Gastrointestinal: Negative for abdominal distention, abdominal pain, blood in stool, constipation, diarrhea, nausea and vomiting. Endocrine: Negative for cold intolerance, heat intolerance, polydipsia, polyphagia and polyuria. Genitourinary: Negative for decreased urine volume, difficulty urinating, dysuria, enuresis, frequency, hematuria and urgency. Musculoskeletal: Negative for arthralgias, gait problem and myalgias. Skin: Negative for color change, pallor, rash and wound. Allergic/Immunologic: Negative for environmental allergies. Neurological: Negative for dizziness, tremors, syncope, facial asymmetry, speech difficulty, weakness, light-headedness, numbness and headaches. Hematological: Negative for adenopathy. Does not bruise/bleed easily. Psychiatric/Behavioral: Negative for agitation, behavioral problems, confusion, decreased concentration, dysphoric mood, hallucinations, self-injury, sleep disturbance and suicidal ideas. The patientis not nervous/anxious and is not hyperactive. PAST MEDICAL HISTORY Diagnosis Date Abdominal pain Abnormal Pap smear of cervix 09/2017 Epigastric pain IBS (irritable bowel syndrome) Migraine Strep pharyngitis PAST SURGICAL HISTORY Procedure Laterality Date EXTRACTION ERUPTED TOOTH/EXR Social History Tobacco Use Smoking status: Never Smoker Smokeless tobacco: Never Used Vaping Use Vaping Use: Never used Substance Use Topics Alcohol use: Never Drug use: Not on file FAMILY HISTORY Problem Relation Age of Onset Hypertension Mother Diabetes Mother other (lymphoma) Mother Hypertension Maternal Grandmother Diabetes Maternal Grandmother other (lymphoma) Maternal Grandmother The ROS, medical, surgical, family, and social history were reviewed by Todd Romero II, MD ALLERGIES No Known Allergies Current Outpatient Medications Medication Sig diphenoxylate-atropine (LOMOTIL) 2.5-0.025 mg per tablet Take 1 tablet by mouth four times daily asneeded for up to 90 days. hydrOXYzine HCl (ATARAX) 25 mg tablet Take 0.5 tablets by mouth three times daily as needed for anxiety (for itching). No current facility-administered medications for this visit. OBJECTIVE BP 98/64 (BP Site: Left Arm, BP Position: Sitting) Pulse 80 Temp 37.4 C (99.3 F) Resp 16 Ht5' 3 (1.6 m) Wt 118 lb (53.5 kg) LMP 02/23/2020 SpO2 99% BMI 20.90 kg/m BMI 20.90 kg/(m^2) Physical Exam Vitals and nursing note reviewed. Constitutional: General: She is not in acute distress. Appearance: Normal appearance. She is not ill-appearing, toxic-appearing or diaphoretic. HENT: Head: Normocephalic and atraumatic. Right Ear: Tympanic membrane, ear canal and external ear normal. There is no impacted cerumen. Left Ear: Tympanic membrane, ear canal and external ear normal. There is no impacted cerumen. Nose: Nose normal. No congestion or rhinorrhea. Mouth/Throat: Mouth: Mucous membranes are moist. Pharynx: Oropharynx is clear. No oropharyngeal exudate or posterior oropharyngeal erythema. Eyes: General: No scleral icterus. Right eye: No discharge. Left eye: No discharge. Extraocular Movements: Extraocular movements intact. Conjunctiva/sclera: Conjunctivae normal. Pupils: Pupils are equal, round, and reactive to light. Neck: Vascular: No carotid bruit. Cardiovascular: Rate and Rhythm: Normal rate and regular rhythm. Pulses: Normal pulses. Heart sounds: Normal heart sounds. No murmur heard. No friction rub. No gallop. Pulmonary: Effort: Pulmonary effort is normal. No respiratory distress. Breath sounds: Normal breath sounds. No stridor. No wheezing, rhonchi or rales. Chest: Chest wall: No tenderness. Abdominal: General: Abdomen is flat. Bowel sounds are normal. There is no distension. Palpations: Abdomen is soft. There is no mass. Tenderness: There is no abdominal tenderness. There is no right CVA tenderness, left CVA tenderness, guarding or rebound. Hernia: No hernia is present. Musculoskeletal: General: No signs of injury. Cervical back: Normal range of motion and neck supple. No rigidity or tenderness. Comments: ROM and strength without significant changes from previous examinations and consistent with patient history Lymphadenopathy: Cervical: No cervical adenopathy. Skin: General: Skin is warm and dry. Capillary Refill: Capillary refill takes less than 2 seconds. Coloration: Skin is not jaundiced or pale. Findings: No erythema, lesion or rash. Neurological: General: No focal deficit present. Mental Status: She is alert and oriented to person, place, and time. Mental status is at baseline. Cranial Nerves: No cranial nerve deficit. Sensory: No sensory deficit. Motor: No weakness. Coordination: Coordination normal. Gait: Gait normal. Deep Tendon Reflexes: Reflexes normal. Psychiatric: Mood and Affect: Mood normal. Behavior: Behavior normal. Thought Content: Thought content normal. Judgment: Judgment normal. Labs: Hemoglobin (g/dL) Date Value 07/01/2021 12.8 Hematocrit (%) Date Value 07/01/2021 39.3 WBC (x10(3)) Date Value 07/01/2021 5.7 Platelet Count (X10(3)) Date Value 07/01/2021 268 Creatinine Date Value Ref Range Status 02/27/2021 0.76 0.50 - 0.90 mg/dL Final AST Date Value Ref Range Status 03/18/2018 17 5 - 32 U/L Final ALT Date Value Ref Range Status 03/18/2018 9 5 - 33 U/L Final Bilirubin, Total (mg/dL) Date Value 03/18/2018 0.2 WBC (x10(3)) Date Value 07/01/2021 5.7 RBC (x10(6)) Date Value 07/01/2021 4.27 %DIG,%DBS Plan ASSESSMENT/PLAN: 1. Migraine without aura and without status migrainosus, not intractable - ICD9: 346.10, ICD10: G43.009 (primary diagnosis) Clinically stable. Continue same medication and treatment. Follow up in 3 to 6 months or sooner if needed. 2. DARVIN (generalized anxiety disorder) - ICD9: 300.02, ICD10: F41.1 Clinically stable. Continue same medication and treatment. Follow up in 3 to 6 months or sooner if needed. - HYDROXYZINE HCL 25 MG TABLET 3. Irritable bowel syndrome with diarrhea - ICD9: 564.1, ICD10: K58.0 Clinically stable. Continue same medication and treatment. Follow up in 3 to 6 months or sooner if needed. 4. Diarrhea, unspecified type - ICD9: 787.91, ICD10: R19.7 As needed medication. If symptoms worsen, increase in severity or frequency she is going to call usand we will evaluate further and give her further recommendations. - DIPHENOXYLATE-ATROPINE 2.5 MG-0.025 MG TABLET PDMP website checked and validated. All prescriptions have been APPROPRIATELY filled. No suspiciousactivity was identified. 09/15/2021 by MD Todd Rivera II, II, MD Follow up: Return in about 6 months (around 03/07/2022). Todd Romero II, M.D. [facility] Instructions* Patient Instructions* Todd Romero II, MD - 09/05/2021 10:49 AM EDT Please consider having the following Health Maintenance testing completed: DTAP,TDAP,TD(4 - Tdap) If your testing is not done at a [facility] facility please provide this office with the results of your testing. documented in [facility]2022 Miscellaneous Notes* Telephone Encounter - Casie Lubin MA - 08/29/2021 2:53 PM EDT Patient called requesting the following refill Refill(s) Requested: Pending Prescriptions Disp Refills DIPHENOXYLATE-ATROPINE 2.5 MG-0.025 MG TABLET 10 tablet 0 CHARIS Class: C-V ARPIT: No ALLERGIES No Known Allergies (home) [phone] (cell) Last Office Visit Date: 11/13/2020 Last Distance Health Visit: Visit date not found Future Appointment: Visit date not found The patients preferred pharmacy has been captured for this encounter? yes Request is for script(s) to be escript to pharmacy. Casie Lubin MA refill [facility] Miscellaneous Notes* Telephone Encounter - Karey Atkins MA - 08/28/2021 11:08 AM EDT Pharmacy faxed requesting the following refill Refill(s) Requested: Pending Prescriptions Disp Refills DIPHENOXYLATE-ATROPINE 2.5 MG-0.025 MG TABLET 10 tablet 0 Sig: TAKE 1 TABLET BY MOUTH FOUR TIMES DAILY NEEDED FOR DIARRHEA for up to TEN doses CHARIS Class: C-V ARPIT: Yes ALLERGIES No Known Allergies (home) [phone] (cell) Last Office Visit Date: 11/13/2020 Last Distance Health Visit: Visit date not found Future Appointment: Visit date not found The patients preferred pharmacy has been captured for this encounter? yes Request is for script(s) to be escript to pharmacy. Karey Atkins MA documented in this [facility] NoteHNO ID: [id number] Author: Todd Romero II, MD Service: ? Author Type: Physician Type: Progress Notes Filed: 11/19/2020 8:14 PM Note Text: Todd Romero II, MD [address], [place] [address] SUBJECTIVE Nora Cameron is a 30 year old female who presents with [facility] Care. HPI Patient is in today to get reestablished and to discuss anxiety. 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 She states that occasionally she has episodes where she will have anxiety, nausea and diarrhea. She states it is not all the time and is usually not more than a couple of times a week. She would like to try something as needed however to prevent her from having to miss out of work. Review of Systems Constitutional: Negative for chills, diaphoresis, fever, malaise/fatigue and weight loss. HENT: Negative for congestion, ear discharge, ear pain, nosebleeds, sinus pain and sore throat. Eyes: Negative for blurred vision. Respiratory: Negative for cough, hemoptysis, sputum production, shortness of breath, wheezing and stridor. Cardiovascular: Negative for chest pain, palpitations, orthopnea, claudication, leg swelling and PND. Gastrointestinal: Positive for diarrhea and nausea. Negative for abdominal pain, blood in stool, constipation, heartburn, melena and vomiting. Genitourinary: Negative for dysuria, flank pain, frequency, hematuria and urgency. Musculoskeletal: Negative for falls, joint pain and myalgias. Skin: Negative for itching and rash. Neurological: Negative for dizziness and headaches. Endo/Heme/Allergies: Negative for polydipsia. Does not bruise/bleed easily. Psychiatric/Behavioral: Negative for depression, hallucinations, memory loss, substance abuse and suicidal ideas. The patient is nervous/anxious. The patient does not have insomnia. PAST MEDICAL HISTORY Diagnosis Date - Abdominal pain - Abnormal Pap smear of cervix 09/2017 - Epigastric pain - IBS (irritable bowel syndrome) - Migraine - Strep pharyngitis PAST SURGICAL HISTORY Procedure Laterality Date - EXTRACTION ERUPTED TOOTH/EXR Social History Tobacco Use - Smoking status: Never Smoker - Smokeless tobacco: Never Used Vaping Use - Vaping Use: Never used Substance Use Topics - Alcohol use: Never - Drug use: Not on file FAMILY HISTORY Problem Relation Age of Onset - Hypertension Mother - Diabetes Mother - other (lymphoma) Mother - Hypertension Maternal Grandmother - Diabetes Maternal Grandmother - other (lymphoma) Maternal Grandmother The ROS, medical, surgical, family, and social history were reviewed by Todd Romero II, MD ALLERGIES No Known Allergies Current Outpatient Medications Medication Sig - hydrOXYzine HCl (ATARAX) 25 mg tablet Take 0.5 tablets by mouth three times daily as needed for anxiety (for itching). - diphenoxylate-atropine (LOMOTIL) 2.5-0.025 mg per tablet Take 1 tablet by mouth four times daily as needed for diarrhea for up to 10 doses. No current facility-administered medications for this visit. OBJECTIVE BP 100/62 (BP Site: Left Arm, BP Position: Sitting) Pulse 90 Resp 16 Ht 5' 3 (1.6 m) Wt 112 lb (50.8 kg) LMP 02/23/2020 SpO2 98% BMI 19.84 kg/m? BMI 19.84 kg/(m2) Physical Exam Vitals and nursing note reviewed. Constitutional: General: She is not in acute distress. Appearance: Normal appearance. She is normal weight. She is not ill-appearing, toxic-appearing or diaphoretic. HENT: Head: Normocephalic and atraumatic. Right Ear: Tympanic membrane, ear canal and external ear normal. Left Ear: Tympanic membrane, ear canal and external ear normal. Nose: Nose normal. Mouth/Throat: Mouth: Mucous membranes are moist. Pharynx: Oropharynx is clear. No oropharyngeal exudate or posterior oropharyngeal erythema. Eyes: General: Lids are normal. Vision grossly intact. No scleral icterus. Right eye: No discharge. Left eye: No discharge. Conjunctiva/sclera: Conjunctivae normal. Pupils: Pupils are equal, round, and reactive to light. Neck: Thyroid: No thyroid mass, thyromegaly or thyroid tenderness. Vascular: No carotid bruit or JVD. Trachea: No tracheal deviation. Cardiovascular: Rate and Rhythm: Normal rate and regular rhythm. Pulses: Normal pulses. Heart sounds: Normal heart sounds. No murmur heard. No friction rub. No gallop. Pulmonary: Effort: Pulmonary effort is normal. No tachypnea, accessory muscle usage, respiratory distress or retractions. Breath sounds: Normal breath sounds. No stridor. No wheezing, rhonchi or rales. Abdominal: General: Abdomen is flat. Bowel sounds are normal. There is no distension. Palpations: Abdomen is soft. There is no mass. Tenderness: There is no abdominal tenderness. There is no guarding or rebound. Musc (more content not included)...[facility] No data available for this section [facility] Evaluation note* Diagnosis Diarrhea, unspecified type [facility]* Diagnosis Migraine without aura and without status migrainosus, not intractable- Primary Migraine without aura, without mention of intractable migraine without mention of status migrainosus DARVIN (generalized anxiety disorder) Generalized anxiety disorder Irritable bowel syndrome with diarrhea Irritable bowel syndrome Diarrhea, unspecified type [facility]* Diagnosis Diarrhea, unspecified type [facility]* Diagnosis Diarrhea, unspecified type documented in this encounter [facility] note* Diagnosis Onset Date Resolution Status History of miscarriage, currently acute acute Supervision of high risk , antepartum acute Incomplete acute [facility] Work Phone: Evaluation note* Diagnosis Onset Date Resolution Status History of miscarriage, currently acute acute Supervision of high risk , antepartum acute Incomplete acute History of recurrent miscarriages acute [facility] Work Phone: evaluation note* Diagnosis Diarrhea, unspecified type documented in this encounter [facility] note* Diagnosis Routine physical examination- Primary Routine general medical examination at a health care facility [facility]* Diagnosis Viral URI- Primary Acute upper respiratory infections of unspecified site documented in this encounter [facility] Discharge instructions No data available for this section [facility] Provqess note No data available for this section [facility] progress note Author Vaibhav Hale [facility] Note Date/Time November 03, 2024 11:4 5am [facility] [address], [address] [place] [address] OFFICE VISIT Date of Service: 11/03/24 MR#: [id number] Acct: [id number] Name: NORA CAMERON Rep #: [id number] : 1990 Provider: ANGELA Hale Age/Sex: 34/F Location: [facility] [place] Status: Signed Intake Vital Signs 08/22/24 08:29 10/18/24 11:09 11/03/24 11:04 11/03/24 11:04 Height 5 ft 3 in 5 ft 3 in 5 ft 3 in 5 ft 3 in Weight: 141 lb 6 oz BMI 25.0 BP 111/70 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 Is patient in pain?: No Allergies No Known Allergies Allergy (Verified 11/03/24 11:03) Medications ?Medication ?Instructions ?Recorded ?Confirmed ?Type multivitamin no.47-iron fum 27 cap PO 05/23/22 5 History mg-folate no.1 1 mg-dha 300 mg capsule (PNV-DHA) cod liver oil 1 cap PO ONCE 04/27/2411/03 History thyroid support PO 04/27/24 11/03/24 History cholecalciferol (vitamin D3) 25 25 mcg PO ONCE 5 11/03/24 History mcg/drop (1,000 unit/drop) oral drops blood sugar diagnostic (Blood #120 ea 10/12/24 5 Rx Glucose Test strips) blood-glucose meter #1 ea 10/12/24 11/03/24 Rx lancets #200 ea 10/12/24 11/03/24 Rx Last Menstrual Period: 04/08/24 Zika: Zika virus screening: Negative : No PFSH PFSH Medical History Hx of abnormal cervical Pap smear Surgical History Spearfish teeth extracted History of colposcopy Family History Grandmother Colon cancer, Onset Age: 92 Paternal Mother Myocardial infarction, Onset Age: 64 2022 Grandfather Myocardial infarction Maternal Social History adopted: No household members: spouse housing: house current occupational status: employed current occupation: [employer] current occupational exposures/hazards: No pets and animals: No history of recent travel: No ([place], [place]) sexually active: Yes Smoking Status: Never smoker alcohol intake: former details: occasionally prior to substance use type: does not use well-balanced diet: daily or most days caffeine: No eating out: 1-3 times/week during the past year weight has: remained stable what type of physical activity do you participate in: walking and weight training frequency: 3-4 times per week duration: 30-45 minutes/day michael/gnosticism: Sabianist seatbelt use: always do you feel safe at home: Yes 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 Date Name GA/Weeks Outcome Route Bth Weight Gen Labor Lgth Anesthesia Del Locatn Provider FOB 02/26/21 miscarriage 5 1/2 weeks 07/06/21 miscarriage 8 1/2 weeks 06/05/22 miscarriage 9wks HPI 30wk ob Details: NORA CAMERON is a 34 year old who presents for routine OB visit. OB Visit TREVON Calculator Estimated Delivery Date Method Current WG Current Estimate 01/13/25 LMP (Certain) 29w 6d Other Estimates 01/10/25 Ultrasound #1 30w 2d Expected Delivery Route/Plan Labor Preferences- CB/BF classes: encouraged labor support person: Power labor intervention preferences: [] pain management options preferred: limited but epidural if requested cut cord/dad catch: yes : yes PP control planned: discussed discussed possible routes of delivery and associated risks: [] special requests: [] Specific Issue/Plans Covid status: [] Flu vaccine: [] Tdap vaccine: Rhogam: na LARC form signed: yes Problem list reviewed and updated with the most current plan of care details and appropriate orders placed. Relevant counseling for the gestational age provided. Continue routine care and follow up unless otherwise noted in visit notes/problem list details Initial Weight: 124 lb Date -?-?-?-?-?-?-?-?-?-?-?-?- EGA Weight BP Urine Prot -?-?-?-?-?-?-?-?-?-?-?-?- Glucose FHR FuHt Pres Dilation -?-?--?-?-?-?-?-?-?-?-?-?- Effaced St Visit Note 06/10/24 -?-?-?-?-?-?-?-?-?-?-?-?- 9w 0d 124 lb 4 oz (+4 oz) 122/80 -?-?-?-?-?-?-?-?-?-?-?-?- 182 -?-?-?-?-?-?-?-?-?-?-?-?- KW- CRL cons wit h dates. declines NIPT KW- CRL cons with dates. dec lines NIPT. would like some appts in [facility]. doing well today 07/07/24 -?-?-?-?-?-?-?-?-?-?-?-?- 12w 6d 124 lb 6 oz (+6 oz) 112/78 Negative -?-?-?-?-?-?-?-?-?-?-?-?- Negative 160 -?-?-?-?-?-?-?-?-?-?-?-?- KW- no vb/crampi ng. anatomy US ordered. NIPT requested. FHT and movement noted on handheld US 07/28/24 -?-?-?-?-?-?-?-?-?-?-?-?- 15w 6d 126 lb (+2 lb) 122/73 Negative -?-?-?-?-?-?-?-?-?-?-?-?- Negative 146 -?-?-?-?-?-?-?-?-?-?-?-?- JV- lots of ques tions answered today. no complaints. NIPT reviewed. low risk boy 08/22/24 -?-?-?-?-?-?-?-?-?-?-?-?- 19w 3d 129 lb 6 oz (+5 lb 6 oz) 100/64 Negative -?-?-?-?-?-?-?-?-?-?-?-?- Negative 156 -?-?-?-?-?-?-?-?-?-?-?-?- MH-No VB, LOF. G ood Fm. MFM US today 09/16/24 -?-?-?-?-?-?-?-?-?-?-?-?- 23w 0d 134 lb (+10 lb) 108/71 Negative -?-?-?-?-?-?-?-?-?-?-?-?- Negative 150 -?-?-?-?-?-?-?-?-?-?-?-?- SM- no vb lof go od fm no regular ctx 10/12/24 -?-?-?-?-?-?-?-?-?-?-?-?- 26w 5d 139 lb 8 oz (+15 lb 8 oz) 112/68 Negative -?-?-?-?-?-?-?-?-?-?-?-?- Negative 145 -?-?-?-?-?-?-?-?-?-?-?-?- MH-No Vb, LOF. G ood FM. 1 hr GCT today and is 190: GDM. Reviewed QID testing, supplies ordered, dietitian referral. Keep diet and glucose journal and bring each visit. 11/03/24 -?-?-?-?-?-?-?-?-?-?-?-?- 29w 6d 141 lb 6 oz (+17 lb 6 oz) 111/70 Negative -?-?-?-?-?-?-?-?-?-?-?-?- Negative 145 30 -?-?-?-?-?-?-?-?-?-?-?-?- KW- work in for [employer] blood sugars reviewed and normal. will start doing fasting and one PP daily. class next weekend. ACOG First Trimester First Trimester: Discussed Second Trimester Second Trimester: Signs and Symptoms of Labor, Selecting a care provider, Reproductive Life Planning & Contreception, Care Planning and Depression/Anxiety; Discussed Tobacco Cessation and Discussed Intimate Partner Violence Third Trimester Third Trimester: Pain Management Plans, Labor support person(s), Immediate Larc, Circumcision preference, Signs and Symptoms of Preeclampsia, Feeding No , [place] Education and Family Medical Leave or Disability Forms ROS Const Reports system reviewed and no additional complaints, except as documented Eyes Reports system reviewed and no additional complaints, except as documented ENT Reports system reviewed and no additional complaints, except as documented Card Reports system reviewed and no additional complaints, except as documented Resp Reports system reviewed and no additional complaints, except as documented GI Reports system reviewed and no additional complaints, except as documented, Denies nausea and Denies vomiting Reports system reviewed and no additional complaints, except as documented Musc Reports system reviewed and no additional complaints, except as documented Skin/Breast Reports system reviewed and no additional complaints, except as documented Neuro Yes system reviewed and no additional complaints, except as documented Psych Reports system reviewed and no additional complaints, except as documented Endo Reports system reviewed and no additional complaints, except as documented Waqas/Lymph Reports system reviewed and no additional complaints, except as documented Aller/Immun Reports system reviewed and no additional complaints, except as documented Exam Const General: cooperative, healthy appearing and no acute distress Orientation: alert, awake and oriented x3 Neck Neck: normal visual inspection and full ROM Resp Effort & Inspection: normal respiratory effort, able to speak in complete sentences and symmetric chest movement GI Inspection: normal to inspection Palpation: soft and other Other: gravid Skin General: no rashes or lesions noted Neuro General: patient alert, patient awake and patient oriented x3 Cognition: normal cognition Speech: speech normal Gait: normal gait Motor: muscle tone normal throughout Extrem General: normal to inspection and full ROM Psych Appearance: grossly normal Mental Status: mental status grossly normal Mood: congruent mood Affect: normal affect Speech and Movement: speech and movement normal Attitude: cooperative Thought Process: normal Thought Content: normal Judgment: judgment good Results POC Urinalysis 2 Dip (Clinic) Office Urine Glucose Negative Last Edit by Francia Wang on 11/03/24 11: 20 Office Urine Protein Negative Last Edit by Francia Wang on 11/03/24 11: 20 Coding Level of Care Code OB Routine Diagnoses Diet controlled gestational diabetes mellitus (GDM) in second trimester O24.410 Gestational diabetes mellitus control: diet-controlled Trimester: second trimester Anxiety F41.9 Supervision of high risk in second trimester O09.92 Trimester: second trimester 29 weeks gestation of Z3A.29 Weeks of gestation: 29 weeks Infertility History of recurrent miscarriages N96 Assessment and Plan Assessment and Plan (1) Gestational diabetes mellitus (GDM): Status: Acute Qualifiers: Gestational diabetes mellitus control: diet-controlled Trimester: second trimester Qualified Code(s): O24.410 - Gestational diabetes mellitus in , diet controlled Comment: QID testing, nutritional referral. Growth US at 36w (2) Anxiety: Status: Acute Comment: 5 yr ago, situational, hydroxyzine prn then. Stable now (3) Supervision of high-risk : Status: Acute Qualifiers: Trimester: second trimester Qualified Code(s): O09.92 - Supervision of high risk , unspecified, second trimester Comment: PRR, , TREVON 01/13/25, Power (4) : Status: Acute Qualifiers: Weeks of gestation: 29 weeks Qualified Code(s): Z3A.29 - 29 weeks gestation of Comment: NIPT low risk, gender male (5) Infertility: Status: Acute (6) History of recurrent miscarriages: Status: Acute Comment: nl APL X 3 Orders: Orders POC Urinalysis 2 Dip (Clinic) Today Plan Details Additional Comments: ACOG trimester education reviewed and updated. see problem list details for updated plan management information and see below for orders placed at this visit. GA appropriate handout given. 11/03/24 1145 <Electronically signed by Vaibhav sharma CNM> Date _ Vaibhav Hale CNM Cosigner Signature: Date (if applicable) CC: ~ [facility] Work Phone: Progress note Author Vaibhav Hale [facility] Note Date/Time November 17, 2024 12:00 pm [facility] [address], [address] [place] [address] OFFICE VISIT Date of Service: 11/17/24 MR#: [id number] Acct: [id number] Name: NORA CAMERON Rep #: [id number] : 1990 Provider: ANGELA Hale Age/Sex: 34/F Location: [facility] Status: Signed Intake Vital Signs 08/22/24 08:29 11/03/24 11:04 11/17/24 11:36 11/17/24 11:38 Height 5 ft 3 in 5 ft 3 in 5 ft 3 in 5 ft 3 in Weight: 142 lb 6 oz BMI 25.2 BP 112/74 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 Is patient in pain?: No Allergies No Known Allergies Allergy (Verified 11/17/24 11:36) Medications ?Medication ?Instructions ?Recorded ?Confirmed ?Type multivitamin no.47-iron fum 27 cap PO 05/23/22 5 History mg-folate no.1 1 mg-dha 300 mg capsule (PNV-DHA) cod liver oil 1 cap PO ONCE 04/27/2411/17 History thyroid support PO 12/11/24 07/03/25 History cholecalciferol (vitamin D3) 25 25 mcg PO ONCE 5 11/17/24 History mcg/drop (1,000 unit/drop) oral drops blood sugar diagnostic (Blood #120 ea 10/12/24 5 Rx Glucose Test strips) blood-glucose meter #1 ea 10/12/24 11/17/24 Rx lancets #200 ea 10/12/24 11/17/24 Rx Last Menstrual Period: 04/08/24 Zika: Zika virus screening: Negative : No PFSH PFSH Medical History Hx of abnormal cervical Pap smear Surgical History [place]ar[place] teeth extracted History of colposcopy Family History Grandmother Colon cancer, Onset Age: 92 Paternal Mother Myocardial infarction, Onset Age: 64 2022 Grandfather Myocardial infarction Maternal Social History adopted: No household members: spouse housing: house current occupational status: employed current occupation: [employer]- [employer] current occupational exposures/hazards: No pets and animals: No history of recent travel: No ([place], [place]) sexually active: Yes Smoking Status: Never smoker alcohol intake: former details: occasionally prior to substance use type: does not use well-balanced diet: daily or most days caffeine: No eating out: 1-3 times/week during the past year weight has: remained stable what type of physical activity do you participate in: walking and weight training frequency: 3-4 times per week duration: 30-45 minutes/day michael/gnosticism: Sabianist seatbelt use: always do you feel safe at home: Yes 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 Date Name GA/Weeks Outcome Route Bth Weight Infant Gen Labor Lgth Anesthesia Del Locatn Provider FOB 02/26/21 miscarriage 5 1/2 weeks 07/06/21 miscarriage 8 1/2 weeks 06/05/22 miscarriage 9wks HPI 32wk ob Details: NORA CAMERON is a 34 year old who presents for routine OB visit. OB Visit TREVON Calculator Estimated Delivery Date Method Current WG Current Estimate 01/13/25 LMP (Certain) 31w 6d Other Estimates 01/10/25 Ultrasound #1 32w 2d Expected Delivery Route/Plan Labor Preferences- CB/BF classes: encouraged labor support person: Power labor intervention preferences: [] pain management options preferred: limited but epidural if requested cut cord/dad catch: yes : yes PP control planned: discussed discussed possible routes of delivery and associated risks: [] special requests: [] Specific Issue/Plans Covid status: [] Flu vaccine: [] Tdap vaccine: Rhogam: na LARC form signed: yes Problem list reviewed and updated with the most current plan of care details and appropriate orders placed. Relevant counseling for the gestational age provided. Continue routine care and follow up unless otherwise noted in visit notes/problem list details Initial Weight: 124 lb Date -?-?-?-?-?-?-?-?-?-?-?-?- EGA Weight BP Urine Prot -?-?-?-?-?-?-?-?-?-?-?-?- Glucose FHR FuHt Pres Dilation -?-?--?-?-?-?-?-?-?-?-?-?- Effaced St Visit Note 06/10/24 -?-?-?-?-?-?-?-?-?-?-?-?- 9w 0d 124 lb 4 oz (+4 oz) 122/80 -?-?-?-?-?-?-?-?-?-?-?-?- 182 -?-?-?-?-?-?-?-?-?-?-?-?- KW- CRL cons wit h dates. declines NIPT KW- CRL cons with dates. dec lines NIPT. would like some appts in [facility]. doing well today 07/07/24 -?-?-?-?-?-?-?-?-?-?-?-?- 12w 6d 124 lb 6 oz (+6 oz) 112/78 Negative -?-?-?-?-?-?-?-?-?-?-?-?- Negative 160 -?-?-?-?-?-?-?-?-?-?-?-?- KW- no vb/crampi ng. anatomy US ordered. NIPT requested. FHT and movement noted on handheld US 07/28/24 -?-?-?-?-?-?-?-?-?-?-?-?- 15w 6d 126 lb (+2 lb) 122/73 Negative -?-?-?-?-?-?-?-?-?-?-?-?- Negative 146 -?-?-?-?-?-?-?-?-?-?-?-?- JV- lots of ques tions answered today. no complaints. NIPT reviewed. low risk boy 08/22/24 -?-?-?-?-?-?-?-?-?-?-?-?- 19w 3d 129 lb 6 oz (+5 lb 6 oz) 100/64 Negative -?-?-?-?-?-?-?-?-?-?-?-?- Negative 156 -?-?-?-?-?-?-?-?-?-?-?-?- MH-No VB, LOF. G ood Fm. MFM US today 09/16/24 -?-?-?-?-?-?-?-?-?-?-?-?- 23w 0d 134 lb (+10 lb) 108/71 Negative -?-?-?-?-?-?-?-?-?-?-?-?- Negative 150 -?-?-?-?-?-?-?-?-?-?-?-?- SM- no vb lof go od fm no regular ctx 10/12/24 -?-?-?-?-?-?-?-?-?-?-?-?- 26w 5d 139 lb 8 oz (+15 lb 8 oz) 112/68 Negative -?-?-?-?-?-?-?-?-?-?-?-?- Negative 145 -?-?-?-?-?-?-?-?-?-?-?-?- MH-No Vb, LOF. G ood FM. 1 hr GCT today and is 190: GDM. Reviewed QID testing, supplies ordered, dietitian referral. Keep diet and glucose journal and bring each visit. 11/03/24 -?-?-?-?-?-?-?-?-?-?-?-?- 29w 6d 141 lb 6 oz (+17 lb 6 oz) 111/70 Negative -?-?-?-?-?-?-?-?-?-?-?-?- Negative 145 30 -?-?-?-?-?-?-?-?-?-?-?-?- KW- work in for [employer]. blood sugars reviewed and normal. will start doing fasting and one PP daily. class next weekend. 11/17/24 -?-?-?-?-?-?-?-?-?-?-?-?- 31w 6d 142 lb 6 oz (+18 lb 6 oz) 112/74 Negative -?-?-?-?-?-?-?-?-?-?-?-?- Negative 135 32 -?-?-?-?-?-?-?-?-?-?-?-?- KW- no vb/lof/ct x. good fm. fasting numbers well limits. growth US ordered. ACOG First Trimester First Trimester: Discussed Second Trimester Second Trimester: Signs and Symptoms of Labor, Selecting a care provider, Reproductive Life Planning & Contreception, Care Planning and Depression/Anxiety; Discussed Tobacco Cessation and Discussed Intimate Partner Violence Third Trimester Third Trimester: Pain Management Plans, Labor support person(s), Immediate Larc, Circumcision preference, Signs and Symptoms of Preeclampsia, Infant Feeding No , [place] Education and Family Medical Leave or Disability Forms ROS Const Reports system reviewed and no additional complaints, except as documented Eyes Reports system reviewed and no additional complaints, except as documented ENT Reports system reviewed and no additional complaints, except as documented Card Reports system reviewed and no additional complaints, except as documented Resp Reports system reviewed and no additional complaints, except as documented GI Reports system reviewed and no additional complaints, except as documented, Denies nausea and Denies vomiting Reports system reviewed and no additional complaints, except as documented Musc Reports system reviewed and no additional complaints, except as documented Skin/Breast Reports system reviewed and no additional complaints, except as documented Neuro Yes system reviewed and no additional complaints, except as documented Psych Reports system reviewed and no additional complaints, except as documented Endo Reports system reviewed and no additional complaints, except as documented Waqas/Lymph Reports system reviewed and no additional complaints, except as documented Aller/Immun Reports system reviewed and no additional complaints, except as documented Exam Const General: cooperative, healthy appearing and no acute distress Orientation: alert, awake and oriented x3 Neck Neck: normal visual inspection and full ROM Resp Effort & Inspection: normal respiratory effort, able to speak in complete sentences and symmetric chest movement GI Inspection: normal to inspection Palpation: soft and other Other: gravid Skin General: no rashes or lesions noted Neuro General: patient alert, patient awake and patient oriented x3 Cognition: normal cognition Speech: speech normal Gait: normal gait Motor: muscle tone normal throughout Extrem General: normal to inspection and full ROM Psych Appearance: grossly normal Mental Status: mental status grossly normal Mood: congruent mood Affect: normal affect Speech and Movement: speech and movement normal Attitude: cooperative Thought Process: normal Thought Content: normal Judgment: judgment good Results POC Urinalysis 2 Dip (Clinic) Office Urine Glucose Negative Last Edit by Francia Wang on 11/17/24 11: 43 Office Urine Protein Negative Last Edit by Francia Wang on 11/17/24 11: 43 Coding Level of Care Code OB Routine Diagnoses Diet controlled gestational diabetes mellitus (GDM) in second trimester O24.410 Gestational diabetes mellitus control: diet-controlled Trimester: second trimester Anxiety F41.9 Supervision of high risk in second trimester O Trimester: second trimester 31 weeks gestation of Z3A.31 Weeks of gestation: 31 weeks Infertility History of recurrent miscarriages N96 Assessment and Plan Assessment and Plan (1) Gestational diabetes mellitus (GDM): Status: Acute Qualifiers: Gestational diabetes mellitus control: diet-controlled Trimester: second trimester Qualified Code(s): O24.410 - Gestational diabetes mellitus in , diet controlled Comment: QID testing, nutritional referral. Growth US at 36w (2) Anxiety: Status: Acute Comment: 5 yr ago, situational, hydroxyzine prn then. Stable now (3) Supervision of high-risk : Status: Acute Qualifiers: Trimester: second trimester Qualified Code(s): O09.92 - Supervision of high risk , unspecified, second trimester Comment: PRR, , TREVON 01/13/25, Power (4) : Status: Acute Qualifiers: Weeks of gestation: 31 weeks Qualified Code(s): Z3A.31 - 31 weeks gestation of Comment: NIPT low risk, gender male (5) Infertility: Status: Acute (6) History of recurrent miscarriages: Status: Acute Comment: nl APL X 3 Orders: Orders POC Urinalysis 2 Dip (Clinic) Today OB Limited With Biometrics 4 Weeks O09.92 - Supervision of high risk , unspecified, second trimester, O24.410 - Gestational diabetes mellitus in , diet controlled Plan Details Additional Comments: ACOG trimester education reviewed and updated. see problem list details for updated plan management information and see below for orders placed at this visit. [place] appropriate handout given. 11/17/24 1200 <Electronically signed by Vaibhav sharma CNM> Date _ Vaibhav Hale CNM Cosigner Signature: Date (if applicable) CC: ~ [facility] Work Phone: Progrqhu note Author Lindsay Song [facility] Note Date/Time December 29, 2024 6: 11pm [facility] Medical Records Department [address] [place] [address] OB Triage Progress Note 12/29/24 1811 MR#: [id number] Acct: [id number] Name: NORA CAMERON Rep #:[id number] : 1990 34 From: Lindsay eaton MD PCP: Dr. Todd Romero MD Status:REG CLI Y DOS: Location: [place] [address] Progress Notes Date of Service: 12/29/24 Progress Note: Patient presents for triage evaluation secondary to elevated bps FHT: 130 Moderate variability reactive no decelerations category I tracing [place]: no reuglar Contractions Assessment and plan: elevated blood pressures no gestational hypertension 37 weeks, labs WNL repeat bps WNL Reactive NST, reassuring maternal and status patient discharged to home to follow-up as paola. See problem list details for additional plan information. Laboratory Studies: Laboratory Tests 12/29/24 12/29/24 Range/Units 16:15 15:45 WBC 8.9 (4.4-11.0) K/mm3 RBC 3.72 L (4.2-5.4) M/mm3 Hgb 12.1 (12.0-15.0) g/dL Hct 34.6 L (37-47) % MCV 93.0 (81-99) fL MCH 32.5 H (27.0-32.0) pg MCHC 35.0 (32-36) g/dL RDW Std Deviation 44.6 H (35.1-43.9) fl RDW Coeff of Brit 13.1 (11.6-14.6) % Plt Count 233 (150-450) K/mm3 MPV 11.2 (6.2-12.0) fl Creatinine 0.77 (0.70-1.20) mg/dL Estim Creat Clear Calc 99.41 (50-250) ml/min Est GFR (MDRD) Non-Af 106 (>60) Uric Acid 4.5 (2.6-6.0) mg/dL AST 30 (<=31) U/L ALT 15 (<=34) U/L U Random Total Protein 9.7 (0.0-12.0) mg/dL Urine Creatinine 82.30 (28.00-217.00) mg/dL Protein/Creatinin Ratio 118 (0-200) mg/g CRE Charges/Coding Procedures Urinary/Genital 52xxx-59xxx: 12878-59 non-stress test Interp 12/29/24 1811 <Electronically signed by Lindsay gill MD> Date _ Lindsay Song MD Cosigner Signature (if applicable): Date CC: Dr. Todd Romero MD; Dr. Lindsay Song MD ~ Signed [facility] Work Phone: Reason for referral (narrative)No reason for referral information availablePinnacle [facility] Services Work Phone: Summary Purpose Family History No Family History Records Found Relationship Condition Age at Onset Recorded Date/T jac grandmother Malignant neoplasm of colon 92 Relationship Condition Age at Onset Recorded Date/T jac grandmother Malignant neoplasm of colon 92 mother Myocardial infarction 64 grandfather Myocardial infarction Unknown Advance Directives No Advanced Directives Records FoundNo Advanced Directives Records FoundNo Advanced Directives Records FoundNo Advanced Directives Records FoundNo Advanced Directives Records FoundNo Advanced Directives Records FoundNo Advanced Directives Records FoundNo Advanced Directives Records Found Chief Complaint and Reason for Visit Chief Complaint NOB LMP 04/02 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 Reason for Visit History of miscarria ge, currently Supervision of high risk , antepartum Incomplete Chief Complaint NOB LMP 04/02 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 follow up u/s E-ORDER Reason for Visit History of miscarria ge, currently Supervision of high risk , antepartum Incomplete History of recurrent miscarriages Chief Complaint Admit Date 13 wk ob July 07, 2024 7:27am 16 wk ob July 28, 2024 3:4 6pm 20WK OB August 22, 2024 8:27 am 23wk ob September 16, 2024 2:49pm 27wk ob/glucose October 12, 2024 10:13 am Reason for Visit Admit Date History of recurrent miscarriages Februa ry 2024 7:27am Infertility July 07, 2024 7:27am July 07, 2024 7:27am Supervision of high-risk Febru felipe 2024 7:27am Threatened July 07, 2024 7:27am Early stage of July 07, 2024 7:27am Screening for thyroid disorder July 07, 2024 7:27am History of recurrent miscarriages July 28, 2024 3:46pm Infertility July 28, 2024 3:4 6pm July 28, 2024 3:4 6pm Supervision of high-risk July 28, 2024 3:46pm Threatened July 28, 2024 3:4 6pm Early stage of July 28 3:46pm History of recurrent miscarriages August 22, 2024 8:27am Infertility August 22, 2024 8:27 am August 22, 2024 8:27 am Supervision of high-risk August 22, 2024 8:27am Threatened August 22, 2024 8:27 am History of recurrent miscarriages September d2024 2:49pm Infertility September 16, 2024 2:49pm September 16, 2024 2:49pm Supervision of high-risk September 162024 2:49pm Threatened September 16, 2024 2:49pm History of recurrent miscarriages October 122024 10:13am Infertility October 12, 2024 10:13 am October 12, 2024 10:13 am Supervision of high-risk September 162024 10:13am Reason for Visit Admit Date History of recurrent miscarriages Februa 2024 7:27am Infertility July 07, 2024 7:27am July 07, 2024 7:27am Supervision of high-risk Febru [email or web address] 7:27am Threatened July 07, 2024 7:27am Early stage of July 07, 2024 7:27am Screening for thyroid disorder July 07, 2024 7:27am History of recurrent miscarriages July 28, 2024 3:46pm Infertility July 28, 2024 3:4 6pm July 28, 2024 3:4 6pm Supervision of high-risk July 28, 2024 3:46pm Threatened July 28, 2024 3:4 6pm Early stage of July 28 3:46pm History of recurrent miscarriages August 22, 2024 8:27am Infertility August 22, 2024 8:27 am August 22, 2024 8:27 am Supervision of high-risk August 22, 2024 8:27am Threatened August 22, 2024 8:27 am History of recurrent miscarriages September 2:49pm Infertility September 16, 2024 2:49pm September 16, 2024 2:49pm Supervision of high-risk September 162024 2:49pm Threatened September 16, 2024 2:49pm Anxiety October 12, 2024 10:13 am Gestational diabetes mellitus (GDM) October 12, 2024 10:13am History of recurrent miscarriages October 122024 10:13am Infertility October 12, 2024 10:13 am October 12, 2024 10:13 am Supervision of high-risk September 162024 10:13am Chief Complaint Admit Date 13 wk ob July 07, 2024 7:27am 16 wk ob July 28, 2024 3:4 6pm 20WK OB August 22, 2024 8:27 am 23wk ob September 16, 2024 2:49pm 27wk ob/glucose October 12, 2024 10:13 am GDM October 18, 2024 10:19 am 30wk ob November 03, 2024 11:1 9am Reason for Visit Admit Date History of recurrent miscarriages Februa ry 2024 7:27am Infertility July 07, 2024 7:27am July 07, 2024 7:27am Supervision of high-risk Febru [email or web address] 7:27am Threatened July 07, 2024 7:27am Early stage of July 07, 2024 7:27am Screening for thyroid disorder July 07, 2024 7:27am History of recurrent miscarriages July 28, 2024 3:46pm Infertility July 28, 2024 3:4 6pm July 28, 2024 3:4 6pm Supervision of high-risk July 28, 2024 3:46pm Threatened July 28, 2024 3:4 6pm Early stage of July 28 3:46pm History of recurrent miscarriages August 22, 2024 8:27am Infertility August 22, 2024 8:27 am August 22, 2024 8:27 am Supervision of high-risk August 22, 2024 8:27am Threatened August 22, 2024 8:27 am History of recurrent miscarriages September 2:49pm Infertility September 16, 2024 2:49pm September 16, 2024 2:49pm Supervision of high-risk September 162024 2:49pm Threatened September 16, 2024 2:49pm Anxiety October 12, 2024 10:13 am Gestational diabetes mellitus (GDM) October 12, 2024 10:13am History of recurrent miscarriages October 122024 10:13am Infertility October 12, 2024 10:13 am October 12, 2024 10:13 am Supervision of high-risk September 162024 10:13am Anxiety November 03, 2024 11:1 9am Gestational diabetes mellitus (GDM) November 03, 2024 11:19am History of recurrent miscarriages October 162024 11:19am Infertility November 03, 2024 11:1 9am November 03, 2024 11:1 9am Supervision of high-risk November 03, 2024 11:19am Chief Complaint Admit Date 16 wk ob July 28, 2024 3:4 6pm 20WK OB August 22, 2024 8:27 am 23wk ob September 16, 2024 2:49pm 27wk ob/glucose October 12, 2024 10:13 am GDM October 18, 2024 10:19 am 30wk ob November 03, 2024 11:1 9am Reason for Visit Admit Date History of recurrent miscarriages July 28, 2024 3:46pm Infertility July 28, 2024 3:4 6pm July 28, 2024 3:4 6pm Supervision of high-risk July 28, 2024 3:46pm Threatened July 28, 2024 3:4 6pm Early stage of July 28 3:46pm History of recurrent miscarriages August 22, 2024 8:27am Infertility August 22, 2024 8:27 am August 22, 2024 8:27 am Supervision of high-risk August 22, 2024 8:27am Threatened August 22, 2024 8:27 am History of recurrent miscarriages September 2:49pm Infertility September 16, 2024 2:49pm September 16, 2024 2:49pm Supervision of high-risk September 162024 2:49pm Threatened September 16, 2024 2:49pm Anxiety October 12, 2024 10:13 am Gestational diabetes mellitus (GDM) October 12, 2024 10:13am History of recurrent miscarriages October 122024 10:13am Infertility October 12, 2024 10:13 am October 12, 2024 10:13 am Supervision of high-risk September 162024 10:13am Anxiety November 03, 2024 11:1 9am Gestational diabetes mellitus (GDM) November 03, 2024 11:19am History of recurrent miscarriages October 162024 11:19am Infertility November 03, 2024 11:1 9am November 03, 2024 11:1 9am Supervision of high-risk November 03, 2024 11:19am Chief Complaint Admit Date 16 wk ob July 28, 2024 3:4 6pm 20WK OB August 22, 2024 8:27 am 23wk ob September 16, 2024 2:49pm 27wk ob/glucose October 12, 2024 10:13 am GDM October 18, 2024 10:19 am 30wk ob November 03, 2024 11:1 9am 32wk ob November 17, 2024 11:30 am Reason for Visit Admit Date History of recurrent miscarriages July 28, 2024 3:46pm Infertility July 28, 2024 3:4 6pm July 28, 2024 3:4 6pm Supervision of high-risk July 28, 2024 3:46pm Threatened July 28, 2024 3:4 6pm Early stage of July 28 3:46pm History of recurrent miscarriages August 22, 2024 8:27am Infertility August 22, 2024 8:27 am August 22, 2024 8:27 am Supervision of high-risk August 22, 2024 8:27am Threatened August 22, 2024 8:27 am History of recurrent miscarriages September 2:49pm Infertility September 16, 2024 2:49pm September 16, 2024 2:49pm Supervision of high-risk September 162024 2:49pm Threatened September 16, 2024 2:49pm Anxiety October 12, 2024 10:13 am Gestational diabetes mellitus (GDM) October 12, 2024 10:13am History of recurrent miscarriages October 122024 10:13am Infertility October 12, 2024 10:13 am October 12, 2024 10:13 am Supervision of high-risk September 162024 10:13am Anxiety November 03, 2024 11:1 9am Gestational diabetes mellitus (GDM) November 03, 2024 11:19am History of recurrent miscarriages October 162024 11:19am Infertility November 03, 2024 11:1 9am November 03, 2024 11:1 9am Supervision of high-risk November 03, 2024 11:19am Anxiety November 17, 2024 11:30 am Gestational diabetes mellitus (GDM) November 17, 2024 11:30am History of recurrent miscarriages November 172024 11:30am Infertility November 17, 2024 11:30 am November 17, 2024 11:30 am Supervision of high-risk November 17, 2024 11:30am Chief Complaint Admit Date 20WK OB August 22, 2024 8:27 am 23wk ob September 16, 2024 2:49pm 27wk ob/glucose October 12, 2024 10:13 am GDM October 18, 2024 10:19 am 30wk ob November 03, 2024 11:1 9am 32wk ob November 17, 2024 11:30 am 34 wk ob December 01, 2024 2:27 pm Reason for Visit Admit Date History of recurrent miscarriages August 22, 2024 8:27am Infertility August 22, 2024 8:27 am August 22, 2024 8:27 am Supervision of high-risk August 22, 2024 8:27am Threatened August 22, 2024 8:27 am History of recurrent miscarriages September 2:49pm Infertility September 16, 2024 2:49pm September 16, 2024 2:49pm Supervision of high-risk September 162024 2:49pm Threatened September 16, 2024 2:49pm Anxiety October 12, 2024 10:13 am Gestational diabetes mellitus (GDM) October 12, 2024 10:13am History of recurrent miscarriages October 122024 10:13am Infertility October 12, 2024 10:13 am October 12, 2024 10:13 am Supervision of high-risk September 162024 10:13am Anxiety November 03, 2024 11:1 9am Gestational diabetes mellitus (GDM) November 03, 2024 11:19am History of recurrent miscarriages October 162024 11:19am Infertility November 03, 2024 11:1 9am November 03, 2024 11:1 9am Supervision of high-risk November 03, 2024 11:19am Anxiety November 17, 2024 11:30 am Gestational diabetes mellitus (GDM) November 17, 2024 11:30am History of recurrent miscarriages November 172024 11:30am Infertility November 17, 2024 11:30 am November 17, 2024 11:30 am Supervision of high-risk November 17, 2024 11:30am Anxiety December 01, 2024 2:27 pm Gestational diabetes mellitus (GDM) December 01, 2024 2:27pm History of recurrent miscarriages November 152024 2:27pm Infertility December 01, 2024 2:27 pm December 01, 2024 2:27 pm Supervision of high-risk December 01, 2024 2:27pm Chief Complaint Admit Date 20WK OB August 22, 2024 8:27 am 23wk ob September 16, 2024 2:49pm 27wk ob/glucose October 12, 2024 10:13 am GDM October 18, 2024 10:19 am 30wk ob November 03, 2024 11:1 9am 32wk ob November 17, 2024 11:30 am 34 wk ob December 01, 2024 2:27 pm gestational diabetes mellitus December 15, 2024 1:13pm 36 wk ob December 15, 2024 3:34 pm Reason for Visit Admit Date History of recurrent miscarriages August 22, 2024 8:27am August 22, 2024 8:27 am Supervision of high-risk August 22, 2024 8:27am Infertility August 22, 2024 8:27 am Threatened August 22, 2024 8:27 am History of recurrent miscarriages September 2:49pm September 16, 2024 2:49pm Supervision of high-risk September 162024 2:49pm Infertility September 16, 2024 2:49pm Threatened September 16, 2024 2:49pm Anxiety October 12, 2024 10:13 am Gestational diabetes mellitus (GDM) October 12, 2024 10:13am History of recurrent miscarriages October 122024 10:13am October 12, 2024 10:13 am Supervision of high-risk September 162024 10:13am Infertility October 12, 2024 10:13 am Anxiety November 03, 2024 11:1 9am Gestational diabetes mellitus (GDM) November 03, 2024 11:19am History of recurrent miscarriages October 162024 11:19am November 03, 2024 11:1 9am Supervision of high-risk November 03, 2024 11:19am Infertility November 03, 2024 11:1 9am Anxiety November 17, 2024 11:30 am Gestational diabetes mellitus (GDM) November 17, 2024 11:30am History of recurrent miscarriages November 172024 11:30am November 17, 2024 11:30 am Supervision of high-risk November 17, 2024 11:30am Infertility November 17, 2024 11:30 am Anxiety December 01, 2024 2:27 pm Gestational diabetes mellitus (GDM) December 01, 2024 2:27pm History of recurrent miscarriages November 152024 2:27pm December 01, 2024 2:27 pm Supervision of high-risk December 01, 2024 2:27pm Infertility December 01, 2024 2:27 pm Anxiety December 15, 2024 3:34 pm Gestational diabetes mellitus (GDM) December 15, 2024 3:34pm History of recurrent miscarriages November 172024 3:34pm December 15, 2024 3:34 pm Supervision of high-risk December 15, 2024 3:34pm Chief Complaint Admit Date 23wk ob September 16, 2024 2:49pm 27wk ob/glucose October 12, 2024 10:13 am GDM October 18, 2024 10:19 am 30wk ob November 03, 2024 11:1 9am 32wk ob November 17, 2024 11:30 am 34 wk ob December 01, 2024 2:27 pm gestational diabetes mellitus December 15, 2024 1:13pm 36 wk ob December 15, 2024 3:34 pm Reason for Visit Admit Date History of recurrent miscarriages May 2n d, 2025 2:49pm September 16, 2024 2:49pm Supervision of high-risk September 162024 2:49pm Infertility September 16, 2024 2:49pm Threatened September 16, 2024 2:49pm Anxiety October 12, 2024 10:13 am Gestational diabetes mellitus (GDM) October 12, 2024 10:13am History of recurrent miscarriages October 122024 10:13am October 12, 2024 10:13 am Supervision of high-risk September 162024 10:13am Infertility October 12, 2024 10:13 am Anxiety November 03, 2024 11:1 9am Gestational diabetes mellitus (GDM) November 03, 2024 11:19am History of recurrent miscarriages October 162024 11:19am November 03, 2024 11:1 9am Supervision of high-risk November 03, 2024 11:19am Infertility November 03, 2024 11:1 9am Anxiety November 17, 2024 11:30 am Gestational diabetes mellitus (GDM) November 17, 2024 11:30am History of recurrent miscarriages November 172024 11:30am November 17, 2024 11:30 am Supervision of high-risk November 17, 2024 11:30am Infertility November 17, 2024 11:30 am Anxiety December 01, 2024 2:27 pm Gestational diabetes mellitus (GDM) December 01, 2024 2:27pm History of recurrent miscarriages November 152024 2:27pm December 01, 2024 2:27 pm Supervision of high-risk December 01, 2024 2:27pm Infertility December 01, 2024 2:27 pm Anxiety December 15, 2024 3:34 pm Gestational diabetes mellitus (GDM) December 15, 2024 3:34pm History of recurrent miscarriages November 172024 3:34pm December 15, 2024 3:34 pm Supervision of high-risk December 15, 2024 3:34pm Chief Complaint Admit Date 23wk ob September 16, 2024 2:49pm 27wk ob/glucose October 12, 2024 10:13 am GDM October 18, 2024 10:19 am 30wk ob November 03, 2024 11:1 9am 32wk ob November 17, 2024 11:30 am 34 wk ob December 01, 2024 2:27 pm gestational diabetes mellitus December 15, 2024 1:13pm 36 wk ob December 15, 2024 3:34 pm 37wk ob December 23, 2024 2:0 3pm Reason for Visit Admit Date History of recurrent miscarriages September 2:49pm September 16, 2024 2:49pm Supervision of high-risk September 162024 2:49pm Infertility September 16, 2024 2:49pm Threatened September 16, 2024 2:49pm Anxiety October 12, 2024 10:13 am Gestational diabetes mellitus (GDM) October 12, 2024 10:13am History of recurrent miscarriages October 122024 10:13am October 12, 2024 10:13 am Supervision of high-risk September 162024 10:13am Infertility October 12, 2024 10:13 am Anxiety November 03, 2024 11:1 9am Gestational diabetes mellitus (GDM) November 03, 2024 11:19am History of recurrent miscarriages October 162024 11:19am November 03, 2024 11:1 9am Supervision of high-risk November 03, 2024 11:19am Infertility November 03, 2024 11:1 9am Anxiety November 17, 2024 11:30 am Gestational diabetes mellitus (GDM) November 17, 2024 11:30am History of recurrent miscarriages November 172024 11:30am November 17, 2024 11:30 am Supervision of high-risk November 17, 2024 11:30am Infertility November 17, 2024 11:30 am Anxiety December 01, 2024 2:27 pm Gestational diabetes mellitus (GDM) December 01, 2024 2:27pm History of recurrent miscarriages November 152024 2:27pm December 01, 2024 2:27 pm Supervision of high-risk December 01, 2024 2:27pm Infertility December 01, 2024 2:27 pm Anxiety December 15, 2024 3:34 pm Gestational diabetes mellitus (GDM) December 15, 2024 3:34pm History of recurrent miscarriages November 172024 3:34pm December 15, 2024 3:34 pm Supervision of high-risk December 15, 2024 3:34pm Anxiety December 23, 2024 2:0 3pm Gestational diabetes mellitus (GDM) Augu st 2024 2:03pm History of recurrent miscarriages December 23, 2024 2:03pm December 23, 2024 2:0 3pm Supervision of high-risk Augus t 2024 2:03pm Chief Complaint Admit Date 23wk ob September 16, 2024 2:49pm 27wk ob/glucose October 12, 2024 10:13 am GDM October 18, 2024 10:19 am 30wk ob November 03, 2024 11:1 9am 32wk ob November 17, 2024 11:30 am 34 wk ob December 01, 2024 2:27 pm gestational diabetes mellitus December 15, 2024 1:13pm 36 wk ob December 15, 2024 3:34 pm 37wk ob December 23, 2024 2:0 3pm 38wk ob December 29, 2024 1: 50pm Reason for Visit Admit Date History of recurrent miscarriages September 2:49pm September 16, 2024 2:49pm Supervision of high-risk September 162024 2:49pm Infertility September 16, 2024 2:49pm Threatened September 16, 2024 2:49pm Anxiety October 12, 2024 10:13 am Gestational diabetes mellitus (GDM) October 12, 2024 10:13am History of recurrent miscarriages October 122024 10:13am October 12, 2024 10:13 am Supervision of high-risk September 162024 10:13am Infertility October 12, 2024 10:13 am Anxiety November 03, 2024 11:1 9am Gestational diabetes mellitus (GDM) November 03, 2024 11:19am History of recurrent miscarriages October 162024 11:19am November 03, 2024 11:1 9am Supervision of high-risk November 03, 2024 11:19am Infertility November 03, 2024 11:1 9am Anxiety November 17, 2024 11:30 am Gestational diabetes mellitus (GDM) November 17, 2024 11:30am History of recurrent miscarriages November 172024 11:30am November 17, 2024 11:30 am Supervision of high-risk November 17, 2024 11:30am Infertility November 17, 2024 11:30 am Anxiety December 01, 2024 2:27 pm Gestational diabetes mellitus (GDM) December 01, 2024 2:27pm History of recurrent miscarriages November 152024 2:27pm December 01, 2024 2:27 pm Supervision of high-risk December 01, 2024 2:27pm Infertility December 01, 2024 2:27 pm Anxiety December 15, 2024 3:34 pm Gestational diabetes mellitus (GDM) December 15, 2024 3:34pm History of recurrent miscarriages November 172024 3:34pm December 15, 2024 3:34 pm Supervision of high-risk December 15, 2024 3:34pm Anxiety December 23, 2024 2:0 3pm Gestational diabetes mellitus (GDM) Decu 2024 2:03pm History of recurrent miscarriages December 23, 2024 2:03pm December 23, 2024 2:0 3pm Supervision of high-risk Augus t 2024 2:03pm Anxiety December 29, 2024 1: 50pm Gestational diabetes mellitus (GDM) Augu st 2024 1:50pm History of recurrent miscarriages December 29, 2024 1:50pm December 29, 2024 1: 50pm Supervision of high-risk Augus t 2024 1:50pm Chief Complaint Admit Date wk ob September 16, 2024 2:49pm 27wk ob/glucose October 12, 2024 10:13 am GDM October 18, 2024 10:19 am 30wk ob November 03, 2024 11:1 9am 32wk ob November 17, 2024 11:30 am 34 wk ob December 01, 2024 2:27 pm gestational diabetes mellitus December 15, 2024 1:13pm 36 wk ob December 15, 2024 3:34 pm 37wk ob December 23, 2024 2:0 3pm 38wk ob December 29, 2024 1: 50pm R/O PRE E December 29, 2024 3: 05pm R/O PRE E December 29, 2024 6: 11pm Chief Complaint Admit Date 23wk ob September 16, 2024 2:49pm 27wk ob/glucose October 12, 2024 10:13 am GDM October 18, 2024 10:19 am 30wk ob November 03, 2024 11:1 9am 32wk ob November 17, 2024 11:30 am 34 wk ob December 01, 2024 2:27 pm gestational diabetes mellitus December 15, 2024 1:13pm 36 wk ob December 15, 2024 3:34 pm 37wk ob December 23, 2024 2:0 3pm 38wk ob December 29, 2024 1: 50pm R/O PRE E December 29, 2024 3: 05pm R/O PRE E December 29, 2024 6: 11pm 39wk ob January 03, 2025 11 :31am Reason for Visit Admit Date History of recurrent miscarriages September 2:49pm September 16, 2024 2:49pm Supervision of high-risk September 162024 2:49pm Infertility September 16, 2024 2:49pm Threatened September 16, 2024 2:49pm Anxiety October 12, 2024 10:13 am Gestational diabetes mellitus (GDM) October 12, 2024 10:13am History of recurrent miscarriages October 122024 10:13am October 12, 2024 10:13 am Supervision of high-risk September 162024 10:13am Infertility October 12, 2024 10:13 am Anxiety November 03, 2024 11:1 9am Gestational diabetes mellitus (GDM) November 03, 2024 11:19am History of recurrent miscarriages October 162024 11:19am November 03, 2024 11:1 9am Supervision of high-risk November 03, 2024 11:19am Infertility November 03, 2024 11:1 9am Anxiety November 17, 2024 11:30 am Gestational diabetes mellitus (GDM) November 17, 2024 11:30am History of recurrent miscarriages November 172024 11:30am November 17, 2024 11:30 am Supervision of high-risk November 17, 2024 11:30am Infertility November 17, 2024 11:30 am Anxiety December 01, 2024 2:27 pm Gestational diabetes mellitus (GDM) December 01, 2024 2:27pm History of recurrent miscarriages November 152024 2:27pm December 01, 2024 2:27 pm Supervision of high-risk December 01, 2024 2:27pm Infertility December 01, 2024 2:27 pm Anxiety December 15, 2024 3:34 pm Gestational diabetes mellitus (GDM) December 15, 2024 3:34pm History of recurrent miscarriages November 172024 3:34pm December 15, 2024 3:34 pm Supervision of high-risk December 15, 2024 3:34pm Anxiety December 23, 2024 2:0 3pm Gestational diabetes mellitus (GDM) Augu st 2024 2:03pm History of recurrent miscarriages December 23, 2024 2:03pm December 23, 2024 2:0 3pm Supervision of high-risk Augus t 2024 2:03pm Anxiety December 29, 2024 1: 50pm Gestational diabetes mellitus (GDM) Augu st 2024 1:50pm History of recurrent miscarriages December 29, 2024 1:50pm December 29, 2024 1: 50pm Supervision of high-risk Augus t 2024 1:50pm Anxiety January 03, 2025 11 :31am Gestational diabetes mellitus (GDM) Augu st 2024 11:31am History of recurrent miscarriages January 03, 2025 11:31am January 03, 2025 11 :31am Supervision of high-risk Augus t 2024 11:31am Additional Source Comments INFORMATION SOURCE (unrecogn ized section and content) DATE CREATED AUTHOR 08/08/2021 [facility] DATE CREATED AUTHOR AUTHOR'S ORGANIZ ATION 08/23/2021 [facility] DATE CREATED AUTHOR AUTHOR'S ORGANIZ ATION 09/17/2021 [facility] DATE CREATED AUTHOR AUTHOR'S ORGANIZ ATION 12/07/2021 [facility] DATE CREATED AUTHOR AUTHOR'S ORGANIZ ATION 09/24/2022 [facility] DATE CREATED AUTHOR AUTHOR'S ORGANIZ ATION 04/13/2024 [facility] DATE CREATED AUTHOR AUTHOR'S ORGANIZ ATION 08/23/2024 [facility] DATE CREATED AUTHOR AUTHOR'S RUBINA BROWN 01/04/2025 [facility] Source Comments (unrecognize d section and content) In the event this informatio n is protected by the Federal Confidentiality of Alcohol and Drug Abuse Patient Records regulations: The Federal rules restrict any use of the information to criminally investigate or prosecute any alcohol or drug abuse patient.[facility] the event this information is protected by the Federal Confidentiality of Alcohol and Drug Abuse Patient Records regulations: The Federal rules restrict any use of the information to criminally investigate or prosecute any alcohol or drug abuse patient.[facility] the event this information is protected by the Federal Confidentiality of Alcohol and Drug Abuse Patient Records regulations: The Federal rules restrict any use of the information to criminally investigate or prosecute any alcohol or drug abuse patient.[facility] the event this information is protected by the Federal Confidentiality of Alcohol and Drug Abuse Patient Records regulations: The Federal rules restrict any use of the information to criminally investigate or prosecute any alcohol or drug abuse patient.[facility] the event this information is protected by the Federal Confidentiality of Alcohol and Drug Abuse Patient Records regulations: The Federal rules restrict any use of the information to criminally investigate or prosecute any alcohol or drug abuse patient.[facility] the event this information is protected by the Federal Confidentiality of Alcohol and Drug Abuse Patient Records regulations: The Federal rules restrict any use of the information to criminally investigate or prosecute any alcohol or drug abuse patient.[facility] the event this information is protected by the Federal Confidentiality of Alcohol and Drug Abuse Patient Records regulations: The Federal rules restrict any use of the information to criminally investigate or prosecute any alcohol or drug abuse patient.[facility] the event this information is protected by the Federal Confidentiality of Alcohol and Drug Abuse Patient Records regulations: The Federal rules restrict any use of the information to criminally investigate or prosecute any alcohol or drug abuse patient.[facility] the event this information is protected by the Federal Confidentiality of Alcohol and Drug Abuse Patient Records regulations: The Federal rules restrict any use of the information to criminally investigate or prosecute any alcohol or drug abuse patient.[facility] the event this information is protected by the Federal Confidentiality of Alcohol and Drug Abuse Patient Records regulations: The Federal rules restrict any use of the information to criminally investigate or prosecute any alcohol or drug abuse patient.[facility] the event this information is protected by the Federal Confidentiality of Alcohol and Drug Abuse Patient Records regulations: The Federal rules restrict any use of the information to criminally investigate or prosecute any alcohol or drug abuse patient.[facility] Hospital[facility] the event this information is protected by the Federal Confidentiality of Alcohol and Drug Abuse Patient Records regulations: The Federal rules restrict any use of the information to criminally investigate or prosecute any alcohol or drug abuse patient.[facility] Reason for Visit (unrecogniz ed section and content) Reason Comments Refill Request Reason Onset Date Comments Refill Request 08/29/2021 Reason Comments Rx Refills Specialty Diagnoses / Procedures Referred By Controsio t Referred To Contact [facility] Diagnoses refill medication Procedures refill medication Todd Romero II, MD [address] [place] [address] [place] [address] [place] [address] Referral ID Status Reason Start Date Expiration Date V isits Requested Visits Authorized [id number] Closed Financial Clearance Not Required 09/04/2021 09/04/2022 1 1 Reason Comments Yearly Exam Reason Comments Ear Pain Left ear pain on and off. Has been using OTC drops. Symptoms started around 5 days ago. Fatigue Reason Comments walk in clinic Care Teams (unrecognized sec tion and content) Team Status: Active Member Role/Relationship Status Dates Dr. Todd Romero MD Primary Care Provider Active Team Status: Inactive Member Role/Relationship Status Dates Dr. Emerald Dunbar DO Attending Provider Activ e Start: July 28, 2024 End: July 28, 2024 Team Status: Inactive Member Role/Relationship Status Dates Erinn Jordan NP, NP-C Attending Provider Active Start: August 22, 2024 End: August 22, 2024 Team Status: Inactive Member Role/Relationship Status Dates Dr. Lindsay Song MD Attending Provider Active Start: September 16, 2024 End: September 16, 2024 Team Status: Inactive Member Role/Relationship Status Dates IZABEL De Luna NPC Attending Provider Active Start: October 12, 2024 End: October 12, 2024 Erinn Jordan NP, NP-C Referring Provider Active Start: October 12, 2024 End: October 12, 2024 Team Status: Inactive Member Role/Relationship Status Dates Erinn Jordan STONE LAYOUT MARKER, STONE LAYOUT MARKER-C Attending Provider Active Start: October 12, 2024 End: October 12, 2024 Team Status: Inactive Member Role/Relationship Status Dates Erinn Jordan STONE LAYOUT MARKER, STONE LAYOUT MARKER-C Attending Provider Active Start: October 18, 2024 End: November 14, 2024 Erinn Jordan STONE LAYOUT MARKER, STONE LAYOUT MARKER-C Referring Provider Active Start: October 18, 2024 End: November 14, 2024 Dr. Todd Romero MD Primary Care Provider Active Start: October 18, 2024 End: November 14, 2024 Team Status: Inactive Member Role/Relationship Status Dates Dr. Todd Romero MD Primary Care Provider Active Start: November 03, 2024 End: November 03, 2024 Dr. Todd Romero MD Referring Provider Active Start: November 03, 2024 End: November 03, 2024 Vaibhav Hale CNM Attending Provider Active S tart: November 03, 2024 End: November 03, 2024 Team Status: Inactive Member Role Status Dates Vaibhav Hale CNM Attending Provider Active S tart: July 07, 2024 End: July 07, 2024 Team Status: Inactive Member Role Status Dates Dr. Emerald Dunbar DO Attending Provider Activ e Start: July 28, 2024 End: July 28, 2024 Team Status: Inactive Member Role Status Dates Erinn Jordan STONE LAYOUT MARKER, STONE LAYOUT MARKER-C Attending Provider Active Start: August 22, 2024 End: August 22, 2024 Team Status: Inactive Member Role Status Dates Dr. 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 Todd Romero MD Primary Care Provider Active Team Status: Inactive Member Role Status Dates Dr. Emerald Dunbar DO Attending Provider Activ e Dr. Todd Romero MD Primary Care Provider, Referri ng Provider Active Team Status: Inactive Member Role Status Dates Dr. Todd Romero MD Primary Care Provider, Referri ng Provider Active Dr. Emerald Dunbar DO Attending Provider Activ e Team Status: Inactive Member Role Status Dates Dr. Todd Romero MD Primary Care Provider Active Dr. Emerald Dubnar DO Attending Provider, Refe rring Provider Active Team Status: Active Member Role Status Dates Dr. Todd Romero MD Primary Care Provider Active Dr. Emerald Dunbar DO Attending Provider, Refe rring Provider Active [employer] Relationship Specialty Start Date End Date Todd Romero II, MD [address] [place] [address] PCP - [facility] 11/13/20 [employer]ailboat [employer] Relationship Specialty Start Date End Date Todd Romero II, MD [address] [place], [place] [id number] PCP - [facility] 11/13/20 Goals (unrecognized section and content) Goals may be documented in a n alternate section FOR RECORDS PERTAINING TO PATIENTS WHO ARE OR HAVE BEEN ENROLLED IN A CHEMICAL DEPENDENCY/SUBSTANCEABUSE PROGRAM, SOME INFORMATION MAY BE OMITTED. This clinical summary was aggregated from multiple sources. Caution should be exercised in using it in the provision of clinical care. This summary normalizes information from multiple sources, and as a consequence, information in this document may materially change the coding, format and clinical context of patient data. In addition, data may be omitted in some cases. CLINICAL DECISIONS SHOULD BE BASED ON THE PRIMARY CLINICAL RECORDS. [employer] provides no warranty or guarantee of the accuracy or completeness of information in this document.
[2025-01-08 04:13] LABS: ROM Internal Control Test YES-OK TO RESULT pt. (Internal QC); ROM Patient Test POSITIVE (Negative)
[2025-01-08 04:14] LABS: Record Kit Lot#, ROM+ K3358
--- OUTSIDE RECORDS SUMMARY | 2025-01-08 04:20 | XMS RPT_ITS | CCD ---
Author Organization [facility] CliniSyvt Care Team Providers Care Crop Research Scientist Name Role Phone Saji ESTEVEZ MD, Todd Vásquez Primary Care Provider Dr. Emerald Dunbar Attending Provider [phone] Dr. Todd Romero Primary Care Provider Dr. Todd Romero Referring Provider Dr. Emerald Dunbar Attending Provider [phone] Dr. Todd Romero Primary Care Provider Dr. Todd Romero Referring Provider Saji ESTEVEZ MD, Todd Vásquez Primary Care Provider MISC, PHYSICIAN Attending Unavailable Saji ESTEVEZ MD, Robert Earl Primary Care Provider TRISTIAN FENG Attending Unavailable TODD ROMERO II Primary Care UnavailTODD Weir II Attending UnavailTODD Weir II Primary Care Unavailmariyl MATOS PRIMARY MD SEE Primary Care Unavailable AVEL SETHI Attending Unavailable VAIBHAV HALE Referring Unavailable Vaibhav Hale CNM Attending Provider Dr. Emerald Dunbar DO Attending Provider Erinn Porras Attending Provider [phone] Dr. Lindsay Song MD Attending Provider [phone] Erinn Porras Referring Provider [phone] Dr. Todd Romero MD Primary Care Provider [phone] Dr. Todd Romero MD Referring Provider Vaibhav Hale CNM Attending Provider [phone] Dr. Emerald Dunbar DO Attending Provider Vaibhav Hale CNM Referring Provider Julian CERTIFIED COURT INTERPRETER-C, Erinn Attending Provider Duncan FRAGOSO, Dr. Montoya Referring Provider Duncan FRAGOSO, Dr. Montoya Other Provider [phone] Romero, Todd E Primary Care Unavailable Romero, [...] Vande Velangélica, Emerald Attending Unavailabl e Julian CERTIFIED COURT INTERPRETER, Erinn Attending Unavailable Vaibhav Hale Attending Unavailable Romero, Todd E Primary Care Unavailable MarcanthonyLindsay Referring Unavailable Marcanthony, Lindsay Attending Unavailable Romero, Todd E Primary Care Unavailable Marcanthony, Lindsay Attending Unavailable Marcanthony, Lindsay Referring Unavailable Romero, Todd E Primary Care Unavailable Marcanthony, Lindsay Attending Unavailable Marcanthony, Lindsay Referring Unavailable Romero, Todd E Primary Care Unavailable Julian CERTIFIED COURT INTERPRETER, Erinn Attending Unavailable Maxwell CERTIFIED COURT INTERPRETER, Erinn Referring Unavailable Romero, Todd E Primary [...] Lindsay Attending Unavailable Marcanthony, Lindsay Attending Unavailable Maxwell CERTIFIED COURT INTERPRETER, Erinn Attending Unavailable Romero, Todd E Primary Care Unavailable Romero, Todd E Referring Unavailable Julian CERTIFIED COURT INTERPRETER, Erinn Attending Unavailable Vaibhav Hale Attending Unavailable Julian CERTIFIED COURT INTERPRETER, Erinn Attending Unavailable Julian CERTIFIED COURT INTERPRETER, Erinn Referring Unavailable Vaibhav Hale Referring Unavailable Vaibhav Hale Attending Unavailable Todd Romero Primary Care Unavailable Julian CERTIFIED COURT INTERPRETER, Erinn Referring Unavailable Julian CERTIFIED COURT INTERPRETER, Erinn Attending Unavailable Todd Romero Primary Care Unavailable Julian CERTIFIED COURT INTERPRETER, Erinn Referring Unavailable Julian CERTIFIED COURT INTERPRETER, Erinn Attending Unavailable Todd Romero Referring Unavailable [...] PO ONCE April 27, 2024 1:00am Multivit 05-Egvx-Jyzfsv 1-Dha (Pnv-Dha) 27 mg iron-1 mg -300 mg capsule (16 sources) Start: 05-23-2022 Multivit 59-Gixa-Ilwglx 1-Dha (Pnv-Dha) 27 mg iron-1 mg -300 [...] Test Name Value Interpretation Reference Range Facility Experimental Assembler Office Visit Reporton 01-03-2025 Experimental Assembler Office Visit Report [facility]'s [address], [address] [place] [address] OFFICE VISIT Date of Service: 01/03/25 MR#: [id number] Acct: [id number] Name: NORA CAMERON Rep #: [id number] : 1990 Provider: Dr. 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 Normal [facility] AST(SGOT)on 12-29-2024 AST [Catalytic activity/Vol] 30 U/L Normal <=31 [facility] Comment on above: Result Comment: Hemo lysis present, Results??could be affected. ?? Performed By: #### L 501.4405, L501.1105, L100.0500, L501.0900, L501.1400, L501.4100 ####[facility] [address] [place], [address] Alanine Aminotransferas (SGP T)on 12-29-2024 ALT [Catalytic activity/Vol] 15 U/L Normal <=34 [facility] Comment on above: Performed By: #### L 501.4405, L501.1105, L100.0500, L501.0900, L501.1400, L501.4100 ####[facility] [address] [place], [address] CBC-Complete Blood Cnt No Di ffon 12-29-2024 Erythrocyte distribution width (RBC) [Ratio] 13.1 % Normal 11.6-14.6 [facility] Comment on above: Performed By: #### L 501.4405, L501.1105, L100.0500, L501.0900, L501.1400, L501.4100 #### [facility] [address] [place], [address] Hematocrit (Bld) [Volume fraction] 34.6 % Low 37-47 [facility] Comment on above: Performed By: #### L 501.4405, L501.1105, L100.0500, L501.0900, L501.1400, L501.4100 #### [facility] [address] [place], [address] Hemoglobin (Bld) [Mass/Vol] 12.1 g/dL Normal 12.0-15.0 [facility] Comment on above: Performed By: #### L 501.4405, L501.1105, L100.0500, L501.0900, L501.1400, L501.4100 #### [facility] [address] [place], [address] MCH (RBC) [Entitic mass] 32.5 pg High 27.0-32.0 [facility] Comment on above: Performed By: #### L 501.4405, L501.1105, L100.0500, L501.0900, L501.1400, L501.4100 #### [facility] [address] [place], [address] MCHC (RBC) [Mass/Vol] 35.0 g/dL Normal 32-36 [facility] Comment on above: Performed By: #### L 501.4405, L501.1105, L100.0500, L501.0900, L501.1400, L501.4100 #### [facility] [address] [place], [address] MCV (RBC) [Entitic vol] 93.0 fL Normal 81-99 [facility] Comment on above: Performed By: #### L 501.4405, L501.1105, L100.0500, L501.0900, L501.1400, L501.4100 #### [facility] [address] [place], [address] Platelet mean volume (Bld) [Entitic vol] 11.2 fL Normal 6.2-12.0 [facility] Comment on above: Performed By: #### L 501.4405, L501.1105, L100.0500, L501.0900, L501.1400, L501.4100 #### [facility] [address] [place], [address] Platelets (Bld) [#/Vol] 233 10*3/uL Normal 150-450 [facility] Comment on above: Performed By: #### L 501.4405, L501.1105, L100.0500, L501.0900, L501.1400, L501.4100 #### [facility] [address] [place], [address] RBC (Bld) [#/Vol] 3.72 10*6/uL Low 4.2-5.4 [facility] Comment on above: Performed By: #### L 501.4405, L501.1105, L100.0500, L501.0900, L501.1400, L501.4100 #### [facility] [address] [place], [address] RDW SD 44.6 fl High 35.1-43.9 [facility] Comment on above: Performed By: #### L 501.4405, L501.1105, L100.0500, L501.0900, L501.1400, L501.4100 #### [facility] [address] [place], [address] WBC (Bld) [#/Vol] 8.9 10*3/uL Normal 4.4-11.0 [facility] Comment on above: Performed By: #### L 501.4405, L501.1105, L100.0500, L501.0900, L501.1400, L501.4100 #### [facility] [address] [facility] [place], [address] Erythrocyte distribution wid th ratioOrdered By: Lindsay Song on 12-29-2024 Erythrocyte distribution width (RBC) [Ratio] 13.1 % 11.6-14.6 [facility] Erythrocyte distribution wid th standard deviationOrdered By: Lindsay Song on 12-29-2024 Erythrocyte distribution width (RBC) [Ratio] 44.6 fl High 35.1-43.9 [facility] Glomerular filtration rate ( GFR) estimation/1.73 sq m using serum, plasma, or whole bOrdered By: Lindsay Song on 12-29-2024 GFR/1.73 sq M.predicted among non-blacks MDRD (S/P/Bld) [Vol rate/Area] 106 mL/min/{1.73_m2} >60 [facility] Comment on above: mL/min/1.73m2 CKD-EP I Creatinine Equation (2020) Hematocrit Auto (Bld) [Volum e fraction]Ordered By: Lindsay Song on 12-29-2024 Hematocrit (Bld) [Volume fraction] 34.6 % Low 37-47 [facility] Hemoglobin measurementOrdere d By: Lindsay Song on 12-29-2024 Hemoglobin (Bld) [Mass/Vol] 12.1 g/dL 12.0-15.0 [facility] Laboratory - Chemistry and C hemistry - challengeOrdered By: Lindsay Song on 12-29-2024 AST [Catalytic activity/Vol] 30 U/L <32 [facility] Comment on above: Hemolysis present, R esults could be affected. Glucose Ql (U) Negative [facility] Laboratory - UrinalysisOrder ed By: Lindsay Song on 12-29-2024 Protein Ql (U) Negative [facility] MCV (mean corpuscular volume ) determinationOrdered By: Lindsay Song on 12-29-2024 MCV (RBC) [Entitic vol] 93.0 fL 81-99 [facility] Mean corpuscular hemoglobin (MCH) determinationOrdered By: Lindsay Song on 12-29-2024 MCH (RBC) [Entitic mass] 32.5 pg High 27.0-32.0 [facility] Mean corpuscular hemoglobin concentration (MCHC) determinationOrdered By: Lindsay Snog on 12-29-2024 MCHC (RBC) [Mass/Vol] 35.0 g/dL 32-36 [facility] Mean platelet volume determi nationOrdered By: Lindsay Song on 12-29-2024 Platelet mean volume (Bld) [Entitic vol] 11.2 fL 6.2-12.0 [facility] OB Triage Progress Noteon OB Triage Progress Note [facility] Medical Records Department [address] [place] [address] OB Triage Progress Note 12/29/24 1811 MR#: [id number] Acct: [id number] Name: NORA CAMERON Rep #: [id number] : 1990 34 From: Lindsay Song MD PCP: Dr. Todd Romero MD Status:REG CLI Y DOS: Location: [place] [address] Progress Notes Date of Service: 12/29/24 Progress Note: Patient presents for triage evaluation secondary to elevated bps FHT: 130 Moderate variability reactive no decelerations category I tracing [place]: no reuglar Contractions Assessment and plan: elevated [...] (0-200) mg/g CRE Charges/Coding Procedures Urinary/Genital 52xxx-59xxx: 13133-37 non-stress test Interp 12/29/24 1811 Date Lindsay Song MD Cosigner Signature (if applicable): Date CC: Dr. Todd Romero MD; Dr. Lindsay Song MD Signed Normal [facility] Experimental Assembler Office Visit Reporton 12-29-2024 Experimental Assembler Office Visit Report [facility]'s [address], [address] [place] [address] OFFICE VISIT Date of Service: 12/29/24 MR#: [id number] Acct: [id number] Name: NORA CAMERON Rep #: [id number] : 1990 Provider: Dr. Lindsay bui MD Age/Sex: 34/F Location: [facility] [place] Status: Signed Intake Vital Signs 11/17/24 11:38 12/23/24 14:06 12/29/24 14:03 12/29/24 14:07 Height 5 ft 3 in 5 ft 3 in 5 ft 3 in 5 ft 3 in Weight: 151 lb 2 oz BMI 26.7 BP 143/80 H Intake Visit Reasons: 38wk ob Utility Agent 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 Is patient in pain?: No [...] of abnormal cervical Pap smear Surgical History Unity teeth extracted History of colposcopy Family History Grandmother Colon cancer, Onset Age: 92 Paternal Mother Myocardial infarction, Onset Age: 64 2022 Grandfather Myocardial infarction Maternal Social History adopted: No household members: spouse housing: house current occupational status: employed current occupation: [employer] current occupational exposures/hazards: No pets [...] 3-4 times per week duration: 30-45 minutes/day michael/sabianism: Alevism seatbelt use: always do you feel safe at home: Yes additional social history: -Power- Bilingual Trainer Dinesh/Vega [employer] History 4 Elective abortions Hx [...] dates. decl (more content not included)... Normal [facility] Platelet countOrdered By: Charisse Song on 12-29-2024 Platelets (Bld) [#/Vol] 233 10*3/uL 150-450 [facility] Protein+Creatinine Ratio,Uri neon 12-29-2024 PROT:CRE RATIO 118 mg/g CRE Normal 0-200 [facility] Comment on above: Performed By: #### L 501.4405, L501.1105, L100.0500, L501.0900, L501.1400, L501.4100 #### [facility] [address] [place], [address] Protein (U) [Mass/Vol] 9.7 mg/dL Normal 0.0-12.0 [facility] Comment on above: Performed By: #### L 501.4405, L501.1105, L100.0500, L501.0900, L501.1400, L501.4100 #### [facility] [address] [place], [address] UR CREAT 82.30 mg/dL Normal 28.00-217.00 [facility] Comment on above: Performed By: #### L 501.4405, L501.1105, L100.0500, L501.0900, L501.1400, L501.4100 #### [facility] [address] [place], [address] RBC Auto (Bld) [#/Vol]Ordere d By: Lindsay Song on 12-29-2024 RBC (Bld) [#/Vol] 3.72 10*6/uL Low 4.2-5.4 [facility] Random urine creatinine alanis urement (mass/volume)Ordered By: Lindsay Song on 12-29-2024 Creatinine Unsp time (U) [Mass/Vol] 82.30 mg/dL 28.00-217.00 [facility] Serum Creatinine AND GFRon 0 12-29-2024 Creatinine [Mass/Vol] 0.77 mg/dL Normal 0.70-1.20 [facility] Comment on above: Performed By: #### L 501.4405, L501.1105, L100.0500, L501.0900, L501.1400, L501.4100 #### [facility] [address] [place], [address] ECRCL 99.41 ml/min Normal 50-250 [facility] Comment on above: Performed By: #### L 501.4405, L501.1105, L100.0500, L501.0900, L501.1400, L501.4100 #### [facility] [address] [place], [place], [address] GFR/1.73 sq M.predicted among non-blacks MDRD (S/P/Bld) [Vol rate/Area] 106 mL/min/{1.73_m2} Normal >60 [facility] Comment on above: Result Comment: mL/m in/1.73m2 CKD-EPI Creatinine Equation (2020) Performed By: #### L 501.4405, L501.1105, L100.0500, L501.0900, L501.1400, L501.4100 #### [facility] [address] [place], [place], [address] Serum creatinine measurement (mass/volume)Ordered By: Lindsay Song on 12-29-2024 Creatinine [Mass/Vol] 0.77 mg/dL 0.70-1.20 [facility] Serum or plasma alanine humphrey otransferase (ALT) measurementOrdered By: Lindsay Song on 12-29-2024 ALT [Catalytic activity/Vol] 15 U/L <35 [facility] Serum or plasma uric acid me asurement (mass/volume)Ordered By: Lindsay Song on 12-29-2024 Urate [Mass/Vol] 4.5 mg/dL 2.6-6.0 [facility] Comment on above: The drugs N-Acetylcy steine and Metamizole may falsely depress this assay. Uric Acidon 12-29-2024 URIC 4.5 mg/dL Normal 2.6-6.0 [facility] Comment on above: Result Comment: The drugs N-Acetylcysteine and Metamizole may falsely depress this assay. Performed By: #### L 501.4405, L501.1105, L100.0500, L501.0900, L501.1400, L501.4100 #### [facility] [address] [place], [place], [address] Urine protein measurement (m ass/volume)Ordered By: Lindsay Song on 12-29-2024 Protein (U) [Mass/Vol] 9.7 mg/dL 0.0-12.0 [facility] Urine protein/creatinine mas s ratioOrdered By: Lindsay Song on 12-29-2024 Protein/Creatinine (U) [Mass ratio] 118 mg/g CRE 0-200 [facility] White blood cell (WBC) count Ordered By: Lindsay Song on 12-29-2024 WBC (Bld) [#/Vol] 8.9 10*3/uL 4.4-11.0 [facility] Rule out Beta Strep (Grp. B) on 12-25-2024 DALILA Group B Beta Streptococcus is not isolated. Normal [facility] Comment on above: Performed By: #### M 100.3400 #### [facility] [address] [place], [place], [address] Laboratory - Chemistry and C hemistry - challengeOrdered By: Vaibhav Hale on 12-23-2024 Glucose Ql (U) Negative [facility] Laboratory - UrinalysisOrder ed By: Vaibhav Hale on 12-23-2024 Protein Ql (U) Negative [facility] Experimental Assembler Office Visit Reporton 12-23-2024 Experimental Assembler Office Visit Report [address], [address] [place] [id number] OFFICE VISIT Date of Service: 12/23/24 MR#: [id number] Acct: [id number] Name: NORA CAMERON Rep #: [id number] : 1990 Provider: ANGELA Dawkins ams Age/Sex: 34/F Location: [facility] [place] Status: Signed Intake Vital Signs 11/17/24 11:38 12/15/24 15:37 12/23/24 14:06 Height 5 ft 3 in 5 ft 3 in 5 ft 3 in Weight: 149 lb 6 oz 150 lb 5 oz BMI 26.4 26.6 BP 126/71 H 135/74 H Intake Visit Reasons: 37wk ob Chief Complaint: 37wk ob Utility Agent 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 Is patient in pain?: No [...] of abnormal cervical Pap smear Surgical History Unity teeth extracted History of colposcopy Family History [...] 3-4 times per week duration: 30-45 minutes/day michael/sabianism: Alevism seatbelt use: always do you feel safe at home: Yes additional social history: -Power- Bilingual Trainer Dinesh/Silvia Lumber History 4 Elective abortions Hx [...] with ceci (more content not included)... Normal [facility] Screening beta-hemolytic Str eptococcus cultureOrdered By: Vaibhav Hale on 12-23-2024 Beta-hemolytic Streptococcus culture Group B Beta Streptococcus is not isolated. [facility] Laboratory - Chemistry and C hemistry - challengeOrdered By: Lindsay Song on 12-15-2024 Glucose Ql (U) Negative [facility] Laboratory - UrinalysisOrder ed By: Lindsay Song on 12-15-2024 Protein Ql (U) Negative [facility] OB Limited With Biometricson 12-15-2024 OB Limited With Biometrics [facility] Imaging Services [address] [place], [place] [address] OB Limited With Biometrics MR#: [id number] Acct: [id number] Name: NORA CAMERON Rep #: [id number] : 1990 F 34 From: Devante buenrostro MD PCP: Dr. Todd Romero MD Status: REG CLI Study: OB Limited With Biometrics Date of Exam: 12/15 Exam# [id number] Ordering Dr: Vaibhav Hale CNM PROCEDURE: OB [...] 36 weeks and 1 day. Reading Location: [id number] CC: ANGELA Hale; Dr. Todd Romero MD Greeting Card Writer: Signed Normal [facility] Experimental Assembler Office Visit Reporton 12-15-2024 Experimental Assembler Office Visit Report [facility] [address], [address] [place] [address] OFFICE VISIT Date of Service: 12/15/24 MR#: [id number] Acct: [id number] Name: NORA CAMERON Rep #: [id number] : 1990 Provider: Dr. Lindsay bui MD Age/Sex: 34/F Location: [facility] [place] Status: Signed Intake Vital Signs 11/03/24 11:04 12/01/24 14:33 12/15/24 15:37 Height 5 ft 3 in 5 ft 3 in 5 ft 3 in Weight: 146 lb 4 oz 149 lb 6 oz BMI 25.9 26.4 BP 113/74 126/71 H Intake Visit Reasons: 36 wk ob Utility Agent 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 Is patient in pain?: No [...] of abnormal cervical Pap smear Surgical History Unity teeth extracted History of colposcopy Family History [...] 3-4 times per week duration: 30-45 minutes/day michael/sabianism: Alevism seatbelt use: always do you feel safe at home: Yes additional social history: -Power- Bilingual Trainer Dinesh/Silvia Lumber History 4 Elective abortions Hx [...] dates. ibarra (more content not included)... Normal [facility] Laboratory - Chemistry and C hemistry - challengeOrdered By: Emerald Dodd on 12-01-2024 Glucose Ql (U) Negative [facility] Laboratory - UrinalysisOrder ed By: Emerald Dodd on 12-01-2024 Protein Ql (U) Negative [facility] Experimental Assembler Office Visit Reporton 12-01-2024 Experimental Assembler Office Visit Report [facility] [address], [address] [place] [address] OFFICE VISIT Date of Service: 12/01/24 MR#: [id number] Acct: [id number] Name: NORA CAMERON Rep #: [id number] : 1990 Provider: Dr. Emerald Couch DO Age/Sex: 34/F Location: [facility] [place] Status: Signed Intake Vital Signs 11/03/24 11:04 11/17/24 11:38 12/01/24 14:33 Height 5 ft 3 in 5 ft 3 in 5 ft 3 in Weight: 146 lb 4 oz BMI 25.9 BP 113/74 Intake Visit Reasons: 34 wk ob Chief Complaint: 34wk ob Utility Agent 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 Is patient in pain?: No [...] of abnormal cervical Pap smear Surgical History Unity teeth extracted History of colposcopy Family History [...] 3-4 times per week duration: 30-45 minutes/day michael/sabianism: Alevism seatbelt use: always do you feel safe at home: Yes additional social history: -Power- Bilingual Trainer Dinesh/Silvia Lumber History 4 Elective abortions Hx [...] declines NIPT. would like some appts in [facility]. doing well today (more content not included)... Normal [facility] Laboratory - Chemistry and C hemistry - challengeOrdered By: Vaibhav Hale on 11-17-2024 Glucose Ql (U) Negative [facility] Laboratory - UrinalysisOrder ed By: Vaibhav Hale on 11-17-2024 Protein Ql (U) Negative [facility] Experimental Assembler Office Visit Reporton 11-17-2024 Experimental Assembler Office Visit Report [facility] [address], [address] [place] [address] OFFICE VISIT Date of Service: 11/17/24 MR#: [id number] Acct: [id number] Name: NORA CAMERON Rep #: [id number] : 1990 Provider: ANGELA Dawkins ams Age/Sex: 34/F Location: [facility] [place] Status: Signed Intake Vital Signs 08/22/24 08:29 11/03/24 11:04 11/17/24 11:36 11/17/24 11:38 Height 5 ft 3 in 5 ft 3 in 5 ft 3 in 5 ft 3 in Weight: 142 lb 6 oz BMI 25.2 BP 112/74 Intake Visit Reasons: 32wk ob Utility Agent 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 Is patient in pain?: No [...] of abnormal cervical Pap smear Surgical History Unity teeth extracted History of colposcopy Family History [...] 3-4 times per week duration: 30-45 minutes/day michael/sabianism: Alevism seatbelt use: always do you feel safe at home: Yes additional social history: -Power- Bilingual Trainer Dinesh/Silvia Lumber History 4 Elective abortions Hx [...] like some (more content not included)... Normal [facility] Laboratory - Chemistry and C hemistry - challengeOrdered By: Emerald Dodd on 11-03-2024 Glucose Ql (U) Negative [facility] Laboratory - UrinalysisOrder ed By: Emerald Dodd on 11-03-2024 Protein Ql (U) Negative [facility] Experimental Assembler Office Visit Reporton 11-03-2024 Experimental Assembler Office Visit Report [facility] [address], [address] [place] [address] OFFICE VISIT Date of Service: 11/03/24 MR#: [id number] Acct: [id number] Name: NORA CAMERON Rep #: [id number] : 1990 Provider: ANGELA Dawkins ams Age/Sex: 34/F Location: [facility] Status: Signed Intake Vital Signs 08/22/24 08:29 10/18/24 11:09 11/03/24 11:04 11/03/24 11:04 Height 5 ft 3 in 5 ft 3 in 5 ft 3 in 5 ft 3 in Weight: 141 lb 6 oz BMI 25.0 BP 111/70 Intake Visit Reasons: 30wk ob Utility Agent 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 Is patient in pain?: No [...] of abnormal cervical Pap smear Surgical History Unity teeth extracted History of colposcopy Family History [...] 3-4 times per week duration: 30-45 minutes/day michael/sabianism: Alevism seatbelt use: always do you feel safe at home: Yes additional social history: -Power- Bilingual Trainer Dinesh/Silvia Lumber History 4 Elective abortions Hx [...] like some (more content not included)... Normal [facility] Absolute lymphocyte countOrd ered By: Lindsay Greenealyssa on 10-12-2024 Lymphocytes Auto (Unsp spec) [#/Vol] 1.54 10*3/uL 0.83-4.51 [facility] Absolute neutrophil countOrd ered By: Lindsay Greenealyssa on 10-12-2024 Neutrophils (Bld) [#/Vol] 7.2 10*3/uL 2.0-7.7 [facility] Automated lymphocyte count a s percentage of total leukocytesOrdered By: Lindsay Greenealyssa on 10-12-2024 Lymphocytes/100 WBC Auto (Unsp spec) 16.1 % Low 19-41 [facility] Basophil percentageOrdered B y: Lindsay Greenealyssa on 10-12-2024 Basophils/100 WBC (Bld) 0.3 % 0-1 [facility] CBC W/Diff, Automatedon 09-16 Absolute Lymph 1.54 X10 3/uL Normal 0.83-4.51 [facility] Comment on above: Performed By: #### M 100.3400 #### [facility] [address] [place], [address] Absolute Neut 7.2 X10 3/uL Normal 2.0-7.7 [facility] Comment on above: Performed By: #### M 100.3400 #### [facility] [address] [place], [address] Basophils/100 WBC (Bld) 0.3 % Normal 0-1 [facility] Comment on above: Performed By: #### M 100.3400 #### [facility] [address] [place], [address] Eosinophils/100 WBC (Bld) 0.7 % Normal 0-5 [facility] Comment on above: Performed By: #### M 100.3400 #### [facility] [address] [place], [address] Erythrocyte distribution width (RBC) [Ratio] 13.2 % Normal 11.6-14.6 [facility] Comment on above: Performed By: #### M 100.3400 #### [facility] [address] [place], [address] Hematocrit (Bld) [Volume fraction] 33.9 % Low 37-47 [facility] Comment on above: Performed By: #### M 100.3400 #### [facility] [address] [place], [address] Hemoglobin (Bld) [Mass/Vol] 11.5 g/dL Low 12.0-15.0 [facility] Comment on above: Performed By: #### M 100.3400 #### [facility] [address] [place], [address] IG% 2.100 High 0.0-0.9 [facility] Comment on above: Result Comment: IG% - Immature Granulocytes (promyelocytes, myelocytes and metamyelocytes) > 1% indicates that a LEFT SHIFT is Present. Performed By: #### M 100.3400 #### [facility] [address] [place], [address] Lymphocytes/100 WBC (Bld) 16.1 % Low 19-41 [facility] Comment on above: Performed By: #### M 100.3400 #### [facility] [address] [place], [address] MCH (RBC) [Entitic mass] 32.2 pg High 27.0-32.0 [facility] Comment on above: Performed By: #### M 100.3400 #### [facility] [address] [place], [address] MCHC (RBC) [Mass/Vol] 33.9 g/dL Normal 32-36 [facility] Comment on above: Performed By: #### M 100.3400 #### [facility] [address] [place], [address] MCV (RBC) [Entitic vol] 95.0 fL Normal 81-99 [facility] Comment on above: Performed By: #### M 100.3400 #### [facility] [address] [place], [address] Monocytes/100 WBC (Bld) 5.7 % Normal 0-10 [facility] Comment on above: Performed By: #### M 100.3400 #### [facility] [address] [place], [address] Neutrophils/100 WBC (Bld) 75.1 % High 47-70 [facility] Comment on above: Performed By: #### M 100.3400 #### [facility] [address] [place], [address] Nucleated RBC (Bld) [#/Vol] 0 10*3/uL Normal 0-5 [facility] Comment on above: Performed By: #### M 100.3400 #### [facility] [address] [place], [address] Platelet mean volume (Bld) [Entitic vol] 9.5 fL Normal 6.2-12.0 [facility] Comment on above: Performed By: #### M 100.3400 #### [facility] [address] [place], [address] Platelets (Bld) [#/Vol] 257 10*3/uL Normal 150-450 [facility] Comment on above: Performed By: #### M 100.3400 #### [facility] [address] [place], [address] RBC (Bld) [#/Vol] 3.57 10*6/uL Low 4.2-5.4 [facility] Comment on above: Performed By: #### M 100.3400 #### [facility] [address] [place], [address] RDW SD 46.3 fl High 35.1-43.9 [facility] Comment on above: Performed By: #### M 100.3400 #### [facility] [address] [place], [address] WBC (Bld) [#/Vol] 9.5 10*3/uL Normal 4.4-11.0 [facility] Comment on above: Performed By: #### M 100.3400 #### [facility] [address] [place], [address] Eosinophil percentageOrdered By: Lindsay Song on 10-12-2024 Eosinophils/100 WBC (Bld) 0.7 % 0-5 [facility] Erythrocyte distribution wid th ratioOrdered By: Lindsay Song on 10-12-2024 Erythrocyte distribution width (RBC) [Ratio] 13.2 % 11.6-14.6 [facility] Erythrocyte distribution wid th standard deviationOrdered By: Lindsay Song on 10-12-2024 Erythrocyte distribution width (RBC) [Ratio] 46.3 fl High 35.1-43.9 [facility] Glucose Challenge Gest 1H 50 cosme 10-12-2024 GLU GEST 50g 1H 190 mg/dL High 70-140 [facility] Comment on above: Performed By: #### M 100.3400 #### [facility] [address] [place], [address] Glucose measurement at 2 lian rs post-dose gestational glucose tolerance testOrdered By: Lindsay Song on 10-12-2024 Glucose [Mass/Vol] 190 mg/dL High 70-140 [facility] HIVon 10-12-2024 HIV Non-Reactive Normal Nonreactive [facility] Comment on above: Result Comment: Non- Reactive Reactive Repeatedly reactive samples must be confirmed according to CDC recommended confirmatory algorithms. The subresults for either HIVAG or AHIV can be used as an aid in the selection of the confirmation algorithm for reactive samples. Send out specimens with Reactive results to [facility] for confirmation. Order the HIV antibody detection and differentiation: [id number] Performed By: #### M 100.3400 #### [facility] [address], [address] Hematocrit Auto (Bld) [Volum e fraction]Ordered By: Lindsay Song on 10-12-2024 Hematocrit (Bld) [Volume fraction] 33.9 % Low 37-47 [facility] Hemoglobin measurementOrdere d By: Lindsay Song on 10-12-2024 Hemoglobin (Bld) [Mass/Vol] 11.5 g/dL Low 12.0-15.0 [facility] Immature granulocytes/100 WB C Auto (Bld)Ordered By: Lindsay Song on 10-12-2024 Immature granulocytes/100 WBC (Bld) 2.100 % High 0.0-0.9 [facility] Comment on above: IG% - Immature Granu locytes (promyelocytes, myelocytes and metamyelocytes) > 1% indicates that a LEFT SHIFT is Present. Laboratory - Chemistry and C hemistry - challengeOrdered By: Erinn Jordan on 10-12-2024 Glucose Ql (U) Negative [facility] Laboratory - UrinalysisOrder ed By: Erinn Jordan on 10-12-2024 Protein Ql (U) Negative [facility] MCV (mean corpuscular volume ) determinationOrdered By: Lindsay Song on 10-12-2024 MCV (RBC) [Entitic vol] 95.0 fL 81-99 [facility] Mean corpuscular hemoglobin (MCH) determinationOrdered By: Lindsay Song on 10-12-2024 MCH (RBC) [Entitic mass] 32.2 pg High 27.0-32.0 [facility] Mean corpuscular hemoglobin concentration (MCHC) determinationOrdered By: Lindsay Song on 10-12-2024 MCHC (RBC) [Mass/Vol] 33.9 g/dL 32-36 [facility] Mean platelet volume determi nationOrdered By: Lindsay Song on 10-12-2024 Platelet mean volume (Bld) [Entitic vol] 9.5 fL 6.2-12.0 [facility] Monocyte percentageOrdered B y: Lindsay Song on 10-12-2024 Monocytes/100 WBC (Bld) 5.7 % 0-10 [facility] Neutrophil percentageOrdered By: Lindsay Song on 10-12-2024 Neutrophils/100 WBC (Bld) 75.1 % High 47-70 [facility] No Panel InformationOrdered By: Lindsay Song on 10-12-2024 HIV (1&2) Antibody Non-Reactive Nonreactive [facility] Comment on above: Non-ReactiveReactive Repeatedly reactive samples must be confirmed according to CDC recommended confirmatory algorithms. The subresults for either HIVAG or AHIV can be used as an aid in the selection of the confirmation algorithm for reactive samples.Send out specimens with Reactive results to [facility] for confirmation.Order the HIV antibody detection and differentiation: lc#[id number] Nucleated red blood cell per centageOrdered By: Lindsay Song on 10-12-2024 Nucleated RBC/100 WBC (Bld) [Ratio] 0 % 0-5 [facility] Experimental Assembler Office Visit Reporton 10-12-2024 Experimental Assembler Office Visit Report [facility]'[address] [place] [address] OFFICE VISIT Date of Service: 10/12/24 MR#: [id number] Acct: [id number] Name: NORA CAMERON Rep #: [id number] : 1990 Provider: MILTON babcock Age/Sex: 34/F [place] [facility] [place] Status: Signed Intake Vital Signs 08/22/24 08:29 09/16/24 14:59 10/12/24 10:16 Height 5 ft 3 in 5 ft 3 in 5 ft 3 in Weight: 139 lb 8 oz BMI 24.7 BP 112/68 Intake Visit Reasons: 27wk ob/glucose Chief Complaint: 27 Week OB/Glucose Utility Agent 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 Is patient in pain?: No [...] of abnormal cervical Pap smear Surgical History Unity teeth extracted History of colposcopy Family History [...] 3-4 times per week duration: 30-45 minutes/day michael/sabianism: Alevism seatbelt use: always do you feel safe at home: Yes additional social history: -Power- Bilingual Trainer Dinesh/Silvia Lumber History 4 Elective abortions Hx [...] would lik (more content not included)... Normal [facility] Platelet countOrdered By: Charisse Song on 10-12-2024 Platelets (Bld) [#/Vol] 257 10*3/uL 150-450 [facility] RBC Auto (Bld) [#/Vol]Ordere d By: Lindsay Song on 10-12-2024 RBC (Bld) [#/Vol] 3.57 10*6/uL Low 4.2-5.4 [facility] Syphilis Antibodieson 2024 Syphilis Abs Non-Reactive Normal Nonreactive [facility] Comment on above: Performed By: #### M 100.3400 #### [facility] [address] [place], [address] White blood cell (WBC) count Ordered By: Lindsay Song on 10-12-2024 WBC (Bld) [#/Vol] 9.5 10*3/uL 4.4-11.0 [facility] Laboratory - Chemistry and C hemistry - challengeOrdered By: Lindsay Song on 09-16-2024 Glucose Ql (U) Negative [facility] Laboratory - UrinalysisOrder ed By: Lindsay Song on 09-16-2024 Protein Ql (U) Negative [facility] Experimental Assembler Office Visit Reporton 09-16-2024 Experimental Assembler Office Visit Report [facility]'s [address], [address] [place] [address] OFFICE VISIT Date of Service: 09/16/24 MR#: [id number] Acct: [id number] Name: NORA CAMERON Rep #: [id number] : 1990 Provider: Dr. Lindsay bui MD Age/Sex: 34/F Location: [facility] [place] Status: Signed Intake Vital Signs 07/07/24 08:48 08/22/24 08:29 09/16/24 14:53 09/16/24 14:59 Height 5 ft 3 in 5 ft 3 in 5 ft 3 in 5 ft 3 in Weight: 134 lb BMI 23.7 BP 108/71 Intake Visit Reasons: 23wk ob Utility Agent 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 Is patient in pain?: No [...] of abnormal cervical Pap smear Surgical History Unity teeth extracted History of colposcopy Family History [...] 3-4 times per week duration: 30-45 minutes/day michael/sabianism: Alevism seatbelt use: always do you feel safe at home: Yes additional social history: -Power- Bilingual Trainer Dinesh/Silvia Lumber History 4 Elective abortions Hx [...] declines NIPT. would like some appts [facility]. doing well today 07/07/24 -???-???-???-???-???-???- ???-???-???-???-???-???- 12w 6d 124 lb 6 oz (+6 oz) 112/78 Negative -???-???-???-???-???-???- ???-???-???-???-???-???- Negative 160 -???-???-???-???- (more content not included)... Normal [facility] Laboratory - Chemistry and C hemistry - challengeOrdered By: Erinn Jordan on 08-22-2024 Glucose Ql (U) Negative [facility] Laboratory - UrinalysisOrder ed By: Erinn Jordan on 08-22-2024 Protein Ql (U) Negative [facility] Experimental Assembler Office Visit Reporton 08-22-2024 Experimental Assembler Office Visit Report [facility]'s [address], [address] [place] [address] OFFICE VISIT Date of Service: 08/22/24 MR#: [id number] Acct: [id number] Name: NORA CAMERON Rep #: [id number] : 1990 Provider: MILTON babcock Age/Sex: 34/F Location: [facility] [place] Status: Signed Intake Vital Signs 07/07/24 08:48 07/28/24 16:02 08/22/24 08:29 Height 5 ft 3 in 5 ft 3 in 5 ft 3 in Weight: 129 lb 6 oz BMI 22.8 BP 100/64 Intake Visit Reasons: 20WK OB Chief Complaint: 20 Week OB Utility Agent 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 Is patient in pain?: No [...] of abnormal cervical Pap smear Surgical History Unity teeth extracted History of colposcopy Family History Grandmother Colon cancer, Onset Age: 92 Paternal Mother Myocardial infarction, Onset Age: 64 2022 Grandfather Myocardial infarction Maternal Social History adopted: No household members: spouse housing: house current occupational status: employed current occupation: [employer] current occupational exposures/hazards: No pets [...] 3-4 times per week duration: 30-45 minutes/day michael/sabianism: Alevism seatbelt use: always do you feel safe at home: Yes additional social history: -Power- Bilingual Trainer Dinesh/Silvia Lumber History 4 Elective abortions Hx [...] declines NIPT. would like some appts [place] [facility]. doing well today 07/07/24 -???-???-???-???-???-???- ???-???-???-???-???-???- 12w 6d 124 lb 6 oz (+6 oz) 112/78 Negative -???-???-???-???-???-???- ???-???-???-???-???-???- Negative 160 -??? (more content not included)... Normal [facility] Laboratory - Chemistry and C hemistry - challengeOrdered By: Emerald Dodd on 07-28-2024 Glucose Ql (U) Negative [facility] Laboratory - UrinalysisOrder ed By: Emerald Dodd on 07-28-2024 Protein Ql (U) Negative [facility] Experimental Assembler Office Visit Reporton 07-28-2024 Experimental Assembler Office Visit Report [facility]'s [address], [address] [place] [address] OFFICE VISIT Date of Service: 07/28/24 MR#: [id number] Acct: [id number] Name: NORA CAMERON Rep #: [id number] : 1990 Provider: Dr. Emerald Couch, Age/Sex: 34/F Location: [facility] [place] Status: Signed Intake Vital Signs 07/07/24 07:43 07/07/24 08:48 07/28/24 16:01 07/28/24 16:02 Height 5 ft 3 in 5 ft 3 in 5 ft 3 in 5 ft 3 in Weight: 126 lb BMI 22.3 BP 122/73 H Intake Visit Reasons: 16 wk ob Utility Agent 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 Is patient in pain?: No [...] of abnormal cervical Pap smear Surgical History Unity teeth extracted History of colposcopy Family History [...] 3-4 times per week duration: 30-45 minutes/day michael/sabianism: Alevism seatbelt use: always do you feel safe at home: Yes additional social history: -Power- Bilingual Trainer Dinesh/Vega Lumber History 4 Elective abortions Hx [...] declines NIPT. would like some appts in [facility]. doing well today 07/07/24 -???-???-???-???-???-???- ???-???-???-???-???-???- 12w 6d 124 lb 6 oz (+6 oz) 112/78 Negative -???-???-???-???-???-???- ???-???-???-???-???-???- Negative 160 -?? (more content not included)... Normal [facility] Laboratory - Chemistry and C hemistry - challengeOrdered By: Vaibhav Hale on 07-07-2024 Glucose Ql (U) Negative [facility] Laboratory - UrinalysisOrder ed By: Vaibhav Hale on 07-07-2024 Protein Ql (U) Negative [facility] NATERAon 07-07-2024 NATURA SEE SCANNED REPORT Normal [facility] Comment on above: Performed By: #### L 900.0098 ####[facility] [address] [place], [place], [address] Experimental Assembler Office Visit Reporton 07-07-2024 Experimental Assembler Office Visit Report [facility]'s [address], [address] [place] [address] OFFICE VISIT Date of Service: 07/07/24 MR#: [id number] Acct: [id number] Name: NORA CAMERON Rep #: [id number] : 1990 Provider: ANGELA Dawkins ams Age/Sex: 33/F Location: [facility] [place] Status: Signed Intake Vital Signs 05/27/24 13:52 [...] of abnormal cervical Pap smear Surgical History Unity teeth extracted History of colposcopy Family History [...] 3-4 times per week duration: 30-45 minutes/day michael/sabianism: Alevism seatbelt use: always do you feel safe at home: Yes additional social history: -Power- Bilingual Trainer Dinesh/Silvia Lumber History 4 Elective abortions Hx [...] declines NIPT. would like some appts in [facility]. doing well today 07/07/24 -???-???-???-???-???-???- ???-???-???-???-???-???- 12w 6d 124 lb 6 oz (+6 oz) 112/78 Negative -???-???-???-???-???-???- ???-???-???-???-???-???- Negative 160 -???-???-???-???-???-???- ???-???-???-???-???-???- KW- no vb/cr (more content not included)... Normal [facility] PAP IG HPV APTIMA 16/18,45on 06-16-2024 ADEQ Comment Normal . [facility] Comment on above: Order Comment: Speci men Comment: [id number] Specimen Comment: No. of containers..01 ThinPrep Vial Result Comment: Sati sfactory for evaluation. No endocervical component is identified. Performed By: #### L 7400.0280, L7000.1800, M100.2200 #### [facility] [address] [place], [address] COMM . Normal . [facility] Comment on above: Order Comment: Speci men Comment: [id number] Specimen Comment: No. of containers..01 ThinPrep Vial Performed By: #### L 7400.0280, L7000.1800, M100.2200 #### [facility] [address] [place], [address] COMMENT Comment Normal . [facility] Comment on above: Order Comment: Speci men Comment: [id number] Specimen Comment: No. of containers..01 ThinPrep Vial Result Comment: This liquid based ThinPrep(R) pap test was screened with the use of an image guided system. Performed By: #### L 7400.0280, L7000.1800, M100.2200 #### [facility] [address] [place], [address] DIAG Comment Normal . [facility] Comment on above: Order Comment: Speci men Comment: [id number] Specimen Comment: No. of containers..01 ThinPrep Vial Result Comment: NEGA TIVE FOR INTRAEPITHELIAL LESION OR MALIGNANCY. Performed By: #### L 7400.0280, L7000.1800, M100.2200 #### [facility] [address] [place], [address] HPV APTIMA, HR Negative Normal Negative [facility] Comment on above: Order Comment: Speci men Comment: [id number] Specimen Comment: No. of containers..01 ThinPrep Vial Result Comment: This nucleic acid amplification test detects fourteen high- risk HPV types (16,18,31,33,35,39,45,51,52,56,58,59,66,68) without differentiation. Performed By: #### L 7400.0280, L7000.1800, M100.2200 #### [facility] [address] [place], [address] HPV Felicita Rfx Comment Normal . [facility] Comment on above: Order Comment: Speci men Comment: [id number] Specimen Comment: No. of containers..01 ThinPrep Vial Result Comment: Violetat rubén not met, HPV Genotype not performed. Performed at: - [facility] [id number] Health And Safety Representative: Maki Cespedes MD, Phone: [phone] Performed at: = - [facility] [address] [id number] Health And Safety Representative: Maki Cespedes MD, Phone: [phone] Performed By: #### L 7400.0280, L7000.1800, M100.2200 #### [facility] [address] [place], [place], [address] PAPSMR Comment Normal . [facility] Comment on above: Order Comment: Speci men Comment: [id number] Specimen Comment: No. of containers..01 ThinPrep Vial [...] By: #### L 7400.0280, L7000.1800, M100.2200 #### [facility] [address] [place], [place], [address] PERFORM Comment Normal . [facility] Comment on above: Order Comment: Speci men Comment: [id number] Specimen Comment: No. of containers..01 ThinPrep Vial Result Comment: Zee Estrada, Christian Education Director (ASCP) Performed By: #### L 7400.0280, L7000.1800, M100.2200 #### [facility] [address] [place], [place], [address] Chlamydia/GC JESÚS aptimaon CHLAMY,NUC ACID Negative Normal Negative [facility] Comment on above: Performed By: #### L 7400.0280, L7000.1800, M100.2200 #### [facility] [address] [place], [address] GC BY NUC ACID Negative Normal Negative [facility] Comment on above: Result Comment: Perf ormed at: =G - [facility] [address] [id number] Health And Safety Representative: Mkai Cespedes MD, Phone: [phone] Performed By: #### L 7400.0280, L7000.1800, M100.2200 #### [facility] [address] [place], [address] Urine Cultureon 06-11-2024 URC Culture exhibits no growth. Normal [facility] Comment on above: Performed By: #### L 7400.0280, L7000.1800, M100.2200 #### [facility] [address] [place], [address] CBC W/Diff, Automatedon 05-19 Absolute Lymph 1.89 X10 3/uL Normal 0.83-4.51 [facility] Comment on above: Performed By: #### L 3890.6100, L509.4005, L501.9520, L100.0100, L509.8000, L3890.6005, L3890.6300, BTS ####[facility] [address] [place], [address] Absolute Neut 7.1 X10 3/uL Normal 2.0-7.7 [facility] Comment on above: Performed By: #### L 3890.6100, L509.4005, L501.9520, L100.0100, L509.8000, L3890.6005, L3890.6300, BTS ####[facility] [address] [place], [address] Basophils/100 WBC (Bld) 0.3 % Normal 0-1 [facility] Comment on above: Performed By: #### L 3890.6100, L509.4005, L501.9520, L100.0100, L509.8000, L3890.6005, L3890.6300, BTS ####[facility] [address] [place], [address] Eosinophils/100 WBC (Bld) 0.7 % Normal 0-5 [facility] Comment on above: Performed By: #### L 3890.6100, L509.4005, L501.9520, L100.0100, L509.8000, L3890.6005, L3890.6300, BTS ####[facility] [address] [place], [address] Erythrocyte distribution width (RBC) [Ratio] 12.1 % Normal 11.6-14.6 [facility] Comment on above: Performed By: #### L 3890.6100, L509.4005, L501.9520, L100.0100, L509.8000, L3890.6005, L3890.6300, BTS ####[facility] [address] [place], [address] Hematocrit (Bld) [Volume fraction] 38.8 % Normal 37-47 [facility] Comment on above: Performed By: #### L 3890.6100, L509.4005, L501.9520, L100.0100, L509.8000, L3890.6005, L3890.6300, BTS ####[facility] [address] [place], [address] Hemoglobin (Bld) [Mass/Vol] 13.2 g/dL Normal 12.0-15.0 [facility] Comment on above: Performed By: #### L 3890.6100, L509.4005, L501.9520, L100.0100, L509.8000, L3890.6005, L3890.6300, BTS ####[facility] [address] [place], [address] IG% 0.400 Normal 0.0-0.9 [facility] Comment on above: Result Comment: IG% - Immature Granulocytes (promyelocytes, myelocytes and metamyelocytes) > 1% indicates that a LEFT SHIFT is Present. Performed By: #### L 3890.6100, L509.4005, L501.9520, L100.0100, L509.8000, L3890.6005, L3890.6300, BTS ####[facility] [address] [place], [address] Lymphocytes/100 WBC (Bld) 19.2 % Normal 19-41 [facility] Comment on above: Performed By: #### L 3890.6100, L509.4005, L501.9520, L100.0100, L509.8000, L3890.6005, L3890.6300, BTS ####[facility] [address] [place], [address] MCH (RBC) [Entitic mass] 30.6 pg Normal 27.0-32.0 [facility] Comment on above: Performed By: #### L 3890.6100, L509.4005, L501.9520, L100.0100, L509.8000, L3890.6005, L3890.6300, BTS ####[facility] [address] [place], [address] MCHC (RBC) [Mass/Vol] 34.0 g/dL Normal 32-36 [facility] Comment on above: Performed By: #### L 3890.6100, L509.4005, L501.9520, L100.0100, L509.8000, L3890.6005, L3890.6300, BTS ####[facility] [address] [place], [address] MCV (RBC) [Entitic vol] 90.0 fL Normal 81-99 [facility] Comment on above: Performed By: #### L 3890.6100, L509.4005, L501.9520, L100.0100, L509.8000, L3890.6005, L3890.6300, BTS ####[facility] [address] [place], [address] Monocytes/100 WBC (Bld) 7.4 % Normal 0-10 [facility] Comment on above: Performed By: #### L 3890.6100, L509.4005, L501.9520, L100.0100, L509.8000, L3890.6005, L3890.6300, BTS ####[facility] [address] [place], [address] Neutrophils/100 WBC (Bld) 72.0 % High 47-70 [facility] Comment on above: Performed By: #### L 3890.6100, L509.4005, L501.9520, L100.0100, L509.8000, L3890.6005, L3890.6300, BTS ####[facility] [address] [place], [address] Nucleated RBC (Bld) [#/Vol] 0 10*3/uL Normal 0-5 [facility] Comment on above: Performed By: #### L 3890.6100, L509.4005, L501.9520, L100.0100, L509.8000, L3890.6005, L3890.6300, BTS ####[facility] [address] [place], [address] Platelet mean volume (Bld) [Entitic vol] 10.0 fL Normal 6.2-12.0 [facility] Comment on above: Performed By: #### L 3890.6100, L509.4005, L501.9520, L100.0100, L509.8000, L3890.6005, L3890.6300, BTS ####[facility] [address] [place], [address] Platelets (Bld) [#/Vol] 324 10*3/uL Normal 150-450 [facility] Comment on above: Performed By: #### L 3890.6100, L509.4005, L501.9520, L100.0100, L509.8000, L3890.6005, L3890.6300, BTS ####[facility] [address] [place], [address] RBC (Bld) [#/Vol] 4.31 10*6/uL Normal 4.2-5.4 [facility] Comment on above: Performed By: #### L 3890.6100, L509.4005, L501.9520, L100.0100, L509.8000, L3890.6005, L3890.6300, BTS ####[facility] [address] [place], [address] RDW SD 39.9 fl Normal 35.1-43.9 [facility] Comment on above: Performed By: #### L 3890.6100, L509.4005, L501.9520, L100.0100, L509.8000, L3890.6005, L3890.6300, BTS ####[facility] [address] [place], [address] WBC (Bld) [#/Vol] 9.9 10*3/uL Normal 4.4-11.0 [facility] Comment on above: Performed By: #### L 3890.6100, L509.4005, L501.9520, L100.0100, L509.8000, L3890.6005, L3890.6300, BTS ####[facility] [address] [facility] [place], [address] HIV - WCHon 06-10-2024 HIV Non-Reactive Normal Nonreactive [facility] Comment on above: Order Comment: Reaso n for Exam: Performed By: #### L 3890.6100, L509.4005, L501.9520, L100.0100, L509.8000, L3890.6005, L3890.6300, BTS ####[facility] [address] [facility] [place], [address] Hepatitis B Surface Antigeno n 06-10-2024 HEP B Surf Ag Non-Reactive Normal Nonreactive [facility] Comment on above: Order Comment: Reaso n for Exam: Performed By: #### L 3890.6100, L509.4005, L501.9520, L100.0100, L509.8000, L3890.6005, L3890.6300, BTS ####[facility] [address] [facility] [place], [place], [address] Hepatitis C Antibodyon 06-10 Hepatitis C AB Non-Reactive Normal Nonreactive [facility] Comment on above: Order Comment: Reaso n for Exam: Result Comment: Non Reactive: < 0.8 Equivocal: >/= 0.8 to < 1.0 Reactive: >/= 1.0 The CDC requires that a reactive/equivocal HCV antibody result be sent out for confirmation. HCV Quant by PCR testing. Performed By: #### M 100.3400 #### [facility] [address] [place], [address] L509.8000on 06-10-2024 Syphilis Abs Non-Reactive Normal [facility] Comment on above: Order Comment: Reaso n for Exam: Performed By: #### L 3890.6100, L509.4005, L501.9520, L100.0100, L509.8000, L3890.6005, L3890.6300, BTS ####[facility] [address] [place], [address] Experimental Assembler Office Visit Reporton 06-10-2024 Experimental Assembler Office Visit Report [facility] [address], [address] [place] [address] OFFICE VISIT Date of Service: 06/10/24 MR#: [id number] Acct: [id number] Name: NORA CAMERON Rep #: [id number] : 1990 Provider: ANGELA Dawkins ams Age/Sex: 33/F Location: [facility] [place] Status: Signed Intake Vital Signs 04/27/24 10:29 05/27/24 13:52 06/10/24 11:15 06/10/24 11:19 Height 5 ft 3 in 5 ft 3 in 5 ft 3 in Weight: 124 lb 4 oz BMI 22.0 BP 122/80 H Intake Visit Reasons: NOB, LMP 04/08, TREVON 01/13/25 Utility Agent 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 Is patient in pain?: No [...] of abnormal cervical Pap smear Surgical History [place] teeth extracted History of colposcopy Family History [...] 3-4 times per week duration: 30-45 minutes/day michael/sabianism: Alevism seatbelt use: always do you feel safe at home: Yes additional social history: -Power- Bilingual Trainer Dinesh/Silvia Lumber History 4 Elective abortions Hx [...] declines NIPT. would like some appts in [facility]. doing well today Menstrual History Last Menstrual Period: (more content not included)... Normal [facility] Rubella IgGon 06-10-2024 Rubella IgG Reactive Normal Nonreactive [facility] Comment on above: Order Comment: Reaso n for Exam: Result Comment: Anti body Results Interpretation of Immune Status Non Reactive Presumed Non-Immune Equivocal Equivocal Reactive Presumed Immune Performed By: #### L 3890.6100, L509.4005, L501.9520, L100.0100, L509.8000, L3890.6005, L3890.6300, BTS ####[facility] [address] [place], [address] Thyroid Stim Hormone (TSH)on 06-10-2024 TSH 1.240 uIU/mL Normal 0.358-3.740 [facility] Comment on above: Performed By: #### L 3890.6100, L509.4005, L501.9520, L100.0100, L509.8000, L3890.6005, L3890.6300, BTS ####[facility] [address] [facility] [place], [address] Type AND Screenon 06-10-2024 ABO and Rh group Nom (Bld) Blood group AB Rh(D) positive Normal [facility] Comment on above: Order Comment: PN Performed By: #### L 3890.6100, L509.4005, L501.9520, L100.0100, L509.8000, L3890.6005, L3890.6300, BTS ####[facility] [address] [facility] [place], [address] Experimental Assembler Office Visit Reporton 05-27-2024 Experimental Assembler Office Visit Report [facility] [address], [address] [place] [address] OFFICE VISIT Date of Service: 05/27/24 MR#: [id number] Acct: [id number] Name: NORA CAMERON Rep #: [id number] : 1990 Provider: Dr. Lindsay bui MD Age/Sex: 33/F Location: [facility] [place] Status: Signed Intake Vital Signs 04/27/24 10:29 05/27/24 09:58 05/27/24 13:52 Height 5 ft 3 in 5 ft 3 in 5 ft 3 in Weight: 126 lb BMI 22.3 BP 126/80 H Intake Visit Reasons: 7w5d, brown spotting Utility Agent 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 Is patient in pain?: No [...] menopausal: No Patient : Yes : No [facility] Medical History Hx of abnormal cervical Pap smear Surgical History History of colposcopy Family History Grandmother Colon cancer, Onset Age: 92 Paternal Social History adopted: No household members: spouse housing: house current occupational status: employed 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 Normal [facility] Transvaginal w/Preg USon Transvaginal w/Preg [facility] Imaging Services [facility] [place], [place] [id number] Transvaginal w/Preg MR#: [id number] Acct: [id number] Name: NORA CAMERON Rep #: [id number] : 1990 F 33 From: Len Currie MD PCP: Dr. Todd Romero MD Status: REG CLI Study: Transvaginal w/Preg US Date of Exam: 05/23/24 Exam# [id number] Ordering Dr: Lindsay Song [id number] STUDY: FIRST TRIMESTER OBSTETRICAL ULTRASOUND REASON FOR [...] Todd Romero MD; Dr. Lindsay Song MD Greeting Card Writer: Signed Normal [facility] PROGESTERONE 4317on 05-15-20 24 PROGESTERONE 24.2 ng/mL Normal . [facility] Comment on above: Order Comment: N Result Comment: Foll icular phase 0.1 - 0.9 Luteal phase 1.8 - 23.9 Ovulation phase 0.1 - 12.0 First trimester 11.0 - 44.3 Second trimester 25.4 - 83.3 Third trimester 58.7 - 214.0 Postmenopausal 0.0 - 0.1 Performed at: [facility] [address] [id number] Health And Safety Representative: Jose Recinos PhD, Phone: [phone] Performed By: #### M 022.2751 #### [facility] [address] [place] [address], [address] hCG Titer Quant., Serumon HCG QUANT. 6698 mIU/mL High 1-3 [facility] Comment on above: Result Comment: hCG levels with Gestational Age Gestational Age hCG mIU/mL (IU/L) 0.2 - 1 week 5 - 50 1-2 weeks 50 - 500 2-3 weeks 100 - 5000 3-4 weeks 500 - 34006 4-5 weeks 1000 - 85846 5-6 weeks 22228 - 100,000 6-8 weeks 65064 - 200,000 2-3 months 61131 - 100,000 Performed By: #### L 7400.0280, L7000.1800, M100.2200 #### [facility] [address] [place], [place], [address] hCG Titer Quant., Serumon HCG QUANT. 3571 mIU/mL High 1-3 [facility] Comment on above: Result Comment: hCG levels with Gestational Age Gestational Age hCG mIU/mL (IU/L) 0.2 - 1 week 5 - 50 1-2 weeks 50 - 500 2-3 weeks 100 - 5000 3-4 weeks 500 - 54599 4-5 weeks 1000 - 00817 5-6 weeks 22567 - 100,000 6-8 weeks 68851 - 200,000 2-3 months 78674 - 100,000 Performed By: #### M 100.3400 #### [facility] [address] [place], [place], [address] Urine Cultureon 04-28-2024 URC Culture exhibits no growth. Normal [facility] Comment on above: Performed By: #### M 100.3400 #### [facility] [address] [place], [place], [address] Experimental Assembler Office Visit Reporton 04-27-2024 Experimental Assembler Office Visit Report [facility] [address], [address] [place] [address] OFFICE VISIT Date of Service: 04/27/24 MR#: [id number] Acct: [id number] Name: NORA CAMERON Rep #: [id number] : 1990 Provider: MILTON babcock Age/Sex: 33/F Location: [facility] [place] Status: Signed Intake Vital Signs 09/11/22 09:37 04/27/24 10:27 04/27/24 10:29 Height 5 ft 3 in 5 ft 3 in 5 ft 3 in Weight: 126 lb BMI 22.3 BP 112/72 Intake Visit Reasons: FERTILITY CONSULT Chief Complaint: Fertility consult Utility Agent 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 Is patient in pain?: No [...] house current occupational status: employed 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 She has been evaluated by OBGYN in [place], saw a chiropractor in [place] and most recently saw Dr Dunbar in [...] Bth Weight Gen [facility] Provider FOB 02/26/21 miscarriage 5 1/2 weeks [...] 3 Diagnose (more content not included)... Normal [facility] CNOVon 04-11-2024 CNOV Office Visit (FMUPCN ) ----- NORA CAMERON ([id number]) 1990 F Date Time Provider Department 04/11/24 12:00 PM TRISTIAN FENG UPCN During your visit today, we recorded the following information about you: Temperature Pulse Respiration Blood pressure 98.3 degrees 88/minute 16/minute 118/75 Weight Height 57.4 kg 1.6 m Tristian Feng, ROBOTICS APPLICATION ENGINEER.[facility] 04/11/2024 12:31 PM Signed Nora Cameron [...] Provider Department Center (more content not included)... [facility] CNPNon 04-11-2024 CNPN Telephone (FPUPDV) ----- NORA CAMERON ([id number]) 1990 F Date Time Provider Department 04/11/24 TODD ROMERO II During your visit today, we recorded the following information about you: Anabelle Grey 04/11/2024 11:36 AM Signed Patient calls today. Reason for Call: patient having ear pain and will go to walk in clinic to be evaluated today [phone] (home) [phone] (cell) Patient last appointment: Visit date not [...] Encounter Status:Closed by ANABELLE GREY on 04/11/24 [facility] CNOVon 07-28-2023 CNOV Office Visit (FPUPDV ) ----- NORA CAMERON ([id number]) 1990 F Date Time Provider Department 07/28/23 2:00 PM TODD ROMERO II FPUPDV During your visit today, we recorded the following information about you: Temperature Pulse Respiration Blood pressure 97.7 degrees 88/minute 12/minute 90/60 Weight Height 58.5 kg 1.6 m Todd Romero II, MD 07/28/2023 9:34 PM Signed Todd Romero II, MD [address], [place] [address] SUBJECTIVE Nora Cameron is a 33 year [...] normal. No (more content not included)... Normal [facility] PROGESTon 09-17-2022 PROGEST 19.45 ng/mL Normal [facility] Comment on above: Result Comment: Non- Female Ref Ranges Follicular Phase: 0.06-0.893 ng/mL Ovulation Phase: 0.12-12.0 ng/mL Luteal Phase : 1.8-23.9 ng/mL Post-Menopausal : <0.05-0.13 ng/mL Female Ref Ranges 1st Trimester: 11.0-44.3 ng/mL 2nd Trimester: 25.4-83.3 ng/mL 3rd Trimester: 58.7-214 ng/mL Performed By: #### L 304.0195, L304.0140 #### [facility] [address] [place] [address] Progesterone [Mass/Vol]on Progesterone 19.45 ng/mL [facility] TSHon 09-17-2022 TSH 1.74 uIU/mL Normal 0.270-4.200 [facility] Comment on above: Performed By: #### L 304.0195, L304.0140 #### [facility] [address] [place] [address] TSH BLDon 09-17-2022 TSH Qn 1.74 uIU/mL 0.270 - 4.200 uIU/mL [facility] Functional protein C measure mentOrdered By: Dr. Dodd on 08-23-2022 Protein C actual/normal Chromogenic method (PPP) [Rel catalytic activity/Vol] 109 % 73-180 [facility] Comment on above: Performed at: - [facility] [address] [id number] Director: Gualberto Mata MD, Phone: [phone] at: [facility] [address] [id number] Director: Jose Recinos PhD, Phone: [phone] No Panel InformationOrdered By: Dr. Dodd on 08-23-2022 Activated Protein C Resistance 2.9 ratio 2.2-3.5 [facility] Comment on above: The APCR result may be falsely increased (masking anabnormal, low APCR result) in patients on direct Xainhibitor (e.g., rivaroxaban, apixaban, edoxaban) or adirect thrombin inhibitor (e.g., dabigatran) anticoagulanttherapy due to assay interference by these drugs. Anti-Cardiolipin IgM Antibody < 9 MPL U/mL 0-12 [facility] Comment on above: Negative: <13 Indete rminate: 13 - 20 Low-Med Positive: >20 - 80 High Positive: >80 Platelet poor plasma antithr ombin actual/normal ratio by chromogenic method (relativeOrdered By: Dr. Dodd on 08-23-2022 Antithrombin actual/normal Chromogenic method (PPP) [Rel catalytic activity/Vol] 121 % 75-135 [facility] Comment on above: Direct Xa inhibitor anticoagulants such as rivaroxaban,apixaban and edoxaban will lead to spuriously elevatedantithrombin activity levels possibly masking a deficiency. Platelet poor plasma antithr ombin antigen detection by immunoassayOrdered By: Dr. Dodd on 08-23-2022 Antithrombin Ag IA Ql (PPP) 107 % 72-124 [facility] Comment on above: This test was develo ped and its performance characteristicsdetermined by [employer]. It has not been cleared orapproved by the Food and Drug Administration. Protein S measurement in casa telet poor plasma by coagulation assay (units/volume)Ordered By: Dr. Dodd on 08-23-2022 Protein S Coag Qn (PPP) 104 % 60-150 [facility] Comment on above: This test was develo ped and its performance characteristicsdetermined by [employer]. It has not been cleared orapproved by the Food and Drug Administration. Protein S, freeOrdered By: Angeles Dodd on 08-23-2022 Protein S Free Ag IA Qn (PPP) 110 % 61-136 [facility] Serum cardiolipin IgG antibo dy assay by immunoassay (units/volume)Ordered By: Dr. Dodd on 08-23-2022 Cardiolipin IgG IA Qn (S) < 9 GPL U/mL 0-14 [facility] Comment on above: Negative: <15 Indete rminate: 15 - 20 Low-Med Positive: >20 - 80 High Positive: >80 Culture, urineOrdered By: Dr Derrick Dodd on 06-07-2022 Bacteria identified Cx Nom (U) Culture exhibits no growth. [facility] Serum or plasma choriogonado tropin detectionOrdered By: Dr. Dodd on 06-07-2022 HCG ( test) [place]l [address] mIU/mL <4 [facility] Comment on above: hCG levels with Gest ational AgeGestational Age hCG mIU/mL (IU/L)0.2 - 1 week 5 - 501-2 weeks 50 - 5002-3 weeks 100 - 52987-4 weeks 500 - 032131-3 weeks 1000 - 254369-1 weeks 88474 - 100,0006-8 weeks 09726 - 200,0002-3 months 03971 - 100,000 Chlamydia trachomatis rRNA d etection by probe and target amplification methodOrdered By: Dr. Dodd on 06-05-2022 C. trachomatis rRNA JESÚS+probe Ql (Unsp spec) Negative Negative [facility] Dilute Tc's viper venom timeOrdered By: Dr. Dodd on 06-05-2022 dRVVT Coag (PPP) [Time] 33.1 s 0.0-47.0 [facility] - Microbiology an d Antimicrobial susceptibilityOrdered By: Dr. Dodd on 06-05-2022 N. gonorrhoeae DNA JESÚS+probe Ql (Unsp spec) Negative Negative [facility] Comment on above: Performed at: =[address] [id number] Director: Maki Cespedes MD, Phone: [phone] No Panel InformationOrdered By: Dr. Dodd on 06-05-2022 Anti-Cardiolipin IgM Antibody 18 MPL U/mL 0-12 [facility] Comment on above: Negative: <13 Indete rminate: 13 - 20 Low-Med Positive: >20 - 80 High Positive: >80 Serum beta 2 glycoprotein 1 IgA antibody detectionOrdered By: Dr. Dodd on 06-05-2022 Beta 2 glycoprotein 1 IgA Ql (S) <9 0-25 [facility] Comment on above: Result Units: GPI Ig [...] glycoprotein 1 IgG Ql (S) <9 0-20 [facility] Comment on above: Result Units: GPI Ig [...] glycoprotein 1 IgM Ql (S) <9 0-32 [facility] Comment on above: Result Units: GPI Ig M unitsThe reference interval reflects a 3SD or 99th percentileinterval, which is thought to represent a potentiallyclinically significant result in accordance with theInternational Consensus Statement on the classificationcriteria for definitive antiphospholipid syndrome (APS). JThromb Haem 2006;4:295-306.Performed at: [facility] Lab[address] [id number] Director: Gualberto Mata MD, Phone: [phone] at: [facility] LabCumulus Networks[address] [id number] Director: Jose Recinos PhD, Phone: [phone] Serum cardiolipin IgG antibo dy assay by immunoassay (units/volume)Ordered By: Dr. Dodd on 06-05-2022 Cardiolipin IgG IA Qn (S) < 9 GPL U/mL 0-14 [facility] Comment on above: Negative: <15 Indete rminate: 15 - 20 Low-Med Positive: >20 - 80 High Positive: >80 Serum or plasma cardiolipin IgA antibody assay (units/volume)Ordered By: Dr. Dodd on 06-05-2022 Cardiolipin IgA Qn < 9 APL U/mL 0-11 [facility] Comment on above: Negative: <12 Indete rminate: 12 - 20 Low-Med Positive: >20 - 80 High Positive: >80 Serum or plasma choriogonado tropin detectionOrdered By: Dr. Dodd on 06-05-2022 HCG ( test) Ql [address] mIU/mL <4 [facility] Comment on above: hCG levels with Gest ational AgeGestational Age hCG mIU/mL (IU/L)0.2 - 1 week 5 - 501-2 weeks 50 - 5002-3 weeks 100 - 24572-2 weeks 500 - 205423-8 weeks 1000 - 849159-3 weeks 76604 - 100,0006-8 weeks 21910 - 200,0002-3 months 23917 - 100,000 Thin prep Papanicolaou smear with manual screeningOrdered By: Dr. Dodd on 06-05-2022 Thin prep Papanicolaou smear with manual screening 35.8 sec 0.0-47.6 [facility] Thin prep Papanicolaou smear with manual screening 0.97 Ratio 0.00-1.34 [facility] Thin prep Papanicolaou smear with manual screening 29.6 sec 0.0-51.9 [facility] Comment on above: Effective June 23, 2022 PTT-LA reference interval will be changing to: 0.0 - 43.5 sec Thin prep Papanicolaou smear with manual screening Comment: . [facility] Comment on above: No lupus anticoagula nt was detected. Thrombin time in platelet po or plasmaOrdered By: Dr. Dodd on 06-05-2022 Thrombin time Coag (PPP) [Time] 15.2 sec 0.0-23.0 [facility] HPV,CtNg Age Gdon 12-02-2021 . . [facility] Comment on above: Order Comment: Speci men Comment: [id number] Specimen Comment: No. of containers..01 ThinPrep Vial Performed By: #### L 801.8800 #### [place] [address] . [facility] Comment on above: Order Comment: Speci men Comment: [id number] Specimen Comment: No. of containers..01 ThinPrep Vial Result Comment: The HPV DNA reflex criteria were not met with this specimen result therefore, no HPV testing was performed. Performed at: = - [facility] [id number] Health And Safety Representative: Maki Cespedes MD, Phone: [phone] Performed at: - [facility] [id number] Health And Safety Representative: Maki Cespedes MD, Phone: [phone] Performed By: #### L 801.8800 #### [facility] [place] [address] Age Gdln ACOG 25-29 Normal . [facility] Comment on above: Order Comment: Speci men Comment: [id number] Specimen Comment: No. of containers..01 ThinPrep Vial Performed By: #### L 801.8800 #### [place] [address] Diagnosis: [facility] Comment on above: Order Comment: Speci men Comment: [id number] Specimen Comment: No. of containers..01 ThinPrep Vial Result Comment: NEGA TIVE FOR INTRAEPITHELIAL LESION OR MALIGNANCY. Performed By: #### L 801.8800 #### [place] [address] Note: [facility] Comment on above: Order Comment: Speci men Comment: [id number] Specimen Comment: No. of containers..01 ThinPrep Vial [...] Performed By: #### L 801.8800 #### [place] [address] Performed by: [facility] Comment on above: Order Comment: Speci men Comment: [id number] Specimen Comment: No. of containers..01 ThinPrep Vial Result Comment: Lei Bojorquez, Christian Education Director (ASCP) Performed By: #### L 801.8800 #### [place] [address] Spec adequacy: [facility] Comment on above: Order Comment: Speci men Comment: [id number] Specimen Comment: No. of containers..01 ThinPrep Vial Result Comment: Sati sfactory for evaluation. No endocervical component is identified. Performed By: #### L 801.8800 #### [place] [address] Test Methodlogy [facility] Comment on above: Order Comment: Speci men Comment: [id number] Specimen Comment: No. of containers..01 ThinPrep Vial Result Comment: This liquid based ThinPrep(R) pap test was screened with the use of an image guided system. Performed By: #### L 801.8800 #### [place] [address] CNOVon 09-05-2021 CNOV Office Visit (MACKENZIE R) ----- NORA CAMERON ([id number]) 1990 F Date Time Provider Department 09/05/21 [...] your testing is not done at a [facility] please provide this office with the results of your testing. Todd Romero II, MD 09/15/2021 8:23 PM Signed Todd Romero II, MD [address], [place] [address] SUBJECTIVE Nora Cameron is a 31 year [...] or posterio (more content not included)... [facility] US HYSTEROSONOGRAMon 022 US HYSTEROSONOGRAM ORIGINAL EXAMINATION: PROC HYSTEROSALPINGOGRAPH TECHNIQUE: Ultrasound-guided hysterosonogram was performed by the physician's assistant plant control operator, Jacqueline Drake. COMPARISON: None similar. HISTORY: ORDERING [...] Deepak Pelayo MD Preliminary Report By: Deepak Pelayo MD Electronically signed By Deepak Pelayo MD Dictated Date: 08/19/2021 9:41:27 AM Prelim Date: 08/19/2021 10:08:08 AM Sign Date: 08/19/2021 10:08:08 AM Ordering Provider: CESAR [facility] ([place]) ED PROV NOTEon 07-01-2021 ED PROV NOTE HNO ID: [id number] Author: Benita Childs APRN.GEOSCIENCES FACULTY MEMBER Service: ? Author Type: Nurse Practitioner Type: ED Provider Notes Filed: 07/17/2021 2:42 PM Note Text: [place] [address] HEALTH INFORMATION MANAGEMENT EMERGENCY DEPARTMENT REPORT Patient: NORA CAMERON BENITA CHILDS as dictated by MILTON SIMPSON [id number] [age] F Status: [facility] ER ED Date of Service: 07/01/21 CHIEF [...] follow for test results. Report#: Dict ID [id number] / Int ID [id number] 07/17/[address] INTERPRETER-C cc: BENITA CHILDSC; CESAR BOTELLO M.D. << Signature on File>> Reported By: BENITA CHILDS Signed By: BENITA CHILDS Tests performed at: [address] [address] [facility] ED PROV NOTE HNO ID: [id number] Author: Eric Pastor Service: ? Author Type: Physician Type: ED Provider Notes Filed: 07/01/2021 1:12 PM Note Text: [place] [address] HEALTH INFORMATION MANAGEMENT EMERGENCY DEPARTMENT REPORT Patient: NORA CAMERON ERIC PASTOR M.D. [id number] [age] F Status: [facility] ER ED Date of Service: 07/01/21 PHYSICIAN: [...] well. IMPRESSION: Inevitable . Report#: Dict ID [id number] / Int ID [id number] cc: Cesar Botello MD 07/01/21 1310 ERIC PASTOR M.D. cc: ERIC PASTOR M.D.; CESAR BOTELLO M.D. << Signature on File>> Reported By: ERIC PASTOR M.D. Signed By: ERIC PASTOR M.D. Tests performed at: [address] [address] [facility] ED PROV NOTEon 02-28-2021 ED PROV NOTE HNO ID: [id number] Author: Gonzalo Gupta Service: ? Author Type: Physician Type: ED Provider Notes Filed: 03/13/2021 4:44 PM Note Text: [place] [address] HEALTH INFORMATION MANAGEMENT EMERGENCY DEPARTMENT REPORT Patient: NORA CAMERON GONZALO GUPTA M.D. [id number] [age] F Status: DEP ER ED Date of Service: 02/27/21 This is an addendum to a note by Gayle Ace. HISTORY OF PRESENT ILLNESS: The patient is a 30-year-old female whom I saw with Gayle Ace today. She is approximately five weeks by ultrasound done today. She has not seen her mutual funds agent. She thought she was more like [age] [...] DIAGNOSIS: First trimester bleeding. Report#: Dict ID [id number] / Int ID [id number] 03/13/21 1637 GONZALO GUPTA M.D. cc: TODD ROMERO JR, M.D.; GONZALO GUPTA M.D. << Signature on File>> Reported By: GONZALO GUPTA M.D. Signed By: GONZALO GUPTA M.D. Tests performed at: [address] [address] [facility] ED PROV NOTEon 02-27-2021 ED PROV NOTE HNO ID: [id number] Author: Provider [facility] Service: ? Author Type: Physician Type: ED Provider Notes Filed: 03/06/2021 10:29 AM Note Text: [place] [address] HEALTH INFORMATION MANAGEMENT EMERGENCY DEPARTMENT REPORT Patient: RAKESHNORA GAYLE DOTSON as dictated by MILTON PERRY [id number] [age] F Status: DEP ER ED [...] follow pelvic rest instructions. Report#: Dict ID [id number] / Int ID [id number] 03/06/21 1026 GAYLE ACE cc: GAYLE ACE; TODD ROMERO JR, M.D. << Signature on File>> Reported By: GAYLE ACE Signed By: GAYLE ACE Tests performed at: [place] [address] [facility] OBSOLETEon 02-21-2021 OBSOLETE Refill ([place]) ----- NORA CAMERON ([id number]) 1990 F Date Time Provider Department 02/21/21 [...] ARPIT: Yes ALLERGIES No Known Allergies (home) [phone] (cell) Last Office Visit Date: 11/13/2020 Last [facility] Visit: Visit date not found Future [...] Status:Closed by TODD ROMERO II on 02/21/21 [facility] CNOVon 11-13-2020 CNOV Office Visit (MACKENZIE R) ----- NORA CAMERON ([id number]) 1990 F Date Time Provider Department 11/13/20 9:40 AM TODD ROMERO II During your visit today, we recorded the following information about you: Pulse Respiration Blood pressure Weight 90/minute 16/minute 100/62 50.8 kg Height 1.6 m Todd Romero II, MD 11/19/2020 8:14 PM Signed Todd Romero II, MD [address], [place] [address] SUBJECTIVE Nora Cameron is a 30 year old female who presents with [facility]. HPI Patient is in today to get reestablished and to discuss anxiety. 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 [facility] Vital Signs Date Time Vital Sign Value Performing Clinician Facility 01-03-2025 11:39-0400 Body height 162.56 cm Erinn Smiths CERTIFIED COURT INTERPRETER-C Work Phone: [facility] 01-03-2025 11:39-0400 Body mass index (BMI) [Ratio] 25.8 kg/m2 Erinn Smiths CERTIFIED COURT INTERPRETER-C Work Phone: [facility] 01-03-2025 11:39-0400 Body weight 68.26 kg Erinn Smiths CERT[address]IED COURT INTERPRETER-C Work Phone: [facility] 01-03-2025 11:39-0400 Diastolic blood pressure 86 mm[Hg] Erinn Gilberttings CERTIFIED COURT INTERPRETER-C Work Phone: [facility] 01-03-2025 11:39-0400 Systolic blood pressure 129 mm[Hg] Erinn Smiths CERTIFIED COURT INTERPRETER-C Work Phone: [facility] 12-29-2024 17:38-0400 Diastolic blood pressure 65 mm[Hg] Erinn Maxwell CERTIFIED COURT INTERPRETER-C Work Phone: [facility] 12-29-2024 17:38-0400 Heart rate 75 /min Erinn Smiths CERTIFIED COURT INTERPRETER-C Work Phone: [facility] 12-29-2024 17:38-0400 Systolic blood pressure 124 mm[Hg] Erinn Smiths CERTIFIED COURT INTERPRETER-C Work Phone: [facility] 12-29-2024 15:45-0400 Body height 162.56 cm Erinn Maxwell CERTIFIED COURT INTERPRETER-C Work Phone: [facility] 12-29-2024 15:45-0400 Body mass index (BMI) [Ratio] 25.7 kg/m2 Erinn Maxwell CERTIFIED COURT INTERPRETER-C Work Phone: [facility] 12-29-2024 15:45-0400 Body weight 68.03 kg Erinn Julian CERTIFIED COURT INTERPRETER-C Work Phone: [facility] 12-29-2024 15:25-0400 Body temperature 98.3 [degF] Erinn Julian CERTIFIED COURT INTERPRETER-C Work Phone: [facility] 12-29-2024 15:25-0400 Respiratory rate 16 /min Erinn Maxwell CERTIFIED COURT INTERPRETER-C Work Phone: [facility] 12-29-2024 14:07-0400 Body height 160.02 cm Erinn Julian CERT[address]IED COURT INTERPRETER-C Work Phone: [facility] 12-29-2024 14:03-0400 Body mass index (BMI) [Ratio] 26.7 kg/m2 Erinn Julian CERT[address] INTERPRETER-C Work Phone: [facility] 12-29-2024 14:03-0400 Body weight 68.54 kg Erinn Julian CERT[address] INTERPRETER-C Work Phone: [facility] 12-29-2024 14:03-0400 Diastolic blood pressure 80 mm[Hg] Reinn Julian CERTIFIED COURT INTERPRETER-C Work Phone: [facility] 12-29-2024 14:03-0400 Systolic blood pressure 143 mm[Hg] Erinn Julian CERTIFIED COURT INTERPRETER-C Work Phone: [facility] 12-23-2024 14:06-0400 Body height 160.02 cm Erinn Maxwell CERTIFIED COURT INTERPRETER-C Work Phone: [facility] 12-23-2024 14:06-0400 Body mass index (BMI) [Ratio] 26.6 kg/m2 Erinn Maxwell CERTIFIED COURT INTERPRETER-C Work Phone: [facility] 12-23-2024 14:06-0400 Body weight 68.18 kg Erinn Maxwell CERTIFIED [address] INTERPRETER-C Work Phone: [facility] 12-23-2024 14:06-0400 Diastolic blood pressure 74 mm[Hg] Erinn Maxwell CERTIFIED COURT INTERPRETER-C Work Phone: [facility] 12-23-2024 14:06-0400 Systolic blood pressure 135 mm[Hg] Erinn Maxwell CERTIFIED COURT INTERPRETER-C Work Phone: [facility] 12-15-2024 15:37-0400 Body height 160.02 cm Erinn Julian CERT[address] INTERPRETER-C Work Phone: [facility] 12-15-2024 15:37-0400 Body mass index (BMI) [Ratio] 26.4 kg/m2 Erinn Maxwell CERTIFIED COURT INTERPRETER-C Work Phone: [facility] 12-15-2024 15:37-0400 Body weight 67.75 kg Erinn Julian CERT[address] INTERPRETER-C Work Phone: [facility] 12-15-2024 15:37-0400 Diastolic blood pressure 71 mm[Hg] Erinn Julian CERTIFIED COURT INTERPRETER-C Work Phone: [facility] 12-15-2024 15:37-0400 Systolic blood pressure 126 mm[Hg] Erinn Julian CERTIFIED COURT INTERPRETER-C Work Phone: [facility] 12-01-2024 14:33-0400 Body height 160.02 cm Erinn Julian CERT[address] INTERPRETER-C Work Phone: [facility] 12-01-2024 14:33-0400 Body mass index (BMI) [Ratio] 25.9 kg/m2 Erinn Maxwell CERTIFIED [address] INTERPRETER-C Work Phone: [facility] 12-01-2024 14:33-0400 Body weight 66.33 kg Erinn Maxwell CERTIFIED [address] INTERPRETER-C Work Phone: [facility] 12-01-2024 14:33-0400 Diastolic blood pressure 74 mm[Hg] Erinn Maxwell CERTIFIED COURT INTERPRETER-C Work Phone: [facility] 12-01-2024 14:33-0400 Systolic blood pressure 113 mm[Hg] Erinn Maxwell CERTIFIED COURT INTERPRETER-C Work Phone: [facility] 11-17-2024 11:38-0400 Body height 160.02 cm Erinn Maxwell CERTIFIED [address] INTERPRETER-C Work Phone: [facility] 11-17-2024 11:36-0400 Body mass index (BMI) [Ratio] 25.2 kg/m2 Erinn Maxwell CERTIFIED COURT INTERPRETER-C Work Phone: [facility] 11-17-2024 11:36-0400 Body weight 64.58 kg Erinn Maxwell CERTIFIED [address] INTERPRETER-C Work Phone: [facility] 11-17-2024 11:36-0400 Diastolic blood pressure 74 mm[Hg] Erinn Julian CERTIFIED COURT INTERPRETER-C Work Phone: [facility] 11-17-2024 11:36-0400 Systolic blood pressure 112 mm[Hg] Erinn Julian CERTIFIED COURT INTERPRETER-C Work Phone: [facility] 11-03-2024 11:04-0400 Body height 160.02 cm Erinn Julian CERT[address] INTERPRETER-C Work Phone: [facility] 11-03-2024 11:04-0400 Body mass index (BMI) [Ratio] 25 kg/m2 Erinn Maxwell CERTIFIED COURT INTERPRETER-C Work Phone: [facility] 11-03-2024 11:04-0400 Body weight 64.12 kg Erinn Maxwell CERT[address] INTERPRETER-C Work Phone: [facility] 11-03-2024 11:04-0400 Diastolic blood pressure 70 mm[Hg] Erinn Julian CERTIFIED COURT INTERPRETER-C Work Phone: [facility] 11-03-2024 11:04-0400 Systolic blood pressure 111 mm[Hg] Erinn Julian CERTIFIED COURT INTERPRETER-C Work Phone: [facility] 10-18-2024 11:09-0400 Body weight 63.32 kg Erinn Maxwell CERT[address] INTERPRETER-C Work Phone: [facility] 10-12-2024 10:16-0400 Body height 160.02 cm [address] C[address] INTERPRETER-C Work Phone: [facility] 10-12-2024 10:16-0400 Body mass index (BMI) [Ratio] 24.7 kg/m2 Erinn Julian CERT[address] INTERPRETER-C Work Phone: [facility] 10-12-2024 10:16-0400 Body weight 63.27 kg Erinn Maxwell CERT[address] INTERPRETER-C Work Phone: [facility] 10-12-2024 10:16-0400 Diastolic blood pressure 68 mm[Hg] Erinn Julian CERTIFIED COURT INTERPRETER-C Work Phone: [facility] 10-12-2024 10:16-0400 Systolic blood pressure 112 mm[Hg] Erinn Maxwell CERTIFIED COURT INTERPRETER-C Work Phone: [facility] 09-16-2024 14:53-0400 Body mass index (BMI) [Ratio] 23.7 kg/m2 Erinn Julian CERT[address] INTERPRETER-C Work Phone: [facility] 09-16-2024 14:53-0400 Body weight 60.78 kg Erinn Maxwell CERTIFIED [address] INTERPRETER-C Work Phone: [facility] 09-16-2024 14:53-0400 Diastolic blood pressure 71 mm[Hg] Erinn Maxwell CERTIFIED COURT INTERPRETER-C Work Phone: [facility] 09-16-2024 14:53-0400 Systolic blood pressure 108 mm[Hg] Erinn Maxwell CERTIFIED COURT INTERPRETER-C Work Phone: [facility] 08-22-2024 08:29-0400 Body mass index (BMI) [Ratio] 22.8 kg/m2 Erinn Julian CERT[address] INTERPRETER-C Work Phone: [facility] 08-22-2024 08:29-0400 Body weight 58.68 kg Erinn Maxwell CERT[address]IED [address] INTERPRETER-C Work Phone: [facility] 08-22-2024 08:29-0400 Diastolic blood pressure 64 mm[Hg] Erinn Maxwell CERTIFIED COURT INTERPRETER-C Work Phone: [facility] 08-22-2024 08:29-0400 Systolic blood pressure 100 mm[Hg] Erinn Julian CERTIFIED COURT INTERPRETER-C Work Phone: [facility] 07-28-2024 16:01-0400 Body mass index (BMI) [Ratio] 22.3 kg/m2 Erinn Julian CERT[address] INTERPRETER-C Work Phone: [facility] 07-28-2024 16:01-0400 Body weight 57.15 kg Erinn Maxwell CERT[address] INTERPRETER-C Work Phone: [facility] 07-28-2024 16:01-0400 Diastolic blood pressure 73 mm[Hg] Erinn Julian CERTIFIED COURT INTERPRETER-C Work Phone: [facility] 07-28-2024 16:01-0400 Systolic blood pressure 122 mm[Hg] Erinn Julian CERTIFIED COURT INTERPRETER-C Work Phone: [facility] 07-07-2024 07:43-0500 Body mass index (BMI) [Ratio] 22 kg/m2 Erinn Maxwell CERTIFIED COURT INTERPRETER-C Work Phone: [facility] 07-07-2024 07:43-0500 Body weight 56.41 kg [address]inn Julian C[address] INTERPRETER-C Work Phone: [facility] 07-07-2024 07:43-0500 Diastolic blood pressure 78 mm[Hg] Erinn Maxwell CERTIFIED COURT INTERPRETER-C Work Phone: [facility] 07-07-2024 07:43-0500 Systolic blood pressure 112 mm[Hg] Erinn Julian CERTIFIED COURT INTERPRETER-C Work Phone: [facility] 04-11-2024 12:12-0500 Body height 160 cm Tristian Feng APRN.CNP Work Phone: [facility] 04-11-2024 12:12-0500 Body mass index (BMI) [Ratio] 22.43 kg/m2 Tristian Feng APRN.GEOSCIENCES FACULTY MEMBER Work Phone: [facility] 04-11-2024 12:12-0500 Body temperature 98.29 [degF] Tristian Feng APRN.GEOSCIENCES FACULTY MEMBER Work Phone: [facility] 04-11-2024 12:12-0500 Body weight 57.42 kg Tristian Feng APRN.GEOSCIENCES FACULTY MEMBER Work Phone: [facility] 04-11-2024 12:12-0500 Diastolic blood pressure 75 mm[Hg] Tristian Feng APRN.GEOSCIENCES FACULTY MEMBER Work Phone: [facility] 04-11-2024 12:12-0500 Heart rate 88 /min Tristian Feng APRN.GEOSCIENCES FACULTY MEMBER Work Phone: [facility] 04-11-2024 12:12-0500 Respiratory rate 16 /min Tristian Feng APRN.GEOSCIENCES FACULTY MEMBER Work Phone: [facility] 04-11-2024 12:12-0500 SaO2% (BldA) [Mass fraction] 97 % Tristian Fegn APRN.GEOSCIENCES FACULTY MEMBER Work Phone: [facility] 04-11-2024 12:12-0500 Systolic blood pressure 118 mm[Hg] Tristian Feng APRN.GEOSCIENCES FACULTY MEMBER Work Phone: [facility] 07-28-2023 14:08-0400 Body height 160 cm Todd Romero II, MD Work Phone: [facility] 07-28-2023 14:08-0400 Body temperature 97.7 [degF] Todd Romero II, MD Work Phone: [facility] 07-28-2023 14:08-0400 Body weight 58.51 kg Todd Romero II, MD Work Phone: [facility] 07-28-2023 14:08-0400 Diastolic blood pressure 60 mm[Hg] Todd Romero II, MD Work Phone: [facility] 07-28-2023 14:08-0400 Heart rate 88 /min Todd Romero II, MD Work Phone: [facility] 07-28-2023 14:08-0400 Respiratory rate 12 /min Todd Romero II, MD Work Phone: [facility] 07-28-2023 14:08-0400 SaO2% (BldA) [Mass fraction] 98 % Todd Romero II, MD Work Phone: [facility] 07-28-2023 14:08-0400 Systolic blood pressure 90 mm[Hg] Todd Romero II, MD Work Phone: [facility] 06-18-2022 09:38-0500 Body height 160.[address] Todd Romero Work Phone: [facility] 06-18-2022 09:38-0500 Body mass index (BMI) [Ratio] 20.9 kg/m2 Dr. Todd Romero Work Phone: [facility] 06-18-2022 09:38-0500 Body weight 53.[address] Todd Romero Work Phone: [facility] 06-18-2022 09:38-0500 Diastolic blood pressure 69 mm[Hg] Dr. Todd Romero Work Phone: [facility] 06-18-2022 09:38-0500 Systolic blood pressure 108 mm[Hg] Dr. Todd Romero Work Phone: [facility] 06-11-2022 10:59-0500 Body height 160.[address] Todd Romero Work Phone: [facility] 06-11-2022 10:58-0500 Body mass index (BMI) [Ratio] 20.9 kg/m2 Dr. Todd Romero Work Phone: [facility] 06-11-2022 10:58-0500 Body weight 53.[address] Todd Romero Work Phone: [facility] 06-11-2022 10:58-0500 Diastolic blood pressure 79 mm[Hg] Dr. Todd Romeor Work Phone: [facility] 06-11-2022 10:58-0500 Systolic blood pressure 138 mm[Hg] Dr. Todd Romero Work Phone: [facility] 06-05-2022 10:22-0500 Body mass index (BMI) [Ratio] 21.2 kg/m2 Dr. Todd Romero Work Phone: [facility] 06-05-2022 10:22-0500 Body weight 54.[address] Todd Romero Work Phone: [facility] 06-05-2022 10:22-0500 Diastolic blood pressure 62 mm[Hg] Dr. Todd Romero Work Phone: [facility] 06-05-2022 10:22-0500 Systolic blood pressure 114 mm[Hg] Dr. Todd Romero Work Phone: [facility] 09-05-2021 10:42-0400 Body height 160 cm Todd Romero II, MD Work Phone: [facility] 09-05-2021 10:42-0400 Body temperature 99.3 [degF] Todd Romero II, MD Work Phone: [facility] 09-05-2021 10:42-0400 Body weight 53.52 kg Todd Romero II, MD Work Phone: [facility] 09-05-2021 10:42-0400 Diastolic blood pressure 64 mm[Hg] Todd Romero II, MD Work Phone: [facility] 09-05-2021 10:42-0400 Heart rate 80 /min Todd Romero II, MD Work Phone: [facility] 09-05-2021 10:42-0400 Respiratory rate 16 /min Todd Romero II, MD Work Phone: [facility] 09-05-2021 10:42-0400 SaO2% (BldA) [Mass fraction] 99 % Todd Romero II, MD Work Phone: [facility] 09-05-2021 10:42-0400 Systolic blood pressure 98 mm[Hg] Todd Romero II, MD Work Phone: [facility] Encounters Encounter Date Encounter Type Care Provider Facility Start: 01-13-2025 ambulatory Todd Romero Facility :[facility] Start: 01-10-2025 [facility] Start: 01-03-2025 End: 01-03-[address] Emerald Dunbar DO -[facility] Work Phone: Start: 01-03-2025 End: 01-03-2025 [address] Julian CERT[address]IED COURT INTERPRETER-C Work Phone: -[facility] Start: 12-29-2024 ambulatory Todd Romero Facility :[facility] Start: 12-29-2024 Non-patient / Non-visit Dr. Charisse Song MD -[facility] Start: 12-29-2024 End: 12-29-2024 ambulatory Erinn Maxwell CERTIFIED COURT INTERPRETER-C Work Phone: -Laboratory Start: 12-29-2024 End: 12-29-[address] Lindsay Song MD -Laboratory Work Phone: Start: 12-29-2024 End: 12-29-[address] Lindsay Song MD -[facility] Work Phone: Start: 12-29-2024 End: 12-29-2024 [address] Erinn Maxwell CERT[address]IED COURT INTERPRETER-C Work Phone: -[facility] Start: 12-23-2024 End: 12-23-2024 [address] CERT[address]IED [address] INTERPRETER-C Work Phone: -Laboratory Specimen Start: 12-23-2024 End: 12-23-2024 Patient encounter procedure Vaibhav Hale CNM -Laboratory Specimen Work Phone: Start: 12-23-2024 End: 12-23-2024 Patient encounter procedure Vaibhav Hale CNM -[facility] Work Phone: Start: 12-23-2024 End: 12-23-2024 [address] Erinn Maxwell CERT[address]IED COURT INTERPRETER-C Work Phone: -[facility] Start: 12-23-2024 End: 12-23-2024 ambulatory Vaibhav Hale Facility:[facility] Start: 12-15-2024 End: 12-15-[address] Lindsay Song MD -[facility] Work Phone: Start: 12-15-2024 End: 12-15-2024 [address] Maxwell CERT[address]IED COURT INTERPRETER-C Work Phone: -[facility] Start: 12-15-2024 End: 12-15-2024 ambulatory Erinn Maxwell CERTIFIED COURT INTERPRETER-C Work Phone: -Ultrasound [facility] Start: 12-15-2024 End: 12-15-2024 Patient encounter procedure Vaibhav Hale CN -Ultrasound [facility] Work Phone: Start: 12-15-2024 End: 12-15-2024 ambulatory Todd Romero Facility:[facility] Start: 12-01-2024 End: 12-01-[address] Emeradl Dunbar DO -[facility] Work Phone: Start: 12-01-2024 End: 12-01-[address]24 [address] Maxwell CERTIFIED COURT INTERPRETER-C Work Phone: [facility] Start: 11-25-2024 ambulatory Todd Romero Facility :[facility] Start: 11-17-2024 End: 11-17-2024 Patient encounter procedure Vaibhav Hale CNM -[facility] Work Phone: Start: 11-17-2024 End: 11-17-2024 [address] Erinn Maxwell CERTIFIED COURT INTERPRETER-C Work Phone: -[facility] Start: 11-03-2024 End: 11-03-2024 Patient encounter procedure Vaibhav Hale CNM -[facility] Work Phone: Start: 11-03-2024 End: 11-03-[address] CERT[address]IED [address] INTERPRETER-C Work Phone: [facility] Work Phone: Start: 10-18-2024 End: 11-14-2024 Discharged Recurring Erinn Jordan CERTIFIED COURT INTERPRETER-C -Nutritional Servic es Work Phone: Start: 10-18-2024 Registered Recurring Erinn Jordan CERTIFIED COURT INTERPRETER-C -Nutritional Services Work Phone: Start: 10-18-2024 End: 11-14-2024 ambulatory Erinn Jordan CERTIFIED COURT INTERPRETER-C Work Phone: -[facility] Services Start: 10-12-2024 End: 10-12-2024 Patient encounter procedure Erinn Jordan CERTIFIED COURT INTERPRETER-C -[facility] Work Phone: Start: 10-12-2024 End: 10-12-2024 amb[address] Erinn Jordan CERTIFIED COURT INTERPRETER-C Work Phone: [facility] Work Phone: Start: 10-12-2024 End: 10-12-2024 [address] Erinn Jordan CERTIFIED COURT INTERPRETER-C Work Phone: [facility] Work Phone: Start: 10-12-2024 End: 10-12-2024 Patient encounter procedure Erinn Jordan CERTIFIED COURT INTERPRETER-C -Lab [facility] Start: 10-12-2024 End: 10-12-[address]24 [address] Erinn Jordan CERTIFIED COURT INTERPRETER Facility:[facility] Start: 09-16-2024 End: 09-16-[address] Lindsay Song MD -[facility] Work Phone: Start: 09-16-2024 End: 09-16-2024 ambulatory Lindsay Song Facility:[facility] Start: 08-22-2024 End: 08-22-2024 Patient encounter procedure Erinn Jordan CERTIFIED COURT INTERPRETER-C -[facility] Work Phone: Start: 08-22-2024 End: 08-22-2024 ambulatory [facility] Start: 07-28-2024 End: 07-28-[address] Emerald Dunbar DO -[facility] Work Phone: Start: 07-28-2024 End: 07-28-2024 ambulatory Emerald Dunbar Facility:[facility] Start: 07-07-2024 End: 07-07-2024 Patient encounter procedure Vaibhav Hale CNM -Lab [facility] Start: 07-07-2024 End: 07-07-2024 Patient encounter procedure Vaibhav Paul CN -[facility] Start: 07-07-2024 End: 07-07-2024 ambulatory Vaibhav Hale Facility:[facility] Start: 07-07-2024 End: 07-07-2024 ambulatory Vaibhav Hale Facility:[facility] Start: 06-24-2024 ambulatory Vaibhav Hale Facility :[facility] Start: 06-10-2024 End: 06-10-2024 ambulatory Vaibhav Paul Facility:[facility] Start: 06-10-2024 End: 06-10-2024 ambulatory Vaibhav Hale Facility:[facility] Start: 05-27-2024 End: 05-27-2024 ambulatory Todd Romero Facility:[facility] Start: 05-23-2024 End: 05-23-2024 ambulatory Todd Romero Facility:[facility] Start: 05-14-2024 End: 05-14-2024 ambulatory Todd Romero Facility:[facility] Start: 05-12-2024 End: 05-12-2024 ambulatory Todd Romero Facility:[facility] Start: 04-27-2024 End: 04-27-2024 ambulatory Todd Romero Facility:[facility] Start: 04-27-2024 End: 04-27-2024 ambulatory Todd Romero Facility:[facility] Start: 04-11-2024 End: 04-11-2024 Telephone encounter Todd Romero MD Work Phone: [facility] Comment on above: walk in clinic Start: 04-11-2024 End: 04-11-2024 ambulatory TRISTIAN FENG Facility:[id number] Start: 04-11-2024 End: 04-11-2024 Patient encounter procedure Tristian Feng ROBOTICS APPLICATION ENGINEER.GEOSCIENCES FACULTY MEMBER Work Phone: [facility] Comment on above: Viral URI (Primary D x) Start: 07-28-2023 End: 07-28-2023 Patient encounter procedure Todd Romero MD Work Phone: [facility] Comment on above: Routine physical exa mination (Primary Dx) Start: 07-28-2023 End: 07-28-2023 Physical examination Todd Romero MD Work Phone: [facility] Work Phone: Start: 07-28-2023 End: 07-28-2023 ambulatory TODD ROMERO II Facility:[id number] Start: 03-20-2023 End: 03-20-2023 Subsequent hospital visit by physician Xr [address] Comment on above: Cervicalgia [M54.2] Start: 09-17-2022 ambulatory PHYSICIAN MISC Facility :[facility] Start: 09-17-2022 End: 09-17-2022 Subsequent hospital visit by physician Provider [facility] Comment on above: N96 Start: 08-28-2022 Refill Todd hayes MD Work Phone: [facility] [place] Comment on above: Refill Request Start: 08-23-2022 End: 08-23-[address] Todd Romero Work Phone: [facility] Work Phone: Start: 08-23-2022 End: 08-23-[address] Todd Romero Work Phone: [facility] Start: 06-18-2022 End: 06-18-[address] Todd Romero Work Phone: [facility] Start: 06-11-2022 End: 06-11-[address] Todd Romero Work Phone: [facility] Start: 06-07-2022 End: 06-07-[address] Todd Romero Work Phone: [facility] Work Phone: Start: 06-07-2022 End: 06-07-[address] Todd Romero Work Phone: [facility] Start: 06-05-2022 End: 06-05-[address] Todd Romero Work Phone: [facility] Work Phone: Start: 06-05-2022 End: 06-05-[address] Todd Romero Work Phone: [facility] Start: 03-17-2022 Refill Todd hayes MD Work Phone: [facility] [place] Comment on above: Refill Request Start: 11-29-2021 Refill Todd hayes MD Work Phone: [facility] [place] Comment on above: Refill Request Start: 11-26-2021 End: 11-26-2021 Subsequent hospital visit by physician Provider [facility] Start: 09-05-2021 End: 09-05-2021 Patient encounter procedure Todd Romero MD Work Phone: [facility] [place] Comment on above: Migraine without aur a and without status migrainosus, not intractable (Primary Dx); DARVIN (generalized anxiety disorder); Irritable bowel syndrome with diarrhea; Diarrhea, unspecified type Start: 08-29-2021 Refill Todd hayes MD Work Phone: [facility] [place] Comment on above: Refill Request Start: 08-28-2021 Refill Todd hayes MD Work Phone: [facility] [place] Comment on above: Refill Request Start: 08-16-2021 End: 08-16-2021 Patient encounter procedure CESAR BOTELLO MD [facility] Procedures Date Procedure Procedure Detail Performing Clinician Start: 12-29-2024 Estimated creatinine clearance Erinn ROSE Work Phone: Start: 12-23-2024 Beta-hemolytic Streptococcus culture Erinn Jordan CERTIFIED COURT INTERPRETER-C Work Phone: Start: 12-15-2024 Ultrasound scan for growth Erinn Jordan CERTIFIED COURT INTERPRETER-C Work Phone: Start: 10-12-2024 Serologic test for syphilis Erinn Jordan CERTIFIED COURT INTERPRETER-C Work Phone: Start: 07-07-2024 Procedure Erinn Tan ingzachary CERTIFIED COURT INTERPRETER-C Work Phone: Start: 09-17-2022 PROGESTERONE BLD Provid er [facility] Start: 09-17-2022 TSH BLD Provider [facility] Start: 11-13-2020 Adult depression scr eening assessment Todd Romero II, MD Work Phone: Urine culture Dr. Todd pardo Work Phone: Plan of Treatment Date Care Activity Detail Author Start: 11-26-2026 PAP TESTING PAP TESTING [facility] Start: 11-26-2026 Screening for malign ant neoplasm of cervix [facility] Start: 12-29-2024 Nonstress test [facility] Start: 12-29-2024 Obstetric monitoring [facility] Start: 12-29-2024 Vital signs measurements [facility] Start: 12-29-2024 [facility] Start: 12-29-2024 [facility] Start: 11-26-2024 PAP TESTING PAP TESTING [facility] Start: 10-18-2024 HPV TESTING HPV TESTING [facility] Start: 10-18-2024 Screening for malign ant neoplasm of cervix HPV Testing [facility] Start: 01-17-2024 Covid-19 Vaccine () Covid-19 Vaccine () [facility] Start: 01-17-2024 Influenza vaccination Influenza Vacc ine (#1) [facility] Start: 12-04-2023 PAP TESTING PAP TESTING [facility] Start: 05-18-2023 Depression Assessment Depression Ass essment [facility] Start: 01-16-2023 Covid-19 Vaccine () Covid-19 Vaccine () [facility] Start: 01-16-2023 Influ[facility] Start: 05-18-2022 [facility] Start: 01-16-2022 Influenza vaccination [facility] Start: 11-13-2021 Adult depression screening assessment DEPRESSION SCREENING [facility] Start: 05-18-2021 DEPRESSION ASSESSMENT DEPRESSION ASS [facility] Start: 2011 Urine microalbumin profile [facility] Start: 2010 Anxiety Screening Anxiety Screening [facility] Start: 2010 Depression Screening Depression Scre ening [facility] Start: 2010 HEPATITIS C SCREENING HEPATITIS C [facility] Start: 2010 Hepatitis C screening Hepatitis C [facility] Start: 2010 HIV SCREENING HIV SCREENING [facility] Start: 2010 HIV screening HIV Screening [facility] Start: 1997 COVID-19 VACCINE (1) COVID-19 VACCIN E (1) [facility] Start: 01-10-1993 COVID-19 VACCINE (#1) COVID-19 VACCI NE (#1) [facility] Patient Education Kick Counts ED False Labor OB Triage: Return to Hospital or Notify Physician if you Experience: [facility] Work Phone: Streptococcus agalac tiae [Presence] in Unspecified specimen by Organism specific culture [facility] Ultrasound scan for growth [facility] Immunizations Immunization Date Immunization Notes Care Provider Fa [facility] 03-11-1993 hepatitis B vaccine, pediatric or pediatric/adolescent dosage Todd Romero II, MD Work Phone: [facility] 02-13-1993 diphtheria, tetanus toxoids and acellular pertussis vaccine Todd Romero II, MD Work Phone: [facility] 02-13-1993 haemophilus influenz ae type b vaccine, HbOC conjugate Todd Romero II, MD Work Phone: [facility] 1992 diphtheria, tetanus toxoids and acellular pertussis vaccine Todd Romero II, MD Work Phone: [facility] 1992 haemophilus influenz ae type b vaccine, HbOC conjugate Todd Romero II, MD Work Phone: [facility] 1992 trivalent poliovirus vaccine, live, oral Todd Romero II, MD Work Phone: [facility] 1992 hepatitis B vaccine, pediatric or pediatric/adolescent dosage Todd Romero II, MD Work Phone: [facility] 1992 diphtheria, tetanus toxoids and acellular pertussis vaccine Todd Romero II, MD Work Phone: [facility] 1992 haemophilus influenz ae type b vaccine, HbOC conjugate Todd Romero II, MD Work Phone: [facility] 1992 trivalent poliovirus vaccine, live, oral Todd Romero II, MD Work Phone: [facility] 1992 hepatitis B vaccine, pediatric or pediatric/adolescent dosage Todd Romero II, MD Work Phone: [facility] Payers Date Payer Category Payer Self-pay 2022 Unknown [id number] 2022 Unknown [id number] 2017 Unknown [employer] PPO [id number] 2017-Present [phone] [address] [place] [address] PPO [id number] 2017 Unknown [id number] 1.13.159.2.7.3. [id number] 1992 Unknown [id number] 2.16.840.1.691000.3.579.2.479 Unknown [id number] 2..840.1.962271.3.579.2.283 Unknown [id number] 2.16.840.1.470789.3.579.2.462 Unknown [id number] 2.16.840.1.963311.3.579.2.462 Unknown [id number] 2.840.1.962099.3.579.2.462 Unknown [id number] 2.840.1.710735.3.579.2.462 Unknown [id number] 2.840.1.993116.3.579.2.462 Unknown [id number] 2.840.1.967559.3.579.2.462 Unknown [id number] 2.840.1.245711.3.579.2.462 Unknown [id number] 2.840.1.096752.3.579.2.462 Unknown [id number] 2.840.1.936351.3.579.2.462 Unknown [id number] 2.840.1.164369.3.579.2.462 Unknown [id number] 2.840.1.649391.3.579.2.462 Unknown [id number] 2.840.1.847473.3.579.2.462 Unknown [id number] 2.840.1.208888.3.579.2.462 Unknown [id number] 2.840.1.004693.3.579.2.462 Unknown [id number] 2.840.1.588634.3.579.2.462 Unknown [id number] 2.840.1.100661.3.579.2.462 Unknown [id number] 2.840.1.609258.3.579.2.462 Unknown [id number] 2.840.1.684151.3.579.2.462 Unknown [id number] 2.840.1.596676.3.579.2.462 Unknown [id number] 2.840.1.741444.3.579.2.462 Unknown [id number] 2.16.840.1.323349.3.579.2.462 Unknown [id number] 2.16.840.1.196156.3.579.2.462 Unknown [id number] 2.16.840.1.064447.3.579.2.462 Unknown [id number] 2.16.840.1.660580.3.579.2.462 Unknown [id number] 2.16.840.1.330406.3.579.2.462 Unknown [id number] 2.16.840.1.735633.3.579.2.462 Unknown [id number] 2.16.840.1.121106.3.579.2.462 Unknown [id number] 2.16.840.1.112617.3.579.2.462 Unknown [id number] 2.16.840.1.651751.3.579.2.462 Unknown [id number] 2.16.840.1.396276.3.579.2.462 Unknown [id number] 2.16.840.1.293476.3.579.2.462 Social History Date Type Detail Facility Start: 11-24-2018 End: 07-07-2024 Tobacco smoking status NHIS Never smoked tobacco [facility] Start: 11-24-2018 Tobacco use and exposure Smoke less tobacco non-user [facility] Start: 11-13-2020 End: 07-28-2023 Alcohol intake Lifetime non-drinker (finding) [facility] Start: 03-26-2020 History SDOH Alcohol Frequency 1 [facility] Start: 1990 Sex Assigned At Not on file [facility] Start: 08-26-2021 End: 09-05-2021 Exposure to SARS-CoV-2 (event) Not sure [facility] Start: 06-11-2022 End: 06-18-2022 Tobacco smoking status NCIS Unknown if ever smoked [facility] Start: 1990 Sex Assigned At Female W [facility] Start: 03-26-2020 End: 06-04-2023 History of Social function [facility] hilary Start: 03-26-2020 End: 06-04-2023 Alcohol Use Disorder Identification Test - Consumption [AUDIT-C] [facility] How often to you hav e a drink containing alcohol? Never [facility] Average Number of Drinks Not on file [facility] Medical Equipment Procedure Code Equipment Code Equipment [...] & Type Note Facility 12-29-2024 Progress note [facility] 12-29-2024 Progress note [facility] 12-29-2024 Progress note Note Date/Time December 29, 2024 2:56pm [facility] [address] [place] [address], [address] [place] [address] OFFICE VISIT Date of Service: 12/29/24 MR#: [id number] Acct: [id number] Name: NORA CAMERON Rep #: [id number] : 1990 Provider: Dr. 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 [facility] some appts [facility]. doing well today 07/07/24 -?-?-?-?-?-?-?-?-?-?-?-?- [...] and Symptoms of Preeclampsia, Feeding No , [place] Education and Family Medical Leave or Disability [...] gill MD> Date _ Lindsay Song MD [facility] Signature: Date (if applicable) CC: ~ [facility] Work Phone: 1(765) 236-288207-31-2025 Progress [facility] [address] [place] [address], [address] [place] [address] OFFICE VISIT Date of Service: 12/15/24 MR#: [id number] Acct: [id number] Name: NORA CAMERON Rep #: [id number] : 1990 Provider: Dr. Kimo Song MD Age/Sex: 34/F Location: [facility] Status: Signed Intake Vital Signs 11/03/24 11:04 12/01/24 14:33 12/15/24 15:37 Height 5 ft 3 in 5 ft 3 in 5 ft 3 in Weight: 146 lb 4 oz 149 lb 6 oz BMI 25.9 26.4 BP 113/74 126/71 H Intake Visit Reasons: 36 wk ob Utility Agent 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 Is patient in pain?: No [...] of abnormal cervical Pap smear Surgical History Unity teeth extracted History of colposcopy Family History [...] 3-4 times per week duration: 30-45 minutes/day michael/sabianism: Alevism seatbelt use: always do you feel safe at home: Yes additional social history: -Power- Bilingual Trainer Dinesh/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 would like some appts in [facility]. doing well today 07/07/24 -?-?-?-?-?-?-?-?-?-?-?-?- [...] Cosigner Signature: Date (if applicable) CC: ~ [facility]07-31-2025 Progress note Author Lindsay Song [facility] Note Date/Time December 15, 2024 4:10 pm [facility] [address], [address] [place] [address] OFFICE VISIT Date of Service: 12/15/24 MR#: [id number] Acct: [id number] Name: NORA CAMERON Rep #: [id number] : 1990 Provider: Dr. Kimo Song MD Age/Sex: 34/F Location: [facility] Status: Signed Intake Vital Signs 11/03/24 11:04 12/01/24 14:33 12/15/24 15:37 Height 5 ft 3 in 5 ft 3 in 5 ft 3 in Weight: 146 lb 4 oz 149 lb 6 oz BMI 25.9 26.4 BP 113/74 126/71 H Intake Visit Reasons: 36 wk ob Utility Agent 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 Is patient in pain?: No [...] of abnormal cervical Pap smear Surgical History Unity teeth extracted History of colposcopy Family History [...] 3-4 times per week duration: 30-45 minutes/day michael/sabianism: Alevism seatbelt use: always do you feel safe at home: Yes additional social history: -Power- Bilingual Trainer Dinesh/Vega Lumber History 4 Elective abortions Hx [...] 9wks HPI 36 wk ob Details: NORA CMAERON is a 34 year old who presents [...] lines NIPT. would like some appts in [facility]. doing well today 07/07/24 -?-?-?-?-?-?-?-?-?-?-?-?- [...] Cosigner Signature: Date (if applicable) CC: ~ [facility] Work Phone: 1(393) 457-320307-31-2025 Radiology Diagnostic study note [facility] Imaging Services [address] [place] [id number] OB Limited With Biometrics MR#: [id number] Acct: [id number] Name: NORA CAMERON Rep #: [id number] : 1990 F 34 From: Osmel Fulton MD PCP: Dr. Todd Romero MD Status: REG CLI Study:OB Limited With Biometrics Date of Exam : 12/15/24 Exam# [id number] Ordering Dr: Vaibhav Hale CNM PROCEDURE: OB [...] of 36 weeks and 1day. Reading Location: [id number] CC: ANGELA Hale; Dr. Todd Romero MD ~ Greeting Card Writer: Signed [facility]07-17-2025 Progress [facility] [address] [place] [address], [address] [place] [address] OFFICE VISIT Date of Service: 12/01/24 MR#: [id number] Acct: [id number] Name: NORA CAMERON Rep #: [id number] : 1990 Provider: Dr. Linda Dunbar DO Age/Sex: 34/F Location: [facility] Status: Signed Intake Vital Signs 11/03/24 11:04 11/17/24 11:38 12/01/24 14:33 Height 5 ft 3 in 5 ft 3 in 5 ft 3 in Weight: 146 lb 4 oz BMI 25.9 BP 113/74 Intake Visit Reasons: 34 wk ob Chief Complaint: 34wk ob Utility Agent 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 Is patient in pain?: No [...] of abnormal cervical Pap smear Surgical History Unity teeth extracted History of colposcopy Family History [...] 3-4 times per week duration: 30-45 minutes/day michael/sabianism: Alevism seatbelt use: always do you feel safe at home: Yes additional social history: -Power- Bilingual Trainer Dinesh/Silvia Lumber History 4 Elective abortions Hx [...] lines NIPT. would like some appts in [facility]. doing well today 07/07/24 -?-?-?-?-?-?-?-?-?-?-?-?- [...] Symptoms of Preeclampsia, Infant Feeding No , [place] Education and Family Medical Leave or Disability [...] Tucker Signature: Date (if applicable) CC: ~ [facility]07-17-2025 Progress note Author Emerald Dodd [facility] Note Date/Time December 01, 2024 2:44 pm [facility] [address] [place] [address], [address] [place] [address] OFFICE VISIT Date of Service: 12/01/24 MR#: [id number] Acct: [id number] Name: NORA CAMERON Rep #: [id number] : 1990 Provider: Dr. Linda Dunbar, DO Age/Sex: 34/F Location: [facility] Status: Signed Intake Vital Signs 11/03/24 11:04 11/17/24 11:38 12/01/24 14:33 Height 5 ft 3 in 5 ft 3 in 5 ft 3 in Weight: 146 lb 4 oz BMI 25.9 BP 113/74 Intake Visit Reasons: 34 wk ob Chief Complaint: 34wk ob Utility Agent 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 Is patient in pain?: No [...] of abnormal cervical Pap smear Surgical History Unity teeth extracted History of colposcopy Family History [...] 3-4 times per week duration: 30-45 minutes/day michael/sabianism: Alevism seatbelt use: always do you feel safe at home: Yes additional social history: -Power- Bilingual Trainer Dinesh/Silvia Lumber History 4 Elective abortions Hx [...] lines NIPT. would like some appts in [facility]. doing well today 07/07/24 -?-?-?-?-?-?-?-?-?-?-?-?- [...] Symptoms of Preeclampsia, Infant Feeding No , [place] Education and Family Medical Leave or Disability [...] Juárez DO> Date _ Emerald Dunbar DO [facility] Signature: Date (if applicable) CC: ~ [facility] Work Phone: 1(747) 969-193907-03-2025 Progress [facility] [address], [address] [place] [id number] OFFICE VISIT Date of Service: 11/17/24 MR#: [id number] Acct: [id number] Name: NORA CAMERON Rep #: [id number] : 1990 Provider: ANGELA Hale Age/Sex: 34/F Location: [facility] Status: Signed Intake Vital Signs 08/22/24 08:29 11/03/24 11:04 11/17/24 11:36 11/17/24 11:38 Height 5 ft 3 in 5 ft 3 in 5 ft 3 in 5 ft 3 in Weight: 142 lb 6 oz BMI 25.2 BP 112/74 Intake Visit Reasons: 32wk ob Utility Agent 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 Is patient in pain?: No [...] of abnormal cervical Pap smear Surgical History Unity teeth extracted History of colposcopy Family History Grandmother Colon cancer, Onset Age: 92 Paternal Mother Myocardial infarction, Onset Age: 64 3 Grandfather Myocardial infarction Maternal Social History adopted: No household members: spouse housing: house current occupational status: employed current occupation: [employer] current occupational exposures/hazards: No pets and [...] 3-4 times per week duration: 30-45 minutes/day michael/sabianism: Alevism seatbelt use: always do you feel safe at home: Yes additional social history: -Power- Bilingual Trainer Dinesh/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 would like some appts in [facility]. doing well today 07/07/24 -?-?-?-?-?-?-?-?-?-?-?-?- [...] Symptoms of Preeclampsia, Infant Feeding No , [place] Education and Family Medical Leave or Disability [...] Noriega Signature: Date (if applicable) CC: ~ [facility]06-19-2025 [facility] [address] [place] [address], [address] [place] [address] OFFICE VISIT Date of Service: 11/03/24 MR#: [id number] Acct: [id number] Name: NORA CAMERON Rep #: [id number] : 1990 Provider: ANGELA Hale Age/Sex: 34/F Location: [facility] [place] [facility] Status: Signed Intake Vital Signs 08/22/24 08:29 10/18/24 11:09 11/03/24 11:04 11/03/24 11:04 Height 5 ft 3 in 5 ft 3 in 5 ft 3 in 5 ft 3 in Weight: 141 lb 6 oz BMI 25.0 BP 111/70 Intake Visit Reasons: 30wk ob Utility Agent 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 Is patient in pain?: No [...] of abnormal cervical Pap smear Surgical History Unity teeth extracted History of colposcopy Family History [...] 3-4 times per week duration: 30-45 minutes/day michael/sabianism: Alevism seatbelt use: always do you feel safe at home: Yes additional social history: -Power- Bilingual Trainer Dinesh/Silvia Lumber History 4 Elective abortions Hx [...] lines NIPT. would like some appts in [facility]. doing well today 07/07/24 -?-?-?-?-?-?-?-?-?-?-?-?- [...] 145 30 -?-?-?-?-?-?-?-?-?-?-?-?- KW- work in for [employer]. blood sugars reviewed and normal. will start [...] Noriega Signature: Date (if applicable) CC: ~ [facility]05-02-2025 Evaluation note* Diagnosis Onset Date Resolution Status [...] of high-risk acute December 15, 2024 3:34pm [facility] Work Phone: 1(802) 436-189905-02-2025 Evaluation note* Diagnosis Onset Date Resolution Status [...] of high-risk acute December 23, 2024 2:03pm [facility] Work Phone: 1(549) 762-251205-02-2025 Evaluation note* Diagnosis Onset Date Resolution Status [...] Supervision of high-risk acute December 29 1:50pm [facility] Work Phone: 1(916) 364-897105-02-2025 Evaluation note* Diagnosis Onset Date Resolution Status [...] Supervision of high-risk acute January 03 11:31am [facility] Work Phone: 1(749) 372-988604-07-2025 Evaluation note* Diagnosis Onset Date Resolution Status [...] of high-risk acute December 01, 2024 2:27pm [facility] Work Phone: 1(610) 323-881704-07-2025 Evaluation note* Diagnosis Onset Date Resolution Status [...] of high-risk acute December 15, 2024 3:34pm [facility] Work Phone: 1(825) 486-140203-13-2025 Evaluation note* Diagnosis Onset Date Resolution Status [...] of high-risk acute November 03, 2024 11:19am [facility] Work Phone: 1(994) 517-916803-13-2025 Evaluation note* Diagnosis Onset Date Resolution Status [...] high-risk acute November 17, 2024 1 1:30am [facility] Work Phone: 1(697) 369-297902-20-2025 Evaluation note* Diagnosis Onset Date Resolution Status [...] high-risk acute October 12, 2024 1 0:13am [facility] Work Phone: 1(773) 704-622302-20-2025 Evaluation note* Diagnosis Onset Date Resolution Status [...] high-risk acute October 12, 2024 1 0:13am [facility] Work Phone: 1(179) 339-999102-20-2025 Evaluation note* Diagnosis Onset Date Resolution Status [...] of high-risk acute November 03, 2024 11:19am [facility] Work Phone: 1([phone]) [phone] Instructions* Patient Instructions* Tristian Feng APRN.CNP - 04/11/2024 12:31 PM EST - Start using Sudafed for ear congestion [facility]24 NoteHNO ID: [id number] Author: TRISTIAN FENG APRN.CNP Service: ? Author [...] adequate record of my encounter with this patient.[facility] HospitalSefaykbe11-73-1640 History of Present illness Narrative* Tristian Feng [...] encounter with this patient. documented in this [facility]11-25-2024 Telephone encounter Note * Telephone Encounter - Anabelle Grey - 04/11/2024 11:35 AM EST Patient calls today. Reason for Call: patient having ear pain and will go to walk in clinic to be evaluated today [phone] (home) [phone] (cell) Patient last appointment: Visit date not found Anabelle Grey [facility]11-25-2024 Miscellaneous Notes* Telephone Encounter - Anabelle Grey - 04/11/2024 11:35 AM EST Patient calls today. Reason for Call: patient having ear pain and will go to walk in clinic to be evaluated today [phone] (home) [phone] (cell) Patient last appointment: Visit date not found Anabelle Grey documented in this encounterElyria [facility] Hospital03-12-2024 NoteHNO ID: [id number] Author: TODD ROMERO II, MD Service: ? Author Type: Physician Type: Progress Notes Filed: 07/28/2023 21:34 Note Text: Todd Romero II, MD [address], [place] [address] SUBJECTIVE Nora Cameron is a 33 year [...] is no abdominal ten (more content not included)...[facility] [id number] History of Present illness Narrative* Todd Romero II, MD - 07/28/2023 2:19 PM EDT Images from the original note were not included. Todd Romero II, MD [address], [place] [address] SUBJECTIVE Nora Cameron is a 33 year [...] Todd Romero II, M.D. documented in this encounterElyria [facility]11-03-2023 History of Present illness Narrative* Rica [...] 20, 2023 8:55 AM documented in this encounterElyria [facility] Hospital10-31-2022 Miscellaneous Notes* Telephone Encounter - Kathi Diaz MA - 03/17/2022 10:16 AM EDT Pharmacy faxed requesting the following refill Refill(s) Requested: Requested Prescriptions Pending Prescriptions Disp Refills diphenoxylate-atropine (LOMOTIL) 2.5-0.025 mg per tablet [Pharmacy Med Name: diphenoxylate-atropine2.5 mg-0.025 mg tablet] 10 tablet 0 Sig: TAKE 1 TABLET BY MOUTH FOUR TIMES DAILY NEEDED ALLERGIES No Known Allergies (home) [phone] (cell) Last Office Visit Date: 09/05/2021 Last [facility] Visit: Visit date not found Future Appointment: Visit date not found The patients preferred pharmacy has been captured for this encounter? yes Request is for script(s) to be escript to pharmacy. Kathi Diaz MA documented in this encounterElyria [facility] Hospital07-15-2022 Miscellaneous Notes* Telephone Encounter - Casie Lubin MA - 11/29/2021 9:25 AM EDT Pharmacy faxed requesting the following refill Refill(s) Requested: Pending Prescriptions Disp Refills DIPHENOXYLATE-ATROPINE 2.5 MG-0.025 MG TABLET 10 tablet 0 Sig: TAKE 1 TABLET BY MOUTH FOUR TIMES DAILY NEEDED CHARIS Class: C-V ARPIT: Yes ALLERGIES No Known Allergies (home) [phone] (cell) Last Office Visit Date: 09/05/2021 Last [facility] Visit: Visit date not found Future Appointment: Visit date not found The patients preferred pharmacy has been captured for this encounter? yes Request is for script(s) to be escript to pharmacy. Casie Lubin MA refill documented in this encounterElyria [facility]05-01-2022 NoteHNO ID: [id number] Author: Todd Romero II, MD Service: ? Author Type: Physician Type: Progress Notes Filed: 09/15/2021 8:23 PM Note Text: Todd Romero II, MD [address], [place] [address] SUBJECTIVE Nora Cameron is a 31 year [...] Breath sounds: Normal breat (more content not included)...[facility]05-[facility] History of Present illness Narrative* Todd Romero II, MD - 09/15/2021 8:21 PM EDT Images from the original note were not included. Todd Romero II, MD [address], [address] [place] [address] SUBJECTIVE Nora Cameron is a 31 year [...] Todd Romero II, M.D. documented in this encounterElyria [facility] Hospital04-21-2022 Instructions* Patient Instructions* Todd Romero II, MD - 09/05/2021 10:49 AM EDT Please consider having the following Health Maintenance testing completed: DTAP,TDAP,TD(4 - Tdap) If your testing is not done at a [facility] facility please provide this office with the results of your testing. documented in this encounterElyria [facility] Hospital04-14-2022 Miscellaneous Notes* Telephone Encounter - Casie Lubin MA - 08/29/2021 2:53 PM EDT Patient called requesting the following refill Refill(s) Requested: Pending Prescriptions Disp Refills DIPHENOXYLATE-ATROPINE 2.5 MG-0.025 MG TABLET 10 tablet 0 CHARIS Class: C-V ARPIT: No ALLERGIES No Known Allergies (home) [phone] (cell) Last Office Visit Date: 11/13/2020 Last [facility] Visit: Visit date not found Future Appointment: Visit date not found The patients preferred pharmacy has been captured for this encounter? yes Request is for script(s) to be escript to pharmacy. Casie Lubin MA refill documented in this encounterElyria [facility] Hospital04-13-2022 Miscellaneous Notes* Telephone Encounter - Karey Atkins MA - 08/28/2021 11:08 AM EDT Pharmacy faxed requesting the following refill Refill(s) Requested: Pending Prescriptions Disp Refills DIPHENOXYLATE-ATROPINE 2.5 MG-0.025 MG TABLET 10 tablet 0 Sig: TAKE 1 TABLET BY MOUTH FOUR TIMES DAILY NEEDED FOR DIARRHEA for up to TEN doses CHARIS Class: C-V ARPIT: Yes ALLERGIES No Known Allergies (home) [phone] (cell) Last Office Visit Date: 11/13/2020 Last [facility] Visit: Visit date not found Future Appointment: Visit date not found The patients preferred pharmacy has been captured for this encounter? yes Request is for script(s) to be escript to pharmacy. Karey Atkins MA documented in this encounterElyria [facility] Hospital07-05-2021 NoteHNO ID: [id number] Author: Todd Romero II, MD Service: ? Author Type: Physician Type: Progress Notes Filed: 11/19/2020 8:14 PM Note Text: Todd Romero II, MD [address], [place] [address] SUBJECTIVE Nora Cameron is a 30 year old female who presents with [facility]. HPI Patient is in today to get reestablished and to discuss anxiety. 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 Musc (more content not included)...[facility] No data available for this section [facility] Evaluation note* Diagnosis Diarrhea, unspecified type documented in this encounter [facility]* Diagnosis Migraine without aura and without status migrainosus, not intractable- Primary Migraine without aura, without mention of intractable migraine without mention of status migrainosus DARVIN (generalized anxiety disorder) Generalized anxiety disorder Irritable bowel syndrome with diarrhea Irritable bowel syndrome Diarrhea, unspecified type documented in this encounter [facility]* Diagnosis Diarrhea, unspecified type documented in this encounter [facility]* Diagnosis Diarrhea, unspecified type documented in this encounter [facility] note* Diagnosis Onset Date Resolution Status History of miscarriage, currently acute acute Supervision of high risk , antepartum acute Incomplete acute [facility] Work Phone: Evaluation note* Diagnosis Onset Date Resolution Status History of miscarriage, currently acute acute Supervision of high risk , antepartum acute Incomplete acute History of recurrent miscarriages acute [facility] Work Phone: evaluation note* Diagnosis Diarrhea, unspecified type documented in this encounter [facility] note* Diagnosis Routine physical examination- Primary Routine general medical examination at a health care facility documented in this encounter [facility]* Diagnosis Viral URI- Primary Acute upper respiratory infections of unspecified site documented in this encounter [facility] Discharge instructions No data available for this section [facility] Proocess note No data available for this section [facility] progress note Author Vaibhav Hale [facility] Note Date/Time November 03, 2024 11:4 5am [facility] Women's [address], [address] [place] [address] OFFICE VISIT Date of Service: 11/03/24 MR#: [id number] Acct: [id number] Name: NORA CAMERON Rep #: [id number] : 1990 Provider: ANGELA Hale Age/Sex: 34/F Location: [facility] [place] [facility] Status: Signed Intake Vital Signs 08/22/24 08:29 10/18/24 11:09 11/03/24 11:04 11/03/24 11:04 Height 5 ft 3 in 5 ft 3 in 5 ft 3 in 5 ft 3 in Weight: 141 lb 6 oz BMI 25.0 BP 111/70 Intake Visit Reasons: 30wk ob Utility Agent 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 Is patient in pain?: No [...] of abnormal cervical Pap smear Surgical History Unity teeth extracted History of colposcopy Family History [...] 3-4 times per week duration: 30-45 minutes/day michael/sabianism: Alevism seatbelt use: always do you feel safe at home: Yes additional social history: -Power- Bilingual Trainer Dinesh/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 would like some appts in [facility]. doing well today 07/07/24 -?-?-?-?-?-?-?-?-?-?-?-?- [...] 145 30 -?-?-?-?-?-?-?-?-?-?-?-?- KW- work in for [employer]. blood sugars reviewed and normal. will start [...] and Symptoms of Preeclampsia, Feeding No , [place] Education and Family Medical Leave or Disability [...] , unspecified, second trimester Comment: PRR, , TRVEON 01/13/25, Power (4) : Status: Acute Qualifiers: [...] Cosigner Signature: Date (if applicable) CC: ~ [facility] Work Phone: Progress note Author Vaibhav Hale [facility] Note Date/Time November 17, 2024 12:00 pm [facility] [address], [address] [place] [address] OFFICE VISIT Date of Service: 11/17/24 MR#: [id number] Acct: [id number] Name: NORA CAMERON Rep #: [id number] : 1990 Provider: ANGELA Hale Age/Sex: 34/F Location[place] [facility] Status: Signed Intake Vital Signs 08/22/24 08:29 11/03/24 11:04 11/17/24 11:36 11/17/24 11:38 Height 5 ft 3 in 5 ft 3 in 5 ft 3 in 5 ft 3 in Weight: 142 lb 6 oz BMI 25.2 BP 112/74 Intake Visit Reasons: 32wk ob Utility Agent 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 Is patient in pain?: No [...] of abnormal cervical Pap smear Surgical History Unity teeth extracted History of colposcopy Family History [...] 3-4 times per week duration: 30-45 minutes/day michael/sabianism: Alevism seatbelt use: always do you feel safe at home: Yes additional social history: -Power- Bilingual Trainer Dinesh/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 would like some appts in [facility]. doing well today 07/07/24 -?-?-?-?-?-?-?-?-?-?-?-?- [...] Symptoms of Preeclampsia, Infant Feeding No , [place] Education and Family Medical Leave or Disability [...] Cosigner Signature: Date (if applicable) CC: ~ [facility] Work Phone: Progrkws note Author Lindsay Song [facility] Note Date/Time December 29, 2024 6: 11pm [facility] Medical Records Department [address] [place] [address] OB Triage Progress Note 12/29/24 1811 MR#: [id number] Acct: [id number] Name: NORA CAMERON Rep #:[id number] : 1990 34 From: Lindsay eaton MD PCP: Dr. Todd Romero MD Status:REG CLI Y DOS: Location: [place] [address] Progress Notes Date of Service: 12/29/24 Progress Note: Patient presents for triage evaluation secondary to elevated bps FHT: 130 Moderate variability reactive no decelerations category I tracing [place]: no reuglar Contractions Assessment and plan: elevated [...] (0-200) mg/g CRE Charges/Coding Procedures Urinary/Genital 52xxx-59xxx: 38089-67 non-stress test Interp 12/29/24 1811 <Electronically signed by Lindsay gill MD> Date _ Lindsay Song MD Cosigner Signature (if applicable): Date CC: Dr. Todd Romero MD; Dr. Lindsay Song MD ~ Signed [facility] Work Phone: Reason for referral (narrative)No reason for referral information availableSt. [facility] Work Phone: Summary Purpose Family History [...] section and content) DATE CREATED AUTHOR 08/08/2021 [facility] DATE CREATED AUTHOR AUTHOR'S ORGANIZ ATION 08/23/2021 [facility] DATE CREATED AUTHOR AUTHOR'S ORGANIZ ATION 09/17/2021 [facility] DATE CREATED AUTHOR AUTHOR'S ORGANIZ ATION 12/07/2021 [facility] DATE CREATED AUTHOR AUTHOR'S ORGANIZ ATION 09/24/2022 [facility] DATE CREATED AUTHOR AUTHOR'S ORGANIZ ATION 04/13/2024 [facility] DATE CREATED AUTHOR AUTHOR'S ORGANIZ ATION 08/23/2024 [facility] DATE CREATED AUTHOR AUTHOR'S RUBINA BROWN 01/04/2025 [facility] Source Comments (unrecognize d section and content) In the event this informatio n is protected by the Federal Confidentiality of Alcohol and Drug Abuse Patient Records regulations: The Federal rules restrict any use of the information to criminally investigate or prosecute any alcohol or drug abuse patient.[facility] HospitalIn the event this information is protected by the Federal Confidentiality of Alcohol and Drug Abuse Patient Records regulations: The Federal rules restrict any use of the information to criminally investigate or prosecute any alcohol or drug abuse patient.[facility] HospitalIn the event this information is protected by the Federal Confidentiality of Alcohol and Drug Abuse Patient Records regulations: The Federal rules restrict any use of the information to criminally investigate or prosecute any alcohol or drug abuse patient.[facility] HospitalIn the event this information is protected by the Federal Confidentiality of Alcohol and Drug Abuse Patient Records regulations: The Federal rules restrict any use of the information to criminally investigate or prosecute any alcohol or drug abuse patient.[facility] HospitalIn the event this information is protected by the Federal Confidentiality of Alcohol and Drug Abuse Patient Records regulations: The Federal rules restrict any use of the information to criminally investigate or prosecute any alcohol or drug abuse patient.[facility] HospitalIn the event this information is protected by the Federal Confidentiality of Alcohol and Drug Abuse Patient Records regulations: The Federal rules restrict any use of the information to criminally investigate or prosecute any alcohol or drug abuse patient.[facility] HospitalIn the event this information is protected by the Federal Confidentiality of Alcohol and Drug Abuse Patient Records regulations: The Federal rules restrict any use of the information to criminally investigate or prosecute any alcohol or drug abuse patient.[facility] HospitalIn the event this information is protected by the Federal Confidentiality of Alcohol and Drug Abuse Patient Records regulations: The Federal rules restrict any use of the information to criminally investigate or prosecute any alcohol or drug abuse patient.[facility] HospitalIn the event this information is protected by the Federal Confidentiality of Alcohol and Drug Abuse Patient Records regulations: The Federal rules restrict any use of the information to criminally investigate or prosecute any alcohol or drug abuse patient.[facility] HospitalIn the event this information is protected by the Federal Confidentiality of Alcohol and Drug Abuse Patient Records regulations: The Federal rules restrict any use of the information to criminally investigate or prosecute any alcohol or drug abuse patient.[facility] HospitalIn the event this information is protected by the Federal Confidentiality of Alcohol and Drug Abuse Patient Records regulations: The Federal rules restrict any use of the information to criminally investigate or prosecute any alcohol or drug abuse patient.[facility] HospitalIn the event this information is protected by the Federal Confidentiality of Alcohol and Drug Abuse Patient Records regulations: The Federal rules restrict any use of the information to criminally investigate or prosecute any alcohol or drug abuse patient.[facility] Reason for Visit (unrecogniz ed section and content) Reason Comments Refill Request Reason Onset Date Comments Refill Request 08/29/2021 Reason Comments Rx Refills Specialty Diagnoses / Procedures Referred By Controsio t Referred To Contact FAMILY MEDICINE Diagnoses refill medication Procedures refill medication Todd Romero II, MD [address] [place] [address] [place] [address] [place] [address] Referral ID Status Reason Start Date Expiration Date V isits Requested Visits Authorized [id number] Closed Financial Clearance Not Required 09/04/2021 09/04/2022 [...] Inactive Member Role/Relationship Status Dates Erinn Jordan CERTIFIED COURT INTERPRETER, CERTIFIED COURT INTERPRETER-C Attending Provider Active Start: October 12, 2024 End: October 12, 2024 Team Status: Inactive Member Role/Relationship Status Dates Erinn Jordan CERTIFIED COURT INTERPRETER, CERTIFIED COURT INTERPRETER-C Attending Provider Active Start: October 18, 2024 End: November 14, [address] INTERPRETER, CERTIFIED COURT INTERPRETER-C Referring Provider Active Start: October 18, 2024 [...] Inactive Member Role Status Dates Erinn Jordan CERTIFIED COURT INTERPRETER, CERTIFIED COURT INTERPRETER-C Attending Provider Active Start: August 22, 2024 End: August 22, 2024 Team Status: Inactive Member Role Status Dates Dr. Lindsay Song MD Attending Provider Active Start: September 16, 2024 End: September 16, 2024 Team Status: Active Member Role Status Dates Erinn Jordan CERTIFIED COURT INTERPRETER, CERTIFIED COURT INTERPRETER-C Attending Provider Active Start: October 12, [address] INTERPRETER, CERTIFIED COURT INTERPRETER-C Referring Provider Active Start: October 12, 2024 Team Status: Inactive Member Role Status Dates Erinn Jordan CERTIFIED COURT INTERPRETER, CERTIFIED COURT INTERPRETER-C Attending Provider Active Start: October 12, 2024 End: October 12, 2024 Crop Research Scientist Relationship Specialty Start Date End Date Todd Romero II, MD [address] [place] [address] [place] [address] PCP - General Family Medicine 11/13/20 Team [...] DO Attending Provider, Refe rring Provider Active Crop Research Scientist Relationship Specialty Start Date End Date Todd Romero II, MD [address] [place] [place] [address] PCP - [facility] 11/13/20 Crop Research Scientist Relationship Specialty Start Date End Date Todd Romero II, MD [address] [facility] [facility] [address] [place], [place] [id number] PCP - [facility] 11/13/20 Goals (unrecognized section and [...] BE BASED ON THE PRIMARY CLINICAL RECORDS. [employer] provides no warranty or guarantee of the accuracy or completeness of information in this document.
[2025-01-08 04:54] LABS: Hematocrit 35.3 % (37-47); Hemoglobin 12.4 g/dL (12.0-15.0); Immature Granulocytes Count 0.090 X10^3/uL (0.0-0.0); Mean Corp Hgb Conc 35.1 g/dL (32-36); Mean Corpuscular Volume 93.1 fL (81-99); Mean Platelet Vol. 11.3 fl (6.2-12.0); NRBC Flagged by Analyzer 0 % (0-5); Platelet Count 220 K/mm3 (150-450); RBC Distribution Width CV 13.0 % (11.6-14.6); RBC Distribution Width SD 43.9 fl (35.1-43.9); Red Blood Count 3.79 M/mm3 (4.2-5.4); White Blood Count 9.0 K/mm3 (4.4-11.0)
[2025-01-08 05:18] LABS: Syphilis Antibodies Nonreactive (Nonreactive)
--- OUTSIDE RECORDS SUMMARY | 2025-01-08 07:19 | XMS RPT_ITS | CCD ---
Author Organization [facility] CliniSyar Care Team Providers Care Product Management Specialist Name Role Phone Saji ESTEVEZ MD, Todd Vásquez Primary Care Provider Dr. Emerald Dunbar Attending Provider [phone] Dr. Todd Romero Primary Care Provider Dr. Todd Romero Referring Provider Dr. Emerald Dunbar Attending Provider [phone] Dr. Todd Romero Primary Care Provider Dr. [...] Referring Unavailable Vaibhav Hale CNM Attending Provider [phone] Dr. Emerald Dunbar DO Attending Provider Erinn Porras Attending Provider [phone] Dr. Lindsay Song MD Attending Provider Erinn Porras Referring Provider [phone] Dr. Todd Romero MD Primary Care Provider Dr. Todd Romero MD Referring Provider Vaibhav Hale CNM Attending Provider [phone] Dr. Emerald Dunbar DO Attending Provider Vaibhav Hale CNM Referring Provider Julian HOP SEPARATOR-C, Erinn Attending Provider Duncan FRAGOSO, Dr. Montoya Referring Provider [phone] Duncan FRAGOSO, Dr. Montoya Other Provider Romero, [...] E Referring Unavailable Vaibhav Hale Attending Unavailable Romreo, Todd E Primary Care Unavailable Vaibhav Hale Attending Unavailable Romero, Todd E Referring Unavailable Vande Velangélica, Emerald Attending Unavailabl e Julian HOP SEPARATOR, Erinn Attending Unavailable Vaibhav Hale Attending Unavailable Romero, Todd E Primary Care Unavailable MarcanthonyLindsay Referring Unavailable Marcanthony, Lindsay Attending Unavailable Romero, Todd E Primary Care Unavailable Marcanthony, Lindsay Attending Unavailable Marcanthony, Lindsay Referring Unavailable Romero, Todd E Primary Care Unavailable Marcanthony, Lindsay Attending Unavailable Marcanthony, Lindsay Referring Unavailable Romero, Todd E Primary Care Unavailable Julian HOP SEPARATOR, Erinn Attending Unavailable Clinton HOP SEPARATOR, Erinn Referring Unavailable Romero, Todd E Primary [...] Lindsay Attending Unavailable Marcanthony, Lindsay Attending Unavailable Clinton HOP SEPARATOR, Erinn Attending Unavailable Romero, Todd E Primary Care Unavailable Romero, Todd E Referring Unavailable Julian HOP SEPARATOR, Erinn Attending Unavailable Vaibhav Hale Attending Unavailable Julian HOP SEPARATOR, Erinn Attending Unavailable Julian HOP SEPARATOR, Erinn Referring Unavailable Vaibhav Hale Referring Unavailable Vaibhav Hale Attending Unavailable Todd Romero Primary Care Unavailable Julian HOP SEPARATOR, Erinn Referring Unavailable Julian HOP SEPARATOR, Erinn Attending Unavailable Todd Romero Primary Care Unavailable Julian HOP SEPARATOR, Erinn Referring Unavailable Julian HOP SEPARATOR, Erinn Attending Unavailable Todd Romero Referring Unavailable [...] PO ONCE April 27, 2024 1:00am Multivit 30-Bltg-Wuszpf 1-Dha (Pnv-Dha) 27 mg iron-1 mg -300 mg capsule (16 sources) Start: 05-23-2022 Multivit 07-Hwue-Yfqlck 1-Dha (Pnv-Dha) 27 mg iron-1 mg -300 [...] Test Name Value Interpretation Reference Range Facility Multiple [facility] Office Visit Reporton 01-03-2025 Multiple Drum Sander Office Visit Report [facility]'s [address], [address] [place] [address] OFFICE VISIT Date of Service: 01/03/25 MR#: [id number] Acct: [id number] Name: NORA CAMERON Rep #: [id number] : 1990 Provider: Dr. 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 Normal [facility] AST(SGOT)on 12-29-2024 AST [Catalytic activity/Vol] 30 U/L Normal <=31 [facility] Comment on above: Result Comment: Hemo lysis present, Results??could be affected. ?? Performed By: #### L 501.4405, L501.1105, L100.0500, L501.0900, L501.1400, L501.4100 ####[facility] [id number] [place], [address] Alanine Aminotransferas (SGP T)on 12-29-2024 ALT [Catalytic activity/Vol] 15 U/L Normal <=34 [facility] Comment on above: Performed By: #### L 501.4405, L501.1105, L100.0500, L501.0900, L501.1400, L501.4100 ####[facility] [id number] [place], [address] CBC-Complete Blood Cnt No Di ffon 12-29-2024 Erythrocyte distribution width (RBC) [Ratio] 13.1 % Normal 11.6-14.6 [facility] Comment on above: Performed By: #### L 501.4405, L501.1105, L100.0500, L501.0900, L501.1400, L501.4100 #### [facility] Laboratory [address] [place], [address] Hematocrit (Bld) [Volume fraction] 34.6 % Low 37-47 [facility] Comment on above: Performed By: #### L 501.4405, L501.1105, L100.0500, L501.0900, L501.1400, L501.4100 #### [facility] [address] [place], [address] Hemoglobin (Bld) [Mass/Vol] 12.1 g/dL Normal 12.0-15.0 [facility] Comment on above: Performed By: #### L 501.4405, L501.1105, L100.0500, L501.0900, L501.1400, L501.4100 #### [facility] [address] [place], [address] MCH (RBC) [Entitic mass] 32.5 pg High 27.0-32.0 [facility] Comment on above: Performed By: #### L 501.4405, L501.1105, L100.0500, L501.0900, L501.1400, L501.4100 #### [facility] [address] [place], [address] MCHC (RBC) [Mass/Vol] 35.0 g/dL Normal 32-36 [facility] Comment on above: Performed By: #### L 501.4405, L501.1105, L100.0500, L501.0900, L501.1400, L501.4100 #### [facility] [address] [place], [address] MCV (RBC) [Entitic vol] 93.0 fL Normal 81-99 [facility] Comment on above: Performed By: #### L 501.4405, L501.1105, L100.0500, L501.0900, L501.1400, L501.4100 #### [facility] [address] [place], [address] Platelet mean volume (Bld) [Entitic vol] 11.2 fL Normal 6.2-12.0 [facility] Comment on above: Performed By: #### L 501.4405, L501.1105, L100.0500, L501.0900, L501.1400, L501.4100 #### [facility] [address] [place], [address] Platelets (Bld) [#/Vol] 233 10*3/uL Normal 150-450 [facility] Comment on above: Performed By: #### L 501.4405, L501.1105, L100.0500, L501.0900, L501.1400, L501.4100 #### [facility] [address] [place], [address] RBC (Bld) [#/Vol] 3.72 10*6/uL Low 4.2-5.4 [facility] Comment on above: Performed By: #### L 501.4405, L501.1105, L100.0500, L501.0900, L501.1400, L501.4100 #### [facility] [address] [place], [address] RDW SD 44.6 fl High 35.1-43.9 [facility] Comment on above: Performed By: #### L 501.4405, L501.1105, L100.0500, L501.0900, L501.1400, L501.4100 #### [facility] [address] [place], [address] WBC (Bld) [#/Vol] 8.9 10*3/uL Normal 4.4-11.0 [facility] Comment on above: Performed By: #### L 501.4405, L501.1105, L100.0500, L501.0900, L501.1400, L501.4100 #### [facility] [address] [facility] [place], [address] Erythrocyte distribution wid th ratioOrdered By: Lindsay Song on 12-29-2024 Erythrocyte distribution width (RBC) [Ratio] 13.1 % 11.6-14.6 [facility] Erythrocyte distribution wid th standard deviationOrdered By: Lindsay Song on 12-29-2024 Erythrocyte distribution width (RBC) [Ratio] 44.6 fl High 35.1-43.9 [facility] Glomerular filtration rate ( GFR) estimation/1.73 sq m using serum, plasma, or whole bOrdered By: Lindsay Song on 12-29-2024 GFR/1.73 sq M.predicted among non-blacks MDRD (S/P/Bld) [Vol rate/Area] 106 mL/min/{1.73_m2} >60 [facility] Comment on above: mL/min/1.73m2 CKD-EP I Creatinine Equation (2020) Hematocrit Auto (Bld) [Volum e fraction]Ordered By: Lindsay Song on 12-29-2024 Hematocrit (Bld) [Volume fraction] 34.6 % Low 37-47 [facility] Hemoglobin measurementOrdere d By: Lindsay Song on 12-29-2024 Hemoglobin (Bld) [Mass/Vol] 12.1 g/dL 12.0-15.0 [facility] Laboratory - Chemistry and C hemistry - challengeOrdered By: Lindsay Song on 12-29-2024 AST [Catalytic activity/Vol] 30 U/L <32 [facility] Comment on above: Hemolysis present, R esults could be affected. Glucose Ql (U) Negative [facility] Laboratory - UrinalysisOrder ed By: Lindsay Song on 12-29-2024 Protein Ql (U) Negative [facility] MCV (mean corpuscular volume ) determinationOrdered By: Lindsay Song on 12-29-2024 MCV (RBC) [Entitic vol] 93.0 fL 81-99 [facility] Mean corpuscular hemoglobin (MCH) determinationOrdered By: Lindsay Song on 12-29-2024 MCH (RBC) [Entitic mass] 32.5 pg High 27.0-32.0 [facility] Mean corpuscular hemoglobin concentration (MCHC) determinationOrdered By: Lindsay Song on 12-29-2024 MCHC (RBC) [Mass/Vol] 35.0 g/dL 32-36 [facility] Mean platelet volume determi nationOrdered By: Lindsay Song on 12-29-2024 Platelet mean volume (Bld) [Entitic vol] 11.2 fL 6.2-12.0 [facility] OB Triage Progress Noteon OB Triage Progress Note [facility] Medical Records Department [address] [place] [address] OB Triage Progress Note 12/29/24 1811 MR#: [id number] Acct: [id number] Name: NORA CAMERON Rep #: [id number] : 1990 34 From: Lindsay Song MD PCP: Dr. Todd Romero MD Status:REG CLI Y DOS: Location: [place] [address] Progress Notes Date of Service: 12/29/24 Progress Note: Patient presents for triage evaluation secondary to elevated bps FHT: 130 Moderate variability reactive no decelerations category I tracing [place]: no reuglar Contractions Assessment and plan: elevated [...] (0-200) mg/g CRE Charges/Coding Procedures Urinary/Genital 52xxx-59xxx: 53996-84 non-stress test Interp 12/29/24 1811 Date Lindsay Song MD Cosigner Signature (if applicable): Date CC: Dr. Todd Romero MD; Dr. Lindsay Song MD Signed Normal [facility] Multiple Drum Sander Office Visit Reporton 12-29-2024 Multiple Drum Sander Office Visit Report [facility]'s [address], [address] [place] [address] OFFICE VISIT Date of Service: 12/29/24 MR#: [id number] Acct: [id number] Name: NORA CAMERON Rep #: [id number] : 1990 Provider: Dr. Lindsay bui MD Age/Sex: 34/F Location: [facility] [place] Status: Signed Intake Vital Signs 11/17/24 11:38 12/23/24 14:06 12/29/24 14:03 12/29/24 14:07 Height 5 ft 3 in 5 ft 3 in 5 ft 3 in 5 ft 3 in Weight: 151 lb 2 oz BMI 26.7 BP 143/80 H Intake Visit Reasons: 38wk ob Field Checker 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 Is patient in pain?: No [...] of abnormal cervical Pap smear Surgical History [place] teeth extracted History of colposcopy Family History Grandmother Colon cancer, Onset Age: 92 Paternal Mother Myocardial infarction, Onset Age: 64 2022 Grandfather Myocardial infarction Maternal Social History adopted: No household members: spouse housing: house current occupational status: employed current occupation: [employer] current occupational exposures/hazards: No pets [...] 3-4 times per week duration: 30-45 minutes/day michael/taoist: Oriental Orthodox seatbelt use: always do you feel safe at home: Yes 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 decl (more content not included)... Normal [facility] Platelet countOrdered By: Charisse Song on 12-29-2024 Platelets (Bld) [#/Vol] 233 10*3/uL 150-450 [facility] Protein+Creatinine Ratio,Uri neon 12-29-2024 PROT:CRE RATIO 118 mg/g CRE Normal 0-200 [facility] Comment on above: Performed By: #### L 501.4405, L501.1105, L100.0500, L501.0900, L501.1400, L501.4100 #### [facility] [address] [place], [address] Protein (U) [Mass/Vol] 9.7 mg/dL Normal 0.0-12.0 [facility] Comment on above: Performed By: #### L 501.4405, L501.1105, L100.0500, L501.0900, L501.1400, L501.4100 #### [facility] [address] [place], [address] UR CREAT 82.30 mg/dL Normal 28.00-217.00 [facility] Comment on above: Performed By: #### L 501.4405, L501.1105, L100.0500, L501.0900, L501.1400, L501.4100 #### [facility] [address] [place], [address] RBC Auto (Bld) [#/Vol]Ordere d By: Lindsay Song on 12-29-2024 RBC (Bld) [#/Vol] 3.72 10*6/uL Low 4.2-5.4 [facility] Random urine creatinine alanis urement (mass/volume)Ordered By: Lindsay Song on 12-29-2024 Creatinine Unsp time (U) [Mass/Vol] 82.30 mg/dL 28.00-217.00 [facility] Serum Creatinine AND GFRon 0 12-29-2024 Creatinine [Mass/Vol] 0.77 mg/dL Normal 0.70-1.20 [facility] Comment on above: Performed By: #### L 501.4405, L501.1105, L100.0500, L501.0900, L501.1400, L501.4100 #### [facility] [address] [place], [address] ECRCL 99.41 ml/min Normal 50-250 [facility] Comment on above: Performed By: #### L 501.4405, L501.1105, L100.0500, L501.0900, L501.1400, L501.4100 #### [facility] [address] [place], [place], [id number] GFR/1.73 sq M.predicted among non-blacks MDRD (S/P/Bld) [Vol rate/Area] 106 mL/min/{1.73_m2} Normal >60 [facility] Comment on above: Result Comment: mL/m in/1.73m2 CKD-EPI Creatinine Equation (2020) Performed By: #### L 501.4405, L501.1105, L100.0500, L501.0900, L501.1400, L501.4100 #### [facility] [address] [place], [place], [id number] Serum creatinine measurement (mass/volume)Ordered By: Lindsay Song on 12-29-2024 Creatinine [Mass/Vol] 0.77 mg/dL 0.70-1.20 [facility] Serum or plasma alanine humphrey otransferase (ALT) measurementOrdered By: Lindsay Song on 12-29-2024 ALT [Catalytic activity/Vol] 15 U/L <35 [facility] Serum or plasma uric acid me asurement (mass/volume)Ordered By: Lindsay Song on 12-29-2024 Urate [Mass/Vol] 4.5 mg/dL 2.6-6.0 [facility] Comment on above: The drugs N-Acetylcy steine and Metamizole may falsely depress this assay. Uric Acidon 12-29-2024 URIC 4.5 mg/dL Normal 2.6-6.0 [facility] Comment on above: Result Comment: The drugs N-Acetylcysteine and Metamizole may falsely depress this assay. Performed By: #### L 501.4405, L501.1105, L100.0500, L501.0900, L501.1400, L501.4100 #### [facility] [address] [place], [place], [address] Urine protein measurement (m ass/volume)Ordered By: Lindsay Song on 12-29-2024 Protein (U) [Mass/Vol] 9.7 mg/dL 0.0-12.0 [facility] Urine protein/creatinine mas s ratioOrdered By: Lindsay Song on 12-29-2024 Protein/Creatinine (U) [Mass ratio] 118 mg/g CRE 0-200 [facility] White blood cell (WBC) count Ordered By: Lindsay Song on 12-29-2024 WBC (Bld) [#/Vol] 8.9 10*3/uL 4.4-11.0 [facility] Rule out Beta Strep (Grp. B) on 12-25-2024 DALILA Group B Beta Streptococcus is not isolated. Normal [facility] Comment on above: Performed By: #### M 100.3400 #### [facility] [address] [place], [place], [id number] Laboratory - Chemistry and C hemistry - challengeOrdered By: Vaibhav Hale on 12-23-2024 Glucose Ql (U) Negative [facility] Laboratory - UrinalysisOrder ed By: Vaibhav Hale on 12-23-2024 Protein Ql (U) Negative [facility] Multiple Drum Sander Office Visit Reporton 12-23-2024 Multiple Drum Sander Office Visit Report [address], [address] [place] [id number] OFFICE VISIT Date of Service: 12/23/24 MR#: [id number] Acct: [id number] Name: NORA CAMERON Rep #: [id number] : 1990 Provider: ANGELA Dawkins ams Age/Sex: [...] Reasons: 37wk ob Chief Complaint: 37wk ob Field Checker 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 Is patient in pain?: No [...] of abnormal cervical Pap smear Surgical History [place] teeth extracted History of colposcopy Family History [...] 3-4 times per week duration: 30-45 minutes/day michael/taoist: Oriental Orthodox seatbelt use: always do you feel safe at home: Yes 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 Normal [facility] Screening beta-hemolytic Str eptococcus cultureOrdered By: Vaibhav Hale on 12-23-2024 Beta-hemolytic Streptococcus culture Group B Beta Streptococcus is not isolated. [facility] Laboratory - Chemistry and C hemistry - challengeOrdered By: Lindsay Song on 12-15-2024 Glucose Ql (U) Negative [facility] Laboratory - UrinalysisOrder ed By: Lindsay Song on 12-15-2024 Protein Ql (U) Negative [facility] OB Limited With Biometricson 12-15-2024 OB Limited With Biometrics [facility] Imaging Services [address] [place], [place] [address] OB Limited With Biometrics MR#: [id number] Acct: [id number] Name: NOAR CAMERON Rep #: [id number] : 1990 F 34 From: Devante buenrostro MD PCP: Dr. Todd Romero MD Status: REG CLI Study: OB Limited With Biometrics Date of Exam: 12/15 Exam# [id number] Ordering Dr: Vaibhav Hale CNM PROCEDURE: OB [...] 36 weeks and 1 day. Reading Location: [id number] CC: ANGELA Hale; Dr. Todd Romero MD Salesperson Sheet Music: Signed Normal [facility] Multiple Drum Sander Office Visit Reporton 12-15-2024 Multiple Drum Sander Office Visit Report [facility]'s [address], [address] [place] [address] OFFICE VISIT Date of Service: 12/15/24 MR#: [id number] Acct: [id number] Name: NORA CAMERON Rep #: [id number] : 1990 Provider: Dr. 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 ibarra (more content not included)... Normal [facility] Laboratory - Chemistry and C hemistry - challengeOrdered By: Emerald Dodd on 12-01-2024 Glucose Ql (U) Negative [facility] Laboratory - UrinalysisOrder ed By: Emerald Dodd on 12-01-2024 Protein Ql (U) Negative [facility] Multiple Drum Sander Office Visit Reporton 12-01-2024 Multiple Drum Sander Office Visit Report [facility] [address], [address] [place] [address] OFFICE VISIT Date of Service: 12/01/24 MR#: [id number] Acct: [id number] Name: NORA CAMERON Rep #: [id number] : 1990 Provider: Dr. Emerald Couch DO Age/Sex: 34/F Location: [facility] [place] Status: Signed Intake Vital Signs 11/03/24 11:04 11/17/24 11:38 12/01/24 14:33 Height 5 ft 3 in 5 ft 3 in 5 ft 3 in Weight: 146 lb 4 oz BMI 25.9 BP 113/74 Intake Visit Reasons: 34 wk ob Chief Complaint: 34wk ob Field Checker 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 Is patient in pain?: No [...] of abnormal cervical Pap smear Surgical History [place] teeth extracted History of colposcopy Family History [...] 3-4 times per week duration: 30-45 minutes/day michael/taoist: Oriental Orthodox seatbelt use: always do you feel safe at home: Yes additional social history: -Power- Proofer Black [employer] White Dinesh/Silvia Lumber History 4 Elective abortions Hx [...] declines NIPT. would like some appts in [facility]. doing well today (more content not included)... Normal [facility] Laboratory - Chemistry and C hemistry - challengeOrdered By: Vaibhav Hale on 11-17-2024 Glucose Ql (U) Negative [facility] Laboratory - UrinalysisOrder ed By: Vaibhav Hale on 11-17-2024 Protein Ql (U) Negative [facility] Multiple Drum Sander Office Visit Reporton 11-17-2024 Multiple Drum Sander Office Visit Report [facility]'s [address], [address] [place] [address] OFFICE VISIT Date of Service: 11/17/24 MR#: [id number] Acct: [id number] Name: NORA CAMERON Rep #: [id number] : 1990 Provider: ANGELA Dawkins ams Age/Sex: 34/F Location: [facility] [place] Status: Signed Intake Vital Signs 08/22/24 08:29 11/03/24 11:04 11/17/24 11:36 11/17/24 11:38 Height 5 ft 3 in 5 ft 3 in 5 ft 3 in 5 ft 3 in Weight: 142 lb 6 oz BMI 25.2 BP 112/74 Intake Visit Reasons: 32wk ob Field Checker 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 Is patient in pain?: No [...] of abnormal cervical Pap smear Surgical History [place] teeth extracted History of colposcopy Family History [...] 3-4 times per week duration: 30-45 minutes/day michael/taoist: Oriental Orthodox seatbelt use: always do you feel safe at home: Yes additional social history: -Power- Proofer Black [employer] White Dinesh/Silvia Lumber History 4 Elective abortions Hx [...] like some (more content not included)... Normal [facility] Laboratory - Chemistry and C hemistry - challengeOrdered By: Emerald Dodd on 11-03-2024 Glucose Ql (U) Negative [facility] Laboratory - UrinalysisOrder ed By: Emerald Dodd on 11-03-2024 Protein Ql (U) Negative [facility] Multiple Drum Sander Office Visit Reporton 11-03-2024 Multiple Drum Sander Office Visit Report [facility] [address], [address] [place] [address] OFFICE VISIT Date of Service: 11/03/24 MR#: [id number] Acct: [id number] Name: NORA CAMERON Rep #: [id number] : 1990 Provider: ANGELA Dawkins ams Age/Sex: 34/F [place] [facility] [place] Status: Signed Intake Vital Signs 08/22/24 08:29 10/18/24 11:09 11/03/24 11:04 11/03/24 11:04 Height 5 ft 3 in 5 ft 3 in 5 ft 3 in 5 ft 3 in Weight: 141 lb 6 oz BMI 25.0 BP 111/70 Intake Visit Reasons: 30wk ob Field Checker 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 Is patient in pain?: No [...] of abnormal cervical Pap smear Surgical History [place] teeth extracted History of colposcopy Family History [...] 3-4 times per week duration: 30-45 minutes/day michael/taoist: Oriental Orthodox seatbelt use: always do you feel safe at home: Yes additional social history: -Power- Proofer Black [employer] White Dinesh/Silvia Lumber History 4 Elective abortions Hx [...] like some (more content not included)... Normal [facility] Absolute lymphocyte countOrd ered By: Lindsay Greenealyssa on 10-12-2024 Lymphocytes Auto (Unsp spec) [#/Vol] 1.54 10*3/uL 0.83-4.51 [facility] Absolute neutrophil countOrd ered By: Lindsay Greenealyssa on 10-12-2024 Neutrophils (Bld) [#/Vol] 7.2 10*3/uL 2.0-7.7 [facility] Automated lymphocyte count a s percentage of total leukocytesOrdered By: Lindsay Greenealyssa on 10-12-2024 Lymphocytes/100 WBC Auto (Unsp spec) 16.1 % Low 19-41 [facility] Basophil percentageOrdered B y: Lindsay Greenealyssa on 10-12-2024 Basophils/100 WBC (Bld) 0.3 % 0-1 [facility] CBC W/Diff, Automatedon 09-16 Absolute Lymph 1.54 X10 3/uL Normal 0.83-4.51 [facility] Comment on above: Performed By: #### M 100.3400 #### [facility] Laboratory [address] [place], [address] Absolute Neut 7.2 X10 3/uL Normal 2.0-7.7 [facility] Comment on above: Performed By: #### M 100.3400 #### [facility] [address] [place], [address] Basophils/100 WBC (Bld) 0.3 % Normal 0-1 [facility] Comment on above: Performed By: #### M 100.3400 #### [facility] [address] [place], [address] Eosinophils/100 WBC (Bld) 0.7 % Normal 0-5 [facility] Comment on above: Performed By: #### M 100.3400 #### [facility] [address] [place], [address] Erythrocyte distribution width (RBC) [Ratio] 13.2 % Normal 11.6-14.6 [facility] Comment on above: Performed By: #### M 100.3400 #### [facility] [address] [place], [address] Hematocrit (Bld) [Volume fraction] 33.9 % Low 37-47 [facility] Comment on above: Performed By: #### M 100.3400 #### [facility] [address] [place], [address] Hemoglobin (Bld) [Mass/Vol] 11.5 g/dL Low 12.0-15.0 [facility] Comment on above: Performed By: #### M 100.3400 #### [facility] [address] [place], [address] IG% 2.100 High 0.0-0.9 [facility] Comment on above: Result Comment: IG% - Immature Granulocytes (promyelocytes, myelocytes and metamyelocytes) > 1% indicates that a LEFT SHIFT is Present. Performed By: #### M 100.3400 #### [facility] [address] [place], [address] Lymphocytes/100 WBC (Bld) 16.1 % Low 19-41 [facility] Comment on above: Performed By: #### M 100.3400 #### [facility] [address] [place], [address] MCH (RBC) [Entitic mass] 32.2 pg High 27.0-32.0 [facility] Comment on above: Performed By: #### M 100.3400 #### [facility] [address] [place], [address] MCHC (RBC) [Mass/Vol] 33.9 g/dL Normal 32-36 [facility] Comment on above: Performed By: #### M 100.3400 #### [facility] [address] [place], [address] MCV (RBC) [Entitic vol] 95.0 fL Normal 81-99 [facility] Comment on above: Performed By: #### M 100.3400 #### [facility] [address] [place], [address] Monocytes/100 WBC (Bld) 5.7 % Normal 0-10 [facility] Comment on above: Performed By: #### M 100.3400 #### [facility] [address] [place], [address] Neutrophils/100 WBC (Bld) 75.1 % High 47-70 [facility] Comment on above: Performed By: #### M 100.3400 #### [facility] [address] [place], [address] Nucleated RBC (Bld) [#/Vol] 0 10*3/uL Normal 0-5 [facility] Comment on above: Performed By: #### M 100.3400 #### [facility] [address] [place], [address] Platelet mean volume (Bld) [Entitic vol] 9.5 fL Normal 6.2-12.0 [facility] Comment on above: Performed By: #### M 100.3400 #### [facility] [address] [place], [address] Platelets (Bld) [#/Vol] 257 10*3/uL Normal 150-450 [facility] Comment on above: Performed By: #### M 100.3400 #### [facility] [address] [place], [address] RBC (Bld) [#/Vol] 3.57 10*6/uL Low 4.2-5.4 [facility] Comment on above: Performed By: #### M 100.3400 #### [facility] [address] [place], [address] RDW SD 46.3 fl High 35.1-43.9 [facility] Comment on above: Performed By: #### M 100.3400 #### [facility] [address] [place], [address] WBC (Bld) [#/Vol] 9.5 10*3/uL Normal 4.4-11.0 [facility] Comment on above: Performed By: #### M 100.3400 #### [facility] [address] [place], [address] Eosinophil percentageOrdered By: Lindsay Song on 10-12-2024 Eosinophils/100 WBC (Bld) 0.7 % 0-5 [facility] Erythrocyte distribution wid th ratioOrdered By: Lindsay Song on 10-12-2024 Erythrocyte distribution width (RBC) [Ratio] 13.2 % 11.6-14.6 [facility] Erythrocyte distribution wid th standard deviationOrdered By: Lindsay Song on 10-12-2024 Erythrocyte distribution width (RBC) [Ratio] 46.3 fl High 35.1-43.9 [facility] Glucose Challenge Gest 1H 50 cosme 10-12-2024 GLU GEST 50g 1H 190 mg/dL High 70-140 [facility] Comment on above: Performed By: #### M 100.3400 #### [facility] [address] [place], [address] Glucose measurement at 2 lian rs post-dose gestational glucose tolerance testOrdered By: Lindsay Song on 10-12-2024 Glucose [Mass/Vol] 190 mg/dL High 70-140 [facility] HIVon 10-12-2024 HIV Non-Reactive Normal Nonreactive [facility] Comment on above: Result Comment: Non- Reactive Reactive Repeatedly reactive samples must be confirmed according to CDC recommended confirmatory algorithms. The subresults for either HIVAG or AHIV can be used as an aid in the selection of the confirmation algorithm for reactive samples. Send out specimens with Reactive results to [facility] for confirmation. Order the HIV antibody detection and differentiation: [id number] Performed By: #### M 100.3400 #### [facility] [address] [place], [address] Hematocrit Auto (Bld) [Volum e fraction]Ordered By: Lindsay Song on 10-12-2024 Hematocrit (Bld) [Volume fraction] 33.9 % Low 37-47 [facility] Hemoglobin measurementOrdere d By: Lindsay Song on 10-12-2024 Hemoglobin (Bld) [Mass/Vol] 11.5 g/dL Low 12.0-15.0 [facility] Immature granulocytes/100 WB C Auto (Bld)Ordered By: Lindsay Song on 10-12-2024 Immature granulocytes/100 WBC (Bld) 2.100 % High 0.0-0.9 [facility] Comment on above: IG% - Immature Granu locytes (promyelocytes, myelocytes and metamyelocytes) > 1% indicates that a LEFT SHIFT is Present. Laboratory - Chemistry and C hemistry - challengeOrdered By: Erinn Jordan on 10-12-2024 Glucose Ql (U) Negative [facility] Laboratory - UrinalysisOrder ed By: Erinn Jordan on 10-12-2024 Protein Ql (U) Negative [facility] MCV (mean corpuscular volume ) determinationOrdered By: Lindsay Song on 10-12-2024 MCV (RBC) [Entitic vol] 95.0 fL 81-99 [facility] Mean corpuscular hemoglobin (MCH) determinationOrdered By: Lindsay Song on 10-12-2024 MCH (RBC) [Entitic mass] 32.2 pg High 27.0-32.0 [facility] Mean corpuscular hemoglobin concentration (MCHC) determinationOrdered By: Lindsay Song on 10-12-2024 MCHC (RBC) [Mass/Vol] 33.9 g/dL 32-36 [facility] Mean platelet volume determi nationOrdered By: Lindsay Song on 10-12-2024 Platelet mean volume (Bld) [Entitic vol] 9.5 fL 6.2-12.0 [facility] Monocyte percentageOrdered B y: Lindsay Song on 10-12-2024 Monocytes/100 WBC (Bld) 5.7 % 0-10 [facility] Neutrophil percentageOrdered By: Lindsay Song on 10-12-2024 Neutrophils/100 WBC (Bld) 75.1 % High 47-70 [facility] No Panel InformationOrdered By: Lindsay Song on 10-12-2024 HIV (1&2) Antibody Non-Reactive Nonreactive [facility] Comment on above: Non-ReactiveReactive Repeatedly reactive samples must be confirmed according to CDC recommended confirmatory algorithms. The subresults for either HIVAG or AHIV can be used as an aid in the selection of the confirmation algorithm for reactive samples.Send out specimens with Reactive results to [facility] for confirmation.Order the HIV antibody detection and differentiation: lc#[id number] Nucleated red blood cell per centageOrdered By: Lindsay Song on 10-12-2024 Nucleated RBC/100 WBC (Bld) [Ratio] 0 % 0-5 [facility] Multiple Drum Sander Office Visit Reporton 10-12-2024 Multiple Drum Sander Office Visit Report [facility]'[address] [place] [address] OFFICE VISIT Date of Service: 10/12/24 MR#: [id number] Acct: [id number] Name: NORA CAMERON Rep #: [id number] : 1990 Provider: MILTON babcock Age/Sex: 34/F [place] [facility] [place] Status: Signed Intake Vital Signs 08/22/24 08:29 09/16/24 14:59 10/12/24 10:16 Height 5 ft 3 in 5 ft 3 in 5 ft 3 in Weight: 139 lb 8 oz BMI 24.7 BP 112/68 Intake Visit Reasons: 27wk ob/glucose Chief Complaint: 27 Week OB/Glucose Field Checker 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 Is patient in pain?: No [...] of abnormal cervical Pap smear Surgical History [place] teeth extracted History of colposcopy Family History [...] 3-4 times per week duration: 30-45 minutes/day michael/taoist: Oriental Orthodox seatbelt use: always do you feel safe at home: Yes additional social history: -Power- [employer]/Silvia Lumber History 4 Elective abortions Hx [...] would lik (more content not included)... Normal [facility] Platelet countOrdered By: Charisse Song on 10-12-2024 Platelets (Bld) [#/Vol] 257 10*3/uL 150-450 [facility] RBC Auto (Bld) [#/Vol]Ordere d By: Lindsay Song on 10-12-2024 RBC (Bld) [#/Vol] 3.57 10*6/uL Low 4.2-5.4 [facility] Syphilis Antibodieson 2024 Syphilis Abs Non-Reactive Normal Nonreactive [facility] Comment on above: Performed By: #### M 100.3400 #### [facility] [address] [place], [address] White blood cell (WBC) count Ordered By: Lindsay Song on 10-12-2024 WBC (Bld) [#/Vol] 9.5 10*3/uL 4.4-11.0 [facility] Laboratory - Chemistry and C hemistry - challengeOrdered By: Lindsay Song on 09-16-2024 Glucose Ql (U) Negative [facility] Laboratory - UrinalysisOrder ed By: Lindsay Song on 09-16-2024 Protein Ql (U) Negative [facility] Multiple Drum Sander Office Visit Reporton 09-16-2024 Multiple Drum Sander Office Visit Report [facility]'s [address], [address] [place] [address] OFFICE VISIT Date of Service: 09/16/24 MR#: [id number] Acct: [id number] Name: NORA CAMERON Rep #: [id number] : 1990 Provider: Dr. Lindsay bui MD Age/Sex: 34/F Location[place] [facility] [place] Status: Signed Intake Vital Signs 07/07/24 08:48 08/22/24 08:29 09/16/24 14:53 09/16/24 14:59 Height 5 ft 3 in 5 ft 3 in 5 ft 3 in 5 ft 3 in Weight: 134 lb BMI 23.7 BP 108/71 Intake Visit Reasons: 23wk ob Field Checker 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 Is patient in pain?: No [...] of abnormal cervical Pap smear Surgical History [place] teeth extracted History of colposcopy Family History [...] 3-4 times per week duration: 30-45 minutes/day michael/taoist: Oriental Orthodox seatbelt use: always do you feel safe at home: Yes additional social history: -Power- [employer]via [employer] History 4 Elective abortions Hx [...] declines NIPT. would like some appts in [facility]. doing well today 07/07/24 -???-???-???-???-???-???- ???-???-???-???-???-???- 12w 6d 124 lb 6 oz (+6 oz) 112/78 Negative -???-???-???-???-???-???- ???-???-???-???-???-???- Negative 160 -???-???-???-???- (more content not included)... Normal [facility] Laboratory - Chemistry and C hemistry - challengeOrdered By: Erinn Jordan on 08-22-2024 Glucose Ql (U) Negative [facility] Laboratory - UrinalysisOrder ed By: Erinn Jordan on 08-22-2024 Protein Ql (U) Negative [facility] Multiple Drum Sander Office Visit Reporton 08-22-2024 Multiple Drum Sander Office Visit Report [facility]'s [address], [address] [place] [address] OFFICE VISIT Date of Service: 08/22/24 MR#: [id number] Acct: [id number] Name: NORA CAMERON Rep #: [id number] : 1990 Provider: MILTON babcock Age/Sex: 34/F Location: [facility] [place] Status: Signed Intake Vital Signs 07/07/24 08:48 07/28/24 16:02 08/22/24 08:29 Height 5 ft 3 in 5 ft 3 in 5 ft 3 in Weight: 129 lb 6 oz BMI 22.8 BP 100/64 Intake Visit Reasons: 20WK OB Chief Complaint: 20 Week OB Field Checker 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 Is patient in pain?: No [...] of abnormal cervical Pap smear Surgical History [place] teeth extracted History of colposcopy Family History Grandmother Colon cancer, Onset Age: 92 Paternal Mother Myocardial infarction, Onset Age: 64 2022 Grandfather Myocardial infarction Maternal Social History adopted: No household members: spouse housing: house current occupational status: employed current occupation: [employer] current occupational exposures/hazards: No pets [...] 3-4 times per week duration: 30-45 minutes/day michael/taoist: Oriental Orthodox seatbelt use: always do you feel safe at home: Yes additional social history: -Power- [employer]er [employer]/Silvia Lumber History 4 Elective abortions Hx [...] declines NIPT. would like some appts in [place]. doing well today 07/07/24 -???-???-???-???-???-???- ???-???-???-???-???-???- 12w 6d 124 lb 6 oz (+6 oz) 112/78 Negative -???-???-???-???-???-???- ???-???-???-???-???-???- Negative 160 -??? (more content not included)... Normal [facility] Laboratory - Chemistry and C hemistry - challengeOrdered By: Emerald Dodd on 07-28-2024 Glucose Ql (U) Negative [facility] Laboratory - UrinalysisOrder ed By: Emerald Dodd on 07-28-2024 Protein Ql (U) Negative [facility] Multiple Drum Sander Office Visit Reporton 07-28-2024 Multiple Drum Sander Office Visit Report [facility]'s [address], [address] [place] [address] OFFICE VISIT Date of Service: 07/28/24 MR#: [id number] Acct: [id number] Name: NORA CAMERON Rep #: [id number] : 1990 Provider: Dr. Emerald Couch, Age/Sex: 34/F Location: [facility] [place] Status: Signed Intake Vital Signs 07/07/24 07:43 07/07/24 08:48 07/28/24 16:01 07/28/24 16:02 Height 5 ft 3 in 5 ft 3 in 5 ft 3 in 5 ft 3 in Weight: 126 lb BMI 22.3 BP 122/73 H Intake Visit Reasons: 16 wk ob Field Checker 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 Is patient in pain?: No [...] of abnormal cervical Pap smear Surgical History [place] teeth extracted History of colposcopy Family History [...] 3-4 times per week duration: 30-45 minutes/day michael/taoist: Oriental Orthodox seatbelt use: always do you feel safe at home: Yes additional social history: -Power- [employer]er [employer] History 4 Elective abortions Hx [...] declines NIPT. would like some appts in [facility]. doing well today 07/07/24 -???-???-???-???-???-???- ???-???-???-???-???-???- 12w 6d 124 lb 6 oz (+6 oz) 112/78 Negative -???-???-???-???-???-???- ???-???-???-???-???-???- Negative 160 -?? (more content not included)... Normal [facility] Laboratory - Chemistry and C hemistry - challengeOrdered By: Vaibhav Hale on 07-07-2024 Glucose Ql (U) Negative [facility] Laboratory - UrinalysisOrder ed By: Vaibhav Hale on 07-07-2024 Protein Ql (U) Negative [facility] NATERAon 07-07-2024 NATURA SEE SCANNED REPORT Normal [facility] Comment on above: Performed By: #### L 900.0098 ####[facility] [id number] [place], [place], [address] Multiple Drum Sander Office Visit Reporton 07-07-2024 Multiple Drum Sander Office Visit Report [facility]'s [address], [address] [place] [address] OFFICE VISIT Date of Service: 07/07/24 MR#: [id number] Acct: [id number] Name: NORA CAMERON Rep #: [id number] : 1990 Provider: ANGELA Dawkins ams Age/Sex: 33/F [place] [facility] [place]: Signed Intake Vital Signs 05/27/24 13:52 [...] of abnormal cervical Pap smear Surgical History [place] teeth extracted History of colposcopy Family History [...] 3-4 times per week duration: 30-45 minutes/day michael/taoist: Oriental Orthodox seatbelt use: always do you feel safe at home: Yes additional social history: -Power- [employer]er [employer]via L[employer] History 4 Elective abortions Hx [...] declines NIPT. would like some appts in [facility]. doing well today 07/07/24 -???-???-???-???-???-???- ???-???-???-???-???-???- 12w 6d 124 lb 6 oz (+6 oz) 112/78 Negative -???-???-???-???-???-???- ???-???-???-???-???-???- Negative 160 -???-???-???-???-???-???- ???-???-???-???-???-???- KW- no vb/cr (more content not included)... Normal [facility] PAP IG HPV APTIMA 16/18,45on 06-16-2024 ADEQ Comment Normal . [facility] Comment on above: Order Comment: Speci men Comment: [id number] Specimen Comment: No. of containers..01 ThinPrep Vial Result Comment: Sati sfactory for evaluation. No endocervical component is identified. Performed By: #### L 7400.0280, L7000.1800, M100.2200 #### [facility] [address] [place], [address] COMM . Normal . [facility] Comment on above: Order Comment: Speci men Comment: [id number] Specimen Comment: No. of containers..01 ThinPrep Vial Performed By: #### L 7400.0280, L7000.1800, M100.2200 #### [facility] [address] [place], [address] COMMENT Comment Normal . [facility] Comment on above: Order Comment: Speci men Comment: [id number] Specimen Comment: No. of containers..01 ThinPrep Vial Result Comment: This liquid based ThinPrep(R) pap test was screened with the use of an image guided system. Performed By: #### L 7400.0280, L7000.1800, M100.2200 #### [facility] [address] [place], [address] DIAG Comment Normal . [facility] Comment on above: Order Comment: Speci men Comment: [id number] Specimen Comment: No. of containers..01 ThinPrep Vial Result Comment: NEGA TIVE FOR INTRAEPITHELIAL LESION OR MALIGNANCY. Performed By: #### L 7400.0280, L7000.1800, M100.2200 #### [facility] [address] [place], [address] HPV APTIMA, HR Negative Normal Negative [facility] Comment on above: Order Comment: Speci men Comment: [id number] Specimen Comment: No. of containers..01 ThinPrep Vial Result Comment: This nucleic acid amplification test detects fourteen high- risk HPV types (16,18,31,33,35,39,45,51,52,56,58,59,66,68) without differentiation. Performed By: #### L 7400.0280, L7000.1800, M100.2200 #### [facility] [address] [place], [address] HPV Felicita Rfx Comment Normal . [facility] Comment on above: Order Comment: Speci men Comment: [id number] Specimen Comment: No. of containers..01 ThinPrep Vial Result Comment: Violetat rubén not met, HPV Genotype not performed. Performed at: - [facility] [id number] Real Estate Appraiser: Maki Cespedes MD, Phone: [phone] Performed at: = - [facility] [address] [id number] Real Estate Appraiser: Maki Cespedes MD, Phone: [phone] Performed By: #### L 7400.0280, L7000.1800, M100.2200 #### [facility] [address] [place], [place], [address] PAPSMR Comment Normal . [facility] Comment on above: Order Comment: Speci men Comment: [id number] Specimen Comment: No. of containers..01 ThinPrep Vial [...] By: #### L 7400.0280, L7000.1800, M100.2200 #### [facility] [address] [place], [place], [address] PERFORM Comment Normal . [facility] Comment on above: Order Comment: Speci men Comment: [id number] Specimen Comment: No. of containers..01 ThinPrep Vial Result Comment: Zee Estrada, Culinary Instructor (ASCP) Performed By: #### L 7400.0280, L7000.1800, M100.2200 #### [facility] [address] [place], [place], [id number] Chlamydia/GC JESÚS aptimaon CHLAMY,NUC ACID Negative Normal Negative [facility] Comment on above: Performed By: #### L 7400.0280, L7000.1800, M100.2200 #### [facility] [address] [place], [address] GC BY NUC ACID Negative Normal Negative [facility] Comment on above: Result Comment: Perf ormed at: =G - [facility] [address] [id number] Real Estate Appraiser: Maki Cespedes MD, Phone: [phone] Performed By: #### L 7400.0280, L7000.1800, M100.2200 #### [facility] [address] [place], [address] Urine Cultureon 06-11-2024 URC Culture exhibits no growth. Normal [facility] Comment on above: Performed By: #### L 7400.0280, L7000.1800, M100.2200 #### [facility] [address] [place], [address] CBC W/Diff, Automatedon 05-19 Absolute Lymph 1.89 X10 3/uL Normal 0.83-4.51 [facility] Comment on above: Performed By: #### L 3890.6100, L509.4005, L501.9520, L100.0100, L509.8000, L3890.6005, L3890.6300, BTS ####[facility] [address] [place], [address] Absolute Neut 7.1 X10 3/uL Normal 2.0-7.7 [facility] Comment on above: Performed By: #### L 3890.6100, L509.4005, L501.9520, L100.0100, L509.8000, L3890.6005, L3890.6300, BTS ####[facility] [address] [place], [address] Basophils/100 WBC (Bld) 0.3 % Normal 0-1 [facility] Comment on above: Performed By: #### L 3890.6100, L509.4005, L501.9520, L100.0100, L509.8000, L3890.6005, L3890.6300, BTS ####[facility] [address] [place], [address] Eosinophils/100 WBC (Bld) 0.7 % Normal 0-5 [facility] Comment on above: Performed By: #### L 3890.6100, L509.4005, L501.9520, L100.0100, L509.8000, L3890.6005, L3890.6300, BTS ####[facility] [address] [place], [address] Erythrocyte distribution width (RBC) [Ratio] 12.1 % Normal 11.6-14.6 [facility] Comment on above: Performed By: #### L 3890.6100, L509.4005, L501.9520, L100.0100, L509.8000, L3890.6005, L3890.6300, BTS ####[facility] [address] [place], [address] Hematocrit (Bld) [Volume fraction] 38.8 % Normal 37-47 [facility] [facility] Comment on above: Performed By: #### L 3890.6100, L509.4005, L501.9520, L100.0100, L509.8000, L3890.6005, L3890.6300, BTS ####[facility] [address] [place], [address] Hemoglobin (Bld) [Mass/Vol] 13.2 g/dL Normal 12.0-15.0 [facility] Comment on above: Performed By: #### L 3890.6100, L509.4005, L501.9520, L100.0100, L509.8000, L3890.6005, L3890.6300, BTS ####[facility] [address] [place], [address] IG% 0.400 Normal 0.0-0.9 [facility] Comment on above: Result Comment: IG% - Immature Granulocytes (promyelocytes, myelocytes and metamyelocytes) > 1% indicates that a LEFT SHIFT is Present. Performed By: #### L 3890.6100, L509.4005, L501.9520, L100.0100, L509.8000, L3890.6005, L3890.6300, BTS ####[facility] [address] [place], [address] Lymphocytes/100 WBC (Bld) 19.2 % Normal 19-41 [facility] Comment on above: Performed By: #### L 3890.6100, L509.4005, L501.9520, L100.0100, L509.8000, L3890.6005, L3890.6300, BTS ####[facility] [address] [place], [address] MCH (RBC) [Entitic mass] 30.6 pg Normal 27.0-32.0 [facility] Comment on above: Performed By: #### L 3890.6100, L509.4005, L501.9520, L100.0100, L509.8000, L3890.6005, L3890.6300, BTS ####[facility] [address] [place], [address] MCHC (RBC) [Mass/Vol] 34.0 g/dL Normal 32-36 [facility] Comment on above: Performed By: #### L 3890.6100, L509.4005, L501.9520, L100.0100, L509.8000, L3890.6005, L3890.6300, BTS ####[facility] [address] [place], [address] MCV (RBC) [Entitic vol] 90.0 fL Normal 81-99 [facility] Comment on above: Performed By: #### L 3890.6100, L509.4005, L501.9520, L100.0100, L509.8000, L3890.6005, L3890.6300, BTS ####[facility] [address] [place], [address] Monocytes/100 WBC (Bld) 7.4 % Normal 0-10 [facility] Comment on above: Performed By: #### L 3890.6100, L509.4005, L501.9520, L100.0100, L509.8000, L3890.6005, L3890.6300, BTS ####[facility] [address] [place], [address] Neutrophils/100 WBC (Bld) 72.0 % High 47-70 [facility] Comment on above: Performed By: #### L 3890.6100, L509.4005, L501.9520, L100.0100, L509.8000, L3890.6005, L3890.6300, BTS ####[facility] [address] [place], [address] Nucleated RBC (Bld) [#/Vol] 0 10*3/uL Normal 0-5 [facility] Comment on above: Performed By: #### L 3890.6100, L509.4005, L501.9520, L100.0100, L509.8000, L3890.6005, L3890.6300, BTS ####[facility] [address] [place], [address] Platelet mean volume (Bld) [Entitic vol] 10.0 fL Normal 6.2-12.0 [facility] Comment on above: Performed By: #### L 3890.6100, L509.4005, L501.9520, L100.0100, L509.8000, L3890.6005, L3890.6300, BTS ####[facility] [address] [place], [address] Platelets (Bld) [#/Vol] 324 10*3/uL Normal 150-450 [facility] Comment on above: Performed By: #### L 3890.6100, L509.4005, L501.9520, L100.0100, L509.8000, L3890.6005, L3890.6300, BTS ####[facility] [address] [place], [address] RBC (Bld) [#/Vol] 4.31 10*6/uL Normal 4.2-5.4 [facility] Comment on above: Performed By: #### L 3890.6100, L509.4005, L501.9520, L100.0100, L509.8000, L3890.6005, L3890.6300, BTS ####[facility] [address] [place], [address] RDW SD 39.9 fl Normal 35.1-43.9 [facility] Comment on above: Performed By: #### L 3890.6100, L509.4005, L501.9520, L100.0100, L509.8000, L3890.6005, L3890.6300, BTS ####[facility] [address] [place], [address] WBC (Bld) [#/Vol] 9.9 10*3/uL Normal 4.4-11.0 [facility] Comment on above: Performed By: #### L 3890.6100, L509.4005, L501.9520, L100.0100, L509.8000, L3890.6005, L3890.6300, BTS ####[facility] [address] [facility] [place], [address] HIV - WCHon 06-10-2024 HIV Non-Reactive Normal Nonreactive [facility] Comment on above: Order Comment: Reaso n for Exam: Performed By: #### L 3890.6100, L509.4005, L501.9520, L100.0100, L509.8000, L3890.6005, L3890.6300, BTS ####[facility] [address] [place] [place], [address] Hepatitis B Surface Antigeno n 06-10-2024 HEP B Surf Ag Non-Reactive Normal Nonreactive [facility] Comment on above: Order Comment: Reaso n for Exam: Performed By: #### L 3890.6100, L509.4005, L501.9520, L100.0100, L509.8000, L3890.6005, L3890.6300, BTS ####[facility] [address] [facility] [place], [place], [address] Hepatitis C Antibodyon 06-10 Hepatitis C AB Non-Reactive Normal Nonreactive [facility] Comment on above: Order Comment: Reaso n for Exam: Result Comment: Non Reactive: < 0.8 Equivocal: >/= 0.8 to < 1.0 Reactive: >/= 1.0 The CDC requires that a reactive/equivocal HCV antibody result be sent out for confirmation. HCV Quant by PCR testing. Performed By: #### M 100.3400 #### [facility] [address] [place], [address] L509.8000on 06-10-2024 Syphilis Abs Non-Reactive Normal [facility] Comment on above: Order Comment: Reaso n for Exam: Performed By: #### L 3890.6100, L509.4005, L501.9520, L100.0100, L509.8000, L3890.6005, L3890.6300, BTS ####[facility] [address] [place], [address] Multiple [facility] Office Visit Reporton 06-10-2024 Multiple [facility] Sander Office Visit Report [facility]'s [address], [address] [place] [address] OFFICE VISIT Date of Service: 06/10/24 MR#: [id number] Acct: [id number] Name: NORA CAMERON Rep #: [id number] : 1990 Provider: ANGELA Dawkins ams Age/Sex: 33/F Location: [facility] [place] Status: Signed Intake Vital Signs 04/27/24 10:29 05/27/24 13:52 06/10/24 11:15 06/10/24 11:19 Height 5 ft 3 in 5 ft 3 in 5 ft 3 in Weight: 124 lb 4 oz BMI 22.0 BP 122/80 H Intake Visit Reasons: NOB, LMP 04/08, TREVON 01/13/25 Field Checker 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 Is patient in pain?: No [...] of abnormal cervical Pap smear Surgical History [place] teeth extracted History of colposcopy Family History [...] 3-4 times per week duration: 30-45 minutes/day michael/taoist: Oriental Orthodox seatbelt use: always do you feel safe at home: Yes additional social history: -Power- [employer]er [employer] Dinesh/Silvia Lumber History 4 Elective abortions Hx [...] declines NIPT. would like some appts in [facility]. doing well today Menstrual History Last Menstrual Period: (more content not included)... Normal [facility] Rubella IgGon 06-10-2024 Rubella IgG Reactive Normal Nonreactive [facility] Comment on above: Order Comment: Reaso n for Exam: Result Comment: Anti body Results Interpretation of Immune Status Non Reactive Presumed Non-Immune Equivocal Equivocal Reactive Presumed Immune Performed By: #### L 3890.6100, L509.4005, L501.9520, L100.0100, L509.8000, L3890.6005, L3890.6300, BTS ####[facility] [address] [place], [address] Thyroid Stim Hormone (TSH)on 06-10-2024 TSH 1.240 uIU/mL Normal 0.358-3.740 [facility] Comment on above: Performed By: #### L 3890.6100, L509.4005, L501.9520, L100.0100, L509.8000, L3890.6005, L3890.6300, BTS ####[facility] [address] [place] [place], [address] Type AND Screenon 06-10-2024 ABO and Rh group Nom (Bld) Blood group AB Rh(D) positive Normal [facility] Comment on above: Order Comment: PN Performed By: #### L 3890.6100, L509.4005, L501.9520, L100.0100, L509.8000, L3890.6005, L3890.6300, BTS ####[facility] [address] [facility] [place], [address] Multiple [facility] S[facility] Office Visit Reporton 05-27-2024 Multiple Drum Sander Office Visit Report [facility]'s [address], [address] [place] [address] OFFICE VISIT Date of Service: 05/27/24 MR#: [id number] Acct: [id number] Name: NORA CAMERON Rep #: [id number] : 1990 Provider: Dr. Lindsay bui MD Age/Sex: 33/F Location: [facility] [place] Status: Signed Intake Vital Signs 04/27/24 10:29 05/27/24 09:58 05/27/24 13:52 Height 5 ft 3 in 5 ft 3 in 5 ft 3 in Weight: 126 lb BMI 22.3 BP 126/80 H Intake Visit Reasons: 7w5d, brown spotting Field Checker 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 Is patient in pain?: No [...] menopausal: No Patient : Yes : No [facility] Medical History Hx of abnormal cervical Pap smear Surgical History History of colposcopy Family History Grandmother Colon cancer, Onset Age: 92 Paternal Social History adopted: No household members: spouse housing: house current occupational status: employed current occupation: [employer] job [employer] current occupational exposures/hazards: No pets and [...] 3-4 times per week duration: 30-45 minutes/day michael/taoist: Oriental Orthodox seatbelt use: always do you feel safe at home: Yes 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 Normal [facility] Transvaginal w/Preg USon Transvaginal w/Preg [facility] Imaging Services [facility] [place], [place] [id number] Transvaginal w/Preg MR#: [id number] Acct: [id number] Name: NORA CAMERON Rep #: [id number] : 1990 F 33 From: Len Currie MD PCP: Dr. Todd Romero MD Status: REG CLI Study: Transvaginal w/Preg US Date of Exam: 05/23/24 Exam# [id number] Ordering Dr: Lindsay Song [id number] STUDY: FIRST TRIMESTER OBSTETRICAL ULTRASOUND REASON FOR [...] Todd Romero MD; Dr. Lindsay Song MD Salesperson Sheet Music: Signed Normal [facility] PROGESTERONE 4317on 05-15-20 24 PROGESTERONE 24.2 ng/mL Normal . [facility] Comment on above: Order Comment: N Result Comment: Foll icular phase 0.1 - 0.9 Luteal phase 1.8 - 23.9 Ovulation phase 0.1 - 12.0 First trimester 11.0 - 44.3 Second trimester 25.4 - 83.3 Third trimester 58.7 - 214.0 Postmenopausal 0.0 - 0.1 Performed at: [facility] [address] [id number] Real Estate Appraiser: Jose Recinos PhD, Phone: [phone] Performed By: #### M 807.6478 #### [facility] [address] [place] [address], [address] hCG Titer Quant., Serumon HCG QUANT. 6698 mIU/mL High 1-3 [facility] Comment on above: Result Comment: hCG levels with Gestational Age Gestational Age hCG mIU/mL (IU/L) 0.2 - 1 week 5 - 50 1-2 weeks 50 - 500 2-3 weeks 100 - 5000 3-4 weeks 500 - 50920 4-5 weeks 1000 - 32717 5-6 weeks 11764 - 100,000 6-8 weeks 68550 - 200,000 2-3 months 18887 - 100,000 Performed By: #### L 7400.0280, L7000.1800, M100.2200 #### [facility] [address] [place], [place], [address] hCG Titer Quant., Serumon HCG QUANT. 3571 mIU/mL High 1-3 [facility] Comment on above: Result Comment: hCG levels with Gestational Age Gestational Age hCG mIU/mL (IU/L) 0.2 - 1 week 5 - 50 1-2 weeks 50 - 500 2-3 weeks 100 - 5000 3-4 weeks 500 - 22504 4-5 weeks 1000 - 95761 5-6 weeks 49198 - 100,000 6-8 weeks 62172 - 200,000 2-3 months 33310 - 100,000 Performed By: #### M 100.3400 #### [facility] [address] [place], [place], [address] Urine Cultureon 04-28-2024 URC Culture exhibits no growth. Normal [facility] Comment on above: Performed By: #### M 100.3400 #### [facility] [address] [place], [place], [address] Multiple Drum Sander Office Visit Reporton 04-27-2024 Multiple Drum Sander Office Visit Report [facility] [address], [address] [place] [address] OFFICE VISIT Date of Service: 04/27/24 MR#: [id number] Acct: [id number] Name: NORA CAMERON Rep #: [id number] : 1990 Provider: MILTON babcock Age/Sex: 33/F Location: [facility] [place] Status: Signed Intake Vital Signs 09/11/22 09:37 04/27/24 10:27 04/27/24 10:29 Height 5 ft 3 in 5 ft 3 in 5 ft 3 in Weight: 126 lb BMI 22.3 BP 112/72 Intake Visit Reasons: FERTILITY CONSULT Chief Complaint: Fertility consult Field Checker 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 Is patient in pain?: No [...] current occupational status: employed current occupation: [employer] job [employer] current occupational exposures/hazards: No pets and [...] 3-4 times per week duration: 30-45 minutes/day michael/taoist: Oriental Orthodox seatbelt use: always do you feel safe at home: Yes 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 She has been evaluated by OBGYN in [place], saw a chiropractor in [place] and most recently saw Dr Dunbar in [...] Bth Weight [facility] F[facility] 02/26/21 miscarriage 5 1/2 [...] 3 Diagnose (more content not included)... Normal [facility] CNOVon 04-11-2024 CNOV Office Visit (FMUPCN ) ----- NORA CAMERON ([id number]) 1990 F Date Time Provider Department 04/11/24 12:00 PM TRISTIAN FENG UPCN During your visit today, we recorded the following information about you: Temperature Pulse Respiration Blood pressure 98.3 degrees 88/minute 16/minute 118/75 Weight Height 57.4 kg 1.6 m Tristian Feng, MACHINE RECORDS UNITS SUPERVISOR.[facility] 04/11/2024 12:31 PM Signed Nora Cameron is [...] Provider Department Center (more content not included)... [facility] CNPNon 04-11-2024 CNPN Telephone (FPUPDV) ----- NORA CAMERON ([id number]) 1990 F Date Time Provider Department 04/11/24 TODD ROMERO II During your visit today, we recorded the following information about you: Anabelle Grey 04/11/2024 11:36 AM Signed Patient calls today. Reason for Call: patient having ear pain and will go to walk in clinic to be evaluated today [phone] (home) [phone] (cell) Patient last appointment: Visit date not [...] Encounter Status:Closed by ANABELLE GREY on 04/11/24 [facility] CNOVon 07-28-2023 CNOV Office Visit (FPUPDV ) ----- NORA CAMERON ([id number]) 1990 F Date Time Provider Department 07/28/23 2:00 PM TODD ROMERO II FPUPDV During your visit today, we recorded the following information about you: Temperature Pulse Respiration Blood pressure 97.7 degrees 88/minute 12/minute 90/60 Weight Height 58.5 kg 1.6 m Todd Romero II, MD 07/28/2023 9:34 PM Signed Todd Romero II, MD [address], [place] [address] SUBJECTIVE Nora Cameron is a 33 year [...] content not included)... Normal [facility] PROGESTon 09-17-2022 PROGEST 19.45 ng/mL Normal [facility] Comment on above: Result Comment: Non- Female Ref Ranges Follicular Phase: 0.06-0.893 ng/mL Ovulation Phase: 0.12-12.0 ng/mL Luteal Phase : 1.8-23.9 ng/mL Post-Menopausal : <0.05-0.13 ng/mL Female Ref Ranges 1st Trimester: 11.0-44.3 ng/mL 2nd Trimester: 25.4-83.3 ng/mL 3rd Trimester: 58.7-214 ng/mL Performed By: #### L 304.0195, L304.0140 #### [facility] [address] [place] [address] Progesterone [Mass/Vol]on Progesterone 19.45 ng/mL [facility] TSHon 09-17-2022 TSH 1.74 uIU/mL Normal 0.270-4.200 [facility] Comment on above: Performed By: #### L 304.0195, L304.0140 #### [facility] [address] [place] [address] TSH BLDon 09-17-2022 TSH Qn 1.74 uIU/mL 0.270 - 4.200 uIU/mL [facility] Functional protein C measure mentOrdered By: Dr. Dodd on 08-23-2022 Protein C actual/normal Chromogenic method (PPP) [Rel catalytic activity/Vol] 109 % 73-180 [facility] Comment on above: Performed at: - Edd[address] [place] [address] [id number] Director: Gualberto Mata MD, Phone: [phone] at: [facility] [address] [id number] Director: Jose Recinos PhD, Phone: [phone] No Panel InformationOrdered By: Dr. Dodd on 08-23-2022 Activated Protein C Resistance 2.9 ratio 2.2-3.5 [facility] Comment on above: The APCR result may be falsely increased (masking anabnormal, low APCR result) in patients on direct Xainhibitor (e.g., rivaroxaban, apixaban, edoxaban) or adirect thrombin inhibitor (e.g., dabigatran) anticoagulanttherapy due to assay interference by these drugs. Anti-Cardiolipin IgM Antibody < 9 MPL U/mL 0-12 [facility] Comment on above: Negative: <13 Indete rminate: 13 - 20 Low-Med Positive: >20 - 80 High Positive: >80 Platelet poor plasma antithr ombin actual/normal ratio by chromogenic method (relativeOrdered By: Dr. Dodd on 08-23-2022 Antithrombin actual/normal Chromogenic method (PPP) [Rel catalytic activity/Vol] 121 % 75-135 [facility] Comment on above: Direct Xa inhibitor anticoagulants such as rivaroxaban,apixaban and edoxaban will lead to spuriously elevatedantithrombin activity levels possibly masking a deficiency. Platelet poor plasma antithr ombin antigen detection by immunoassayOrdered By: Dr. Dodd on 08-23-2022 Antithrombin Ag IA Ql (PPP) 107 % 72-124 [facility] Comment on above: This test was develo ped and its performance characteristicsdetermined by [employer]. It has not been cleared orapproved by the Food and Drug Administration. Protein S measurement in casa telet poor plasma by coagulation assay (units/volume)Ordered By: Dr. Dodd on 08-23-2022 Protein S Coag Qn (PPP) 104 % 60-150 [facility] Comment on above: This test was develo ped and its performance characteristicsdetermined by [employer]. It has not been cleared orapproved by the Food and Drug Administration. Protein S, freeOrdered By: Angeles Dodd on 08-23-2022 Protein S Free Ag IA Qn (PPP) 110 % 61-136 [facility] Serum cardiolipin IgG antibo dy assay by immunoassay (units/volume)Ordered By: Dr. Dodd on 08-23-2022 Cardiolipin IgG IA Qn (S) < 9 GPL U/mL 0-14 [facility] Comment on above: Negative: <15 Indete rminate: 15 - 20 Low-Med Positive: >20 - 80 High Positive: >80 Culture, urineOrdered By: Dr Derrick Dodd on 06-07-2022 Bacteria identified Cx Nom (U) Culture exhibits no growth. [facility] Serum or plasma choriogonado tropin detectionOrdered By: Dr. Dodd on 06-07-2022 HCG ( test) Ql [address] mIU/mL <4 [facility] Comment on above: hCG levels with Gest ational AgeGestational Age hCG mIU/mL (IU/L)0.2 - 1 week 5 - 501-2 weeks 50 - 5002-3 weeks 100 - 32058-8 weeks 500 - 285946-5 weeks 1000 - 880457-0 weeks 42826 - 100,0006-8 weeks 58849 - 200,0002-3 months 72780 - 100,000 Chlamydia trachomatis rRNA d etection by probe and target amplification methodOrdered By: Dr. Dodd on 06-05-2022 C. trachomatis rRNA JESÚS+probe Ql (Unsp spec) Negative Negative [facility] Dilute Tc's viper venom timeOrdered By: Dr. Dodd on 06-05-2022 dRVVT Coag (PPP) [Time] 33.1 s 0.0-47.0 [facility] - Microbiology an d Antimicrobial susceptibilityOrdered By: Dr. Dodd on 06-05-2022 N. gonorrhoeae DNA JESÚS+probe Ql (Unsp spec) Negative Negative [facility] Comment on above: Performed at: =[address] [id number] Director: Maki Cespedes MD, Phone: [phone] No Panel InformationOrdered By: Dr. Dodd on 06-05-2022 Anti-Cardiolipin IgM Antibody 18 MPL U/mL 0-12 [facility] Comment on above: Negative: <13 Indete rminate: 13 - 20 Low-Med Positive: >20 - 80 High Positive: >80 Serum beta 2 glycoprotein 1 IgA antibody detectionOrdered By: Dr. Dodd on 06-05-2022 Beta 2 glycoprotein 1 IgA Ql (S) <9 0-25 [facility] Comment on above: Result Units: [...] glycoprotein 1 IgG Ql (S) <9 0-20 [facility] Comment on above: Result Units: [...] glycoprotein 1 IgM Ql (S) <9 0-32 [facility] Comment on above: Result Units: GPI Ig M unitsThe reference interval reflects a 3SD or 99th percentileinterval, which is thought to represent a potentiallyclinically significant result in accordance with theInternational Consensus Statement on the classificationcriteria for definitive antiphospholipid syndrome (APS). JThromb Haem 2006;4:295-306.Performed at: [facility] Lab[address] [id number] Director: Gualberto Mata MD, Phone: [phone] at: [facility] LabGeneral Blood[address] [id number] Director: Jose Recinos PhD, Phone: [phone] Serum cardiolipin IgG antibo dy assay by immunoassay (units/volume)Ordered By: Dr. Dodd on 06-05-2022 Cardiolipin IgG IA Qn (S) < 9 GPL U/mL 0-14 [facility] Comment on above: Negative: <15 Indete rminate: 15 - 20 Low-Med Positive: >20 - 80 High Positive: >80 Serum or plasma cardiolipin IgA antibody assay (units/volume)Ordered By: Dr. Dodd on 06-05-2022 Cardiolipin IgA Qn < 9 APL U/mL 0-11 [facility] Comment on above: Negative: <12 Indete rminate: 12 - 20 Low-Med Positive: >20 - 80 High Positive: >80 Serum or plasma choriogonado tropin detectionOrdered By: Dr. Dodd on 06-05-2022 HCG ( test) Ql [address] mIU/mL <4 [facility] Comment on above: hCG levels with Gest ational AgeGestational Age hCG mIU/mL (IU/L)0.2 - 1 week 5 - 501-2 weeks 50 - 5002-3 weeks 100 - 97427-9 weeks 500 - 749912-4 weeks 1000 - 979381-0 weeks 41825 - 100,0006-8 weeks 19548 - 200,0002-3 months 14823 - 100,000 Thin prep Papanicolaou smear with manual screeningOrdered By: Dr. Dodd on 06-05-2022 Thin prep Papanicolaou smear with manual screening 35.8 sec 0.0-47.6 [facility] Thin prep Papanicolaou smear with manual screening 0.97 Ratio 0.00-1.34 [facility] Thin prep Papanicolaou smear with manual screening 29.6 sec 0.0-51.9 [facility] Comment on above: Effective June 23, 2022 PTT-LA reference interval will be changing to: 0.0 - 43.5 sec Thin prep Papanicolaou smear with manual screening Comment: . [facility] Comment on above: No lupus anticoagula nt was detected. Thrombin time in platelet po or plasmaOrdered By: Dr. Dodd on 06-05-2022 Thrombin time Coag (PPP) [Time] 15.2 sec 0.0-23.0 [facility] HPV,CtNg Age Gdon 12-02-2021 . . [facility] Comment on above: Order Comment: Speci men Comment: [id number] Specimen Comment: No. of containers..01 ThinPrep Vial Performed By: #### L 801.8800 #### [place] [address] . [facility] Comment on above: Order Comment: Speci men Comment: [id number] Specimen Comment: No. of containers..01 ThinPrep Vial Result Comment: The HPV DNA reflex criteria were not met with this specimen result therefore, no HPV testing was performed. Performed at: = - [facility] [id number] Real Estate Appraiser: Maki Cespedes MD, Phone: [phone] Performed at: - [address] [id number] Real Estate Appraiser: Maki Cespedes MD, Phone: [phone] Performed By: #### L 801.8800 #### [place] [address] Age Gdln ACOG 25-29 Normal . [facility] Comment on above: Order Comment: Speci men Comment: [id number] Specimen Comment: No. of containers..01 ThinPrep Vial Performed By: #### L [id number] #### [place] [address] Diagnosis: [facility] Comment on above: Order Comment: Speci men Comment: [id number] Specimen Comment: No. of containers..01 ThinPrep Vial Result Comment: NEGA TIVE FOR INTRAEPITHELIAL LESION OR MALIGNANCY. Performed By: #### L 801.8800 #### [place] [address] Note: [facility] Comment on above: Order Comment: Speci men Comment: [id number] Specimen Comment: No. of containers..01 ThinPrep Vial [...] Performed By: #### L [id number] #### [place] [address] Performed by: [facility] Comment on above: Order Comment: Speci men Comment: [id number] Specimen Comment: No. of containers..01 ThinPrep Vial Result Comment: Lei Bojorquez, Culinary Instructor (ASCP) Performed By: #### L 801.8800 #### [place] [address] Spec adequacy: [facility] Comment on above: Order Comment: Speci men Comment: [id number] Specimen Comment: No. of containers..01 ThinPrep Vial Result Comment: Sati sfactory for evaluation. No endocervical component is identified. Performed By: #### L 801.8800 #### [place] [address] Test [facility] Comment on above: Order Comment: Speci men Comment: [id number] Specimen Comment: No. of containers..01 ThinPrep Vial Result Comment: This liquid based ThinPrep(R) pap test was screened with the use of an image guided system. Performed By: #### L 801.8800 #### [place] [address] CNOVon 09-05-2021 CNOV Office Visit (MACKENZIE R) ----- NORA CAMERON ([id number]) 1990 F Date Time Provider Department 09/05/21 [...] your testing is not done at a [facility] please provide this office with the results of your testing. Todd Romero II, MD 09/15/2021 8:23 PM Signed Todd Romero II, MD [address], [place] [address] SUBJECTIVE Nora Cameron is a 31 year [...] or posterio (more content not included)... Normal [facility] US HYSTEROSONOGRAMon 022 US HYSTEROSONOGRAM ORIGINAL EXAMINATION: PROC HYSTEROSALPINGOGRAPH TECHNIQUE: Ultrasound-guided hysterosonogram was performed by the physician's assistant head cashier, Jacqueline Drake. COMPARISON: None similar. HISTORY: ORDERING [...] 08/19/2021 10:08:08 AM Ordering Provider: CESAR Goodwin [facility] ED PROV NOTEon 07-01-2021 ED PROV NOTE HNO ID: [id number] Author: Benita Childs APRN.COST ESTIMATING MANAGER Service: ? Author Type: Nurse Practitioner Type: ED Provider Notes Filed: 07/17/2021 2:42 PM Note Text: [place] [address] HEALTH INFORMATION MANAGEMENT EMERGENCY DEPARTMENT REPORT Patient: NORA CAMERON BENITA CHILDS as dictated by MILTON SIMPSON [id number] [age] F Status: [facility] ER ED Date of Service: [...] follow for test results. Report#: Dict ID [id number] / Int ID [id number] 07/17/21 1437 BENITA CHILDS HOP SEPARATOR-C cc: BENITA CHILDSC; CESAR BOTELLO M.D. << Signature on File>> Reported By: BENITA CHILDS Signed By: BENITA CHILDS Tests performed at: [address] [address] Normal [facility] ED PROV NOTE HNO ID: [id number] Author: Eric Pastor Service: ? Author Type: Physician Type: ED Provider Notes Filed: 07/01/2021 1:12 PM Note Text: [place] [address] HEALTH INFORMATION MANAGEMENT EMERGENCY DEPARTMENT REPORT Patient: NORA CAMERON ERIC PASTOR M.D. [id number] [age] F Status: [facility] ER ED Date of Service: [...] well. IMPRESSION: Inevitable . Report#: Dict ID [id number] / Int ID [id number] cc: Cesar Botello MD 07/01/21 1310 ERIC PASTOR M.D. cc: ERIC PASTOR M.D.; CESAR BOTELLO M.D. << Signature on File>> Reported By: ERIC PASTOR M.D. Signed By: ERIC PASTOR M.D. Tests performed at: [address] [address] Normal [facility] ED PROV NOTEon 02-28-2021 ED PROV NOTE HNO ID: [id number] Author: Gonzalo Gupta Service: ? Author Type: Physician Type: ED Provider Notes Filed: 03/13/2021 4:44 PM Note Text: [place] [address] HEALTH INFORMATION MANAGEMENT EMERGENCY DEPARTMENT REPORT Patient: NORA CAMERON GONZALO GUPTA M.D. [id number] [age] F Status: DEP ER ED Date of Service: 02/27/21 This is an addendum to a note by Gayle Ace. HISTORY OF PRESENT ILLNESS: The patient is a 30-year-old female whom I saw with Gayle Ace today. She is approximately five weeks by ultrasound done today. She has not seen her lean consultant. She thought she was more like [age] [...] DIAGNOSIS: First trimester bleeding. Report#: Dict ID [id number] / Int ID [id number] 03/13/21 1637 GONZALO GUPTA M.D. cc: TODD ROMERO JR, M.D.; GONZALO GUPTA M.D. << Signature on File>> Reported By: GONZALO GUPTA M.D. Signed By: GONZALO GUPTA M.D. Tests performed at: [address] [address] Normal [facility] ED PROV NOTEon 02-27-2021 ED PROV NOTE HNO ID: [id number] Author: Provider [facility] Service: ? Author Type: Physician Type: ED Provider Notes Filed: 03/06/2021 10:29 AM Note Text: [place] [address] HEALTH INFORMATION MANAGEMENT EMERGENCY DEPARTMENT REPORT Patient: RAKESHNORA GAYLE DOTSON as dictated by MILTON PERRY [id number] [age] F Status: DEP ER ED [...] follow pelvic rest instructions. Report#: Dict ID [id number] / Int ID [id number] 03/06/21 1026 GAYLE ACE cc: GAYLE ACE; TODD ROMERO JR, M.D. << Signature on File>> Reported By: GAYLE ACE Signed By: GAYLE ACE Tests performed at: [place] [address] [facility] OBSOLETEon 02-21-2021 OBSOLETE Refill ([place]) ----- NORA CAMERON ([id number]) 1990 F Date Time Provider Department 02/21/21 [...] ARPIT: Yes ALLERGIES No Known Allergies (home) [phone] (cell) Last Office Visit Date: 11/13/2020 Last [facility] Health Visit: Visit date not found Future [...] Status:Closed by TODD ROMERO II on 02/21/21 [facility] CNOVon 11-13-2020 CNOV Office Visit (MACKENZIE R) ----- NORA CAMERON ([id number]) 1990 F Date Time Provider Department 11/13/20 9:40 AM TODD ROMERO II During your visit today, we recorded the following information about you: Pulse Respiration Blood pressure Weight 90/minute 16/minute 100/62 50.8 kg Height 1.6 m Todd Romero II, MD 11/19/2020 8:14 PM Signed Todd Romero II, MD [address], [place] [address] SUBJECTIVE Nora Cameron is a 30 year old female who presents with [facility] Care. HPI Patient is in today to get reestablished and to discuss anxiety. 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 Normal [facility] Vital Signs Date Time Vital Sign Value Performing Clinician Facility 01-03-2025 11:39-0400 Body height 162.56 cm Erinn Smiths HOP SEPARATOR-C Work Phone: [facility] 01-03-2025 11:39-0400 Body mass index (BMI) [Ratio] 25.8 kg/m2 Erinn Smiths HOP SEPARATOR-C Work Phone: [facility] 01-03-2025 11:39-0400 Body weight 68.26 kg Erinn Smiths HOP SEPARATOR-C Work Phone: [facility] 01-03-2025 11:39-0400 Diastolic blood pressure 86 mm[Hg] Erinn Gilberttings HOP SEPARATOR-C Work Phone: [facility] 01-03-2025 11:39-0400 Systolic blood pressure 129 mm[Hg] Erinn Smiths HOP SEPARATOR-C Work Phone: [facility] 12-29-2024 17:38-0400 Diastolic blood pressure 65 mm[Hg] Erinn Clinton HOP SEPARATOR-C Work Phone: [facility] 12-29-2024 17:38-0400 Heart rate 75 /min Erinn Smiths HOP SEPARATOR-C Work Phone: [facility] 12-29-2024 17:38-0400 Systolic blood pressure 124 mm[Hg] Erinn Smiths HOP SEPARATOR-C Work Phone: [facility] 12-29-2024 15:45-0400 Body height 162.56 cm Erinn Clinton HOP SEPARATOR-C Work Phone: [facility] 12-29-2024 15:45-0400 Body mass index (BMI) [Ratio] 25.7 kg/m2 Erinn Clinton HOP SEPARATOR-C Work Phone: [facility] 12-29-2024 15:45-0400 Body weight 68.03 kg Erinn Julian HOP SEPARATOR-C Work Phone: [facility] 12-29-2024 15:25-0400 Body temperature 98.3 [degF] Erinn Julian HOP SEPARATOR-C Work Phone: [facility] 12-29-2024 15:25-0400 Respiratory rate 16 /min Erinn Clinton HOP SEPARATOR-C Work Phone: [facility] 12-29-2024 14:07-0400 Body height 160.02 cm Erinn Julian HOP SEPARATOR-C Work Phone: [facility] 12-29-2024 14:03-0400 Body mass index (BMI) [Ratio] 26.7 kg/m2 Erinn Julian HOP SEPARATOR-C Work Phone: [facility] 12-29-2024 14:03-0400 Body weight 68.54 kg Erinn Julian HOP SEPARATOR-C Work Phone: [facility] 12-29-2024 14:03-0400 Diastolic blood pressure 80 mm[Hg] Erinn Julian HOP SEPARATOR-C Work Phone: [facility] 12-29-2024 14:03-0400 Systolic blood pressure 143 mm[Hg] Erinn Julian HOP SEPARATOR-C Work Phone: [facility] 12-23-2024 14:06-0400 Body height 160.02 cm Erinn Clinton HOP SEPARATOR-C Work Phone: [facility] 12-23-2024 14:06-0400 Body mass index (BMI) [Ratio] 26.6 kg/m2 Erinn Clinton HOP SEPARATOR-C Work Phone: [facility] 12-23-2024 14:06-0400 Body weight 68.18 kg Erinn Clinton HOP SEPARATOR-C Work Phone: [facility] 12-23-2024 14:06-0400 Diastolic blood pressure 74 mm[Hg] Erinn Clinton HOP SEPARATOR-C Work Phone: [facility] 12-23-2024 14:06-0400 Systolic blood pressure 135 mm[Hg] Erinn Clinton HOP SEPARATOR-C Work Phone: [facility] 12-15-2024 15:37-0400 Body height 160.02 cm Erinn Julian HOP SEPARATOR-C Work Phone: [facility] 12-15-2024 15:37-0400 Body mass index (BMI) [Ratio] 26.4 kg/m2 Erinn Clinton HOP SEPARATOR-C Work Phone: [facility] 12-15-2024 15:37-0400 Body weight 67.75 kg Erinn Julian HOP SEPARATOR-C Work Phone: [facility] 12-15-2024 15:37-0400 Diastolic blood pressure 71 mm[Hg] Erinn Julian HOP SEPARATOR-C Work Phone: [facility] 12-15-2024 15:37-0400 Systolic blood pressure 126 mm[Hg] Erinn Julian HOP SEPARATOR-C Work Phone: [facility] 12-01-2024 14:33-0400 Body height 160.02 cm Erinn Julian HOP SEPARATOR-C Work Phone: [facility] 12-01-2024 14:33-0400 Body mass index (BMI) [Ratio] 25.9 kg/m2 Erinn Clinton HOP SEPARATOR-C Work Phone: [facility] 12-01-2024 14:33-0400 Body weight 66.33 kg Erinn Clinton HOP SEPARATOR-C Work Phone: [facility] 12-01-2024 14:33-0400 Diastolic blood pressure 74 mm[Hg] Erinn Clinton HOP SEPARATOR-C Work Phone: [facility] 12-01-2024 14:33-0400 Systolic blood pressure 113 mm[Hg] Erinn Clinton HOP SEPARATOR-C Work Phone: [facility] 11-17-2024 11:38-0400 Body height 160.02 cm Erinn Clinton HOP SEPARATOR-C Work Phone: [facility] 11-17-2024 11:36-0400 Body mass index (BMI) [Ratio] 25.2 kg/m2 Erinn Clinton HOP SEPARATOR-C Work Phone: [facility] 11-17-2024 11:36-0400 Body weight 64.58 kg Erinn Clinton HOP SEPARATOR-C Work Phone: [facility] 11-17-2024 11:36-0400 Diastolic blood pressure 74 mm[Hg] Erinn Julian HOP SEPARATOR-C Work Phone: [facility] 11-17-2024 11:36-0400 Systolic blood pressure 112 mm[Hg] Erinn Julian HOP SEPARATOR-C Work Phone: [facility] 11-03-2024 11:04-0400 Body height 160.02 cm Erinn Julian HOP SEPARATOR-C Work Phone: [facility] 11-03-2024 11:04-0400 Body mass index (BMI) [Ratio] 25 kg/m2 Erinn Clinton HOP SEPARATOR-C Work Phone: [facility] 11-03-2024 11:04-0400 Body weight 64.12 kg Erinn Clinton HOP SEPARATOR-C Work Phone: [facility] 11-03-2024 11:04-0400 Diastolic blood pressure 70 mm[Hg] Erinn Julian HOP SEPARATOR-C Work Phone: [facility] 11-03-2024 11:04-0400 Systolic blood pressure 111 mm[Hg] Erinn Julian HOP SEPARATOR-C Work Phone: [facility] 10-18-2024 11:09-0400 Body weight 63.32 kg Erinn Clinton HOP SEPARATOR-C Work Phone: [facility] 10-12-2024 10:16-0400 Body height 160.02 cm Erinn Julian HOP SEPARATOR-C Work Phone: [facility] 10-12-2024 10:16-0400 Body mass index (BMI) [Ratio] 24.7 kg/m2 Erinn Julian HOP SEPARATOR-C Work Phone: [facility] 10-12-2024 10:16-0400 Body weight 63.27 kg Erinn Clinton HOP SEPARATOR-C Work Phone: [facility] 10-12-2024 10:16-0400 Diastolic blood pressure 68 mm[Hg] Erinn Julian HOP SEPARATOR-C Work Phone: [facility] 10-12-2024 10:16-0400 Systolic blood pressure 112 mm[Hg] Erinn Clinton HOP SEPARATOR-C Work Phone: [facility] 09-16-2024 14:53-0400 Body mass index (BMI) [Ratio] 23.7 kg/m2 Erinn Julian HOP SEPARATOR-C Work Phone: [facility] 09-16-2024 14:53-0400 Body weight 60.78 kg Erinn Clinton HOP SEPARATOR-C Work Phone: [facility] 09-16-2024 14:53-0400 Diastolic blood pressure 71 mm[Hg] Erinn Clinton HOP SEPARATOR-C Work Phone: [facility] 09-16-2024 14:53-0400 Systolic blood pressure 108 mm[Hg] Erinn Clinton HOP SEPARATOR-C Work Phone: [facility] 08-22-2024 08:29-0400 Body mass index (BMI) [Ratio] 22.8 kg/m2 Erinn Julian HOP SEPARATOR-C Work Phone: [facility] 08-22-2024 08:29-0400 Body weight 58.68 kg Erinn Clinton HOP SEPARATOR-C Work Phone: [facility] 08-22-2024 08:29-0400 Diastolic blood pressure 64 mm[Hg] Erinn Clinton HOP SEPARATOR-C Work Phone: [facility] 08-22-2024 08:29-0400 Systolic blood pressure 100 mm[Hg] Erinn Julian HOP SEPARATOR-C Work Phone: [facility] 07-28-2024 16:01-0400 Body mass index (BMI) [Ratio] 22.3 kg/m2 Erinn Julian HOP SEPARATOR-C Work Phone: [facility] 07-28-2024 16:01-0400 Body weight 57.15 kg Erinn Clinton HOP SEPARATOR-C Work Phone: [facility] 07-28-2024 16:01-0400 Diastolic blood pressure 73 mm[Hg] Erinn Julian HOP SEPARATOR-C Work Phone: [facility] 07-28-2024 16:01-0400 Systolic blood pressure 122 mm[Hg] Erinn Julian HOP SEPARATOR-C Work Phone: [facility] 07-07-2024 07:43-0500 Body mass index (BMI) [Ratio] 22 kg/m2 Erinn Clinton HOP SEPARATOR-C Work Phone: [facility] 07-07-2024 07:43-0500 Body weight 56.41 kg Erinn Julian HOP SEPARATOR-C Work Phone: [facility] 07-07-2024 07:43-0500 Diastolic blood pressure 78 mm[Hg] Erinn Clinton HOP SEPARATOR-C Work Phone: [facility] 07-07-2024 07:43-0500 Systolic blood pressure 112 mm[Hg] Erinn Julian HOP SEPARATOR-C Work Phone: [facility] 04-11-2024 12:12-0500 Body height 160 cm Tristian Feng APRN.CNP Work Phone: [facility] 04-11-2024 12:12-0500 Body mass index (BMI) [Ratio] 22.43 kg/m2 Tristian Feng APRN.COST ESTIMATING MANAGER Work Phone: [facility] 04-11-2024 12:12-0500 Body temperature 98.29 [degF] Tristian Feng APRN.COST ESTIMATING MANAGER Work Phone: [facility] 04-11-2024 12:12-0500 Body weight 57.42 kg Tristian Feng APRN.COST ESTIMATING MANAGER Work Phone: [facility] 04-11-2024 12:12-0500 Diastolic blood pressure 75 mm[Hg] Tristian Feng APRN.COST ESTIMATING MANAGER Work Phone: [facility] 04-11-2024 12:12-0500 Heart rate 88 /min Tristian Feng APRN.COST ESTIMATING MANAGER Work Phone: [facility] 04-11-2024 12:12-0500 Respiratory rate 16 /min Tristian Feng APRN.COST ESTIMATING MANAGER Work Phone: [facility] 04-11-2024 12:12-0500 SaO2% (BldA) [Mass fraction] 97 % Tristian Feng APRN.COST ESTIMATING MANAGER Work Phone: [facility] 04-11-2024 12:12-0500 Systolic blood pressure 118 mm[Hg] Tristian Feng APRN.COST ESTIMATING MANAGER Work Phone: [facility] 07-28-2023 14:08-0400 Body height 160 cm Todd Romero II, MD Work Phone: [facility] 07-28-2023 14:08-0400 Body temperature 97.7 [degF] Todd Romero II, MD Work Phone: [facility] 07-28-2023 14:08-0400 Body weight 58.51 kg Todd Romero II, MD Work Phone: [facility] 07-28-2023 14:08-0400 Diastolic blood pressure 60 mm[Hg] Todd Romero II, MD Work Phone: [facility] 07-28-2023 14:08-0400 Heart rate 88 /min Todd Romero II, MD Work Phone: [facility] 07-28-2023 14:08-0400 Respiratory rate 12 /min Todd Romero II, MD Work Phone: [facility] 07-28-2023 14:08-0400 SaO2% (BldA) [Mass fraction] 98 % Todd Romero II, MD Work Phone: [facility] 07-28-2023 14:08-0400 Systolic blood pressure 90 mm[Hg] Todd Romero II, MD Work Phone: [facility] 06-18-2022 09:38-0500 Body height 160.[address] Todd Romero Work Phone: [facility] 06-18-2022 09:38-0500 Body mass index (BMI) [Ratio] 20.9 kg/m2 Dr. Todd Romero Work Phone: [facility] 06-18-2022 09:38-0500 Body weight 53.[address] Todd Romero Work Phone: [facility] 06-18-2022 09:38-0500 Diastolic blood pressure 69 mm[Hg] Dr. Todd Romero Work Phone: [facility] 06-18-2022 09:38-0500 Systolic blood pressure 108 mm[Hg] Dr. Todd Romero Work Phone: [facility] 06-11-2022 10:59-0500 Body height 160.[address] Todd Romero Work Phone: [facility] 06-11-2022 10:58-0500 Body mass index (BMI) [Ratio] 20.9 kg/m2 Dr. Todd Romero Work Phone: [facility] 06-11-2022 10:58-0500 Body weight 53.[address] Todd Romero Work Phone: [facility] 06-11-2022 10:58-0500 Diastolic blood pressure 79 mm[Hg] Dr. Todd Romero Work Phone: [facility] 06-11-2022 10:58-0500 Systolic blood pressure 138 mm[Hg] Dr. Todd Romero Work Phone: [facility] 06-05-2022 10:22-0500 Body mass index (BMI) [Ratio] 21.2 kg/m2 Dr. Todd Romero Work Phone: [facility] 06-05-2022 10:22-0500 Body weight 54.[address] Todd Romero Work Phone: [facility] 06-05-2022 10:22-0500 Diastolic blood pressure 62 mm[Hg] Dr. Todd Romero Work Phone: [facility] 06-05-2022 10:22-0500 Systolic blood pressure 114 mm[Hg] Dr. Todd Romero Work Phone: [facility] 09-05-2021 10:42-0400 Body height 160 cm Todd Romero II, MD Work Phone: [facility] 09-05-2021 10:42-0400 Body temperature 99.3 [degF] Todd Romero II, MD Work Phone: [facility] 09-05-2021 10:42-0400 Body weight 53.52 kg Todd Romero II, MD Work Phone: [facility] 09-05-2021 10:42-0400 Diastolic blood pressure 64 mm[Hg] Todd Romero II, MD Work Phone: [facility] 09-05-2021 10:42-0400 Heart rate 80 /min Todd Romero II, MD Work Phone: [facility] 09-05-2021 10:42-0400 Respiratory rate 16 /min Todd Romero II, MD Work Phone: [facility] 09-05-2021 10:42-0400 SaO2% (BldA) [Mass fraction] 99 % Todd Romero II, MD Work Phone: [facility] 09-05-2021 10:42-0400 Systolic blood pressure 98 mm[Hg] Todd Romero II, MD Work Phone: [facility] Encounters Encounter Date Encounter Type Care Provider Facility Start: 01-13-2025 amb[place] [place]: 01-10-2025 [facility] Start: 01-03-2025 End: 01-03-[address] Emerald Dunbar DO -[facility] Work Phone: Start: 01-03-2025 End: 01-03-2025 ambulatory Erinn Julian HOP SEPARATOR-C Work Phone: -[facility] Start: 12-29-2024 ambulatory Todd Romero [place] [place]: 12-29-2024 Non-patient / Non-visit Dr. Charisse Song MD -[facility] Start: 12-29-2024 End: 12-29-2024 ambulatory Erinn Clinton HOP SEPARATOR-C Work Phone: -Laboratory Start: 12-29-2024 End: 12-29-[address] Lindsay Song MD -Laboratory Work Phone: Start: 12-29-2024 End: 12-29-[address] Lindsay Song MD -[facility] Work Phone: Start: 12-29-2024 End: 12-29-2024 ambulatory Erinn Clinton HOP SEPARATOR-C Work Phone: -[facility] Start: 12-23-2024 End: 12-23-2024 ambulatory Erinn Julian HOP SEPARATOR-C Work Phone: -Laboratory Specimen Start: 12-23-2024 End: 12-23-2024 Patient encounter procedure Vaibhav Hale CNM -Laboratory Specimen Work Phone: Start: 12-23-2024 End: 12-23-2024 Patient encounter procedure Vaibhav Hale CNM -[facility] Work Phone: Start: 12-23-2024 End: 12-23-2024 ambulatory Erinn Clinton HOP SEPARATOR-C Work Phone: -[facility] Start: 12-23-2024 End: 12-23-2024 ambulatory Vaibhav Hale Facility:[facility] Start: 12-15-2024 End: 12-15-[address] Lindsay Song MD -[facility] Work Phone: Start: 12-15-2024 End: 12-15-2024 ambulatory Erinn Clinton HOP SEPARATOR-C Work Phone: -[facility] Start: 12-15-2024 End: 12-15-2024 ambulatory Erinn Clinton HOP SEPARATOR-C Work Phone: -Ultrasound [facility] Start: 12-15-2024 End: 12-15-2024 Patient encounter procedure Vaibhav Hale CN -Ultrasound [facility] Work Phone: Start: 12-15-2024 End: 12-15-2024 ambulatory Todd Romero Facility:[facility] Start: 12-01-2024 End: 12-01-[address] Emerald Dunbar DO -[facility] Work Phone: Start: 12-01-2024 End: 12-01-2024 ambulatory Erinn Clinton HOP SEPARATOR-C Work Phone: [facility] Start: 11-25-2024 ambulatory Todd Romero Facility :[facility] Start: 11-17-2024 End: 11-17-2024 Patient encounter procedure Vaibhav Hale CNM -[facility] Work Phone: Start: 11-17-2024 End: 11-17-2024 ambulatory Erinn Clinton HOP SEPARATOR-C Work Phone: -[facility] Start: 11-03-2024 End: 11-03-2024 Patient encounter procedure Vaibhav Hale CNM -[facility] Work Phone: Start: 11-03-2024 End: 11-03-2024 ambulatory Erinn Julian HOP SEPARATOR-C Work Phone: [facility] Work Phone: Start: 10-18-2024 End: 11-14-2024 Discharged Recurring Erinn Jordan HOP SEPARATOR-C -Nutritional Servic es Work Phone: Start: 10-18-2024 Registered Recurring Erinn Jordan HOP SEPARATOR-C -Nutritional Services Work Phone: Start: 10-18-2024 End: 11-14-2024 ambulatory Erinn Jordan HOP SEPARATOR-C Work Phone: -Nutritional Services Start: 10-12-2024 End: 10-12-2024 Patient encounter procedure Erinn Jordan HOP SEPARATOR-C -[facility] Work Phone: Start: 10-12-2024 End: 10-12-2024 ambulatory Erinn Jordan HOP SEPARATOR-C Work Phone: [facility] Work Phone: Start: 10-12-2024 End: 10-12-2024 ambulatory Erinn Jordan HOP SEPARATOR-C Work Phone: [facility] Work Phone: Start: 10-12-2024 End: 10-12-2024 Patient encounter procedure Erinn Jordan HOP SEPARATOR-C -Lab [facility] Start: 10-12-2024 End: 10-12-2024 ambulatory Erinn Jordan HOP SEPARATOR Facility:[facility] Start: 09-16-2024 End: 09-16-[address] Lindsay Song MD -[facility] Work Phone: Start: 09-16-2024 End: 09-16-2024 ambulatory Lindsay Song [place] [place] Start: 08-22-2024 End: 08-22-2024 Patient encounter procedure Erinn Jordan HOP SEPARATOR-C -[facility] Work Phone: Start: 08-22-2024 End: 08-22-2024 ambulatory [facility] Start: 07-28-2024 End: 07-28-[address] Emerald Dunbar DO -[facility] Work Phone: Start: 07-28-2024 End: 07-28-2024 ambulatory Emerald Dunbar Facility:[facility] Start: 07-07-2024 End: 07-07-2024 Patient encounter procedure Vaibhav Hale CNM -[facility] Start: 07-07-2024 End: 07-07-2024 Patient encounter procedure Vaibhav Paul CN -[facility] Start: 07-07-2024 End: 07-07-2024 ambulatory Vaibhav Hale Facility:[facility] Start: 07-07-2024 End: 07-07-2024 ambulatory Vaibhav Hale Facility:[facility] Start: 06-24-2024 ambulatory Vaibhav Hale Facility :[facility] Start: 06-10-2024 End: 06-10-2024 ambulatory Vaibhav Paul Facility:[facility] Start: 06-10-2024 End: 06-10-2024 ambulatory Vaibhav Hale Facility:[facility] Start: 05-27-2024 End: 05-27-2024 ambulatory Todd Romero Facility:[facility] Start: 05-23-2024 End: 05-23-2024 ambulatory Todd Romero Facility:[facility] Start: 05-14-2024 End: 05-14-2024 ambulatory Todd Romero Facility:[facility] Start: 05-12-2024 End: 05-12-2024 ambulatory Todd Romero Facility:[facility] Start: 04-27-2024 End: 04-27-2024 ambulatory Todd Romero Facility:[facility] Start: 04-27-2024 End: 04-27-2024 ambulatory Todd Romero Facility:[facility] Start: 04-11-2024 End: 04-11-2024 Telephone encounter Todd Romero MD Work Phone: [facility] Comment on above: walk in clinic Start: 04-11-2024 End: 04-11-2024 ambulatory TRISTIAN FENG Facility:[id number] Start: 04-11-2024 End: 04-11-2024 Patient encounter procedure Tristian Feng MACHINE RECORDS UNITS SUPERVISOR.COST ESTIMATING MANAGER Work Phone: [facility] Comment on above: Viral URI (Primary D x) Start: 07-28-2023 End: 07-28-2023 Patient encounter procedure Todd Romero MD Work Phone: [facility] Comment on above: Routine physical exa mination (Primary Dx) Start: 07-28-2023 End: 07-28-2023 Physical examination Todd Romero MD Work Phone: [facility] Work Phone: Start: 07-28-2023 End: 07-28-2023 ambulatory TODD ROMERO II Facility:[id number] Start: 03-20-2023 End: 03-20-2023 Subsequent hospital visit by physician Xr [address] Comment on above: Cervicalgia [M54.2] Start: 09-17-2022 ambulatory PHYSICIAN MISC Facility :[facility] Start: 09-17-2022 End: 09-17-2022 Subsequent hospital visit by physician Provider [facility] Comment on above: N96 Start: 08-28-2022 Refill Todd hayes MD Work Phone: [facility] Comment on above: Refill Request Start: 08-23-2022 End: 08-23-[address] Todd Romero Work Phone: [facility] Work Phone: Start: 08-23-2022 End: 08-23-[address] Todd Romero Work Phone: [facility] Start: 06-18-2022 End: 06-18-[address] Todd Romero Work Phone: [facility] Start: 06-11-2022 End: 06-11-[address] Todd Romero Work Phone: [facility] Start: 06-07-2022 End: 06-07-[address] Todd Romero Work Phone: [facility] Work Phone: Start: 06-07-2022 End: 06-07-[address] Todd Romero Work Phone: [facility] Start: 06-05-2022 End: 06-05-[address] Todd Romero Work Phone: [facility] Work Phone: Start: 06-05-2022 End: 06-05-[address] Todd Romero Work Phone: [facility] Start: 03-17-2022 Refill Todd hayes MD Work Phone: [facility] [place] Comment on above: Refill Request Start: 11-29-2021 Refill Todd hayes MD Work Phone: [facility] [place] Comment on above: Refill Request Start: 11-26-2021 End: 11-26-2021 Subsequent hospital visit by physician Provider [facility] Start: 09-05-2021 End: 09-05-2021 Patient encounter procedure Todd Romero MD Work Phone: [facility] [place] Comment on above: Migraine without aur a and without status migrainosus, not intractable (Primary Dx); DARVIN (generalized anxiety disorder); Irritable bowel syndrome with diarrhea; Diarrhea, unspecified type Start: 08-29-2021 Refill Todd hayes MD Work Phone: [facility] [place] Comment on above: Refill Request Start: 08-28-2021 Refill Todd hayes MD Work Phone: [facility] [place] Comment on above: Refill Request Start: 08-16-2021 End: 08-16-2021 Patient encounter procedure CESAR BOTELLO MD [facility] Procedures Date Procedure Procedure Detail Performing Clinician Start: 12-29-2024 Estimated creatinine clearance Erinn ROSE Work Phone: Start: 12-23-2024 Beta-hemolytic Streptococcus culture Erinn Jordan HOP SEPARATOR-C Work Phone: Start: 12-15-2024 Ultrasound scan for growth Erinn Jordan HOP SEPARATOR-C Work Phone: Start: 10-12-2024 Serologic test for syphilis Erinn Jordan HOP SEPARATOR-C Work Phone: Start: 07-07-2024 Procedure Erinn Tan ingzachary HOP SEPARATOR-C Work Phone: Start: 09-17-2022 PROGESTERONE BLD Provid er [facility] Start: 09-17-[address] [facility] Start: 11-13-2020 Adult depression scr eening assessment Todd Romero II, MD Work Phone: Urine culture Dr. Todd pardo Work Phone: Plan of Treatment Date Care Activity Detail Author Start: 11-26-2026 PAP TESTING PAP TESTING [facility] Start: 11-26-2026 Screening for malign ant neoplasm of cervix [facility] Start: 12-29-2024 Nonstress test [facility] Start: 12-29-2024 Obstetric monitoring [facility] Start: 12-29-2024 Vital signs measurements [facility] Start: 12-29-2024 [facility] Start: 12-29-2024 [facility] Start: 11-26-2024 PAP TESTING PAP TESTING [facility] Start: 10-18-2024 HPV TESTING HPV TESTING [facility] Start: 10-18-2024 Screening for malign ant neoplasm of cervix HPV Testing [facility] Start: 01-17-2024 Covid-19 Vaccine () Covid-19 Vaccine () [facility] Start: 01-17-2024 Influenza vaccination Influenza Vacc ine (#1) [facility] Start: 12-04-2023 PAP TESTING PAP TESTING [facility] Start: 05-18-2023 Depression Assessment Depression Ass essment [facility] Start: 01-16-2023 Covid-19 Vaccine () Covid-19 Vaccine () [facility] Start: 01-16-2023 Influenza [facility] Start: 05-18-2022 DEPRESSION ASSESSMENT [facility] Start: 01-16-2022 Influenza vaccination [facility] Start: 11-13-2021 Adult depression screening assessment DEPRESSION SCREENING [facility] Start: 05-18-2021 DEPRESSION ASSESSMENT DEPRESSION ASS [facility] Start: 2011 Urine microalbumin profile [facility] Start: 2010 Anxiety Screening Anxiety Screening [facility] Start: 2010 Depression Screening Depression Scre ening [facility] Start: 2010 HEPATITIS C SCREENING HEPATITIS C [facility] Start: 2010 Hepatitis C screening Hepatitis C [facility] Start: 2010 HIV SCREENING HIV SCREENING [facility] Start: 2010 HIV screening HIV Screening [facility] Start: 1997 COVID-19 VACCINE (1) COVID-19 VACCIN E (1) [facility] Start: 01-10-1993 COVID-19 VACCINE (#1) COVID-19 VACCI NE (#1) [facility] Patient Education Kick Counts ED False Labor OB Triage: Return to Hospital or Notify Physician if you Experience: [facility] Work Phone: Streptococcus agalac tiae [Presence] in Unspecified specimen by Organism specific culture [facility] Ultrasound scan for growth [facility] Immunizations Immunization Date Immunization Notes Care Provider [facility] 03-11-1993 hepatitis B vaccine, pediatric or pediatric/adolescent dosage Todd Romero II, MD Work Phone: [facility] 02-13-1993 diphtheria, tetanus toxoids and acellular pertussis vaccine Todd Romero II, MD Work Phone: [facility] 02-13-1993 haemophilus influenz ae type b vaccine, HbOC conjugate Todd Romero II, MD Work Phone: [facility] 1992 diphtheria, tetanus toxoids and acellular pertussis vaccine Todd Romero II, MD Work Phone: [facility] 1992 haemophilus influenz ae type b vaccine, HbOC conjugate Todd Romero II, MD Work Phone: [facility] 1992 trivalent poliovirus vaccine, live, oral Todd Romero II, MD Work Phone: [facility] 1992 hepatitis B vaccine, pediatric or pediatric/adolescent dosage Todd Romero II, MD Work Phone: [facility] 1992 diphtheria, tetanus toxoids and acellular pertussis vaccine Todd Romero II, MD Work Phone: [facility] 1992 haemophilus influenz ae type b vaccine, HbOC conjugate Todd Romero II, MD Work Phone: [facility] 1992 trivalent poliovirus vaccine, live, oral Todd Romero II, MD Work Phone: [facility] 1992 hepatitis B vaccine, pediatric or pediatric/adolescent dosage Todd Romero II, MD Work Phone: [facility] Payers Date Payer Category Payer Self-pay 2022 Unknown [id number] 2022 Unknown [id number] 2017 Unknown [employer] PPO [id number] 2017-Present [phone] [address] [place] [address] PPO [id number] 2017 Unknown [id number] 1.13.159.2.7.3. [id number] 1992 Unknown [id number] 2.16.840.1.009819.3.579.2.479 Unknown [id number] 2..840.1.791759.3.579.2.283 Unknown [id number] 2.16.840.1.391604.3.579.2.462 Unknown [id number] 2.16.840.1.075570.3.579.2.462 Unknown [id number] 2.840.1.145839.3.579.2.462 Unknown [id number] 2.840.1.327474.3.579.2.462 Unknown [id number] 2.840.1.705366.3.579.2.462 Unknown [id number] 2.840.1.725267.3.579.2.462 Unknown [id number] 2.840.1.043077.3.579.2.462 Unknown [id number] 2.840.1.382466.3.579.2.462 Unknown [id number] 2.840.1.706841.3.579.2.462 Unknown [id number] 2.840.1.567777.3.579.2.462 Unknown [id number] 2.840.1.288651.3.579.2.462 Unknown [id number] 2.840.1.972309.3.579.2.462 Unknown [id number] 2.840.1.284612.3.579.2.462 Unknown [id number] 2.840.1.550503.3.579.2.462 Unknown [id number] 2.840.1.649158.3.579.2.462 Unknown [id number] 2.840.1.537942.3.579.2.462 Unknown [id number] 2.840.1.820820.3.579.2.462 Unknown [id number] 2.840.1.560143.3.579.2.462 Unknown [id number] 2.840.1.706825.3.579.2.462 Unknown [id number] 2.840.1.887884.3.579.2.462 Unknown [id number] 2.16.840.1.256457.3.579.2.462 Unknown [id number] 2.16.840.1.712067.3.579.2.462 Unknown [id number] 2.16.840.1.273534.3.579.2.462 Unknown [id number] 2.16.840.1.143769.3.579.2.462 Unknown [id number] 2.16.840.1.869818.3.579.2.462 Unknown [id number] 2.16.840.1.575105.3.579.2.462 Unknown [id number] 2.16.840.1.258398.3.579.2.462 Unknown [id number] 2.16.840.1.626268.3.579.2.462 Unknown [id number] 2.16.840.1.251891.3.579.2.462 Unknown [id number] 2.16.840.1.433045.3.579.2.462 Unknown [id number] 2.16.840.1.179180.3.579.2.462 Social History Date Type Detail Facility Start: 11-24-2018 End: 07-07-2024 Tobacco smoking status NHIS Never smoked tobacco [facility] Start: 11-24-2018 Tobacco use and exposure Smoke less tobacco non-user [facility] Start: 11-13-2020 End: 07-28-2023 Alcohol intake Lifetime non-drinker (finding) [facility] Start: 03-26-2020 History SDOH Alcohol Frequency 1 [facility] Start: 1990 Sex Assigned At Not on file [facility] Start: 08-26-2021 End: 09-05-2021 Exposure to SARS-CoV-2 (event) Not sure [facility] Start: 06-11-2022 End: 06-18-2022 Tobacco smoking status SCIS Unknown if ever smoked [facility] Start: 1990 Sex Assigned At Female [facility] Start: 03-26-2020 End: 06-04-2023 History of Social function [facility] hilary Start: 03-26-2020 End: 06-04-2023 Alcohol Use Disorder Identification Test - Consumption [AUDIT-C] [facility] How often to you hav e a drink containing alcohol? Never [facility] Average Number of Drinks Not on file [facility] Procedure Code Equipment Code Equipment [...] & Type Note Facility 12-29-2024 Progress note [facility] 12-29-2024 Progress note [facility] 12-29-2024 Progress note Note Date/Time December 29, 2024 2:56pm [facility] [address] [place] [address], [address] [place] [address] OFFICE VISIT Date of Service: 12/29/24 MR#: [id number] Acct: [id number] Name: NORA CAMERON Rep #: [id number] : 1990 Provider: Dr. 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 would like some appts in [facility]. doing well today 07/07/24 -?-?-?-?-?-?-?-?-?-?-?-?- [...] and Symptoms of Preeclampsia, Feeding No , [place] Education and Family Medical Leave or Disability [...] gill MD> Date _ Lindsay [facility] Signature: Date (if applicable) CC: ~ [facility] Work Phone: 1(843) 524-998807-31-2025 Progress [facility] [address] [place] [address], [address] [place] [address] OFFICE VISIT Date of Service: 12/15/24 MR#: [id number] Acct: [id number] Name: NORA CAMERON Rep #: [id number] : 1990 Provider: Dr. 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 would like some appts in [facility]. doing well today 07/07/24 -?-?-?-?-?-?-?-?-?-?-?-?- [...] Cosigner Signature: Date (if applicable) CC: ~ [facility]07-31-2025 Progress note Author Lindsay Song [facility] Note Date/Time December 15, 2024 4:[address] [facility] [address], [address] [place] [address] OFFICE VISIT Date of Service: 12/15/24 MR#: [id number] Acct: [id number] Name: NORA CAMERON Rep #: [id number] : 1990 Provider: Dr. 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 would like some appts in [facility]. doing well today 07/07/24 -?-?-?-?-?-?-?-?-?-?-?-?- [...] Cosigner Signature: Date (if applicable) CC: ~ [facility] [employer] Work Phone: 1(123) 933-476007-31-2025 Radiology Diagnostic study note [facility] Imaging Services [address] [place] [address] [id number] OB Limited With Biometrics MR#: [id number] Acct: [id number] Name: NORA CAMERON Rep #: [id number] : 1990 F 34 From: Osmel Fulton MD PCP: Dr. Todd Romero MD Status: REG CLI Study:OB Limited With Biometrics Date of Exam : 12/15/24 Exam# [id number] Ordering Dr: Vaibhav Hale CNM PROCEDURE: OB [...] of 36 weeks and 1day. Reading Location: [id number] CC: ANGELA Hale; Dr. Todd Romero MD ~ Salesperson Sheet Music: Signed [facility]07-17-2025 Progress [facility] [address] [place] [address], [address] [place] [address] OFFICE VISIT Date of Service: 12/01/24 MR#: [id number] Acct: [id number] Name: NORA CAMERON Rep #: [id number] : 1990 Provider: Dr. Linda Dunbar DO Age/Sex: 34/F [place] [facility] Status: Signed Intake Vital Signs 11/03/24 11:04 11/17/24 11:38 12/01/24 14:33 Height 5 ft 3 in 5 ft 3 in 5 ft 3 in Weight: 146 lb 4 oz BMI 25.9 BP 113/74 Intake Visit Reasons: 34 wk ob Chief Complaint: 34wk ob Field Checker 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 Is patient in pain?: No [...] of abnormal cervical Pap smear Surgical History [place] teeth extracted History of colposcopy Family History [...] 3-4 times per week duration: 30-45 minutes/day michael/taoist: Oriental Orthodox seatbelt use: always do you feel safe at home: Yes 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 would like some appts [facility]. doing well today 07/07/24 -?-?-?-?-?-?-?-?-?-?-?-?- [...] Symptoms of Preeclampsia, Infant Feeding No , [place] Education and Family Medical Leave or Disability [...] Tucker Signature: Date (if applicable) CC: ~ [facility]07-17-2025 Progress note Author Emerald Dodd [facility] Note Date/Time December 01, 2024 2:44 pm [facility] [address] [place] [address], [address] [place] [address] OFFICE VISIT Date of Service: 12/01/24 MR#: [id number] Acct: [id number] Name: NORA CAMERON Rep #: [id number] : 1990 Provider: Dr. 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 would like some appts [facility]. doing well today 07/07/24 -?-?-?-?-?-?-?-?-?-?-?-?- [...] Symptoms of Preeclampsia, Infant Feeding No , [place] Education and Family Medical Leave or Disability [...] Juárez DO> Date _ Emerald Dunbar DO [facility] Signature: Date (if applicable) CC: ~ [facility] Work Phone: 1(974) 183-401707-03-2025 [facility] [address], [address] [place] [id number] OFFICE VISIT Date of Service: 11/17/24 MR#: [id number] Acct: [id number] Name: NORA CAMERON Rep #: [id number] : 1990 Provider: ANGELA Hale Age/Sex: 34/F Location: [facility] [place] Status: Signed Intake Vital Signs 08/22/24 08:29 11/03/24 11:04 11/17/24 11:36 11/17/24 11:38 Height 5 ft 3 in 5 ft 3 in 5 ft 3 in 5 ft 3 in Weight: 142 lb 6 oz BMI 25.2 BP 112/74 Intake Visit Reasons: 32wk ob Field Checker 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 Is patient in pain?: No [...] of abnormal cervical Pap smear Surgical History [place] teeth extracted History of colposcopy Family History Grandmother Colon cancer, Onset Age: 92 Paternal Mother Myocardial infarction, Onset Age: 64 3 Grandfather Myocardial infarction Maternal Social History adopted: No household members: spouse housing: house current occupational status: employed current occupation: [employer] current occupational exposures/hazards: No pets and [...] 3-4 times per week duration: 30-45 minutes/day michael/taoist: Oriental Orthodox seatbelt use: always do you feel safe at home: Yes 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 OB Visit TERVON Calculator Estimated Delivery Date Method Current WG [...] lines NIPT. would like some appts [facility]. doing well today 07/07/24 -?-?-?-?-?-?-?-?-?-?-?-?- [...] Symptoms of Preeclampsia, Infant Feeding No , [place] Education and Family Medical Leave or Disability [...] Noriega Signature: Date (if applicable) CC: ~ [facility]06-19-2025 [facility] [address] [place] [address], [address] [place] [address] OFFICE VISIT Date of Service: 11/03/24 MR#: [id number] Acct: [id number] Name: NORA CAMERON Rep #: [id number] : 1990 Provider: ANGELA Hale Age/Sex: 34/F Location: [facility] [place] Status: Signed Intake Vital Signs 08/22/24 08:29 10/18/24 11:09 11/03/24 11:04 11/03/24 11:04 Height 5 ft 3 in 5 ft 3 in 5 ft 3 in 5 ft 3 in Weight: 141 lb 6 oz BMI 25.0 BP 111/70 Intake Visit Reasons: 30wk ob Field Checker 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 Is patient in pain?: No [...] of abnormal cervical Pap smear Surgical History [place] teeth extracted History of colposcopy Family History [...] 3-4 times per week duration: 30-45 minutes/day michael/taoist: Oriental Orthodox seatbelt use: always do you feel safe at home: Yes 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 would like some appts [facility]. doing well today 07/07/24 -?-?-?-?-?-?-?-?-?-?-?-?- [...] 145 30 -?-?-?-?-?-?-?-?-?-?-?-?- KW- work in for [employer]. blood sugars reviewed and normal. will start [...] Noriega Signature: Date (if applicable) CC: ~ [facility]05-02-2025 Evaluation note* Diagnosis Onset Date [...] of high-risk acute December 15, 2024 3:34pm [facility] Work Phone: 1(697) 434-495505-02-2025 Evaluation note* Diagnosis Onset Date Resolution Status [...] of high-risk acute December 23, 2024 2:03pm [facility] Work Phone: 1(174) 784-561305-02-2025 Evaluation note* Diagnosis Onset Date Resolution Status [...] Supervision of high-risk acute December 29 1:50pm [facility] Work Phone: 1(370) 441-733605-02-2025 Evaluation note* Diagnosis Onset Date Resolution Status [...] Supervision of high-risk acute January 03 11:31am [facility] Work Phone: 1(636) 497-696604-07-2025 Evaluation note* Diagnosis Onset Date Resolution Status [...] of high-risk acute December 01, 2024 2:27pm [facility] Work Phone: 1(134) 891-514904-07-2025 Evaluation note* Diagnosis Onset Date Resolution Status [...] of high-risk acute December 15, 2024 3:34pm [facility] Work Phone: 1(925) 293-135703-13-2025 Evaluation note* Diagnosis Onset Date Resolution Status [...] of high-risk acute November 03, 2024 11:19am [facility] Work Phone: 1(975) 545-525403-13-2025 Evaluation note* Diagnosis Onset Date Resolution Status [...] high-risk acute November 17, 2024 1 1:30am [facility] Work Phone: 1(985) 196-218102-20-2025 Evaluation note* Diagnosis Onset Date Resolution Status [...] high-risk acute October 12, 2024 1 0:13am [facility] Work Phone: 1(803) 231-801702-20-2025 Evaluation note* Diagnosis Onset Date Resolution Status [...] high-risk acute October 12, 2024 1 0:13am [facility] Work Phone: 1([phone]) 442-885702-20-2025 Evaluation note* Diagnosis Onset Date Resolution Status [...] of high-risk acute November 03, 2024 11:19am [facility] Work Phone: 1([phone]) [phone] Instructions* Patient Instructions* Tristian Feng APRN.CNP - 04/11/2024 12:31 PM EST - Start using Sudafed for ear congestion [facility]24 NoteHNO ID: [id number] Author: TRISTIAN FENG APRN.CNP Service: ? Author [...] my encounter with this patient.[facility] [id number] History of Present illness Narrative* Tristian Feng [...] encounter with this patient. documented in this encounterGal[facility]11-[facility]-2024 Telephone encounter Note * Telephone Encounter - Anabelle Grey - 04/11/2024 11:35 AM EST Patient calls today. Reason for Call: patient having ear pain and will go to walk in clinic to be evaluated today [phone] (home) [phone] (cell) Patient last appointment: Visit date not found Anabelle Grey [facility]11-25-[facility]24 Miscellaneous Notes* Telephone Encounter - Anabelle Grey - 04/11/2024 11:35 AM EST Patient calls today. Reason for Call: patient having ear pain and will go to walk in clinic to be evaluated today [phone] (home) [phone] (cell) Patient last appointment: Visit date not found Anabelle Grey documented in this encounterGalion Hospital03-12-2024 NoteHNO ID: [id number] Author: TODD ROMERO II, MD Service: ? Author Type: Physician Type: Progress Notes Filed: 07/28/2023 21:34 Note Text: Todd Romero II, MD [address], [place] [address] SUBJECTIVE Nora Cameron is a 33 year [...] ten (more content not included)...[facility] [id number] History of Present illness Narrative* Todd Romero II, MD - 07/28/2023 2:19 PM EDT Images from the original note were not included. Todd Romero II, MD [address], [place] [address] SUBJECTIVE Nora Cameron is a 33 year [...] Todd Romero II, M.D. documented in this encounterGalion Hospital11-03-2023 History of Present illness Narrative* Rica [...] 20, 2023 8:55 AM documented in this encounterGalion Hospital10-31-2022 Miscellaneous Notes* Telephone Encounter - Kathi Diaz MA - 03/17/2022 10:16 AM EDT Pharmacy faxed requesting the following refill Refill(s) Requested: Requested Prescriptions Pending Prescriptions Disp Refills diphenoxylate-atropine (LOMOTIL) 2.5-0.025 mg per tablet [Pharmacy Med Name: diphenoxylate-atropine2.5 mg-0.025 mg tablet] 10 tablet 0 Sig: TAKE 1 TABLET BY MOUTH FOUR TIMES DAILY NEEDED ALLERGIES No Known Allergies (home) [phone] (cell) Last Office Visit Date: 09/05/2021 Last [facility] Visit: Visit date not found Future Appointment: Visit date not found The patients preferred pharmacy has been captured for this encounter? yes Request is for script(s) to be escript to pharmacy. Kathi Diaz MA documented in this encounterGalion Hospital07-15-2022 Miscellaneous Notes* Telephone Encounter - Casie Lubin MA - 11/29/2021 9:25 AM EDT Pharmacy faxed requesting the following refill Refill(s) Requested: Pending Prescriptions Disp Refills DIPHENOXYLATE-ATROPINE 2.5 MG-0.025 MG TABLET 10 tablet 0 Sig: TAKE 1 TABLET BY MOUTH FOUR TIMES DAILY NEEDED CHARIS Class: C-V ARPIT: Yes ALLERGIES No Known Allergies (home) [phone] (cell) Last Office Visit Date: 09/05/2021 Last [facility] Visit: Visit date not found Future Appointment: Visit date not found The patients preferred pharmacy has been captured for this encounter? yes Request is for script(s) to be escript to pharmacy. Casie Lubin MA refill documented in this encounterGalion Hospital05-01-2022 NoteHNO ID: [id number] Author: Todd Romero II, MD Service: ? Author Type: Physician Type: Progress Notes Filed: 09/15/2021 8:23 PM Note Text: Todd Romero II, MD [address], [place] [address] SUBJECTIVE Nora Cameron is a 31 year [...] Breath sounds: Normal breat (more content not included)...[facility] History of Present illness Narrative* Todd Romero II, MD - 09/15/2021 8:21 PM EDT Images from the original note were not included. Todd Romero II, MD [address], [address] [place] [address] SUBJECTIVE Nora Cameron is a 31 year [...] Todd Romero II, M.D. documented in this encounterGalion Hospital04-21-2022 Instructions* Patient Instructions* Todd Romero II, MD - 09/05/2021 10:49 AM EDT Please consider having the following Health Maintenance testing completed: DTAP,TDAP,TD(4 - Tdap) If your testing is not done at a [facility] facility please provide this office with the results of your testing. documented in this encounterGalion Hospital04-14-2022 Miscellaneous Notes* Telephone Encounter - Casie Lubin MA - 08/29/2021 2:53 PM EDT Patient called requesting the following refill Refill(s) Requested: Pending Prescriptions Disp Refills DIPHENOXYLATE-ATROPINE 2.5 MG-0.025 MG TABLET 10 tablet 0 CHARIS Class: C-V ARPIT: No ALLERGIES No Known Allergies (home) [phone] (cell) Last Office Visit Date: 11/13/2020 Last [facility] Visit: Visit date not found Future Appointment: Visit date not found The patients preferred pharmacy has been captured for this encounter? yes Request is for script(s) to be escript to pharmacy. Casie Lubin MA refill documented in this encounterGalion Hospital04-13-2022 Miscellaneous Notes* Telephone Encounter - Karey Atkins MA - 08/28/2021 11:08 AM EDT Pharmacy faxed requesting the following refill Refill(s) Requested: Pending Prescriptions Disp Refills DIPHENOXYLATE-ATROPINE 2.5 MG-0.025 MG TABLET 10 tablet 0 Sig: TAKE 1 TABLET BY MOUTH FOUR TIMES DAILY NEEDED FOR DIARRHEA for up to TEN doses CHARIS Class: C-V ARPIT: Yes ALLERGIES No Known Allergies (home) [phone] (cell) Last Office Visit Date: 11/13/2020 Last [facility] Visit: Visit date not found Future Appointment: Visit date not found The patients preferred pharmacy has been captured for this encounter? yes Request is for script(s) to be escript to pharmacy. Karey Atkins MA documented in this encounterGalion Hospital07-05-2021 NoteHNO ID: [id number] Author: Todd Romero II, MD Service: ? Author Type: Physician Type: Progress Notes Filed: 11/19/2020 8:14 PM Note Text: Todd Romero II, MD [address], [place] [address] SUBJECTIVE Nora Cameron is a 30 year old female who presents with [facility]. HPI Patient is in today to get reestablished and to discuss anxiety. 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 Musc (more content not included)...[facility] No data available for this section [facility] Evaluation note* Diagnosis Diarrhea, unspecified type documented in this encounter [facility]* Diagnosis Migraine without aura and without status migrainosus, not intractable- Primary Migraine without aura, without mention of intractable migraine without mention of status migrainosus DARVIN (generalized anxiety disorder) Generalized anxiety disorder Irritable bowel syndrome with diarrhea Irritable bowel syndrome Diarrhea, unspecified type documented in this encounter [facility]* Diagnosis Diarrhea, unspecified type documented in this encounter [facility]* Diagnosis Diarrhea, unspecified type documented in this encounter [facility] note* Diagnosis Onset Date Resolution Status History of miscarriage, currently acute acute Supervision of high risk , antepartum acute Incomplete acute [facility] Work Phone: Evaluation note* Diagnosis Onset Date Resolution Status History of miscarriage, currently acute acute Supervision of high risk , antepartum acute Incomplete acute History of recurrent miscarriages acute [facility] Work Phone: evaluation note* Diagnosis Diarrhea, unspecified type documented in this encounter [facility] note* Diagnosis Routine physical examination- Primary Routine general medical examination at a health care facility documented in this encounter [facility]* Diagnosis Viral URI- Primary Acute upper respiratory infections of unspecified site documented in this encounter [facility] Discharge instructions No data available for this section [facility] Proatess note No data available for this section [facility] progress note Author Vaibhav Hale [facility] Note Date/Time November 03, 2024 11:4 5am [facility] [address], [address] [place] [address] OFFICE VISIT Date of Service: 11/03/24 MR#: [id number] Acct: [id number] Name: NORA CAMERON Rep #: [id number] : 1990 Provider: ANGELA Hale Age/Sex: 34/F Location: [facility] [place] Status: Signed Intake Vital Signs 08/22/24 08:29 10/18/24 11:09 11/03/24 11:04 11/03/24 11:04 Height 5 ft 3 in 5 ft 3 in 5 ft 3 in 5 ft 3 in Weight: 141 lb 6 oz BMI 25.0 BP 111/70 Intake Visit Reasons: 30wk ob Field Checker 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 Is patient in pain?: No [...] of abnormal cervical Pap smear Surgical History [place] teeth extracted History of colposcopy Family History [...] 3-4 times per week duration: 30-45 minutes/day michael/taoist: Oriental Orthodox seatbelt use: always do you feel safe at home: Yes additional social history: -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 would like some appts in [facility]. doing well today 07/07/24 -?-?-?-?-?-?-?-?-?-?-?-?- [...] 145 30 -?-?-?-?-?-?-?-?-?-?-?-?- KW- work in for [employer]. blood sugars reviewed and normal. will start [...] and Symptoms of Preeclampsia, Feeding No , [place] Education and Family Medical Leave or Disability [...] Cosigner Signature: Date (if applicable) CC: ~ [facility] Work Phone: Progress note Author Vaibhav Hale [facility] Note Date/Time November 17, 2024 12:[address] [facility] [address], [address] [place] [address] OFFICE VISIT Date of Service: 11/17/24 MR#: [id number] Acct: [id number] Name: NORA CAMERON Rep #: [id number] : 1990 Provider: ANGELA Hale Age/Sex: 34/F [place] [facility] Status: Signed Intake Vital Signs 08/22/24 08:29 11/03/24 11:04 11/17/24 11:36 11/17/24 11:38 Height 5 ft 3 in 5 ft 3 in 5 ft 3 in 5 ft 3 in Weight: 142 lb 6 oz BMI 25.2 BP 112/74 Intake Visit Reasons: 32wk ob Field Checker 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 Is patient in pain?: No [...] of abnormal cervical Pap smear Surgical History [place] teeth extracted History of colposcopy Family History [...] 3-4 times per week duration: 30-45 minutes/day michael/taoist: Oriental Orthodox seatbelt use: always do you feel safe at home: Yes additional social history: -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 would like some appts in [facility]. doing well today 07/07/24 -?-?-?-?-?-?-?-?-?-?-?-?- [...] Symptoms of Preeclampsia, Infant Feeding No , [place] Education and Family Medical Leave or Disability [...] Cosigner Signature: Date (if applicable) CC: ~ [facility] Work Phone: Progrbhm note Author Lindsay Song [facility] Note Date/Time December 29, 2024 6: 11pm [facility] Medical Records Department [address] [place] [address] OB Triage Progress Note 12/29/24 1811 MR#: [id number] Acct: [id number] Name: NORA CAMERON Rep #:[id number] : 1990 34 From: Lindsay eaton MD PCP: Dr. Todd Romero MD Status:REG CLI Y DOS: Location: [place] [address] Progress Notes Date of Service: 12/29/24 Progress Note: Patient presents for triage evaluation secondary to elevated bps FHT: 130 Moderate variability reactive no decelerations category I tracing [place]: no reuglar Contractions Assessment and plan: elevated [...] (0-200) mg/g CRE Charges/Coding Procedures Urinary/Genital 52xxx-59xxx: 19209-98 non-stress test Interp 12/29/24 1811 <Electronically signed by Lindsay gill MD> Date _ Lindsay Song MD Cosigner Signature (if applicable): Date CC: Dr. Todd Romero MD; Dr. Lindsay Song MD ~ Signed [facility] Work Phone: Reason for referral (narrative)No reason for referral information [facility] Work Phone: Summary Purpose Family History [...] section and content) DATE CREATED AUTHOR 08/08/2021 [facility] DATE CREATED AUTHOR AUTHOR'S ORGANIZ ATION 08/23/2021 [facility] DATE CREATED AUTHOR AUTHOR'S ORGANIZ ATION 09/17/2021 [facility] DATE CREATED AUTHOR AUTHOR'S ORGANIZ ATION 12/07/2021 [facility] DATE CREATED AUTHOR AUTHOR'S ORGANIZ ATION 09/24/2022 [facility] DATE CREATED AUTHOR AUTHOR'S ORGANIZ ATION 04/13/2024 [facility] DATE CREATED AUTHOR AUTHOR'S ORGANIZ ATION 08/23/2024 [facility] DATE CREATED AUTHOR AUTHOR'S RUBINA BROWN 01/04/2025 [facility] Source Comments (unrecognize d section and content) In the event this informatio n is protected by the Federal Confidentiality of Alcohol and Drug Abuse Patient Records regulations: The Federal rules restrict any use of the information to criminally investigate or prosecute any alcohol or drug abuse patient.[facility] HospitalIn the event this information is protected by the Federal Confidentiality of Alcohol and Drug Abuse Patient Records regulations: The Federal rules restrict any use of the information to criminally investigate or prosecute any alcohol or drug abuse patient.[facility] HospitalIn the event this information is protected by the Federal Confidentiality of Alcohol and Drug Abuse Patient Records regulations: The Federal rules restrict any use of the information to criminally investigate or prosecute any alcohol or drug abuse patient.[facility] HospitalIn the event this information is protected by the Federal Confidentiality of Alcohol and Drug Abuse Patient Records regulations: The Federal rules restrict any use of the information to criminally investigate or prosecute any alcohol or drug abuse patient.[facility] HospitalIn the event this information is protected by the Federal Confidentiality of Alcohol and Drug Abuse Patient Records regulations: The Federal rules restrict any use of the information to criminally investigate or prosecute any alcohol or drug abuse patient.[facility] HospitalIn the event this information is protected by the Federal Confidentiality of Alcohol and Drug Abuse Patient Records regulations: The Federal rules restrict any use of the information to criminally investigate or prosecute any alcohol or drug abuse patient.[facility] HospitalIn the event this information is protected by the Federal Confidentiality of Alcohol and Drug Abuse Patient Records regulations: The Federal rules restrict any use of the information to criminally investigate or prosecute any alcohol or drug abuse patient.[facility] HospitalIn the event this information is protected by the Federal Confidentiality of Alcohol and Drug Abuse Patient Records regulations: The Federal rules restrict any use of the information to criminally investigate or prosecute any alcohol or drug abuse patient.[facility] HospitalIn the event this information is protected by the Federal Confidentiality of Alcohol and Drug Abuse Patient Records regulations: The Federal rules restrict any use of the information to criminally investigate or prosecute any alcohol or drug abuse patient.[facility] HospitalIn the event this information is protected by the Federal Confidentiality of Alcohol and Drug Abuse Patient Records regulations: The Federal rules restrict any use of the information to criminally investigate or prosecute any alcohol or drug abuse patient.[facility] HospitalIn the event this information is protected by the Federal Confidentiality of Alcohol and Drug Abuse Patient Records regulations: The Federal rules restrict any use of the information to criminally investigate or prosecute any alcohol or drug abuse patient.[facility] HospitalIn the event this information is protected by the Federal Confidentiality of Alcohol and Drug Abuse Patient Records regulations: The Federal rules restrict any use of the information to criminally investigate or prosecute any alcohol or drug abuse patient.[facility] Reason for Visit (unrecogniz ed section and content) Reason Comments Refill Request Reason Onset Date Comments Refill Request 08/29/2021 Reason Comments Rx Refills Specialty Diagnoses / Procedures Referred By Controsio t Referred To Contact [facility] Diagnoses refill medication Procedures refill medication Todd Romero II, MD [address] [place] [address] [place] [address] [place] [address] Referral ID Status Reason Start Date Expiration Date V isits Requested Visits Authorized [id number] Closed Financial Clearance Not Required 09/04/2021 09/04/2022 [...] Inactive Member Role/Relationship Status Dates Erinn Jordan HOP SEPARATOR, HOP SEPARATOR-C Attending Provider Active Start: October 12, 2024 End: October 12, 2024 Team Status: Inactive Member Role/Relationship Status Dates Erinn Jordan HOP SEPARATOR, HOP SEPARATOR-C Attending Provider Active Start: October 18, 2024 End: November 14, 2024 Erinn Jordan HOP SEPARATOR, HOP SEPARATOR-C Referring Provider Active Start: October 18, 2024 [...] Inactive Member Role Status Dates Erinn Jordan HOP SEPARATOR, HOP SEPARATOR-C Attending Provider Active Start: August 22, 2024 End: August 22, 2024 Team Status: Inactive Member Role Status Dates Dr. Lindsay Song MD Attending Provider Active Start: September 16, 2024 End: September 16, 2024 Team Status: Active Member Role Status Dates Erinn Jordan HOP SEPARATOR, HOP SEPARATOR-C Attending Provider Active Start: October 12, 2024 Erinn Jordan HOP SEPARATOR, HOP SEPARATOR-C Referring Provider Active Start: October 12, 2024 Team Status: Inactive Member Role Status Dates Erinn Jordan HOP SEPARATOR, HOP SEPARATOR-C Attending Provider Active Start: October 12, 2024 End: October 12, 2024 Product Management Specialist Relationship Specialty Start Date End Date Todd Romero II, MD [address] [place] [address] [place] [address] PCP - General Family Medicine 11/13/20 Team [...] DO Attending Provider, Refe rring Provider Active Product Management Specialist Relationship Specialty Start Date End Date Todd Romero II, MD [address] [facility] [place] [address] PCP - [facility] 11/13/20 Product Management Specialist Relationship Specialty Start Date End Date Todd Romero II, MD [address] [facility] [address] [place], [place] [id number] PCP - [facility] 11/13/20 Goals (unrecognized section [...] BE BASED ON THE PRIMARY CLINICAL RECORDS. [employer] provides no warranty or guarantee of the accuracy or completeness of information in this document.
--- NOTE | 2025-01-08 08:55 | HP.PCM.OB_ITS ---
HPI - General General Date of Admission: 01/08/25 HPI Narrative NORA CAMERON, is a 34 F who presents with clear SROM since 1030 last evening. irregular ctx but now becoming more frequent no vb good fm Maternal Data Information TREVON Calculator Estimated Delivery Date Method Current WG Current Estimate 01/13/25 LMP (Certain) 39w 2d Other Estimates 01/10/25 Ultrasound #1 39w 5d PFSH PFS Medical History (Updated 01/08/25 @ 16:[address] Lindsay Song MD) History of recurrent miscarriages Anxiety Gestational diabetes mellitus (GDM) Hx of abnormal cervical Pap smear Home Medications ?Medication ?Instructions ?Recorded ?Last Taken ?Type multivitamin no.47-iron fum 27 1 cap PO DAILY pregnanc y 05/23/22 01/07/25 19:30 History mg-folate no.1 1 mg-dha 300 mg 1 cap capsule (PNV-DHA) cod liver oil 1 cap PO ONCE 04/27/2412/28 22:00 History 1 cap thyroid support PO 04/27/24 12/28/24 22:00 H istory cholecalciferol (vitamin D3) 25 25 mcg PO ONCE 5 01/07/25 19:30 History mcg/drop (1,000 unit/drop) oral 25 mcg drops blood sugar diagnostic (Blood #120 10/12/24 Unknown Rx Glucose Test strips) blood-glucose meter #1 10/12/24 Unknown Rx lancets #200 10/12/24 Unknown Rx Allergy/AdvReac Type Severity Reaction Status Date / Time No Known Allergies Allergy Verified 01/08/25 03:51 Family History Grandmother Colon cancer, Onset Age: 92 Paternal Mother Myocardial infarction, Onset Age: 64 2022 Grandfather Myocardial infarction Maternal Surgical History [place] teeth extracted History of colposcopy Social History adopted: No household members: spouse housing: house current occupational status: employed current occupation: [employer]- [employer] current occupational exposures/hazards: No pets and animals: No history of recent travel: No ([place], [place]) sexually active: Yes Smoking Status: Never smoker alcohol intake: former details: occasionally prior to substance use type: does not use well-balanced diet: daily or most days caffeine: No eating out: 1-3 times/week during the past year weight has: remained stable what type of physical activity do you participate in: walking and weight training frequency: 3-4 times per week duration: 30-45 minutes/day michael/denominational: Christianity seatbelt use: always do you feel safe at home: Yes additional 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 Date Name GA/Weeks Outcome Route Bth Weight Gen Labor Lgth Anesthesia Del Locatn Provider FOB 02/26/21 miscarriage 5 1/2 weeks 07/06/21 miscarriage 8 1/2 weeks 06/05/22 miscarriage 9wks Visit Details Expected Delivery Route/Plan Labor Preferences- CB/BF classes: encouraged labor support person: Power labor intervention preferences: prefers pain management options preferred: limited but epidural if requested, okay with touch, guided breathing, tub, hydrotherapy cut cord/dad catch: yes : yes PP control planned: discussed discussed possible routes of delivery and associated risks: [] special requests: [] Plans Covid status: [] Flu vaccine: [] Tdap vaccine: Rhogam: na LARC form signed: yes Problem list reviewed and updated with the most current plan of care details and appropriate orders placed. Relevant counseling for the gestational age provided. Continue routine care and follow up unless otherwise noted in visit notes/problem list details OB Flowsheet Initial Weight: 124 lb Date -?-?-?-?-?-?-?-?-?-?-?-?- EGA Weight BP Urine Prot -?-?-?-?-?-?-?-?-?-?-?-?- Glucose FHR FuHt Pres Dilation -?-?-?-?-?-?-?-?-?-?-?-?- Effaced St Visit Note 06/10/24 -?-?-?-?-?-?-?-?-?-?-?-?- 9w 0d 124 lb 4 oz (+4 oz) 122/80 -?-?-?-?-?-?-?-?-?-?-?-?- 182 -?-?-?-?-?--?-?-?-?-?-?-?- KW- CRL cons wit h dates. declines NIPT KW- CRL cons with dates. dec lines NIPT. would like some appts in [facility]. doing well today 07/07/24 -?-?-?-?-?-?-?-?-?-?-?-?- 12w 6d 124 lb 6 oz (+6 oz) 112/78 Negative -?-?-?-?-?-?-?-?-?-?-?-?- Negative 160 -?-?-?-?-?-?-?-?-?-?-?-?- KW- no vb/crampi ng. anatomy US ordered. NIPT requested. FHT and movement noted on handheld US 07/28/24 -?-?-?-?-?-?-?-?-?-?-?-?- 15w 6d 126 lb (+2 lb) 122/73 Negative -?-?-?-?-?-?-?-?-?-?-?-?- Negative 146 -?-?-?-?-?-?-?-?-?-?-?-?- JV- lots of ques tions answered today. no complaints. NIPT reviewed. low risk boy 08/22/24 -?-?-?-?-?-?-?-?-?-?-?-?- 19w 3d 129 lb 6 oz (+5 lb 6 oz) 100/64 Negative -?-?-?-?-?-?-?-?-?-?-?-?- Negative 156 -?-?-?-?-?-?-?-?-?-?-?-?- MH-No VB, LOF. G ood Fm. MFM US today 09/16/24 -?-?-?-?-?-?-?-?-?-?-?-?- 23w 0d 134 lb (+10 lb) 108/71 Negative -?-?-?-?-?-?-?-?-?-?-?-?- Negative 150 -?-?-?-?-?-?-?-?-?-?-?-?- SM- no vb lof go od fm no regular ctx 10/12/24 -?-?-?-?-?-?-?-?-?-?-?-?- 26w 5d 139 lb 8 oz (+15 lb 8 oz) 112/68 Negative -?-?-?-?-?-?-?-?-?-?-?-?- Negative 145 -?-?-?-?-?-?-?--?-?-?-?-?- MH-No Vb, LOF. G ood FM. 1 hr GCT today and is 190: GDM. Reviewed QID testing, supplies ordered, dietitian referral. Keep diet and glucose journal and bring each visit. 11/03/24 -?-?-?-?-?-?-?-?-?-?-?-?- 29w 6d 141 lb 6 oz (+17 lb 6 oz) 111/70 Negative -?-?-?-?-?-?-?-?-?-?-?-?- Negative 145 30 -?-?-?-?-?-?-?-?-?-?-?-?- KW- work in for JV. blood sugars reviewed and normal. will start doing fasting and one PP daily. class next weekend. 11/17/24 -?--?-?-?-?-?-?-?-?-?-?-?- 31w 6d 142 lb 6 oz (+18 lb 6 oz) 112/74 Negative -?-?-?-?-?-?-?-?-?-?-?-?- Negative 135 32 -?-?-?-?-?-?-?-?-?-?--?-?- KW- no vb/lof/ct x. good fm. fasting numbers well limits. growth US ordered. 12/01/24 -?-?-?-?-?-?-?-?-?-?-?-?- 33w 6d 146 lb 4 oz (+22 lb 4 oz) 113/74 Negative -?-?-?-?-?-?-?-?-?-?-?-?- Negative 143 33 -?-?-?-?-?-?-?-?-?-?-?-?- JV- fasting leve ls 80's, 2 hr pp are also normal. 12/15/24 -?-?-?-?-?-?-?-?-?-?-?-?- 35w 6d 149 lb 6 oz (+25 lb 6 oz) 126/71 Negative -?-?-?-?-?-?-?-?-?-?-?-?- Negative 140 35 -?-?-?-?-?-?-?-?-?-?-?-?- SM- BS controlle d discussed reduced testing schedule unless becomes abnormal no vb lof good fm no regular ctx 12/23/24 -?-?-?-?-?-?-?--?-?-?-?-?- 37w 0d 150 lb 5 oz (+26 lb 5 oz) 135/74 Negative -?-?-?-?-?-?-?-?-?-?-?-?- Negative 140 37 -?-?-?-?-?-?-?-?-?-?-?-?- KW- no vb/lof/ r eg ctx. good fm. GBS today and declines SVE 12/29/24 -?-?-?-?-?-?-?-?-?-?-?-?- 37w 6d 151 lb 2 oz (+27 lb 2 oz) 143/80 Negative -?-?-?-?-?-?-?-?-?-?-?-?- Negative 140 38 Cephalic 1 -?-?-?-?-?-?-?-?-?-?-?-?- SM- n ovb lof go od fm well controlled diabetes discussed IOL by due date or a little after 01/03/25 -?-?-?-?-?-?-?-?-?-?-?-?- 38w 4d 150 lb 8 oz (+26 lb 8 oz) 129/86 Negative -?-?-?-?-?-?-?-?-?-?-?-?- Negative 150 38 Cephalic 2 -?-?-?-?-?-?-?-?-?-?-?-?- 60 -2 JV- no lof , vag bleeding or dec fm. glucose levels normal. plan membrane strip next visit NST FHR Rate Baby A Baseline: 140 Variability:: Moderate Accelerations:: 15 x 15 Decelerations:: None NST Reactive:: Yes FHR Category:: Category I Uterine Activity:: q3-5 ROS Constitutional Constitutional: Reports systems reviewed and no addt'l complaints, except as documented ENT HEENT: Reports systems reviewed and no addt'l complaints, except as documented Cardiovascular Cardiovascular: Reports systems reviewed and no addt'l complaints, except as documented Respiratory/Chest Respiratory/Chest: Reports systems reviewed and no addt'l complaints, except as documented Gastrointestinal Gastrointestinal: Reports systems reviewed and no addt'l complaints, except as documented and nausea; Denies abdominal pain Genitourinary Genitourinary: Reports systems reviewed and no addt'l complaints, except as documented, contractions Details: present and frequency (regular ) and movement Details: present Musculoskeletal Musculoskeletal: Reports systems reviewed and no addt'l complaints, except as documented Integumentary Integumentary: Reports as per HPI Neurologic Neurologic: Reports systems reviewed and no addt'l complaints, except as documented Endocrine Endocrinology: Reports systems reviewed and no addt'l complaints, except as documented Vital Signs Vital Signs Vital Signs: 01/08/25 03:49 01/08/25 03:49 01/08/25 03:49 Temperature Temperature Source Pulse Rate 86 Respiratory Rate Blood Pressure 133/81 H BP Systolic 133 BP Diastolic 81 Pulse Ox 91 01/08/25 03:49 01/08/25 03:50 01/08/25 03:50 Temperature Temperature Source Pulse Rate 96 Respiratory Rate Blood Pressure BP Systolic BP Diastolic Pulse Ox 97 96 01/08/25 03:55 01/08/25 04:39 01/08/25 04:39 Temperature Temperature Source Temporal Pulse Rate Respiratory Rate 16 16 Blood Pressure BP Systolic BP Diastolic Pulse Ox 01/08/25 04:39 01/08/25 04:40 01/08/25 04:40 Temperature 97.7 F L Temperature Source Pulse Rate 83 Respiratory Rate Blood Pressure 128/76 H BP Systolic 128 BP Diastolic 76 Pulse Ox 01/08/25 06:26 01/08/25 06:26 01/08/25 06:26 Temperature Temperature Source Pulse Rate 80 Respiratory Rate Blood Pressure 130/77 H BP Systolic 130 BP Diastolic 77 Pulse Ox 97 01/08/25 06:26 01/08/25 06:26 01/08/25 06:26 Temperature 98.4 F Temperature Source Pulse Rate Respiratory Rate 16 Blood Pressure BP Systolic BP Diastolic Pulse Ox 96 01/08/25 07:38 01/08/25 07:38 01/08/25 07:38 Temperature Temperature Source Temporal Pulse Rate 112 H Respiratory Rate Blood Pressure 132/81 H BP Systolic 132 BP Diastolic 81 Pulse Ox 01/08/25 07:38 01/08/25 07:38 01/08/25 07:38 Temperature 98.0 F Temperature Source Pulse Rate Respiratory Rate 16 Blood Pressure BP Systolic BP Diastolic Pulse Ox 96 01/08/25 08:50 01/08/25 08:50 01/08/25 08:51 Temperature Temperature Source Pulse Rate 108 H 117 H Respiratory Rate Blood Pressure 122/69 H BP Systolic 122 BP Diastolic 69 Pulse Ox 01/08/25 08:51 01/08/25 08:52 01/08/25 08:52 Temperature Temperature Source Temporal Pulse Rate Respiratory Rate 18 Blood Pressure BP Systolic BP Diastolic Pulse Ox 96 01/08/25 08:52 01/08/25 08:52 Temperature 98.1 F Temperature Source Pulse Rate Respiratory Rate Blood Pressure BP Systolic BP Diastolic Pulse Ox 96 Weight Weight: 148 lb Body Mass Index (BMI) 25.4 Physical Exam Const alert, oriented x3 and healthy appearing Constitutional Narrative: uncomfortable with contractions HEENT normocephalic and moist oral mucous membranes Head and Scalp: atraumatic Neck full ROM, no lymphadenopathy, supple and thyroid normal General: trachea midline Thyroid: thyroid normal Lymph Lymphatic: no lymphadenopathy noted Chest inspection of chest normal Resp normal respiratory effort Cardio regular rate GI soft to palpation and non-tender GI Narrative: gravid Inspection: gravid external exam normal Bimanual Exam - Vag & Uterus: uterus non-tender Manual OB Exam: estimated gestational size appropriate, presentation cephalic, dilated, effaced and station Extremity normal to inspection General Extremity: Negative for edema Skin no rashes or lesions noted Neuro deep tendon reflexes 2+ bilaterally Motor Exam: strength 5/5 throughout and clonus absent Psych mental status grossly normal Labs Labs Labs: Blood Type AB POSITIVE Antibody Screen NEGATIVE Hct 35.3 % (37-47) L Hgb 12.4 g/dL (12.0-15.0) Obstetrics Ultrasound Syphilis Total Ab Nonreactive (Nonreactive) Rubella IgG Antibody Reactive (Nonreactive) Hep Bs Antigen Non-Reactive (Nonreactive) Hepatitis C Antibody Non-Reactive (Nonreactive) Chlamydia DNA (JESÚS) Negative (Negative) N.gonorrhoeae DNA (JES[facility]S) Negative (Negative) HIV 1&2 Antibody Nonreactive (Nonreactive) Glucose 1 Hr 50 gm 190 mg/dL (70-140) H Assessment & Plan (1) History of recurrent miscarriages: COMMENT: nl APL X 3 (2) : QUALIFIERS: Weeks of gestation: 38 weeks Qualified Code(s): Z3A.38 - 38 weeks gestation of COMMENT: GBS neg, NIPT low risk, gender male. nl anatomy (3) Supervision of high-risk : QUALIFIERS: Trimester: second trimester Qualified Code(s): O09.92 - Supervision of high risk , unspecified, second trimester COMMENT: PRR, , TREVON 01/13/25, boy (name secret) Power (4) Anxiety: COMMENT: 5 yr ago, situational, hydroxyzine prn then. Stable now (5) Gestational diabetes mellitus (GDM): QUALIFIERS: Gestational diabetes mellitus control: diet-controlled Trimester: second trimester Qualified Code(s): O24.410 - Gestational diabetes mellitus in , diet controlled COMMENT: well controlled, discussed reduced testing unless uncontrolled. plan dleiveyr by 40, Growth US at 36w-80% (6) SROM (spontaneous rupture of membranes): PLAN: Plan prefers mninimal intervention, no signs of infeciton, supportive care exp managmenet
[2025-01-08] MEDS: Lactated Ringers 1,000 ML 999 ML IV (14:20)
[2025-01-08] MEDS: fentaNYL-bupivacaine (epidural) 100 ML BAG EPIDURAL ×2 (15:18→19:52)
[2025-01-08] MEDS: Lactated Ringers 1,000 ML 200 ML IV ×2 (15:30→19:53)
--- NOTE | 2025-01-08 16:35 | PCM.PN.BLA ---
Progress Note s/p epidural now current tracing: FHT: 130 Moderate variability reactive no decelerations category I tracing [place]: q 2-5 Contractions reviewed tracing abnormalities since last note: prolonged decl with good recovery A/P: start pitocin now 6 cm , minimal change, overall reassuring FHT
[2025-01-08] MEDS: Oxytocin 15 Units/NS 250ml 15 UNITS/250 ML IV.SOLN 2 UNITS IV (16:42)
[2025-01-08] MEDS: LACTATED RINGERS 500 ML 999 ML IV (18:56)
--- NOTE | 2025-01-08 19:52 | PCM.PN.BLA ---
Progress Note op and 9 cm, attempted manual rotation and unable to reduce. position changes to hands and knees. deceleration to 90s with recovery tot 140s with moderate variability. continue exp mangaement no pitocin. recheck in 1 hr or less dpending on tracing.
[2025-01-09] VITALS (48 sets, daily range): BP systolic 93–136; BP diastolic 46–75; PULSE 71–122; RESP 14–20; TEMP 36.1–38.6; O2SAT 93–99
--- NOTE | 2025-01-09 00:32 | PN_ITS ---
Progress Note pushing fairly effectively current tracing: FHT: 170-180 Moderate variability positive scalp stim early decelerations category II tracing [place]: q2-4 Contractions reviewed tracing abnormalities since last note: late decels resolved with position changes A/P: continue pushing, temp 99, will monitor and start antibiotics if over 100.4
[2025-01-09] MEDS: Lactated Ringers 1,000 ML 200 ML IV (00:58)
[2025-01-09] MEDS: fentaNYL-bupivacaine (epidural) 100 ML BAG EPIDURAL (01:40)
[2025-01-09] MEDS: Gentamicin IV 270 MG in Dextrose 5%-Water (50mL Bag) 50 ML 100 MG IV (02:30)
[2025-01-09] MEDS: Ampicillin 2 GM in 0.9% Normal Saline (100mL MB+) 100 ML IV ×2 (02:31→08:25)
[2025-01-09] MEDS: Lidocaine 1% (20 ml mdv) 20 ML Vial INFILT (02:47)
[2025-01-09 02:52] LABS: Hematocrit 33.8 % (37-47); Hemoglobin 11.7 g/dL (12.0-15.0); Immature Granulocytes Count 0.080 X10^3/uL (0.0-0.0); Mean Corp Hgb Conc 34.6 g/dL (32-36); Mean Corpuscular Volume 94.4 fL (81-99); Mean Platelet Vol. 11.2 fl (6.2-12.0); NRBC Flagged by Analyzer 0 % (0-5); Platelet Count 184 K/mm3 (150-450); RBC Distribution Width CV 13.1 % (11.6-14.6); RBC Distribution Width SD 45.3 fl (35.1-43.9); Red Blood Count 3.58 M/mm3 (4.2-5.4); White Blood Count 12.8 K/mm3 (4.4-11.0)
[2025-01-09 03:01] LABS: Prothrombin Time (Protime)PT. 13.7 SECONDS (11.7-14.9)
[2025-01-09 03:02] LABS: Partial Thromboplast Time 25.0 Seconds (24.1-36.2)
[2025-01-09 03:11] LABS: AST(SGOT) 31 U/L (<=31); Alanine Aminotransfer ALT/SGPT 12 U/L (<=34); Albumin, Serum 3.3 g/dL (3.5-5.0); Alkaline Phosphatase 219 U/L (35-104); Anion Gap 17 (5-15); BUN 11 mg/dL (4-19); BUN/Creat Ratio 10.3 RATIO (10-20); Calcium,Total 8.3 mg/dL (7.6-11.0); Carbon Dioxide 17.1 mmol/L (21.0-32.0); Chloride 99 mmol/L (98-108); Estimated Creatinine Clearance 73.16 ml/min (50-250); Globulin 2.2 g/dL (2.2-4.2); Glucose 86 mg/dL (70-99); Potassium 3.9 mmol/L (3.3-5.1)
[2025-01-09 03:19] LABS: CPK Total, Creatine Kinase 255 U/L (24-195)
[2025-01-09] MEDS: Oxytocin 15 Units/NS 250ml 15 UNITS/250 ML IV.SOLN 83 UNITS IV (03:30)
--- NOTE | 2025-01-09 03:34 | OB.VAGDELI_ITS ---
Assessment & Plan (1) SROM (spontaneous rupture of membranes): (2) Gestational diabetes mellitus (GDM): QUALIFIERS: Gestational diabetes mellitus control: diet-controlled Trimester: second trimester Qualified Code(s): O24.410 - Gestational diabetes mellitus in , diet controlled COMMENT: well controlled, discussed reduced testing unless uncontrolled. plan dleiveyr by 40, Growth US at 36w-80% (3) Anxiety: COMMENT: 5 yr ago, situational, hydroxyzine prn then. Stable now (4) Supervision of high-risk : QUALIFIERS: Trimester: second trimester Qualified Code(s): O09.92 - Supervision of high risk , unspecified, second trimester COMMENT: PRR, , TREVON 01/13/25, boy (name secret) Power (5) : QUALIFIERS: Weeks of gestation: 38 weeks Qualified Code(s): Z3A.38 - 38 weeks gestation of COMMENT: GBS neg, NIPT low risk, gender male. nl anatomy (6) History of recurrent miscarriages: COMMENT: nl APL X 3 (7) Vaginal delivery: COMMENT: SM SROM IAL boy vitaly triple I (8) Chorioamnionitis in third trimester: COMMENT: amp gent Maternal Data Information TREVON Calculator Estimated Delivery Date Method Current WG Current Estimate 01/13/25 LMP (Certain) 39w 3d Other Estimates 01/10/25 Ultrasound #1 39w 6d Vaginal Delivery Maternal Presentation Maternal Presentation: see assessment and plan Vaginal Delivery Information Procedure Performed: Spontaneous Vaginal Delivery Surgeon/Practitioner: Lindsay Song Date of Procedure: 01/09/25 Pre-Procedure Diagnosis: see assessment and plan Post-Procedure Diagnosis: same Type of anesthesia: Epidural Findings Description of procedure: while pushing she developed tachycardia followed by a maternal temp of 100.6 then 101.6. antibiotics ordered. Patient began pushing and delivered the head in the BELKIS presentation. The head was delivered atraumatically. The anterior and posterior shoulders delivered without complication followed by the rest of the infant and the infant was placed on the maternal abdomen. Delayed cord clamping was employed for approximately 60 seconds. Cord was clamped and cut and gentle traction was applied to the cord and the placenta delivered spontaneously immediately following it was noted to be intact with three-vessel cord. The perineum and vagina were inspected and was noted to have a second - degree laceration that was repaired in the usual fashion with 3-0 vicryl rapide . EBL was 300. Patient and infant tolerated delivery well. Presentation: Vertex Placental Delivery Description: Spontaneous Specimen collected: Yes Description of specimen(s) removed: placenta Civil Engineering Technician manager trade: No Post Vaginal Deli Medications given after delivery: Other (pitocin) Complication Complications: No Multi Select Codes Urinary/Genital Urinary/Genital CPT Codes: 33462 Vaginal Delivery [facility]
--- NOTE | 2025-01-09 03:38 | DCINST_ITS ---
Discharge Instructions DC O2, CPAP, BIPAP needs Home O2 Discharge instructions: No Dressing / Incision Discharge Activity: Return to Normal Activity, May Not Drive (while taking narcotic pain medications.) and May Shower May resume sexual activity in: 4-6 weeks Dressing / Incision Call your doctor if your incision/area has: Continuous Slow Oozing, Sudden Increased Bleeding, Increased Pain/ Swelling, Increased Redness and Foul Smelling Discharge Follow Up Care Please Follow Up With: Lindsay Song MD When: Call [phone] to make an appointment with your doctor in 6 weeks. If you had elevated blood pressure or 4th degree laceration, you will need to be seen in 2 weeks. Test Results: Test results from this visit will be discussed in further detail at your follow- up appointment, if applicable. Discharge Plan Admission Admit Date/Time: 01/08/25 04:14 Attending Provider: Lindsay Song Primary Care Provider: He Lennon Discharge Orders/Prescriptions Prescriptions: No Action PNV-DHA 27 mg iron-1 mg -300 mg capsule 1 cap PO DAILY thyroid support PO cod liver oil Capsule 1 cap PO ONCE cholecalciferol (vitamin D3) 25 mcg/drop ( 1,000 unit/drop) drops 25 mcg PO ONCE (DME) blood-glucose meter Misc See Rx Instructions .MEDSUPPLY Qty: 1 0RF Rx Instructions: As directed- Test fasting and 2 hours after meals (DME) lancets Misc See Rx Instructions .MEDSUPPLY Qty: 200 5RF Rx Instructions: As directed-fasting & 2 hr post meals (DME) Blood Glucose Test Strip See Rx Instructions .MEDSUPPLY Qty: 120 5RF Rx Instructions: As directed-fasting & 2 hr post meals Referrals / Follow Up: He Lennon MD [Primary Care Provider] -
--- NOTE | 2025-01-09 04:05 | PLAC_PTH ---
PATIENT: NORA CAMERON LOC: WP U#:[id number] AGE/SX: 34/F ROOM: WP006 RE01/08/[address]: Dr. Lindsay Song MD : 1990 BED: 1 DIS: 01/10/2025 SPEC #: [id number] RECD: 01/09/25 04:13 STATUS: JUSTICE RECecile #: [id number] JASON: 01/09/25 04:[address]: Lindsay Song DEPT: SURGICAL PATHOLOGY RECD BY: Scar Dee ENTERED: 01/09/25 10:43 SP TYPE: PLACENTA OTHR DR: Dr. He Lennon MD Tissues: A - Placenta, NOS Procedures: Surgery Specimen Level V HEADER OPERATION: Vaginal delivery PRE-OP DIAGNOSIS: Sepsis TISSUE SUBMITTED: A- Placenta MICROSCOPIC DIAGNOSIS A. Placenta, (gestational age of 39 weeks / 3 days), vaginal delivery: * Eccentrically inserted and trivascular umbilical cord with vascular redundancies (false knots) and acute funisitis * Marginally inserted membranes with acute chorioamnionitis * Mature (third trimester and consistent with stated gestational age of 39 weeks/3days) placenta with acute chorioamnionitis, succenturiate lobes with transmural infarction, and two benign chorangiomata MICROSCOPIC DESCRIPTION A microscopic examination has been performed. GROSS DESCRIPTION A. Received in formalin labeled with the patient's name and date of is a 452.4 g, 18.4 x 18.3 x 1.8 cm ovoid placental disc, with two possible succenturiate lobes. The membranes are jones-yellow to green and translucent, inserting marginally. The attached, trivascular umbilical cord few false knots and measures 30.5 in length by 1.2-01 0.8 in diameter and inserts eccentrically, 6.9 cm from the disc edge. The surface is purple-blue with green discoloration and arborizing vasculature. The maternal surface is dark red-brown with a focally torn and frayed appearance and patchy fibrin (<15%); grossly the maternal surface appears complete. Sectioning reveals dark red, boggy and congested parenchyma with patchy hemorrhage and fibrin (<25%). There is a 0.8 x 0.7 cm pink, rubbery nodule identified. Cook Syrup Maker sections are submitted as follows: A1: Membrane rollA2: Umbilical cordA3: Placenta with fibrin and possible succenturiate lobesA4: Placenta with hemorrhageA5: Nodule SC 01/09/2025 CPT:92498
[2025-01-09 05:22] LABS: Pathology Specimen OB SEE PATHOLOGY REPORT
[2025-01-09 06:48] LABS: Reflex Lactate? Y
[2025-01-09] MEDS: 0.9% Saline Lock 10 ML Syringe IV (08:26)
[2025-01-09] MEDS: Senna/Docusate Sodium 1 Tablet PO (12:33)
[2025-01-09] MEDS: Benzocaine/Lanolin/Aloe Vera 85 GM Spray 1 SPRAY TOPICAL (12:34)
[2025-01-09 13:04] LABS: Reflex Lactate? Y
[2025-01-10 03:15] VITALS: BP 107/67; PULSE 93; RESP 14; TEMP 36.1; O2SAT 99
[2025-01-10 10:13] VITALS: BP 110/68; PULSE 90; RESP 16; TEMP 36.4; O2SAT 99
[2025-01-10] MEDS: Senna/Docusate Sodium 1 Tablet PO (10:35)
--- NOTE | 2025-01-10 13:09 | PN.OBGYN_ITS ---
Subjective Subjective Patient doing well without complaints. Tolerating PO. Ambulating and voiding without difficulty. feeding well. Denies chest pain, shortness of breath, calf pain/swelling, fevers, chills, lightheadedness. Objective Data Objective Data Vital Signs: Vital Signs Temp Pulse Resp BP Pulse Ox O2 Del Method 97.5 F L 90 16 110/68 99 Room Air 01/10/25 10:13 01/10/25 10:13 01/10/25 10:13 01/10/25 10:13 01/10/25 10:13 01/10/25 10:13 Oxygen Delivery Method Room Air Weight: 148 lb Body Mass Index (BMI) 25.4 Intake & Output: Intake and Output for Last 24 Hours 01/08/25 01/09/25 01/10/25 23:59 23:59 23:59 Intake Total 2597.89 / 2597.89 2901.94 / 2901.94 Output Total 850 / 850 1800 / 1800 Balance 1747.89 / 1747.89 1101.94 / 1101.94 Lab / Micro Data 01/09/25 02:20 01/09/25 02:20 Labs: Laboratory Results - last 24 hr 01/10/25 06:55: POC Glucose 82 ROS Constitutional Constitutional: Reports systems reviewed and no addt'l complaints, except as documented Cardiovascular Cardiovascular: Reports systems reviewed and no addt'l complaints, except as documented Respiratory/Chest Respiratory/Chest: Reports systems reviewed and no addt'l complaints, except as documented Gastrointestinal Gastrointestinal: Reports systems reviewed and no addt'l complaints, except as documented Physical Exam Const alert, oriented x3 and no apparent distress HEENT Head and Scalp: atraumatic Resp normal respiratory effort GI soft to palpation and non-tender Bimanual Exam - Vag & Uterus: uterus non-tender Uterus Palpation: uterus fundus firm (below Umbilicus) Assessment & Plan (1) Chorioamnionitis in third trimester: COMMENT: edilia shah (2) Vaginal delivery: COMMENT: SM SROM IAL boy vitaly triple I (3) SROM (spontaneous rupture of membranes): (4) Gestational diabetes mellitus (GDM): QUALIFIERS: Gestational diabetes mellitus control: diet-controlled Trimester: second trimester Qualified Code(s): O24.410 - Gestational diabetes mellitus in , diet controlled COMMENT: well controlled, discussed reduced testing unless uncontrolled. plan dleiveyr by 40, Growth US at 36w-80% (5) Anxiety: COMMENT: 5 yr ago, situational, hydroxyzine prn then. Stable now (6) Supervision of high-risk : QUALIFIERS: Trimester: second trimester Qualified Code(s): O09.92 - Supervision of high risk , unspecified, second trimester COMMENT: PRR, , TREVON 01/13/25, boy (name secret) Power (7) : QUALIFIERS: Weeks of gestation: 38 weeks Qualified Code(s): Z 3A.38 - 38 weeks gestation of COMMENT: GBS neg, NIPT low risk, gender male. 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 routine post delivery care 2. breast feeding- support given 3. rh positive 4. rubella immune
[2025-01-10 15:30] VITALS: BP 116/72; PULSE 95; RESP 16; TEMP 36.7; O2SAT 97
== END 2025-01-10 18:45 | disposition home or self-care (01) | DRG 805 ==
LOC: WPOUT 07:17 → WP 07:18
PROVIDERS: Admitting Provider Obstetrics & Gynecology; Referring Provider Obstetrics & Gynecology; Visit Provider Obstetrics & Gynecology
DX: O42.02 Full-term premature rupture of membranes, onset of labor within 24 hours of rupture (principal); Z37.0 Single live birth; O41.1230 Chorioamnionitis, third trimester, not applicable or unspecified; O24.420 Gestational diabetes mellitus in childbirth, diet controlled; O99.344 Other mental disorders complicating childbirth; F41.9 Anxiety disorder, unspecified; O76 Abnormality in fetal heart rate and rhythm complicating labor and delivery; O70.1 Second degree perineal laceration during delivery; Z3A.39 39 weeks gestation of pregnancy; Z87.59 Personal history of other complications of pregnancy, childbirth and the puerperium
CPT/HCPCS: 59025; 59050; 76815; 80053; 82550; 82962; 83605; 84112; 85025; 85610; 85730; 86780; 86850; 86900; 86901; 87040; 87077; 88307; 99221; A4216; G0378; J2405